=== PATIENT | male | born 1970 | race Caucasian/White ===

== ENCOUNTER 2016-11-29 11:10 | Emergency (ER) | payer MEDICARE ==
--- NOTE | 2016-11-29 11:14 | ER Document Report ---
ED Medical Screen (RME) - General Stated Complaint: PROBLEM WITH STITCHES Mode of Arrival: Ambulatory Information source: Patient Notes: Patient reports stitches for dialysis catheter become loose and the catheter has become displaced. No bleeding from site. Patient states catheters been in place for the past month. hx: Dialysis, diabetes I have greeted and performed a rapid initial assessment of this patient. A comprehensive ED assessment and evaluation of the patient, analysis of test results and completion of the medical decision making process will be conducted by additional ED providers. TRAVEL OUTSIDE OF THE [place] IN LAST 30 DAYS: No - Related Data Allergies/Adverse Reactions: No Known Allergies Allergy (Verified 11/29/16 11:12) Past Medical History - Past Medical History Cardiac Medical History: Reports: Hx Hypertension Endocrine Medical History: Reports: Hx Diabetes Mellitus Type 1 - insulin pump Renal/ Medical History: Reports: Hx End Stage Renal Disease Psychiatric Medical History: Denies: Hx Depression Past Surgical History: Reports: Hx Orthopedic Surgery - r/t traumas x 2 Physical Exam - Skin Notes: Dialysis catheter to right anterior chest wall with loosened suture
--- NOTE | 2016-11-29 12:28 | ER Document Report ---
ED General - General Chief Complaint: Other Stated Complaint: PROBLEM WITH STITCHES Mode of Arrival: Ambulatory Information source: Patient TRAVEL OUTSIDE OF THE [place] IN LAST 30 DAYS: No - HPI Onset: Yesterday - AT DIALYSIS Quality of pain: No pain Associated symptoms: None Exacerbated by: Denies Relieved by: Denies Similar symptoms previously: No Recently seen / treated by doctor: Yes - DIALYSIS YESTERDAY - Related Data Allergies/Adverse Reactions: iodine Allergy (Verified 11/29/16 11:14) Past Medical History - General Information source: Patient - Social History Smoking Status: Current Every Day Smoker Chew tobacco use (# tins/day): No Frequency of alcohol use: None Drug Abuse: None Family History: None Patient has suicidal ideation: No Patient has homicidal ideation: No - Past Medical History Cardiac Medical History: Reports: Hx Hypertension Endocrine Medical History: Reports: Hx Diabetes Mellitus Type 1 - insulin pump Renal/ Medical History: Reports: Hx End Stage Renal Disease. Denies: Hx Peritoneal Dialysis Psychiatric Medical History: Denies: Hx Depression Past Surgical History: Reports: Hx Orthopedic Surgery - r/t traumas x 2 Review of Systems - Review of Systems Constitutional: No symptoms reported EENT: No symptoms reported Cardiovascular: No symptoms reported Respiratory: No symptoms reported Gastrointestinal: No symptoms reported Musculoskeletal: No symptoms reported Skin: See HPI Neurological/Psychological: No symptoms reported Physical Exam - Vital signs Vitals: Temp Pulse Resp BP Pulse Ox 97.6 F 62 18 164/88 H 98 11/29/16 11:15 11/29/16 11:15 11/29/16 11:15 11/29/16 11:15 11/29/16 11:15 Interpretation: Hypertensive - General General appearance: Appears well, Alert In distress: None - HEENT Head: Normocephalic Eyes: Normal Conjunctiva: Normal Ears: Normal Nasal: Normal Mouth/Lips: Normal Mucous membranes: Normal Pharynx: Normal Neck: Normal - Respiratory Respiratory status: No respiratory distress Chest status: Other - Indwelling PermCath enters the skin in the right subclavicular area. The retention suture has become untied but remains in place. The catheter does not appear to be significantly displaced. There is no evidence of infection. - Cardiovascular Rhythm: Regular - Abdominal Inspection: Normal - Extremities General upper extremity: No: Normal inspection - DIALYSIS FISTULA LEFT FOREARM General lower extremity: Normal inspection - Neurological Neuro grossly intact: Yes Cognition: Normal Orientation: AAOx4 - Psychological Associated symptoms: Normal affect, Normal mood - Skin Skin Temperature: Warm Skin Moisture: Dry Skin Color: Normal Skin Turgor: Elastic Course - Vital Signs Vital signs: Temp Pulse Resp BP Pulse Ox 97.6 F 62 18 164/88 H 98 11/29/16 11:15 11/29/16 11:15 11/29/16 11:15 11/29/16 11:15 11/29/16 11:15 Procedures - Additional Procedures SUTURE RE-INFORCED Time performed: 12:44 Notes: 11/29/16 12:49 Retention suture and surrounding skin was prepped briefly with alcohol, using sterile instruments the ends of the untied suture were re-threaded through the holes in the collar and secured with an overhand knot. The suture was further secured with 2 drops of Dermabond adhesive. Discharge - Discharge Clinical Impression: End stage renal disease on dialysis Displacement of permanent sutures, initial encounter Qualifiers: Encounter type: initial encounter Qualified Code(s): T85.622A - Displacement of permanent sutures, initial encounter Condition: Stable Disposition: HOME, SELF-CARE Additional Instructions: RESUME USUAL CARE OF CATHETER, TRY TO DISTURB IT LITTLE POSSIBLE WHEN BATHING. FOLLOW UP FOR DIALYSIS SCHEDULED. RETURN TO E.R. IF PROBLEMS.
[2016-11-29 12:58] VITALS: BP 162/88
== END 2016-11-29 12:55 | disposition home or self-care (01) ==
LOC: ER 11:10
DX: T85.62 Displacement of other specified internal prosthetic devices, implants and grafts (principal); N18.6 End stage renal disease; Z99.2 Dependence on renal dialysis; F17.210 Nicotine dependence, cigarettes, uncomplicated
CPT/HCPCS: 99281

== ENCOUNTER 2016-12-13 20:38 | Emergency (ER) | payer MEDICARE ==
--- NOTE | 2016-12-13 21:25 | ER Document Report ---
ED Medical Screen (RME) - General Stated Complaint: POSSIBLE HIGH BLOOD SUGAR Notes: Patient states he had a fistula repair in his left arm last week, and had a reaction to IV contrast. Was given prednisone. States his blood sugars were over 600 tonight and he has it checked 3 times. His blood sugars have been elevated since last week. States he cannot get them under control. Does have nausea, no vomiting, took Zofran. Also states about 3 weeks ago he had a chest x-ray that said he had interstitial pulmonary edema, and they have been trying to assist with this through dialysis. Patient states he does have some shortness of breath when he lays back. Denies chest pain. I have greeted and performed a rapid initial assessment of this patient. A comprehensive ED assessment and evaluation of the patient, analysis of test results and completion of the medical decision making process will be conducted by additional ED providers. TRAVEL OUTSIDE OF THE [place] IN LAST 30 DAYS: No - Related Data Allergies/Adverse Reactions: iodine Allergy (Verified 12/13/16 21:30) Past Medical History - Past Medical History Cardiac Medical History: Reports: Hx Hypertension Endocrine Medical History: Reports: Hx Diabetes Mellitus Type 1 - insulin pump Renal/ Medical History: Reports: Hx End Stage Renal Disease. Denies: Hx Peritoneal Dialysis Psychiatric Medical History: Denies: Hx Depression Past Surgical History: Reports: Hx Orthopedic Surgery - r/t traumas x 2 Physical Exam - Vital signs Vitals: Temp Pulse Resp BP Pulse Ox 97.9 F 71 16 171/83 H 96 12/13/16 20:56 12/13/16 20:56 12/13/16 20:56 12/13/16 20:56 12/13/16 20:56 Course - Vital Signs Vital signs: Temp Pulse Resp BP Pulse Ox 97.9 F 71 16 171/83 H 96 12/13/16 20:56 12/13/16 20:56 12/13/16 20:56 12/13/16 20:56 12/13/16 20:56
[2016-12-13 22:17] LABS: ABSOLUTE BASOPHILS # (AUTO) 0.1 10^3/uL (0.0-0.2); ABSOLUTE EOSINOPHILS # (AUTO) 0.2 10^3/uL (0.0-0.6); ABSOLUTE LYMPHOCYTES (AUTO) 0.5 10^3/uL (0.5-4.7); ABSOLUTE MONOCYTES (AUTO) 0.4 10^3/uL (0.1-1.4); ABSOLUTE NEUT (AUTO) 5.2 10^3/uL (1.7-8.2); BASOPHILS % (AUTO) 1.1 % (0-2); EOSINOPHILS % (AUTO) 3.2 % (0-6); HEMATOCRIT 34.4 % (37.9-51.0); HEMOGLOBIN 11.2 g/dL (13.5-17.0); HGB HCT DIFFERENCE -0.8; LYMPHOCYTES % (AUTO) 8.2 % (13-45); MEAN CORPUSCULAR HEMOGLOBIN 33.5 pg (27.0-33.4); MEAN CORPUSCULAR HGB CONC 32.6 g/dL (32.0-36.0); MEAN CORPUSCULAR VOLUME 103 fl (80-97); MONOCYTES % (AUTO) 5.9 % (3-13); RED BLOOD COUNT 3.34 10^6/uL (4.35-5.55); RED CELL DISTRIBUTION WIDTH 16.2 % (11.5-14.0); SEGMENTED NEUTROPHILS % (AUTO) 81.6 % (42-78); WHITE BLOOD COUNT 6.4 10^3/uL (4.0-10.5)
[2016-12-13 22:28] LABS: ALANINE AMINOTRANSFERASE 31 U/L (21-72); ALBUMIN 3.9 g/dL (3.5-5.0); ALKALINE PHOSPHATASE 128 U/L (38-126); ANION GAP 16 (5-19); ASPARTATE AMINO TRANSFERASE 21 U/L (17-59); BILIRUBIN,TOTAL 1.2 mg/dL (0.2-1.3); BLOOD UREA NITROGEN 69 mg/dL (7-20); CALCIUM 9.6 mg/dL (8.4-10.2); CARBON DIOXIDE 21 mmol/L (22-30); CHLORIDE 95 mmol/L (98-107); CREATININE RESULT 7.29 mg/dL (0.52-1.25); SODIUM 132.2 mmol/L (137-145); TOTAL PROTEIN 6.8 g/dL (6.3-8.2)
[2016-12-13] MEDS ORDERED: INSULIN REG, HUMAN 100 UNIT/ML 3 ML VIAL (PYX) IV ONE (22:40)
[2016-12-13 22:42] LABS: POTASSIUM 6.4 mmol/L (3.6-5.0)
[2016-12-13 22:43] LABS: GLUCOSE 643 mg/dL (75-110)
[2016-12-13] MEDS ORDERED: DEXTROSE 50%-WATER 25 GM/50 ML DISP.SYRIN IV PRN ×2 (22:43)
[2016-12-13] MEDS ORDERED: NORMAL SALINE 100 ML with INSULIN REGULAR, HUMAN 100 UNIT IV PRN ×2 (22:43)
[2016-12-13] MEDS ORDERED: DEXTROSE 40% GEL 15 GM TUBE PO PRN ×2 (22:43)
[2016-12-13] MEDS ORDERED: GLUCAGON,HUMAN RECOMB 1 MG INJ IM PRN (22:43)
--- NOTE | 2016-12-13 22:59 | ER Document Report ---
ED General - General Chief Complaint: High Blood Sugar Stated Complaint: POSSIBLE HIGH BLOOD SUGAR Notes: Patient is 46-year-old male who presents with complaint of high blood sugar. Patient says he was placed on prednisone because of receiving a CT scan to look at his fistula. He is dialysis patient. He received else's Wednesday and Wednesday. Prednisone his maximal sugars become very elevated. He is on insulin pump. He bolused himself 4 units a few ours before coming into the ER. His blood sugar read over 600 on his Accu-Chek monitor. He therefore came to ER. Says he's been very thirsty. No fevers. No infections. No other complaints at this time. TRAVEL OUTSIDE OF THE [place] IN LAST 30 DAYS: No - Related Data Allergies/Adverse Reactions: iodine Allergy (Verified 12/13/16 21:30) Past Medical History - Social History Smoking Status: Current Every Day Smoker Chew tobacco use (# tins/day): No Frequency of alcohol use: None Drug Abuse: None Family History: None Patient has suicidal ideation: No Patient has homicidal ideation: No - Past Medical History Cardiac Medical History: Reports: Hx Hypertension Endocrine Medical History: Reports: Hx Diabetes Mellitus Type 1 - insulin pump Renal/ Medical History: Reports: Hx End Stage Renal Disease. Denies: Hx Peritoneal Dialysis Psychiatric Medical History: Denies: Hx Depression Past Surgical History: Reports: Hx Orthopedic Surgery - r/t traumas x 2 Review of Systems - Review of Systems Notes: My Normal Review Basic REVIEW OF SYSTEMS: CONSTITUTIONAL : Denies fever, chills, or sweats. Denies recent illness. EENT: Denies eye, ear, throat, or mouth pain or symptoms. Denies nasal or sinus congestion. RESPIRATORY: Denies cough, cold, or chest congestion. Denies shortness of breath, difficulty breathing, or wheezing. GASTROINTESTINAL: Denies abdominal pain. Denies nausea, vomiting, or diarrhea. Denies constipation. Last BM: MUSCULOSKELETAL: Denies neck or back pain or joint pain or swelling. SKIN: Denies rash or skin lesions. NEUROLOGICAL: Denies altered mental status or loss of consciousness. Denies headache. Denies weakness or paralysis or loss of use of either side. Denies problems with gait or speech. Denies sensory or motor loss. ALL OTHER SYSTEMS REVIEWED AND NEGATIVE. Physical Exam - Vital signs Vitals: Temp Pulse Resp BP Pulse Ox 97.9 F 71 16 171/83 H 96 12/13/16 20:56 12/13/16 20:56 12/13/16 20:56 12/13/16 20:56 12/13/16 20:56 - Notes Notes: General Appearance: Well nourished, alert, cooperative, no acute distress, no obvious discomfort. Vitals: reviewed, See vital signs table. Head: no swelling or tenderness to the head Eyes: PERRL, EOMI, Conjuctiva clear Mouth: No decreasd moisture Neck: Supple, no neck tenderness, No thyromegaly Lungs: No wheezing, No rales, No rhonci, No accessory muscle use, good air exchange bilaterally. Heart: Normal rate, Regular rythm, No murmur, no rub Abdomen: Normal BS, soft, No rigidity, No abdominal tenderness, No guarding, no rebound, no abdominal masses, no organomegaly Extremities: strength 5/5 in all extremities, good pulses in all extremities, no swelling or tenderness in the extremities, no edema. Skin: warm, dry, appropriate color, no rash Neuro: speech clear, oriented x 3, normal affect, responds appropriately to questions. Course - Vital Signs Vital signs: Temp Pulse Resp BP Pulse Ox 98.4 F 103 H 18 141/84 H 97 12/13/16 23:30 12/14/16 04:15 12/14/16 04:15 12/14/16 04:15 12/14/16 04:15 - Laboratory Result Diagrams: 12/13/16 21:44 12/14/16 03:10 Laboratory results interpreted by me: 12/13/16 12/13/16 12/14/16 21:44 21:44 00:41 RBC 3.34 L Hgb 11.2 L Hct 34.4 L MCV 103 H MCH 33.5 H RDW 16.2 H Plt Count 108 L Seg Neutrophils % 81.6 H Lymphocytes % 8.2 L Sodium 132.2 L Potassium 6.4 H* Chloride 95 L Carbon Dioxide 21 L BUN 69 H Creatinine 7.29 H Est GFR ( Amer) 10 L Est GFR (Non-Af Amer) 8 L Glucose 643 H* POC Glucose 326 H Alkaline Phosphatase 128 H 12/14/16 12/14/16 01:58 03:10 RBC Hgb Hct MCV MCH RDW Plt Count Seg Neutrophils % Lymphocytes % Sodium Potassium 5.6 H Chloride Carbon Dioxide 21 L BUN 73 H Creatinine 7.54 H Est GFR ( Amer) 10 L Est GFR (Non-Af Amer) 8 L Glucose 119 H POC Glucose 186 H Alkaline Phosphatase - EKG Interpretation by Me Additional EKG results interpreted by me: 12/14/16 03:58 EKG is reviewed and interpreted by me. EKG shows sinus rhythm with rate [address] segment elevation or depression. No ischemic T wave inversions. MS interval, QRS duration, QTC was are within normal range. No old EKG available for comparison. - Transfer of Care Notes: 12/14/16 03:57 Patient is potassium was elevated which is not surprising me that he has such high blood sugar with mild acidosis. After treatment of his blood sugar with insulin his potassium is only 5.6. He scheduled for dialysis today. His blood sugar is now stabilized at 119. He has no anion gap. He looks very well. His heart rate is normal. I feel he is safe to be discharged home. I encourage him to follow up with his dialysis today as scheduled. Encourage him to return to ER immediately if he has intractable vomiting, high blood sugars despite treatment with his insulin pump, or feels unwell. I encourage him to do need to check his blood sugar frequently throughout the day. Patient agrees with plan and will be discharged home. Dictation of this chart was performed using voice recognition software; therefore, there may be some unintended grammatical errors. 12/14/16 04:16 Discharge - Discharge Clinical Impression: Hyperglycemia, End stage renal disease on dialysis, Hyperkalemia Condition: Good Disposition: HOME, SELF-CARE Additional Instructions: Please keep a close eye on your blood sugars over the next 24 hours. Please return to the ER immediately if your blood sugars go above 300 despite attempted treatment with your insulin pump. Please follow up with your dialysis today as scheduled. Please return to the ER if you have any further concerns.
[2016-12-13] MEDS ORDERED: INSULIN REG, HUMAN 100 UNIT/ML 3 ML VIAL (PYX) ONE (23:07)
[2016-12-13] MEDS ORDERED: ONDANSETRON 4 MG TAB.RAPDIS PO ONE (23:50)
[2016-12-13] MEDS ORDERED: OXYCODONE-ACETAMINOPHEN 5-325 MG TABLET PO ONE (23:50)
[2016-12-14] MEDS ORDERED: OXYCODONE-ACETAMINOPHEN 5-325 MG TABLET PO ONE (02:01)
[2016-12-14] MEDS ORDERED: ONDANSETRON HCL INJ/PF 4 MG/2 ML SDV IV ONE (03:31)
[2016-12-14 03:32] LABS: ANION GAP 16 (5-19); BLOOD UREA NITROGEN 73 mg/dL (7-20); CALCIUM 9.6 mg/dL (8.4-10.2); CARBON DIOXIDE 21 mmol/L (22-30); CHLORIDE 100 mmol/L (98-107); CREATININE RESULT 7.54 mg/dL (0.52-1.25); GLUCOSE 119 mg/dL (75-110); POTASSIUM 5.6 mmol/L (3.6-5.0)
[2016-12-14 04:16] VITALS: BP 141/84
--- NOTE | 2016-12-14 08:38 | EKG REPORT ---
SEVERITY:- ABNORMAL ECG - SINUS RHYTHM LEFT ATRIAL ABNORMALITY BORDERLINE LEFT AXIS DEVIATION NONSPECIFIC T ABNORMALITIES, LATERAL LEADS : Confirmed by: Low Rosario 14-Dec-2016 08:38:05
== END 2016-12-14 04:15 | disposition home or self-care (01) ==
LOC: ER 20:38
DX: E10.22 Type 1 diabetes mellitus with diabetic chronic kidney disease (principal); N18.6 End stage renal disease; E87.5 Hyperkalemia; Z96.41 Presence of insulin pump (external) (internal)
CPT/HCPCS: 93005; 99284; 36415; 82962; 85025; 80048; 80053; 71020; 93010; A9270 ×3; J1815; S0119

== ENCOUNTER 2017-06-14 21:24 | Emergency (ER) | payer MEDICARE ==
[2017-06-14] MEDS ORDERED: ONDANSETRON HCL INJ/PF 4 MG/2 ML SDV IV ONE (22:01)
--- NOTE | 2017-06-14 22:02 | ER Document Report ---
ED General - General TRAVEL OUTSIDE OF THE [place] IN LAST 30 DAYS: No <EPIFANIO OJEDA - Last Filed: 06/15/17 07:50> <ASHKAN SALES - Last Filed: 06/15/17 11:00> - General Chief Complaint: High Blood Sugar Stated Complaint: POSSIBLE HIGH BLOOD SUGAR Time Seen by Provider: 06/14/17 21:50 Notes: Patient is a 46-year-old male with a history of type 1 diabetes and end-stage renal disease on dialysis that comes emergency department for chief complaint of elevated blood sugar. He states that he kicked his pump accidentally on Wednesday and has had varying blood glucose levels since that time which have been elevated. He states this evening he started to get nauseated and he had dry heaving. He denies any current symptoms including abdominal pain or chest pain except for some mild current nausea. He had dialysis earlier today. His pump gave him 8.7 units of insulin 1 hour prior to arrival. (EPIFANIO OJEDA) - Related Data Allergies/Adverse Reactions: iodine Allergy (Verified 12/13/16 21:30) Past Medical History - General Information source: Patient - Social History Smoking Status: Never Smoker Frequency of alcohol use: None Drug Abuse: None Lives with: Family Family History: None Patient has suicidal ideation: No Patient has homicidal ideation: No - Past Medical History Cardiac Medical History: Reports: Hx Hypertension Endocrine Medical History: Reports: Hx Diabetes Mellitus Type 1 - insulin pump Renal/ Medical History: Reports: Hx End Stage Renal Disease. Denies: Hx Peritoneal Dialysis - HD pt. Psychiatric Medical History: Denies: Hx Depression Past Surgical History: Reports: Hx Orthopedic Surgery - r/t traumas x 2 - Immunizations Hx Diphtheria, Pertussis, Tetanus Vaccination: Yes <EPIFANIO OJEDA - Last Filed: 06/15/17 07:50> Review of Systems - Review of Systems Constitutional: See HPI EENT: No symptoms reported Cardiovascular: No symptoms reported Respiratory: No symptoms reported Gastrointestinal: See HPI Genitourinary: No symptoms reported Male Genitourinary: No symptoms reported Musculoskeletal: No symptoms reported Skin: No symptoms reported Hematologic/Lymphatic: No symptoms reported Neurological/Psychological: No symptoms reported <EPIFANIO OJEDA - Last Filed: 06/15/17 07:50> Physical Exam - Vital signs Interpretation: Normal - General General appearance: Appears well In distress: None - HEENT Head: Normocephalic, Atraumatic Eyes: Normal Conjunctiva: Normal Extraocular movements intact: Yes Eyelashes: Normal Pupils: PERRL Mouth/Lips: Normal Mucous membranes: Normal Pharynx: Normal Neck: Normal - Respiratory Respiratory status: No respiratory distress Chest status: Nontender Breath sounds: Normal. No: Decreased air movement, Wheezing Chest palpation: Normal - Cardiovascular Rhythm: Regular. No: Tachycardia Heart sounds: Normal auscultation, S1 appreciated, S2 appreciated Murmur: No - Abdominal Inspection: Normal Distension: No distension Bowel sounds: Normal Tenderness: Nontender. No: Tender, Guarding Organomegaly: No organomegaly - Back Back: Normal, Nontender. 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 Sensory: Normal - Psychological Associated symptoms: Normal affect, Normal mood - Skin Skin Temperature: Warm Skin Moisture: Dry Skin Color: Normal <EPIFANIO OJEDA - Last Filed: 06/15/17 07:50> - Vital signs Vitals: Temp Pulse Resp BP Pulse Ox 98.8 F 80 20 196/83 H 95 06/14/17 21:38 06/14/17 21:38 06/14/17 21:38 06/14/17 21:38 06/14/17 21:38 Course - Laboratory Result Diagrams: 06/14/17 22:30 06/15/17 06:38 <EPIFANIO OJEDA - Last Filed: 06/15/17 07:50> - Laboratory Result Diagrams: 06/14/17 22:30 06/15/17 08:38 <ASHKAN SALES - Last Filed: 06/15/17 11:00> - Re-evaluation Re-evalutation: Marked hyperglycemia at greater than 1000, bicarbonate is 17, anion gap is 22. PH is actually in a normal range. Patient is not tachycardic. Patient did vomit once more in the department but he is not confused and he is very cooperative. Will initiate insulin protocol, given zofran for nausea initially, patient complaining of chronic back pain and nausea, given additional morphine and zofran, this time patient felt much improved and appears relaxed. EKG showing peaked T-waves. Potassium 5.7. Giving calcium gluconate. Discussed with Dr. Xiong. Recommends checking serum osmo. and admit. Discussed with Dr. Tenorio. Recommends transfer to different facility for dialysis due to ESRD with potassium of 5.7 with peaked T-waves on EKG. Patient declines, states he is willing to stay for treatment but does not want to be transferred. Will continue insulin drip and repeat labs. Repeat labs show slightly worsening glucose at 1100 and potassium at 5.9. Patient still states he feels improved. Discussed with Dr. Xiong again, recommends 20 unit insulin bolus, insulin protocol already has led to an increase as well, and recheck BMP in another hour. He spoke with Dr. Xiong. Recommendation is transfer. No Nephrology coverage for 6 days. 06/15/17 Discussed with patient at length. Recommendation is for transfer. Patient states he is willing to stay in the ED for treatment but he refuses transfer. Will continue to trend. 06/15/17 07:[address] Felix. He recommends there is likely a pump malfunction. He recommends patient transition to subQ insulin (long acting and sliding scale) 06/15/17 07:49 Introduced to Ashkan Sales PA-C at bedside, plan is to downtrending patient's glucose, have him transition to insulin at home which he already has, he states he has both Lantus and NovoLog and he already knows which doses to take based on his weight. He also states that he can be seen by his provider within the next day and he knows how to adjust/manage his pump. He states he wants to go home and he will return if he worsens. (EPIFANIO OJEDA) 06/15/17 10:59 Patient was given another dose of zofran 4mg and morphine 3mg IV I will give him a Rx for zofran to take home. pt's glucose decreased to 378 by accucheck. K+ wnl at 3.9 d/c home in stable condition. no new concerns or complaints. pt states he is feeling much better than when he first arrived. (ASHKAN SALES) - Vital Signs Vital signs: Temp Pulse Resp BP Pulse Ox 97.8 F 80 17 153/75 H 95 06/15/17 09:23 06/14/17 21:38 06/15/17 08:31 06/15/17 08:31 06/15/17 08:31 - Laboratory Laboratory results interpreted by me: 06/14/17 06/14/17 06/14/17 22:30 22:30 22:30 RBC 3.69 L Hgb 12.4 L MCV 105 H MCH 33.6 H MCHC 31.9 L Plt Count 102 L Seg Neutrophils % 85.3 H Lymphocytes % 7.4 L VBG HCO3 19.9 L Sodium 129.0 L Potassium 5.7 H Chloride 90 L Carbon Dioxide 17 L Anion Gap 22 H BUN 39 H Creatinine 5.46 H Est GFR ( Amer) 14 L Est GFR (Non-Af Amer) 11 L Glucose 1043 H* POC Glucose Serum Osmolality Total Bilirubin 1.6 H Direct Bilirubin 1.0 H Alkaline Phosphatase 128 H 06/14/17 06/15/17 06/15/17 22:30 02:40 04:35 RBC Hgb MCV MCH MCHC Plt Count Seg Neutrophils % Lymphocytes % VBG HCO3 Sodium 128.0 L 130.4 L Potassium 5.9 H Chloride 91 L 91 L Carbon Dioxide 16 L 19 L Anion Gap 21 H 20 H BUN 46 H 51 H Creatinine 5.70 H 5.77 H Est GFR ( Amer) 13 L 13 L Est GFR (Non-Af Amer) 11 L 11 L Glucose 1101 H* 936 H* POC Glucose Serum Osmolality 339 H Total Bilirubin Direct Bilirubin Alkaline Phosphatase 06/15/17 06/15/17 06/15/17 06:38 08:38 10:41 RBC Hgb MCV MCH MCHC Plt Count Seg Neutrophils % Lymphocytes % VBG HCO3 Sodium 130.0 L 130.7 L Potassium Chloride 91 L 93 L Carbon Dioxide Anion Gap BUN 51 H 55 H Creatinine 5.99 H 6.04 H Est GFR ( Amer) 12 L 12 L Est GFR (Non-Af Amer) 10 L 10 L Glucose 771 H* 601 H* POC Glucose 378 H Serum Osmolality Total Bilirubin Direct Bilirubin Alkaline Phosphatase Discharge <FRIANT,EPIFANIO - Last Filed: 06/15/17 07:50> <ASHKAN SALES - Last Filed: 06/15/17 11:00> - Discharge Clinical Impression: Hyperglycemia Nausea & vomiting Qualifiers: Vomiting type: unspecified Vomiting Intractability: non-intractable Qualified Code(s): R11.2 - Nausea with vomiting, unspecified Condition: Stable Disposition: HOME, SELF-CARE Instructions: Antinausea Medication ([facility]) Additional Instructions: Your abnormal blood glucose and chemistries are most likely from an incorrectly insulin pump. Please use your Lantus and sliding scale NovoLog today, please follow-up with your primary care within the next day to have your insulin pump checked and for additional management. Please return immediately if you worsen in any way including returned nausea/ vomiting, or any other concerning symptoms. Prescriptions: Ondansetron [Zofran Odt 4 mg Tablet] 1 tab PO BID #6 tab.rapdis Forms: Elevated Blood Pressure Referrals: [facility] [Provider Group] - Follow up tomorrow
[2017-06-14 22:49] LABS: ABSOLUTE BASOPHILS # (AUTO) 0.1 10^3/uL (0.0-0.2); ABSOLUTE EOSINOPHILS # (AUTO) 0.1 10^3/uL (0.0-0.6); ABSOLUTE LYMPHOCYTES (AUTO) 0.5 10^3/uL (0.5-4.7); ABSOLUTE MONOCYTES (AUTO) 0.3 10^3/uL (0.1-1.4); ABSOLUTE NEUT (AUTO) 5.3 10^3/uL (1.7-8.2); BASOPHILS % (AUTO) 1.1 % (0-2); EOSINOPHILS % (AUTO) 1.3 % (0-6); HEMATOCRIT 38.8 % (37.9-51.0); HEMOGLOBIN 12.4 g/dL (13.5-17.0); HGB HCT DIFFERENCE -1.6; LYMPHOCYTES % (AUTO) 7.4 % (13-45); MEAN CORPUSCULAR HEMOGLOBIN 33.6 pg (27.0-33.4); MEAN CORPUSCULAR HGB CONC 31.9 g/dL (32.0-36.0); MEAN CORPUSCULAR VOLUME 105 fl (80-97); MONOCYTES % (AUTO) 4.9 % (3-13); RED BLOOD COUNT 3.69 10^6/uL (4.35-5.55); RED CELL DISTRIBUTION WIDTH 13.8 % (11.5-14.0); SEGMENTED NEUTROPHILS % (AUTO) 85.3 % (42-78); VENOUS BLOOD BASE EXCESS -5.6 mmol/L; VENOUS BLOOD HCO3 19.9 mmol/L (20-32); VENOUS BLOOD PH 7.33 (7.30-7.42); WHITE BLOOD COUNT 6.2 10^3/uL (4.0-10.5)
[2017-06-14 23:08] LABS: ALANINE AMINOTRANSFERASE 23 U/L (21-72); ALBUMIN 4.3 g/dL (3.5-5.0); ALKALINE PHOSPHATASE 128 U/L (38-126); ASPARTATE AMINO TRANSFERASE 22 U/L (17-59); BILIRUBIN,TOTAL 1.6 mg/dL (0.2-1.3); BLOOD UREA NITROGEN 39 mg/dL (7-20); CALCIUM 9.7 mg/dL (8.4-10.2); CHLORIDE 90 mmol/L (98-107); CREATININE RESULT 5.46 mg/dL (0.52-1.25); TOTAL PROTEIN 7.1 g/dL (6.3-8.2)
[2017-06-14 23:21] LABS: GLUCOSE 1043 mg/dL (75-110)
[2017-06-14 23:23] LABS: CARBON DIOXIDE 17 mmol/L (22-30); POTASSIUM 5.7 mmol/L (3.6-5.0)
[2017-06-14 23:24] LABS: ANION GAP 22 (5-19)
[2017-06-15] MEDS ORDERED: NORMAL SALINE 100 ML with INSULIN REGULAR, HUMAN 100 UNIT IV PRN ×2 (00:02)
[2017-06-15] MEDS ORDERED: ONDANSETRON HCL INJ/PF 4 MG/2 ML SDV IV ONE ×3 (00:02→08:29)
[2017-06-15] MEDS ORDERED: MORPHINE SULFATE 10 MG/ML INJ IV ONE ×2 (00:02→09:30)
[2017-06-15] MEDS ORDERED: CALCIUM GLUCONATE 1000 MG/10 ML INJ IV ONE (00:21)
[2017-06-15] MEDS ORDERED: INSULIN REG, HUMAN 100 UNIT/ML 3 ML VIAL (PYX) ONE (00:51)
[2017-06-15] MEDS ORDERED: NORMAL SALINE 1000 ML 1,000 ML IV PRN (01:18)
[2017-06-15] MEDS ORDERED: DEXTROSE 50%-WATER 25 GM/50 ML DISP.SYRIN IV PRN ×2 (01:41)
[2017-06-15] MEDS ORDERED: DEXTROSE 40% GEL 15 GM TUBE PO PRN ×2 (01:41)
[2017-06-15] MEDS ORDERED: GLUCAGON,HUMAN RECOMB 1 MG INJ IM PRN (01:41)
[2017-06-15 03:05] LABS: BLOOD UREA NITROGEN 46 mg/dL (7-20); CALCIUM 9.3 mg/dL (8.4-10.2); CHLORIDE 91 mmol/L (98-107)
[2017-06-15 03:18] LABS: CARBON DIOXIDE 16 mmol/L (22-30); POTASSIUM 5.9 mmol/L (3.6-5.0)
[2017-06-15 03:19] LABS: ANION GAP 21 (5-19); GLUCOSE 1101 mg/dL (75-110)
[2017-06-15] MEDS ORDERED: INSULIN REG, HUMAN 100 UNIT/ML 3 ML VIAL (PYX) IV ONE (03:39)
[2017-06-15 04:57] LABS: BLOOD UREA NITROGEN 51 mg/dL (7-20); CALCIUM 9.4 mg/dL (8.4-10.2); CARBON DIOXIDE 19 mmol/L (22-30); CHLORIDE 91 mmol/L (98-107); CREATININE RESULT 5.77 mg/dL (0.52-1.25)
[2017-06-15 05:04] LABS: SODIUM 130.4 mmol/L (137-145)
[2017-06-15 05:13] LABS: GLUCOSE 936 mg/dL (75-110)
[2017-06-15 05:14] LABS: ANION GAP 20 (5-19); POTASSIUM 4.4 mmol/L (3.6-5.0)
[2017-06-15 07:00] LABS: ANION GAP 17 (5-19); BLOOD UREA NITROGEN 51 mg/dL (7-20); CALCIUM 9.4 mg/dL (8.4-10.2); CARBON DIOXIDE 22 mmol/L (22-30); CHLORIDE 91 mmol/L (98-107); CREATININE RESULT 5.99 mg/dL (0.52-1.25); POTASSIUM 3.9 mmol/L (3.6-5.0)
[2017-06-15 07:18] LABS: GLUCOSE 771 mg/dL (75-110)
--- NOTE | 2017-06-15 08:02 | EKG REPORT ---
SEVERITY:- ABNORMAL ECG - SINUS RHYTHM LEFT ATRIAL ABNORMALITY LEFT ANTERIOR FASCICULAR BLOCK PROLONGED QT INTERVAL : Confirmed by: Joe James MD 15-Jun-2017 08:01:35
[2017-06-15 09:06] LABS: ANION GAP 14 (5-19); BLOOD UREA NITROGEN 55 mg/dL (7-20); CALCIUM 9.6 mg/dL (8.4-10.2); CARBON DIOXIDE 24 mmol/L (22-30); CHLORIDE 93 mmol/L (98-107); CREATININE RESULT 6.04 mg/dL (0.52-1.25); POTASSIUM 3.9 mmol/L (3.6-5.0); SODIUM 130.7 mmol/L (137-145)
[2017-06-15 09:15] LABS: GLUCOSE 601 mg/dL (75-110)
[2017-06-15 11:10] VITALS: BP 136/64
== END 2017-06-15 11:10 | disposition home or self-care (01) ==
LOC: ER 21:24
DX: E10.65 Type 1 diabetes mellitus with hyperglycemia (principal); Z96.41 Presence of insulin pump (external) (internal); E10.22 Type 1 diabetes mellitus with diabetic chronic kidney disease; I12.0 Hypertensive chronic kidney disease with stage 5 chronic kidney disease or end stage renal disease; N18.6 End stage renal disease; Z99.2 Dependence on renal dialysis; R11.2 Nausea with vomiting, unspecified; M54.9 Dorsalgia, unspecified; G89.29 Other chronic pain
CPT/HCPCS: 93005; 96376; 99285; 96361; 96375; 96365; 36415; 82962; 83930; 85025; 80048; 80053; 82803; 93010; L1830; J0610; J2270; J2405 ×2; J7030

== ENCOUNTER 2017-06-15 21:20 | Inpatient (IN) | payer MEDICARE ==
[2017-06-15] MEDS ORDERED: MORPHINE SULFATE 10 MG/ML INJ IV ONE (21:28)
--- NOTE | 2017-06-15 21:31 | ER Document Report ---
ED General - General Chief Complaint: High Blood Sugar Stated Complaint: WEAKNESS,NAUSEA Time Seen by Provider: 06/15/17 21:24 Notes: Patient is a 46-year-old male who comes emergency department for chief complaint of vomiting and high blood sugar. He was discharged from this facility yesterday for the same issue. He has an insulin pump, they were concerned it was not working correctly, he states he gave himself subcutaneous NovoLog as he was instructed, he started throwing up a short while after he left the hospital, he states he has vomited multiple times. He denies hematemesis, he denies any specific areas of abdominal pain, he denies chest pain. He also has end-stage renal disease, on dialysis, is due for dialysis tomorrow. TRAVEL OUTSIDE OF THE [place] IN LAST 30 DAYS: No - Related Data Allergies/Adverse Reactions: iodine Allergy (Verified 12/13/16 21:30) Home Medications: Current Home Medications Amlodipine Besylate 10 mg PO DAILY 06/15/17 [History] Calcium Acetate 2 tab PO ASDIR PRN 06/15/17 [History] Hydralazine HCl 50 mg PO BID 06/15/17 [History] Hydroxyzine HCl 50 mg PO DAILY PRN 06/15/17 [History] Vit B Cmplx 3/FA/Vit C/Biotin [Lyndsey-Lita Rx Tablet] 1 each PO DAILY 06/15/17 [ History] Past Medical History - General Information source: Patient - Social History Smoking Status: Never Smoker Frequency of alcohol use: None Drug Abuse: None Lives with: Family Family History: None - Past Medical History Cardiac Medical History: Reports: Hx Hypertension Endocrine Medical History: Reports: Hx Diabetes Mellitus Type 1 - insulin pump Renal/ Medical History: Reports: Hx End Stage Renal Disease. Denies: Hx Peritoneal Dialysis - HD pt. Psychiatric Medical History: Denies: Hx Depression Past Surgical History: Reports: Hx Orthopedic Surgery - r/t traumas x 2 - Immunizations Hx Diphtheria, Pertussis, Tetanus Vaccination: Yes Review of Systems - Review of Systems Constitutional: See HPI EENT: No symptoms reported Cardiovascular: No symptoms reported Respiratory: No symptoms reported Gastrointestinal: See HPI Genitourinary: No symptoms reported Male Genitourinary: No symptoms reported Musculoskeletal: No symptoms reported Skin: No symptoms reported Hematologic/Lymphatic: No symptoms reported Neurological/Psychological: No symptoms reported Physical Exam - Vital signs Vitals: Pulse Ox 97 06/15/17 21:24 Interpretation: Normal - General General appearance: Other - patient slightly pale and appears worn out - HEENT Head: Normocephalic, Atraumatic Eyes: Normal Conjunctiva: Normal Extraocular movements intact: Yes Eyelashes: Normal Pupils: PERRL Sinus: Normal Nasal: Normal Mouth/Lips: Normal Mucous membranes: Normal Pharynx: Normal Neck: Normal - Respiratory Respiratory status: No respiratory distress Chest status: Nontender Breath sounds: Normal. No: Decreased air movement, Nonproductive cough, Wheezing Chest palpation: Normal - Cardiovascular Rhythm: Regular. No: Tachycardia Heart sounds: Normal auscultation, S1 appreciated, S2 appreciated Murmur: No - Abdominal Inspection: Normal Distension: No distension Bowel sounds: Normal Tenderness: Tender - mild generalized tenderness. No: Lebron's sign, Guarding Organomegaly: No organomegaly - Back Back: Normal, Nontender. No: Tender, CVA tenderness - Extremities General upper extremity: Normal inspection, Nontender, Normal ROM, Normal strength General lower extremity: Normal inspection, Nontender, Normal ROM, Normal strength - Neurological Neuro grossly intact: Yes Cognition: Normal Orientation: AAOx4 [place] Coma Scale Eye Opening: Spontaneous [place] Coma Scale Verbal: Oriented [place] Coma Scale Motor: Obeys Commands Robert Coma Scale Total: 15 Speech: Normal Motor strength normal: LUE, RUE, LLE, RLE Sensory: Normal - Psychological Associated symptoms: Normal affect, Normal mood - Skin Skin Temperature: Warm Skin Moisture: Diaphoretic Skin Color: Pale Course - Re-evaluation Re-evalutation: Patient vomiting, appears ill. Blood pressure borderline low. Difficult to establish additional access. I eventually placed a left sided EJ, patient also has an 18 gauge right AC. Chemistry showing hyperglycemia at 653, bicarbonate is low, potassium is elevated at 6.2. EKG again shows peaked T waves. Venous blood gas does show pH of 7.2. Patient started on insulin drip, given calcium gluconate, patient will be given amp of bicarbonate and started on bicarb drip. Will confirm this with nephrology if possible. Discussed with Dr. Up. I called rice drier operator, we do not have nephrology operational risk analyst, however I am informed that if the patient is a specific patient of an available senior editor they can be contacted. They were able to reach Dr. Edgar, he recommends the patient should be put on bicarb drip, given a little bit of fluids, and he will perform dialysis on the patient tomorrow as scheduled if the hospitalist will admit the patient. Discussed with Dr. Up. Discussed with Dr. Rodriguez, internal medicine, he will admit to the ICU. Patient verbalizes agreement with this plan. - Vital Signs Vital signs: Temp Pulse Resp BP Pulse Ox 98.4 F 68 12 140/75 H 98 06/16/17 04:43 06/16/17 04:43 06/16/17 04:43 06/16/17 04:43 06/16/17 04:43 - Laboratory Result Diagrams: 06/15/17 21:52 06/16/17 02:04 Laboratory results interpreted by me: 06/15/17 06/15/17 06/15/17 21:52 21:52 21:52 RBC 3.42 L Hgb 11.4 L Hct 34.3 L MCV 100 H D Plt Count 105 L Seg Neutrophils % 87.4 H Lymphocytes % 7.3 L Absolute Neutrophils 8.5 H VBG pH 7.20 L VBG HCO3 14.7 L Sodium 127.0 L Potassium 6.2 H* D Chloride 88 L Carbon Dioxide 11 L D Anion Gap 28 H BUN 62 H Creatinine 7.03 H Est GFR ( Amer) 10 L Est GFR (Non-Af Amer) 9 L Glucose 654 H* Total Bilirubin 1.5 H Direct Bilirubin 1.0 H 06/16/17 02:04 RBC Hgb Hct MCV Plt Count Seg Neutrophils % Lymphocytes % Absolute Neutrophils VBG pH VBG HCO3 Sodium 130.5 L Potassium Chloride 90 L Carbon Dioxide 11 L Anion Gap 30 H BUN 69 H Creatinine 7.32 H Est GFR ( Amer) 10 L Est GFR (Non-Af Amer) 8 L Glucose 641 H* Total Bilirubin Direct Bilirubin Critical Care Note - Critical Care Note Total time excluding time spent on procedures (mins): 40 - Diabetic ketoacidosis , vomiting, hyperkalemia Comments: Please allow 40 minutes of critical care time for treatment of patient with diabetic ketoacidosis requiring insulin drip, bicarbonate bolus and drip, treatments for hyperkalemia, consultation with specialty, multiple re- evaluations, consultation and admission to the ICU. Discharge - Discharge Clinical Impression: Hyperkalemia DKA (diabetic ketoacidoses) Qualifiers: Diabetes mellitus type: type 1 Diabetes mellitus complication detail: without coma Qualified Code(s): E10.10 - Type 1 diabetes mellitus with ketoacidosis without coma Vomiting Qualifiers: Vomiting type: unspecified Vomiting Intractability: non-intractable Nausea presence: with nausea Qualified Code(s): R11.2 - Nausea with vomiting, unspecified Condition: Fair Disposition: ADMITTED INPATIENT Admitting Provider: Hospitalist Unit Admitted: ICU
[2017-06-15] MEDS ORDERED: DIPHENHYDRAMINE HCL 50 MG/ML VIAL IV ONE ×2 (21:54→23:29)
[2017-06-15 22:06] LABS: ABSOLUTE BASOPHILS # (AUTO) 0.1 10^3/uL (0.0-0.2); ABSOLUTE LYMPHOCYTES (AUTO) 0.7 10^3/uL (0.5-4.7); ABSOLUTE MONOCYTES (AUTO) 0.4 10^3/uL (0.1-1.4); ABSOLUTE NEUT (AUTO) 8.5 10^3/uL (1.7-8.2); BASOPHILS % (AUTO) 0.7 % (0-2); EOSINOPHILS % (AUTO) 0.4 % (0-6); HEMATOCRIT 34.3 % (37.9-51.0); HEMOGLOBIN 11.4 g/dL (13.5-17.0); HGB HCT DIFFERENCE -0.1; LYMPHOCYTES % (AUTO) 7.3 % (13-45); MEAN CORPUSCULAR HEMOGLOBIN 33.4 pg (27.0-33.4); MEAN CORPUSCULAR HGB CONC 33.3 g/dL (32.0-36.0); MONOCYTES % (AUTO) 4.2 % (3-13); RED BLOOD COUNT 3.42 10^6/uL (4.35-5.55); RED CELL DISTRIBUTION WIDTH 13.5 % (11.5-14.0); SEGMENTED NEUTROPHILS % (AUTO) 87.4 % (42-78); WHITE BLOOD COUNT 9.8 10^3/uL (4.0-10.5)
[2017-06-15 22:07] LABS: VENOUS BLOOD BASE EXCESS -12.7 mmol/L; VENOUS BLOOD HCO3 14.7 mmol/L (20-32); VENOUS BLOOD PCO2 38.8 mmHg (35-63); VENOUS BLOOD PH 7.2 (7.30-7.42)
[2017-06-15 22:14] LABS: MEAN CORPUSCULAR VOLUME 100 fl (80-97)
[2017-06-15 22:20] LABS: ALANINE AMINOTRANSFERASE 23 U/L (21-72); ALBUMIN 4.2 g/dL (3.5-5.0); ALKALINE PHOSPHATASE 97 U/L (38-126); ASPARTATE AMINO TRANSFERASE 17 U/L (17-59); BILIRUBIN,TOTAL 1.5 mg/dL (0.2-1.3); BLOOD UREA NITROGEN 62 mg/dL (7-20); CALCIUM 9.6 mg/dL (8.4-10.2); CREATININE RESULT 7.03 mg/dL (0.52-1.25); TOTAL PROTEIN 6.7 g/dL (6.3-8.2)
[2017-06-15 22:27] LABS: CHLORIDE 88 mmol/L (98-107)
[2017-06-15 22:29] LABS: CARBON DIOXIDE 11 mmol/L (22-30)
[2017-06-15 22:31] LABS: GLUCOSE 654 mg/dL (75-110)
[2017-06-15] MEDS ORDERED: NORMAL SALINE 100 ML with INSULIN REGULAR, HUMAN 100 UNIT IV PRN ×2 (22:31)
[2017-06-15 22:32] LABS: ANION GAP 28 (5-19); POTASSIUM 6.2 mmol/L (3.6-5.0)
[2017-06-15] MEDS ORDERED: CALCIUM GLUCONATE 1000 MG/10 ML INJ IV ONE (22:36)
[2017-06-15] MEDS ORDERED: DEXTROSE 50%-WATER 25 GM/50 ML DISP.SYRIN IV PRN ×2 (22:36)
[2017-06-15] MEDS ORDERED: GLUCAGON,HUMAN RECOMB 1 MG INJ IM PRN (22:36)
[2017-06-15] MEDS ORDERED: DEXTROSE 40% GEL 15 GM TUBE PO PRN ×2 (22:36)
[2017-06-15] MEDS ORDERED: DEXTROSE 5%-WATER 1000 ML 1,000 ML with SODIUM BICARBONATE 150 MEQ IV PRN ×2 (23:02)
[2017-06-15] MEDS ORDERED: SODIUM BICARBONATE 8.4% INJ 50 MEQ/50 ML DISP.SYRIN IV ONE (23:03)
[2017-06-15] MEDS ORDERED: NORMAL SALINE 1000 ML 1,000 ML IV PRN (23:04)
[2017-06-15] MEDS ORDERED: INSULIN REG, HUMAN 100 UNIT/ML 3 ML VIAL (PYX) ONE ×3 (23:09→23:21)
[2017-06-15] MEDS ORDERED: DIPHENHYDRAMINE HCL 50 MG/ML VIAL ONE (23:13)
[2017-06-15] MEDS ORDERED: NORMAL SALINE 1000 ML 500 ML IV ONE (23:29)
[2017-06-15] MEDS ORDERED: SODIUM BICARBONATE 8.4% INJ 50 MEQ/50 ML DISP.SYRIN ONE (23:43)
--- NOTE | 2017-06-16 01:34 | RADIOLOGY REPORT (SQ) ---
EXAM DESCRIPTION: CHEST SINGLE VIEW COMPLETED DATE/TIME: 06/16/2017 1:09 am REASON FOR STUDY: vomiting, acidosis COMPARISON: Chest x-ray 12/13/2016. EXAM PARAMETERS: NUMBER OF VIEWS: One view. TECHNIQUE: Single frontal radiographic view of the chest acquired. RADIATION DOSE: NA LIMITATIONS: None. FINDINGS: LUNGS AND PLEURA: There are trace bilateral pleural effusions. There are bibasilar ground -glass opacities. No pneumothorax. MEDIASTINUM AND HILAR STRUCTURES: No masses. Contour normal. HEART AND VASCULAR STRUCTURES: The heart is enlarged. There is mild central vascular congestion. BONES: No acute findings. HARDWARE: A vascular stent is noted in the left upper arm. IMPRESSION: Cardiomegaly and mild central vascular congestion. Trace bilateral pleural effusions. Bibasilar ground-glass opacities, may represent atelectasis or pneumonia. TECHNICAL DOCUMENTATION: JOB ID: [id number]
[2017-06-16 02:36] LABS: BLOOD UREA NITROGEN 69 mg/dL (7-20); CALCIUM 9.6 mg/dL (8.4-10.2); CREATININE RESULT 7.32 mg/dL (0.52-1.25); MAGNESIUM 2.2 mg/dL (1.6-2.3)
[2017-06-16] MEDS ORDERED: GLUCAGON,HUMAN RECOMB 1 MG INJ IM PRN ×2 (02:41→17:38)
[2017-06-16] MEDS ORDERED: DEXTROSE 50%-WATER 25 GM/50 ML DISP.SYRIN IV PRN ×2 (02:41)
[2017-06-16] MEDS ORDERED: NORMAL SALINE 100 ML with INSULIN REGULAR, HUMAN 100 UNIT IV PRN ×2 (02:41)
[2017-06-16] MEDS ORDERED: DEXTROSE 40% GEL 15 GM TUBE PO PRN ×3 (02:41→17:38)
[2017-06-16] MEDS ORDERED: ACETAMINOPHEN 325 MG TABLET PO PRN (02:49)
[2017-06-16] MEDS ORDERED: AZITHROMYCIN 500 MG in DEXTROSE 5%-WATER 250 ML IV SCH (02:50)
[2017-06-16] MEDS ORDERED: PHARMACY COMMUNICATION ORDER MC SCH (03:00)
[2017-06-16 03:02] LABS: CARBON DIOXIDE 11 mmol/L (22-30); CHLORIDE 90 mmol/L (98-107); SODIUM 130.5 mmol/L (137-145)
[2017-06-16 03:08] LABS: ANION GAP 30 (5-19); POTASSIUM 4.9 mmol/L (3.6-5.0)
[2017-06-16] MEDS ORDERED: AZITHROMYCIN INJ 500 MG VIAL IV PRN (03:08)
[2017-06-16 03:15] LABS: GLUCOSE 641 mg/dL (75-110)
--- NOTE | 2017-06-16 03:21 | PDOC H&P ---
History of Present Illness Admission Date/PCP: 06/16/17 02:[address] Edgar Patient complains of: N/V, high blood sugar History of Present Illness: MADISYN JOHNSON is a 46 year old male with underlying insulin- dependent diabetes mellitus, currently on insulin pump, along with hypertension , arthritis, and end-stage renal disease, on Wednesday hemodialysis who presents to the emergency room for the second time in approximately 24 hours for above complaints. Patient has been discussed with emergency room nurse practitioner who evaluated the patient. Nurse practitioner attempted to admit the patient during his first ER visit but patient decided to go home. Shortly after arriving home, he once again began vomiting multiple times, with no hematemesis. Thinks he may have been sleeping on his insulin pump tubing, kinking off the tubing. No chest or abdominal pain. Denies any "sore spots" anywhere on his body. No diarrhea. Makes only very small amount of urine each day. He is compliant with his hemodialysis session; last session was the fourth of this month. Prior to my being called, the nurse practitioner did speak to Dr. Edgar,, his cut off sawyer log, who has agreed to see the patient in consultation. He also discussed with Dr. Edgar IV fluid requirements, along with starting patient on bicarb drip. Dictation via voice recognition software. Laboratory results are listed in [facility] and are reviewed. X-ray summary results are listed below, with full report(s) reviewed. . EKG reviewed and compared to prior tracing from earlier on the fifth. Social history/personal habits: . Has children. On disability. Pack of cigarettes every 5 days. Rare alcohol. Denies illicit drug use. Allergies/adverse reactions are listed in [facility] and are reviewed. Intravenous iodine causes nausea and vomiting along with itching. Home medications initially autopopulated into [employer] may not accurately reflect patient's true medications, dosages, and/or frequencies. dev technical mgr to reconcile medications. Unfortunately, patient not certain of all medications/dosages/frequencies. REVIEW OF SYSTEMS: Constitutional: No fever or chills. Eyes: Wears glasses. ENT: No swallowing problems or complaints. Denies hearing loss. Pulmonary: No current complaints. Cardiovascular: No current complaints, including chest pain. Gastrointestinal: See history and present illness. Skin: No current complaints, including rashes. Hematologic: Denies easy bruising. Neurologic: Chronic weakness on bilateral dorsiflexion of feet. Without recent change. Musculoskeletal: Joint pain from arthritis. Psychiatric: Denies anxiety or depression. Endocrine: No current complaints, including polyuria. Genitourinary: No current complaints, including dysuria. PHYSICAL EXAMINATION: 6 feet 2 inches tall. 85 kg. BMI 24.1 kg/m. Blood pressure 135/70. Pulse 70 and regular. 99% saturation on room air. Respirations are 16 and unlabored. Temperature 98.5. Thin otherwise well-developed though chronically ill-appearing male who appears a number of years older than his stated age. Appears fairly fatigued, and feel a bit under the weather, so to speak. Otherwise, pleasant and cooperative. Skin is warm and dry. No grossly obvious evidence of rash in areas of skin examined. No subcutaneous nodules palpated. ENT: Hearing grossly normal to normal conversation. Tongue midline on protrusion pink and slightly tacky. Eyes: No scleral icterus. Pupils equal and reactive to light at 4 mm. [place] conjunctivae. Neck is supple and nontender to gentle active range of motion and palpation. Midline trachea. No palpable thyroid nodule mass enlargement or tenderness. Lymphatic: No palpable cervical or clavicular nodes. Neck and lymphatic exams limited by patient body habitus. Psychiatric: Reasonable insight into acute and chronic medical issues. Oriented to time location and why here. Lungs: Auscultation reveals clear and equal breath sounds bilaterally. No use of accessory respiratory muscles. Cardiovascular: Heart regular rate and rhythm, without gallop or rub. No carotid or abdominal aortic bruits. No ankle or pedal edema. Faintly palpable dorsalis pedis pulses. 1/6 holosystolic ejection murmur heard at cardiac apex. Pulsatile left upper extremity fistula. Abdomen:soft slightly distended nontender with positive bowel sounds. Unable to adequately evaluate abdomen for masses or organomegaly due to distention. Extremities: Feet are warm and dry. No calf tenderness to compression. No grossly obvious visual evidence of calf swelling. Gentle manipulation of lower extremities fails to reveal any obvious evidence of injury or instability to knees hips or ankles. Neurologic: Moves upper extremities grossly normally. Patellar reflexes absent. Absent Babinski. Light touch is intact at feet. Plantarflexion of feet 5 / 5 and symmetric. Dorsiflexion of feet 3/5 and symmetric; a chronic finding according to patient, without recent change. Past Medical History Cardiac Medical History: Reports: Hypertension Denies: Atrial Fibrillation, Congestive Heart Failure, Coronary Artery Disease - Negative chemical stress 2 weeks ago; negative heart cath last September, DVT, Myocardial Infarction, Hyperlipidema, Pulmonary Embolism Pulmonary Medical History: Denies: Asthma, Chronic Obstructive Pulmonary Disease (COPD), Sleep Apnea EENT Medical History: Reports: Eyes - Glasses Denies: Ears, Throat Neurological Medical History: Reports: Other - Chronic bilateral symmetric weakness on dorsiflexion of his feet Denies: Hemorrhagic CVA, Ischemic CVA, Seizures Endocrine Medical History: Reports: Diabetes Mellitus Type 1 - insulin pump, Other - On list for combination pancreatic and renal transplant. Denies: Diabetes Mellitus Type 2, Hyperthyroidism, Hypothyroidism Renal/ Medical History: Reports: End Stage Renal Disease GI Medical History: Denies: Cirrhosis, Gastroesophageal Reflux Disease, Hepatitis, Peptic Ulcer Disease Musculoskeltal Medical History: Reports: Arthritis Skin Medical History: Reports: None Psychiatric Medical History: Reports: Tobacco Dependency Denies: Alcohol Dependency, Depression, General Anxiety Disorder, Substance Abuse Hematology: Reports: Other - Chronic thrombocytopenia Infectious Medical History: Denies: Hepatitis B, Hepatitis C Past Surgical History Past Surgical History: Reports: Orthopedic Surgery - r/t traumas x 2, Vascular Surgery - Access surgery for hemodialysis. Left upper extremity fistula. Social History Information Source: Patient, Emergency Med Personnel, [facility] Records Smoking Status: Current Every Day Smoker Frequency of Alcohol Use: Rare Hx Recreational Drug Use: No Drugs: None Hx Prescription Drug Abuse: No - Advance Directive Resuscitation Status: Full Code Surrogate healthcare decision maker:: Father Family History Family History: None Parental Family History Reviewed: Yes - Mother of diabetic complications; father alive with hypertension Children Family History Reviewed: Yes - Low iron Sibling(s) Family History Reviewed.: Yes - Sister is "drug addict" Medication/Allergy Home Medications: Calcium Acetate [Phoslo] 3 tab PO AC 05/31/16 Carvedilol [Coreg 25 mg Tablet] 25 mg PO Q12 05/31/16 Amlodipine Besylate 10 mg PO DAILY 06/15/17 Calcium Acetate 2 tab PO ASDIR PRN 06/15/17 Hydralazine HCl 50 mg PO BID 06/15/17 Hydroxyzine HCl 50 mg PO DAILY PRN 06/15/17 Vit B Cmplx 3/FA/Vit C/Biotin [Lyndsey-Lita Rx Tablet] 1 each PO DAILY 06/15/17 Allergies/Adverse Reactions: Iodinated Contrast- Oral and IV Dye Allergy (Verified 06/17/17 16:00) Physical Exam Vital Signs: Temp Pulse Resp BP Pulse Ox 98.5 F 12 118/62 96 06/15/17 21:40 06/16/17 02:31 06/16/17 02:31 06/16/17 02:31 Results Impressions: Chest X-Ray 06/16/17 00:35 IMPRESSION: Cardiomegaly and mild central vascular congestion. Trace bilateral pleural effusions. Bibasilar ground-glass opacities, may represent atelectasis or pneumonia. Assessment & Plan - Diagnosis (1) Abnormal chest xray Is this a current diagnosis for this admission?: Yes Plan: We will treat under pneumonia protocol. Incentive spirometry twice a day. Antibiotics will consist of Rocephin and intravenous Zithromax. Pharmacy to assist with dosing. Patient is a full code. I have strongly encouraged patient not to get out of bed without notifying staff , to avoid a fall with injury. Knee high SCDs for DVT prophylaxis; with underlying thrombocytopenia, will hold Lovenox or heparin at this point. Impression and plans were discussed with patient who concurs. (2) DKA (diabetic ketoacidoses) Qualifiers: Diabetes mellitus type: type 1 Diabetes mellitus complication detail: without coma Qualified Code(s): E10.10 - Type 1 diabetes mellitus with ketoacidosis without coma Is this a current diagnosis for this admission?: Yes Plan: Patient will be admitted under DKA protocol. Insulin drip. Judicious fluid hydration, given patient's dialysis dependent state. Dr. Edgar aware and concurs. Q 4 hours chemistry 7. Hourly Accu-Cheks. Addition of dextrose to intravenous fluid once serum glucose and/or Accu-Cheks 275 or less. Time spent in evaluation and management of patient: 83 critical-care minutes. (3) DVT prophylaxis Is this a current diagnosis for this admission?: Yes (4) End stage renal disease on dialysis Is this a current diagnosis for this admission?: Yes Plan: Nephrology consult. (5) Thrombocytopenia Is this a current diagnosis for this admission?: Yes Plan: Chronic for patient. We will forego Lovenox or heparin at this point in time. - Time Critical Time spent with patient: 35 or more minutes Anticipated discharge: Home Within: within 72 hours - Inpatient Certification Based on my medical assessment, after consideration of the patient's comorbidities, presenting symptoms, or acuity I expect that the services needed warrant INPATIENT care.: Yes I certify that my determination is in accordance with my understanding of Medicare's requirements for reasonable and necessary INPATIENT services [42 CFR 412.3e].: Yes Medical Necessity: Significant Comorbidiites Make Outpatient Treatment Too Risky , Need Close Monitoring Due to Risk of Patient Decompensation, Need For IV Fluids, Need For Continuous Telemetry Monitoring, Need for IV Antibiotics, Risk of Diagnosis Which Will Require Inpatient Eval/Care/Monitoring Post Hospital Care: D/C or Transfer Summary
[2017-06-16] MEDS ORDERED: AZITHROMYCIN INJ 500 MG VIAL IV ONE (03:54)
[2017-06-16 04:06] LABS: ARTERIAL BLOOD BASE EXCESS -7.9 mmol/L; ARTERIAL BLOOD O2 SATURATION 93.9 % (94-98)
[2017-06-16] MEDS: PROMETHAZINE HCL 25 MG TABLET PO PRN ×2 (04:15→15:46)
[2017-06-16] MEDS ORDERED: INSULIN REG, HUMAN 100 UNIT/ML 3 ML VIAL (PYX) ONE (06:21)
[2017-06-16 06:32] LABS: ABSOLUTE BASOPHILS # (AUTO) 0.1 10^3/uL (0.0-0.2); ABSOLUTE LYMPHOCYTES (AUTO) 0.9 10^3/uL (0.5-4.7); ABSOLUTE MONOCYTES (AUTO) 0.5 10^3/uL (0.1-1.4); ABSOLUTE NEUT (AUTO) 8.6 10^3/uL (1.7-8.2); BASOPHILS % (AUTO) 0.5 % (0-2); HEMATOCRIT 28.7 % (37.9-51.0); HEMOGLOBIN 9.9 g/dL (13.5-17.0); LYMPHOCYTES % (AUTO) 8.8 % (13-45); MEAN CORPUSCULAR HEMOGLOBIN 33.6 pg (27.0-33.4); MEAN CORPUSCULAR HGB CONC 34.5 g/dL (32.0-36.0); MEAN CORPUSCULAR VOLUME 98 fl (80-97); MONOCYTES % (AUTO) 4.6 % (3-13); RED BLOOD COUNT 2.94 10^6/uL (4.35-5.55); RED CELL DISTRIBUTION WIDTH 13.4 % (11.5-14.0); SEGMENTED NEUTROPHILS % (AUTO) 86.1 % (42-78)
[2017-06-16 07:03] LABS: ANION GAP 18 (5-19); BLOOD UREA NITROGEN 72 mg/dL (7-20); CALCIUM 9.2 mg/dL (8.4-10.2); CHLORIDE 89 mmol/L (98-107); POTASSIUM 4.3 mmol/L (3.6-5.0); SODIUM 129.3 mmol/L (137-145)
[2017-06-16 07:19] LABS: GLUCOSE 443 mg/dL (75-110)
[2017-06-16 07:56] LABS: CARBON DIOXIDE 22 mmol/L (22-30)
--- NOTE | 2017-06-16 08:00 | EKG REPORT ---
SEVERITY:- ABNORMAL ECG - SINUS RHYTHM PROBABLE LEFT ATRIAL ABNORMALITY LEFT ANTERIOR FASCICULAR BLOCK LEFT VENTRICULAR HYPERTROPHY PROLONGED QT INTERVAL : Confirmed by: Joe James MD 16-Jun-2017 07:58:48
[2017-06-16] MEDS ORDERED: ONDANSETRON HCL INJ/PF 4 MG/2 ML SDV IV PRN (08:03)
[2017-06-16 10:03] LABS: ANION GAP 16 (5-19); BLOOD UREA NITROGEN 74 mg/dL (7-20); CALCIUM 9.3 mg/dL (8.4-10.2); CARBON DIOXIDE 23 mmol/L (22-30); CHLORIDE 91 mmol/L (98-107); CREATININE RESULT 7.56 mg/dL (0.52-1.25); GLUCOSE 205 mg/dL (75-110); SODIUM 130.4 mmol/L (137-145)
[2017-06-16] MEDS: DOCUSATE SODIUM 100 MG CAPSULE PO SCH ×2 (10:15→18:28)
[2017-06-16] MEDS ORDERED: DISPOSABLE IV ONE (12:30)
[2017-06-16] MEDS ORDERED: EPOETIN ALFA IV ONE (12:30)
[2017-06-16 14:31] LABS: ANION GAP 15 (5-19); CALCIUM 8.8 mg/dL (8.4-10.2); CARBON DIOXIDE 28 mmol/L (22-30); CHLORIDE 94 mmol/L (98-107); CREATININE RESULT 3.54 mg/dL (0.52-1.25); GLUCOSE 177 mg/dL (75-110); POTASSIUM 3.8 mmol/L (3.6-5.0)
--- NOTE | 2017-06-16 15:06 | PDOC CONSULTATION ---
Consultation Consult Date: 06/16/17 Consult reason:: ESRD and dialysis History of Present Illness Admission Date/PCP: 06/16/17 02:42 History of Present Illness: MADISYN JOHNSON is a 46 year old male with ESRD and on dialysis, underlying insulin-dependent diabetes mellitus, currently on insulin pump, along with hypertension, arthritis, who presents to the emergency room for the second time in approximately 24 hours Complains of being weak and tired and associated with nausea and vomiting. Unable to keep anything inside. I had discussed this patient with the ER mid-level provider earlier. Patient had been seen just earlier in the emergency room and the nurse practitioner who attempted to admit the patient during his first ER visit but apparently he refused to come in. Shortly after arriving home, he once again began vomiting multiple times, with no hematemesis. Thinks he may have been sleeping on his insulin pump tubing, kinking off the tubing. No chest or abdominal pain. Denies any "sore spots" anywhere on his body. No diarrhea. Makes only very small amount of urine each day. He is compliant with his hemodialysis session.Currently patient is being seen in the ICU and undergoing dialysis without any issues. Is on normal saline along with bicarbonate and insulin drip. He says he feels a whole lot better. He still a bit nauseous but no vomiting.He denies any history of chest pain, shortness of breath, focal deficits.Admits to intermittent noncompliance with diet and medications. Past Medical History Cardiac Medical History: Reports: Hypertension-primary Denies: Atrial Fibrillation, Coronary Artery Disease - Negative chemical stress 2 weeks ago; negative heart cath last September, DVT, Hyperlipidemia, Myocardial Infarction, Pulmonary Embolism Pulmonary Medical History: Denies: Asthma, Chronic Obstructive Pulmonary Disease (COPD), Sleep Apnea EENT Medical History: Reports: Eyes - Glasses, Other - Chronic thrombocytopenia Denies: Ears, Throat Neurological Medical History: Reports: Other - Chronic bilateral symmetric weakness on dorsiflexion of his feet Denies: Hemorrhagic CVA, Ischemic CVA, Seizures Endocrine Medical History: Reports: Diabetes Mellitus Type 1 - insulin pump.Has had multiple admissions for DKA. His previous admission w, Other - On list for combination pancreatic and renal transplant. Denies: Diabetes Mellitus Type 2, Hyperthyroidism, Hypothyroidism Renal/ Medical History: Reports: End Stage Renal Disease, Renal Osteodystropy GI Medical History: Denies: Cirrhosis, Gastroesophageal Reflux Disease, Hepatitis, Peptic Ulcer Disease Musculoskeltal Medical History: Reports: Arthritis Skin Medical History: Reports: None Psychiatric Medical History: Reports: Tobacco Dependency Denies: Alcohol Dependency, Depression, General Anxiety Disorder, Substance Abuse Infectious Medical History: Denies: Hepatitis B, Hepatitis C Hematology Medical History: Reports Anemia of Chronic Kidney Disease Past Surgical History Past Surgical History: Reports: Orthopedic Surgery - r/t traumas x 2, Vascular Surgery - Access surgery for hemodialysis. Left upper extremity fistula. Social History Lives with: Family Smoking Status: Current Every Day Smoker Frequency of Alcohol Use: Rare Hx Recreational Drug Use: No Drugs: None Hx Prescription Drug Abuse: No - Advance Directive Resuscitation Status: Full Code Family History Parental Family History Reviewed: Yes - Negative for ESRD Children Family History Reviewed: No Sibling(s) Family History Reviewed.: No Medication/Allergy Home Medications: Calcium Acetate [Phoslo] 3 tab PO AC 05/31/16 Carvedilol [Coreg 25 mg Tablet] 25 mg PO Q12 05/31/16 Amlodipine Besylate 10 mg PO DAILY 06/15/17 Calcium Acetate 2 tab PO ASDIR PRN 06/15/17 Hydralazine HCl 50 mg PO BID 06/15/17 Hydroxyzine HCl 50 mg PO DAILY PRN 06/15/17 Vit B Cmplx 3/FA/Vit C/Biotin [Lyndsey-Lita Rx Tablet] 1 each PO DAILY 06/15/17 Allergies/Adverse Reactions: iodine Allergy (Verified 12/13/16 21:30) Review of Systems Constitutional: PRESENT: fatigue, weakness. ABSENT: fever(s), headache(s), night sweats Nose, Mouth, and Throat: ABSENT: mouth pain, sore throat Cardiovascular: ABSENT: dyspnea on exertion, edema, orthropnea, palpitations Respiratory: ABSENT: dyspnea, hemoptysis Gastrointestinal: PRESENT: nausea, vomiting. ABSENT: abdominal pain, coffee ground emesis, diarrhea, dysphagia, hematemesis Genitourinary: ABSENT: hematuria Neurological: ABSENT: abnormal gait, abnormal movements, abnormal speech, focal weakness Hematologic/Lymphatic: ABSENT: easy bruising, lymphadenopathy Physical Exam Vital Signs: Temp Pulse Resp BP Pulse Ox 98.6 F 61 12 126/65 H 100 06/16/17 12:00 06/16/17 12:00 06/16/17 14:00 06/16/17 13:58 06/16/17 14:00 Intake & Output 06/15/17 06/16/17 06/17/17 06:59 06:59 06:59 Intake Total 652 Output Total 0 2500 Balance 652 -2500 Weight 86.8 kg General appearance: PRESENT: no acute distress Eye exam: PRESENT: conjunctiva pink, EOMI, PERRLA Mouth exam: PRESENT: moist, neck supple Neck exam: ABSENT: lymphadenopathy, meningismus, tenderness, thyromegaly, tracheal deviation Respiratory exam: PRESENT: clear to auscultation bessy. ABSENT: crackles, rhonchi Cardiovascular exam: PRESENT: +S1, +S2 GI/Abdominal exam: PRESENT: normal bowel sounds, soft, tenderness. ABSENT: organomegaly Extremities exam: PRESENT: pedal edema - Trace plus Neurological exam: PRESENT: alert, awake, oriented to person, oriented to place Psychiatric exam: PRESENT: anxious. ABSENT: depressed Skin exam: PRESENT: dry. ABSENT: erythema, mottled Results Laboratory Results: 06/16/17 06:12 06/16/17 06/16/17 06/16/17 03:56 06:12 06:12 WBC 10.0 RBC 2.94 L Hgb 9.9 L Hct 28.7 L MCV 98 H MCH 33.6 H MCHC 34.5 RDW 13.4 Plt Count 111 L Seg Neutrophils % 86.1 H Lymphocytes % 8.8 L Monocytes % 4.6 Eosinophils % 0.0 Basophils % 0.5 Absolute Neutrophils 8.6 H Absolute Lymphocytes 0.9 Absolute Monocytes 0.5 Absolute Eosinophils 0.0 Absolute Basophils 0.1 Carbonic Acid 0.97 L HCO3/H2CO3 Ratio 17:1 ABG pH 7.34 L ABG pCO2 32.3 L ABG pO2 72.2 L ABG HCO3 17.0 L ABG O2 Saturation 93.9 L ABG Base Excess -7.9 FiO2 21% Sodium 129.3 L Potassium 4.3 Chloride 89 L Carbon Dioxide 22 D Anion Gap 18 BUN 72 H Creatinine 7.60 H Est GFR ( Amer) 9 L Est GFR (Non-Af Amer) 8 L Glucose 443 H* Calcium 9.2 06/16/17 09:15 WBC RBC Hgb Hct MCV MCH MCHC RDW Plt Count Seg Neutrophils % Lymphocytes % Monocytes % Eosinophils % Basophils % Absolute Neutrophils Absolute Lymphocytes Absolute Monocytes Absolute Eosinophils Absolute Basophils Carbonic Acid HCO3/H2CO3 Ratio ABG pH ABG pCO2 ABG pO2 ABG HCO3 ABG O2 Saturation ABG Base Excess FiO2 Sodium 130.4 L Potassium 4.0 Chloride 91 L Carbon Dioxide 23 Anion Gap 16 BUN 74 H Creatinine 7.56 H Est GFR ( Amer) 9 L Est GFR (Non-Af Amer) 8 L Glucose 205 H Calcium 9.3 Impressions: Chest X-Ray 06/16/17 00:35 IMPRESSION: Cardiomegaly and mild central vascular congestion. Trace bilateral pleural effusions. Bibasilar ground-glass opacities, may represent atelectasis or pneumonia. Assessment & Plan - Diagnosis (1) DKA (diabetic ketoacidoses) Qualifiers: Diabetes mellitus type: type 1 Diabetes mellitus complication detail: without coma Qualified Code(s): E10.10 - Type 1 diabetes mellitus with ketoacidosis without coma Is this a current diagnosis for this admission?: Yes Plan: Currently improving clinically and on labs on current treatments. Discussed with nurse about conversion of fluids given his blood sugars in the double digits. Patient does not show any signs of dehydration. His nausea is better. (2) Hyperkalemia Plan: Better on conservative management. Should also be stable post dialysis. (3) End stage renal disease on dialysis Is this a current diagnosis for this admission?: Yes Plan: Patient is being seen on dialysis which is being supervised to ensure a safe and smooth procedure. Vital signs are stable. Orders were discussed with the treating nurse Bindu. Is on a 2K bath and will remove between 1 and 2 L of fluid as tolerated. Acidosis should also improve on dialysis. (4) Nausea & vomiting Qualifiers: Vomiting type: unspecified Vomiting Intractability: non-intractable Qualified Code(s): R11.2 - Nausea with vomiting, unspecified Plan: In the light of diabetic ketoacidosis. Improving on current management. (5) Hypertension Plan: Controlled and stable. (6) Anemia in chronic kidney disease, on chronic dialysis Plan: Ordered erythropoietin accordingly.
[2017-06-16 15:22] LABS: BLOOD UREA NITROGEN 31 mg/dL (7-20)
[2017-06-16] MEDS ORDERED: 1/2 NORMAL SALINE 1,000 ML IV PRN (17:34)
[2017-06-16] MEDS ORDERED: DEXTROSE 40% GEL 15 GM TUBE X 2 PO PRN (17:38)
[2017-06-16] MEDS ORDERED: DEXTROSE 50%-WATER SYRINGE 12.5 GM/25 ML DOSE IV PRN (17:38)
[2017-06-16] MEDS: INSULIN DETEMIR 100 UNIT/ML 3 ML PEN SUBCUT SCH (18:17)
[2017-06-16] MEDS: INSULIN LISPRO 100 UNIT/ML 3 ML VIAL SUBCUT PRN ×2 (18:26→21:50)
[2017-06-16 18:40] LABS: ANION GAP 17 (5-19); BLOOD UREA NITROGEN 33 mg/dL (7-20); CALCIUM 8.7 mg/dL (8.4-10.2); CARBON DIOXIDE 25 mmol/L (22-30); CHLORIDE 91 mmol/L (98-107); POTASSIUM 3.7 mmol/L (3.6-5.0); SODIUM 133.2 mmol/L (137-145)
[2017-06-16 18:59] LABS: GLUCOSE 428 mg/dL (75-110)
[2017-06-16 22:43] LABS: ANION GAP 15 (5-19); BLOOD UREA NITROGEN 37 mg/dL (7-20); CALCIUM 8.2 mg/dL (8.4-10.2); CARBON DIOXIDE 27 mmol/L (22-30); CHLORIDE 91 mmol/L (98-107); CREATININE RESULT 4.14 mg/dL (0.52-1.25); GLUCOSE 194 mg/dL (75-110); POTASSIUM 3.5 mmol/L (3.6-5.0); SODIUM 132.8 mmol/L (137-145)
[2017-06-17 02:33] LABS: ANION GAP 12 (5-19); BLOOD UREA NITROGEN 41 mg/dL (7-20); CALCIUM 8.8 mg/dL (8.4-10.2); CARBON DIOXIDE 30 mmol/L (22-30); CHLORIDE 94 mmol/L (98-107); CREATININE RESULT 4.72 mg/dL (0.52-1.25); GLUCOSE 90 mg/dL (75-110); POTASSIUM 3.4 mmol/L (3.6-5.0); SODIUM 135.7 mmol/L (137-145)
[2017-06-17] MEDS: DEXTROSE 50%-WATER SYRINGE 25 GM/50 ML DOSE IV PRN (06:06)
[2017-06-17] MEDS: AZITHROMYCIN 500 MG in DEXTROSE 5%-WATER 250 ML IV SCH (06:07)
[2017-06-17] MEDS: INSULIN DETEMIR 100 UNIT/ML 3 ML PEN SUBCUT SCH (06:08)
[2017-06-17 06:26] LABS: ANION GAP 12 (5-19); BLOOD UREA NITROGEN 45 mg/dL (7-20); CARBON DIOXIDE 30 mmol/L (22-30); CHLORIDE 95 mmol/L (98-107); GLUCOSE 44 mg/dL (75-110); POTASSIUM 3.6 mmol/L (3.6-5.0); SODIUM 136.6 mmol/L (137-145)
[2017-06-17] MEDS: CEFTRIAXONE 1 GM/D5W RTU 1 GM/50 ML RTUPB IV SCH (08:13)
[2017-06-17] MEDS: DOCUSATE SODIUM 100 MG CAPSULE PO SCH ×2 (08:15→16:05)
[2017-06-17 11:08] LABS: ANION GAP 13 (5-19); BLOOD UREA NITROGEN 45 mg/dL (7-20); CALCIUM 8.7 mg/dL (8.4-10.2); CARBON DIOXIDE 27 mmol/L (22-30); CHLORIDE 91 mmol/L (98-107); CREATININE RESULT 5.09 mg/dL (0.52-1.25); GLUCOSE 338 mg/dL (75-110); POTASSIUM 4.1 mmol/L (3.6-5.0); SODIUM 130.6 mmol/L (137-145)
--- NOTE | 2017-06-17 11:21 | PDOC PROGRESS REPORT ---
Subjective Progress Note for:: 06/17/17 Subjective:: Nausea and vomiting resolved. Again patient denies any cough chest congestion sore throat or sinus congestion. No diarrhea. No dysuria urgency or frequency. Patient unable to give sample of urine. Patient refused catheterization. Denies any abdominal pain or rash. Blood sugar dropped earlier in the 40s. Patient is doing better today. No hypotension reported. No temperature spikes reported. Physical Exam Vital Signs: Temp Pulse Resp BP Pulse Ox 98.8 F 64 12 154/82 H 96 06/17/17 04:00 06/17/17 08:00 06/17/17 09:00 06/17/17 08:00 06/17/17 09:00 Intake & Output 06/16/17 06/17/17 06/18/17 06:59 06:59 06:59 Intake Total 652 2275 414 Output Total 0 2500 Balance 652 -225 414 Weight 86.8 kg 90.7 kg General appearance: PRESENT: no acute distress, cooperative Head exam: PRESENT: normocephalic Eye exam: PRESENT: EOMI Mouth exam: PRESENT: moist, neck supple Neck exam: ABSENT: JVD Respiratory exam: PRESENT: clear to auscultation bessy. ABSENT: rhonchi, wheezes Cardiovascular exam: PRESENT: RRR. ABSENT: gallop GI/Abdominal exam: PRESENT: soft. ABSENT: distended, tenderness Extremities exam: ABSENT: pedal edema Neurological exam: PRESENT: alert, awake, oriented to person, oriented to place , oriented to time, oriented to situation Skin exam: PRESENT: dry, warm. ABSENT: cyanosis Results Laboratory Results: 06/16/17 06:12 06/17/17 10:31 06/16/17 06/16/17 06/16/17 14:05 18:00 22:10 Sodium 137.0 133.2 L 132.8 L Potassium 3.8 3.7 3.5 L Chloride 94 L 91 L 91 L Carbon Dioxide 28 25 27 Anion Gap 15 17 15 BUN 31 H D 33 H 37 H Creatinine 3.54 H 4.00 H 4.14 H Est GFR ( Amer) 23 L 20 L 19 L Est GFR (Non-Af Amer) 19 L 16 L 16 L Glucose 177 H 428 H* 194 H Calcium 8.8 8.7 8.2 L Phosphorus 06/17/17 06/17/17 06/17/17 01:57 06:07 06:07 Sodium 135.7 L 136.6 L Potassium 3.4 L 3.6 Chloride 94 L 95 L Carbon Dioxide 30 30 Anion Gap 12 12 BUN 41 H 45 H Creatinine 4.72 H 5.00 H Est GFR ( Amer) 16 L 15 L Est GFR (Non-Af Amer) 13 L 13 L Glucose 90 44 L Calcium 8.8 9.0 Phosphorus 5.5 H 06/17/17 10:31 Sodium 130.6 L Potassium 4.1 Chloride 91 L Carbon Dioxide 27 Anion Gap 13 BUN 45 H Creatinine 5.09 H Est GFR ( Amer) 15 L Est GFR (Non-Af Amer) 12 L Glucose 338 H Calcium 8.7 Phosphorus Impressions: Chest X-Ray 06/16/17 00:35 IMPRESSION: Cardiomegaly and mild central vascular congestion. Trace bilateral pleural effusions. Bibasilar ground-glass opacities, may represent atelectasis or pneumonia. Assessment & Plan - Diagnosis (1) DKA (diabetic ketoacidoses) Qualifiers: Diabetes mellitus type: type 1 Diabetes mellitus complication detail: without coma Qualified Code(s): E10.10 - Type 1 diabetes mellitus with ketoacidosis without coma Is this a current diagnosis for this admission?: Yes (2) Pulmonary vascular congestion Is this a current diagnosis for this admission?: Yes (3) Hyponatremia Is this a current diagnosis for this admission?: Yes (4) Anemia in chronic kidney disease, on chronic dialysis Is this a current diagnosis for this admission?: Yes (5) Hypertension Qualifiers: Hypertension type: essential hypertension Qualified Code(s): I10 - Essential (primary) hypertension Is this a current diagnosis for this admission?: Yes (6) End stage renal disease on dialysis Is this a current diagnosis for this admission?: Yes - Time Time Spent with patient: 25-34 minutes - Plan Summary Plan Summary: We will discontinue the Levemir. We will discontinue IV fluids. Continue dialysis as per nephrology service. Continue antibiotics for now. We will resume the patient's insulin pump and see if he will develop hyperglycemia from it. Patient reports that it is functioning and was just recently checked. Continue supportive care. Transfer to telemetry baron.
[2017-06-17] MEDS: CALCIUM ACETATE 667 MG CAPSULE PO SCH (15:52)
[2017-06-17 15:53] LABS: APPEARANCE,URINE SLIGHTLY-CLOUDY; BILIRUBIN,URINE NEGATIVE (NEGATIVE); GLUCOSE, URINE >=500 mg/dL (NEGATIVE); KETONES,URINE NEGATIVE (NEGATIVE); LEUKOCYTE ESTERASE,URINE SMALL (NEGATIVE); NITRITE,URINE NEGATIVE (NEGATIVE); PROTEIN,URINE 100 mg/dL (NEGATIVE); UROBILINOGEN,URINE NEGATIVE mg/dL (<2.0)
--- NOTE | 2017-06-17 15:57 | PDOC PROGRESS REPORT ---
Subjective Progress Note for:: 06/17/17 Subjective:: Patient was sitting in bed comfortably. Had one hypoglycemic event this morning. Currently does not complain of any hypoglycemic s/s. Not chest pain or SOB. Blood pressure has remained at a normal tensive level until the past couple of bps. Physical Exam Vital Signs: Temp Pulse Resp BP Pulse Ox 99.2 F 68 15 168/87 H 99 06/17/17 12:00 06/17/17 12:00 06/17/17 15:00 06/17/17 12:00 06/17/17 15:00 Intake & Output 06/16/17 06/17/17 06/18/17 06:59 06:59 06:59 Intake Total 652 2275 414 Output Total 0 2500 Balance 652 -225 414 Weight 86.8 kg 90.7 kg General appearance: PRESENT: no acute distress, well-developed, well-nourished Head exam: PRESENT: atraumatic, normocephalic Mouth exam: PRESENT: moist, tongue midline Neck exam: PRESENT: full ROM. ABSENT: JVD, tracheal deviation Respiratory exam: PRESENT: crackles - -bases of the lungs. ABSENT: accessory muscle use, clear to auscultation bessy, tachypnea Cardiovascular exam: PRESENT: RRR, +S1, +S2 GI/Abdominal exam: PRESENT: normal bowel sounds, soft, tenderness. ABSENT: organomegaly Extremities exam: PRESENT: pedal edema - -trace+. ABSENT: tenderness Musculoskeletal exam: PRESENT: normal inspection. ABSENT: deformity, tenderness Neurological exam: PRESENT: alert, awake, oriented to person, oriented to place , oriented to time, oriented to situation Psychiatric exam: PRESENT: appropriate affect, normal mood Skin exam: PRESENT: dry, intact, warm. ABSENT: cyanosis, rash Results Laboratory Results: 06/16/17 06:12 06/17/17 10:31 06/16/17 06/16/17 06/17/17 18:00 22:10 01:57 Sodium 133.2 L 132.8 L 135.7 L Potassium 3.7 3.5 L 3.4 L Chloride 91 L 91 L 94 L Carbon Dioxide 25 27 30 Anion Gap 17 15 12 BUN 33 H 37 H 41 H Creatinine 4.00 H 4.14 H 4.72 H Est GFR ( Amer) 20 L 19 L 16 L Est GFR (Non-Af Amer) 16 L 16 L 13 L Glucose 428 H* 194 H 90 Calcium 8.7 8.2 L 8.8 Phosphorus 06/17/17 06/17/17 06/17/17 06:07 06:07 10:31 Sodium 136.6 L 130.6 L Potassium 3.6 4.1 Chloride 95 L 91 L Carbon Dioxide 30 27 Anion Gap 12 13 BUN 45 H 45 H Creatinine 5.00 H 5.09 H Est GFR ( Amer) 15 L 15 L Est GFR (Non-Af Amer) 13 L 12 L Glucose 44 L 338 H Calcium 9.0 8.7 Phosphorus 5.5 H Impressions: Chest X-Ray 06/16/17 00:35 IMPRESSION: Cardiomegaly and mild central vascular congestion. Trace bilateral pleural effusions. Bibasilar ground-glass opacities, may represent atelectasis or pneumonia. Assessment & Plan - Diagnosis (1) DKA (diabetic ketoacidoses) Qualifiers: Diabetes mellitus type: type 1 Diabetes mellitus complication detail: without coma Qualified Code(s): E10.10 - Type 1 diabetes mellitus with ketoacidosis without coma Is this a current diagnosis for this admission?: Yes Plan: resolving (2) Anemia in chronic kidney disease, on chronic dialysis Is this a current diagnosis for this admission?: Yes Plan: receives epogen on dialysis (3) Hypertension Qualifiers: Hypertension type: essential hypertension Qualified Code(s): I10 - Essential (primary) hypertension Is this a current diagnosis for this admission?: Yes Plan: restarting home bp meds (4) End stage renal disease on dialysis Is this a current diagnosis for this admission?: Yes Plan: will schedule for dialysis tomorrow (5) Nausea & vomiting Qualifiers: Vomiting type: unspecified Vomiting Intractability: non-intractable Qualified Code(s): R11.2 - Nausea with vomiting, unspecified Plan: resolved (6) Hyperkalemia Plan: resolved
[2017-06-17] MEDS: HYDRALAZINE HCL 50 MG TABLET PO SCH (21:28)
[2017-06-17] MEDS: CARVEDILOL 12.5 MG TABLET PO SCH (21:29)
[2017-06-18] MEDS: DEXTROSE 50%-WATER SYRINGE 25 GM/50 ML DOSE IV PRN (02:18)
[2017-06-18] MEDS ORDERED: EPOETIN ALFA 10,000 UNIT in SYRINGE, DISPOSABLE, 1 EACH IV PRN ×4 (05:00)
[2017-06-18] MEDS ORDERED: EPOETIN ALFA INJ 20000 UNIT/1 ML VIAL (RENAL) IV PRN (05:00)
[2017-06-18 05:16] LABS: ANION GAP 10 (5-19); BLOOD UREA NITROGEN 59 mg/dL (7-20); CALCIUM 8.9 mg/dL (8.4-10.2); CARBON DIOXIDE 30 mmol/L (22-30); CHLORIDE 93 mmol/L (98-107); CREATININE RESULT 6.71 mg/dL (0.52-1.25); GLUCOSE 89 mg/dL (75-110); POTASSIUM 3.6 mmol/L (3.6-5.0); SODIUM 133.1 mmol/L (137-145)
[2017-06-18 05:18] LABS: ABSOLUTE BASOPHILS # (AUTO) 0.1 10^3/uL (0.0-0.2); ABSOLUTE EOSINOPHILS # (AUTO) 0.2 10^3/uL (0.0-0.6); ABSOLUTE LYMPHOCYTES (AUTO) 0.9 10^3/uL (0.5-4.7); ABSOLUTE MONOCYTES (AUTO) 0.5 10^3/uL (0.1-1.4); ABSOLUTE NEUT (AUTO) 3.4 10^3/uL (1.7-8.2); BASOPHILS % (AUTO) 1.5 % (0-2); EOSINOPHILS % (AUTO) 4.5 % (0-6); HEMATOCRIT 28.6 % (37.9-51.0); HEMOGLOBIN 9.6 g/dL (13.5-17.0); HGB HCT DIFFERENCE 0.2; LYMPHOCYTES % (AUTO) 17.5 % (13-45); MEAN CORPUSCULAR HEMOGLOBIN 32.4 pg (27.0-33.4); MEAN CORPUSCULAR HGB CONC 33.4 g/dL (32.0-36.0); MEAN CORPUSCULAR VOLUME 97 fl (80-97); MONOCYTES % (AUTO) 10.6 % (3-13); RED BLOOD COUNT 2.94 10^6/uL (4.35-5.55); RED CELL DISTRIBUTION WIDTH 13.2 % (11.5-14.0); SEGMENTED NEUTROPHILS % (AUTO) 65.9 % (42-78); WHITE BLOOD COUNT 5.1 10^3/uL (4.0-10.5)
[2017-06-18] MEDS: AZITHROMYCIN 500 MG in DEXTROSE 5%-WATER 250 ML IV SCH (07:48)
[2017-06-18] MEDS: CEFTRIAXONE 1 GM/D5W RTU 1 GM/50 ML RTUPB IV SCH (08:12)
[2017-06-18] MEDS: CALCIUM ACETATE 667 MG CAPSULE PO SCH ×2 (08:12→10:01)
[2017-06-18] MEDS ORDERED: DIPHENHYDRAMINE HCL 50 MG/ML VIAL IV ONE (09:30)
[2017-06-18] MEDS ORDERED: AMLODIPINE BESYLATE 10 MG TABLET PO SCH (10:00)
[2017-06-18] MEDS: CARVEDILOL 12.5 MG TABLET PO SCH (10:01)
[2017-06-18] MEDS: DOCUSATE SODIUM 100 MG CAPSULE PO SCH (10:01)
[2017-06-18] MEDS: HYDRALAZINE HCL 50 MG TABLET PO SCH (10:01)
--- NOTE | 2017-06-18 10:16 | PDOC PROGRESS REPORT ---
Subjective Progress Note for:: 06/18/17 Subjective:: Patient seen on dialysis today.Without any issues. He denies any history of chest pain shortness of breath. No history of nausea vomiting. Is back on the insulin pump and his blood sugars are remaining quite stable. Physical Exam Vital Signs: Temp Pulse Resp BP Pulse Ox 98.2 F 63 16 155/75 H 97 06/18/17 07:06 06/18/17 07:06 06/18/17 07:06 06/18/17 07:06 06/18/17 07:06 Intake & Output 06/17/17 06/18/17 06/19/17 06:59 06:59 06:59 Intake Total 2275 1778 Output Total 2500 Balance -225 1778 Weight 90.7 kg 89.4 kg General appearance: PRESENT: no acute distress Respiratory exam: PRESENT: clear to auscultation bessy. ABSENT: crackles, rhonchi Cardiovascular exam: PRESENT: RRR, +S1, +S2 GI/Abdominal exam: PRESENT: normal bowel sounds, soft, tenderness. ABSENT: organomegaly Extremities exam: ABSENT: pedal edema - Trace plus Neurological exam: PRESENT: alert, awake, oriented to person, oriented to place , oriented to time Results Laboratory Results: 06/18/17 04:02 06/18/17 04:02 06/17/17 06/17/17 06/17/17 06:07 10:31 15:30 WBC RBC Hgb Hct MCV MCH MCHC RDW Plt Count Seg Neutrophils % Lymphocytes % Monocytes % Eosinophils % Basophils % Absolute Neutrophils Absolute Lymphocytes Absolute Monocytes Absolute Eosinophils Absolute Basophils Sodium 130.6 L Potassium 4.1 Chloride 91 L Carbon Dioxide 27 Anion Gap 13 BUN 45 H Creatinine 5.09 H Est GFR ( Amer) 15 L Est GFR (Non-Af Amer) 12 L Glucose 338 H Calcium 8.7 Phosphorus 5.5 H Urine Color YELLOW Urine Appearance SLIGHTLY-CLOUDY Urine pH 5.0 Ur Specific Reva 1.010 Urine Protein 100 H Urine Glucose (UA) >=500 H Urine Ketones NEGATIVE Urine Blood NEGATIVE Urine Nitrite NEGATIVE Ur Leukocyte Esterase SMALL H Urine WBC (Auto) 44 Urine RBC (Auto) 2 06/18/17 06/18/17 04:02 04:02 WBC 5.1 RBC 2.94 L Hgb 9.6 L Hct 28.6 L MCV 97 MCH 32.4 MCHC 33.4 RDW 13.2 Plt Count 90 L Seg Neutrophils % 65.9 Lymphocytes % 17.5 Monocytes % 10.6 Eosinophils % 4.5 Basophils % 1.5 Absolute Neutrophils 3.4 Absolute Lymphocytes 0.9 Absolute Monocytes 0.5 Absolute Eosinophils 0.2 Absolute Basophils 0.1 Sodium 133.1 L Potassium 3.6 Chloride 93 L Carbon Dioxide 30 Anion Gap 10 BUN 59 H Creatinine 6.71 H Est GFR ( Amer) 11 L Est GFR (Non-Af Amer) 9 L Glucose 89 Calcium 8.9 Phosphorus Urine Color Urine Appearance Urine pH Ur Specific Reva Urine Protein Urine Glucose (UA) Urine Ketones Urine Blood Urine Nitrite Ur Leukocyte Esterase Urine WBC (Auto) Urine RBC (Auto) Impressions: Chest X-Ray 06/16/17 00:35 IMPRESSION: Cardiomegaly and mild central vascular congestion. Trace bilateral pleural effusions. Bibasilar ground-glass opacities, may represent atelectasis or pneumonia. Assessment & Plan - Diagnosis (1) DKA (diabetic ketoacidoses) Qualifiers: Diabetes mellitus type: type 1 Diabetes mellitus complication detail: without coma Qualified Code(s): E10.10 - Type 1 diabetes mellitus with ketoacidosis without coma Is this a current diagnosis for this admission?: Yes Plan: Resolved. Insulin pump is back on and it looks like it is doing well. He believes that it was a kink in the tube which led to his issues. (2) Hyperkalemia Plan: Resolved. (3) End stage renal disease on dialysis Is this a current diagnosis for this admission?: Yes Plan: Patient is being seen on dialysis which is being supervised to ensure a safe and smooth procedure. Vital signs are stable. Orders were discussed with the treating nurse Bindu. Is on a 2K bath and will remove between 2 and 4 L of fluid as tolerated. (4) Nausea & vomiting Qualifiers: Vomiting type: unspecified Vomiting Intractability: non-intractable Qualified Code(s): R11.2 - Nausea with vomiting, unspecified Plan: Resolved. (5) Hypertension Qualifiers: Hypertension type: essential hypertension Qualified Code(s): I10 - Essential (primary) hypertension Is this a current diagnosis for this admission?: Yes Plan: Current blood pressures are high but his overall blood pressures in the last 24 hours is quite stable. See how he responds to UF. Discussed with the treating dialysis nurse to give him clonidine if his blood pressure remains persistently high. (6) Anemia in chronic kidney disease, on chronic dialysis Is this a current diagnosis for this admission?: Yes Plan: Ordered erythropoietin accordingly.
[2017-06-18 14:34] VITALS: BP 141/73
--- NOTE | 2017-06-18 14:36 | PDOC DISCHARGE SUMMARY ---
General - Admit/Disc Date/PCP Admission Date/Primary Care Provider: 06/16/17 02:42 Discharge Date: 06/18/17 - Discharge Diagnosis (1) DKA (diabetic ketoacidoses) Is this a current diagnosis for this admission?: Yes (2) Pulmonary vascular congestion Is this a current diagnosis for this admission?: Yes (3) Hyponatremia Is this a current diagnosis for this admission?: Yes (4) Anemia in chronic kidney disease, on chronic dialysis Is this a current diagnosis for this admission?: Yes (5) Hypertension Is this a current diagnosis for this admission?: Yes (6) End stage renal disease on dialysis Is this a current diagnosis for this admission?: Yes - Additional Information Resuscitation Status: Full Code Discharge Diet: Cardiac, Diabetic, Other (Comments) Discharge Activity: Activity As Tolerated, Balance Activity w/Rest Home Medications: Calcium Acetate [Phoslo] 3 tab PO AC 05/31/16 Carvedilol [Coreg 25 mg Tablet] 25 mg PO Q12 05/31/16 Amlodipine Besylate 10 mg PO DAILY 06/15/17 Calcium Acetate 2 tab PO ASDIR PRN 06/15/17 Hydralazine HCl 50 mg PO BID 06/15/17 Hydroxyzine HCl 50 mg PO DAILY PRN 06/15/17 Vit B Cmplx 3/FA/Vit C/Biotin [Lyndsey-Lita Rx Tablet] 1 each PO DAILY 06/15/17 Levofloxacin [Levaquin 750 mg Tablet] 750 mg PO Q48H #3 tablet 06/18/17 Additional Information: Hemodialysis Wednesday and Wednesday at [facility] as scheduled. Follow-up final blood culture results and urine culture results outpatient with primary care physician. History of Present Illness Patient complains of: Nausea and vomiting History of Present Illness: MADISYN JOHNSON is a 46 year old male with underlying insulin- dependent diabetes mellitus, currently on insulin pump, along with hypertension , arthritis, and end-stage renal disease, on Wednesday hemodialysis who presents to the emergency room for the second time in approximately 24 hours for above complaints. Patient has been discussed with emergency room nurse practitioner who evaluated the patient. Nurse practitioner attempted to admit the patient during his first ER visit but patient decided to go home. Shortly after arriving home, he once again began vomiting multiple times, with no hematemesis. Thinks he may have been sleeping on his insulin pump tubing, kinking off the tubing. No chest or abdominal pain. Denies any "sore spots" anywhere on his body. No diarrhea. Makes only very small amount of urine each day. He is compliant with his hemodialysis session; last session was the fourth of this month. Prior to my being called, the nurse practitioner did speak to Dr. Edgar,, his ophthalmic lens inspector, who has agreed to see the patient in consultation. He also discussed with Dr. Edgar IV fluid requirements, along with starting patient on bicarb drip. For details patient refer to history and physical examination performed by the admitting physician. Hospital Course Hospital Course: The patient was admitted to the intensive care unit. The patient was continued on insulin drip and blood sugars were monitored hourly until the anion gap normalized. Nephrology was consulted and hemodialysis was started. The patient 's potassium was corrected. Cultures were performed and so far they were negative. Patient was empirically started on antibiotics to cover for pneumonia due to abnormal chest x-ray. Patient apparently has no symptoms of pneumonia therefore likely it is more fluid overload from patient's being on acidosis IV fluids and hemodialysis patient. Eventually when anion gap normalized he was transitioned to subcutaneous insulin. He was resumed on his insulin pump and was noted that his sugars were trending up again. Eventually it was found that the needle was bent and therefore patient is receiving less insulin. This was replaced and subsequently the blood sugar measurements improved. The rest of the hospital stays unremarkable. Physical Exam Vital Signs: Temp Pulse Resp BP Pulse Ox 97.9 F 58 L 16 141/73 H 98 06/18/17 14:33 06/18/17 14:33 06/18/17 14:33 06/18/17 14:33 06/18/17 14:33 Intake & Output 06/17/17 06/18/17 06/19/17 06:59 06:59 06:59 Intake Total 2275 1778 Output Total 2500 Balance -225 1778 Weight 90.7 kg 89.4 kg General appearance: PRESENT: no acute distress, cooperative Head exam: PRESENT: normocephalic Eye exam: PRESENT: EOMI Mouth exam: PRESENT: moist, neck supple Neck exam: ABSENT: JVD Respiratory exam: PRESENT: clear to auscultation bessy Cardiovascular exam: PRESENT: RRR. ABSENT: gallop GI/Abdominal exam: PRESENT: soft. ABSENT: distended, tenderness Extremities exam: ABSENT: pedal edema Neurological exam: PRESENT: alert, awake, oriented to situation Skin exam: PRESENT: dry, warm. ABSENT: cyanosis Results Laboratory Results: 06/18/17 04:02 06/18/17 04:02 06/17/17 06/18/17 06/18/17 15:30 04:02 04:02 WBC 5.1 RBC 2.94 L Hgb 9.6 L Hct 28.6 L MCV 97 MCH 32.4 MCHC 33.4 RDW 13.2 Plt Count 90 L Seg Neutrophils % 65.9 Lymphocytes % 17.5 Monocytes % 10.6 Eosinophils % 4.5 Basophils % 1.5 Absolute Neutrophils 3.4 Absolute Lymphocytes 0.9 Absolute Monocytes 0.5 Absolute Eosinophils 0.2 Absolute Basophils 0.1 Sodium 133.1 L Potassium 3.6 Chloride 93 L Carbon Dioxide 30 Anion Gap 10 BUN 59 H Creatinine 6.71 H Est GFR ( Amer) 11 L Est GFR (Non-Af Amer) 9 L Glucose 89 Calcium 8.9 Urine Color YELLOW Urine Appearance SLIGHTLY-CLOUDY Urine pH 5.0 Ur Specific Rhodell 1.010 Urine Protein 100 H Urine Glucose (UA) >=500 H Urine Ketones NEGATIVE Urine Blood NEGATIVE Urine Nitrite NEGATIVE Ur Leukocyte Esterase SMALL H Urine WBC (Auto) 44 Urine RBC (Auto) 2 Impressions: Chest X-Ray 06/16/17 00:35 IMPRESSION: Cardiomegaly and mild central vascular congestion. Trace bilateral pleural effusions. Bibasilar ground-glass opacities, may represent atelectasis or pneumonia. Qualifiers PATEINT BEING DISCHARGED WITH ANY OF THE FOLLOWING DIAGNOSIS?: No Plan Discharge Plan: Follow-up with primary care physician in 1 week. Follow-up with Dr. Edgar in 2 weeks. Time Spent: Less than 30 Minutes
== END 2017-06-18 15:33 | disposition home or self-care (01) | DRG 637 ==
LOC: ER 21:20 → UNDOADMIN 06-16 00:44 → EH 06-16 00:44 → ICU 06-16 03:55 → 3W 06-17 20:33
PROVIDERS: ADMIT Family Medicine; ATTEND Family Medicine
PROC: 5A1D60Z (ICD-10-PCS; principal; 2017-06-16)
DX: E10.10 Type 1 diabetes mellitus with ketoacidosis without coma (principal); N18.6 End stage renal disease; I12.0 Hypertensive chronic kidney disease with stage 5 chronic kidney disease or end stage renal disease; T85.614A Breakdown (mechanical) of insulin pump, initial encounter; E10.22 Type 1 diabetes mellitus with diabetic chronic kidney disease; D63.1 Anemia in chronic kidney disease; D69.59 Other secondary thrombocytopenia; Z99.2 Dependence on renal dialysis; E87.5 Hyperkalemia; F17.210 Nicotine dependence, cigarettes, uncomplicated; M19.90 Unspecified osteoarthritis, unspecified site; Z96.41 Presence of insulin pump (external) (internal); Z79.4 Long term (current) use of insulin; Z88.6 Allergy status to analgesic agent; Z84.1 Family history of disorders of kidney and ureter
CPT/HCPCS: 36415; 36600; 71010; 80048; 80053; 81001; 82803; 82962; 83735; 83930; 84100; 84484; 85025; 87040; 87086; 93005; 93010; 94799; 96361; 96365; 96375; 96376; 99285; J0456; J0610; J0696; J1200; J1815; J2270; J2405; J3490; J7030; J7060; L1830; Q4081

== ENCOUNTER 2017-06-27 20:11 | Emergency (ER) | payer MEDICARE ==
[2017-06-27] MEDS ORDERED: ASPIRIN 81 MG TABLET, CHEWABLE PO ONE (20:13)
[2017-06-27 21:09] LABS: ABSOLUTE BASOPHILS # (AUTO) 0.1 10^3/uL (0.0-0.2); ABSOLUTE EOSINOPHILS # (AUTO) 0.2 10^3/uL (0.0-0.6); ABSOLUTE LYMPHOCYTES (AUTO) 0.5 10^3/uL (0.5-4.7); ABSOLUTE MONOCYTES (AUTO) 0.8 10^3/uL (0.1-1.4); BASOPHILS % (AUTO) 1.2 % (0-2); EOSINOPHILS % (AUTO) 2.1 % (0-6); HEMATOCRIT 34.8 % (37.9-51.0); HEMOGLOBIN 11.9 g/dL (13.5-17.0); HGB HCT DIFFERENCE 0.9; LYMPHOCYTES % (AUTO) 5.7 % (13-45); MEAN CORPUSCULAR HEMOGLOBIN 33.2 pg (27.0-33.4); MEAN CORPUSCULAR HGB CONC 34.1 g/dL (32.0-36.0); MEAN CORPUSCULAR VOLUME 98 fl (80-97); RED BLOOD COUNT 3.57 10^6/uL (4.35-5.55); RED CELL DISTRIBUTION WIDTH 14.8 % (11.5-14.0); WHITE BLOOD COUNT 9.6 10^3/uL (4.0-10.5)
--- NOTE | 2017-06-27 21:23 | RADIOLOGY REPORT (SQ) ---
EXAM DESCRIPTION: CHEST SINGLE VIEW COMPLETED DATE/TIME: 06/27/2017 9:01 pm REASON FOR STUDY: cp COMPARISON: Chest films 06/17/2009, 06/18/2009, 05/30/2016, 12/13/2016, 06/16/2017 EXAM PARAMETERS: NUMBER OF VIEWS: One view. TECHNIQUE: Single frontal radiographic view of the chest acquired. RADIATION DOSE: NA LIMITATIONS: None. FINDINGS: LUNGS AND PLEURA: Trace right pleural effusion in the major fissure. Increased interstitial markings along the right and left lung bases worrisome for mild interstitial e nahed. MEDIASTINUM AND HILAR STRUCTURES: No masses. Contour normal. HEART AND VASCULAR STRUCTURES: Marked cardiomegaly BONES: No acute findings. HARDWARE: None in the chest. OTHER: No other significant finding. IMPRESSION: Cardiomegaly and interstitial edema with trace right pleural effusion TECHNICAL DOCUMENTATION: JOB ID: [id number]
[2017-06-27 21:29] LABS: ALANINE AMINOTRANSFERASE 18 U/L (21-72); ALBUMIN 4.2 g/dL (3.5-5.0); ALKALINE PHOSPHATASE 88 U/L (38-126); ANION GAP 16 (5-19); ASPARTATE AMINO TRANSFERASE 23 U/L (17-59); BILIRUBIN,DIRECT 0.9 mg/dL (0.0-0.4); BILIRUBIN,TOTAL 1.3 mg/dL (0.2-1.3); BLOOD UREA NITROGEN 69 mg/dL (7-20); CALCIUM 9.1 mg/dL (8.4-10.2); CARBON DIOXIDE 21 mmol/L (22-30); CHLORIDE 98 mmol/L (98-107); CREATINE KINASE 74 U/L (55-170); CREATININE RESULT 8.22 mg/dL (0.52-1.25); GLUCOSE 307 mg/dL (75-110); POTASSIUM 5.1 mmol/L (3.6-5.0); SODIUM 135.2 mmol/L (137-145); TOTAL PROTEIN 7.4 g/dL (6.3-8.2)
[2017-06-27 21:41] LABS: CREATINE KINASE MB 2.75 ng/mL (<4.55)
[2017-06-27 21:46] LABS: TROPONIN I 0.065 ng/mL
[2017-06-27] MEDS ORDERED: MORPHINE SULFATE 10 MG/ML INJ IV ONE (22:25)
[2017-06-27] MEDS ORDERED: ONDANSETRON HCL INJ/PF 4 MG/2 ML SDV IV ONE (22:25)
--- NOTE | 2017-06-27 22:26 | ER Document Report ---
ED Cardiac - General Chief Complaint: Chest Pain > 30 Stated Complaint: CHEST PAIN Time Seen by Provider: 06/27/17 22:13 Mode of Arrival: Ambulatory Information source: Patient TRAVEL OUTSIDE OF THE [place] IN LAST 30 DAYS: No - HPI Patient complains to provider of: Chest pain Was the onset of pain: Gradual Is the pain a: New problem Chest pain location: Other - Left upper chest wall Quality of pain: Sharp, Stabbing Severity now: Moderate Severity at worst: Moderate Chest pain precipitating factors: At Rest Associated symptoms: Nausea/vomiting Exacerbated by: Coughing, Deep breaths, Torso movement Relieved by: Nothing Similar symptoms previously: Yes Recently seen / treated by doctor: Yes Notes: Patient is a 46-year-old male with a history of end-stage renal disease on dialysis Wednesday and Wednesday, presenting to the emergency room today complaining of sharp stabbing chest pain in the left upper chest that is worsened by movement, coughing or deep breathing, associated with nausea when the pain is increased, he denies any shortness of breath, no diaphoresis, he denies a history of similar symptoms previously, he did have a cardiac catheterization in September 2016 which he states was normal, and a stress test a few weeks ago which he states was normal as well, he is currently on a 4 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 he is trying to get on a list to have a kidney and pancreas transplant - Related Data Allergies/Adverse Reactions: Iodinated Contrast- Oral and IV Dye Allergy (Verified 06/27/17 20:15) Past Medical History - General Information source: Patient - Social History Smoking Status: Current Every Day Smoker Chew tobacco use (# tins/day): No Frequency of alcohol use: None Drug Abuse: None Family History: None Patient has suicidal ideation: No Patient has homicidal ideation: No - Past Medical History Cardiac Medical History: Reports: Hx Hypertension Denies: Hx Atrial Fibrillation, Hx Congestive Heart Failure, Hx Coronary Artery Disease - Negative chemical stress 2 weeks ago; negative heart cath last September, Hx DVT, Hx Heart Attack, Hx Hypercholesterolemia, Hx Pulmonary Embolism Pulmonary Medical History: Denies: Hx Asthma, Hx COPD, Hx Sleep Apnea Neurological Medical History: Denies: Hx Seizures Endocrine Medical History: Reports: Hx Diabetes Mellitus Type 1 - insulin pump. Denies: Hx Diabetes Mellitus Type 2, Hx Hyperthyroidism, Hx Hypothyroidism Renal/ Medical History: Reports: Hx End Stage Renal Disease, Hx Peritoneal Dialysis GI Medical History: Denies: Hx Cirrhosis, Hx Gastroesophageal Reflux Disease, Hx Hepatitis Musculoskeltal Medical History: Reports Hx Arthritis Psychiatric Medical History: Denies: Hx Depression Infectious Medical History: Denies: Hx Hepatitis Past Surgical History: Reports: Hx Orthopedic Surgery - r/t traumas x 2, Hx Vascular Surgery - Access surgery for hemodialysis. Left upper extremity fistula. - Immunizations Hx Diphtheria, Pertussis, Tetanus Vaccination: Yes Review of Systems - Review of Systems Constitutional: No symptoms reported EENT: No symptoms reported Cardiovascular: Chest pain Respiratory: No symptoms reported Gastrointestinal: Nausea Genitourinary: No symptoms reported Male Genitourinary: No symptoms reported Musculoskeletal: No symptoms reported Skin: No symptoms reported Hematologic/Lymphatic: No symptoms reported Neurological/Psychological: No symptoms reported -: Yes All other systems reviewed and negative Physical Exam - Vital signs Vitals: Pulse Ox 96 06/27/17 20:13 Interpretation: Normal - General General appearance: Appears well, Alert - HEENT Head: Normocephalic, Atraumatic Eyes: Normal Pupils: PERRL - Respiratory Respiratory status: No respiratory distress Chest status: Nontender Breath sounds: Normal Chest palpation: Normal Notes: Healed scars from previous skin grafts to anterior chest wall - Cardiovascular Rhythm: Regular Heart sounds: Normal auscultation Murmur: No - Abdominal Inspection: Normal Distension: No distension Bowel sounds: Normal Tenderness: Nontender Organomegaly: No organomegaly - Back Back: Normal, Nontender - Extremities General upper extremity: Normal inspection, Nontender, Normal color, Normal ROM , Normal temperature General lower extremity: Normal inspection, Nontender, Normal color, Normal ROM , Normal temperature, Normal weight bearing. No: Leonides's sign - Neurological Neuro grossly intact: Yes Cognition: Normal Orientation: AAOx4 [place] Coma Scale Eye Opening: Spontaneous Robert Coma Scale Verbal: Oriented [place] Coma Scale Motor: Obeys Commands Robert Coma Scale Total: 15 Speech: Normal Motor strength normal: LUE, RUE, LLE, RLE Sensory: Normal - Psychological Associated symptoms: Normal affect, Normal mood - Skin Skin Temperature: Warm Skin Moisture: Dry Skin Color: Normal Course - Re-evaluation Re-evalutation: 06/27/17 23:20 Patient resting comfortably, reports feeling much better, lab and imaging findings were discussed with patient at bedside which are pretty consistent with previous labs in this end-stage renal disease patient, chest x-ray shows trace edema and right-sided effusion, EKG is without acute findings, patient does report a recent stress test and a recent cardiac catheterization which he was told were normal, symptoms appear to be noncardiac in nature, patient was discharged with pain medication and instructions for follow-up, advised to return if any additional concerns, patient acknowledges understanding and agreement with this plan 06/28/17 02:47 - Vital Signs Vital signs: Temp Pulse Resp BP Pulse Ox 100.1 F 81 20 125/74 91 L 06/27/17 21:00 06/27/17 20:16 06/27/17 23:45 06/27/17 23:45 06/27/17 23:45 - Laboratory Result Diagrams: 06/27/17 20:50 06/27/17 20:50 Laboratory results interpreted by me: 06/27/17 06/27/17 20:50 20:50 RBC 3.57 L Hgb 11.9 L Hct 34.8 L MCV 98 H RDW 14.8 H Seg Neutrophils % 83.0 H Lymphocytes % 5.7 L Sodium 135.2 L Potassium 5.1 H Carbon Dioxide 21 L BUN 69 H Creatinine 8.22 H Est GFR ( Amer) 9 L Est GFR (Non-Af Amer) 7 L Glucose 307 H Direct Bilirubin 0.9 H ALT 18 L - Diagnostic Test Radiology reviewed: Image reviewed, Reports reviewed - EKG Interpretation by Me EKG shows normal: Sinus rhythm Rate: Normal Rhythm: NSR Whigham/QRS: LAHB/LAFB Voltage: Consistant with LVH When compared to previous EKG there are: No significant change Discharge - Discharge Clinical Impression: Chest pain Qualifiers: Chest pain type: unspecified Qualified Code(s): R07.9 - Chest pain, unspecified Condition: Stable Disposition: HOME, SELF-CARE Instructions: Chest Pain of Unclear Cause ([facility]) Additional Instructions: Follow up with your primary care provider in one to 2 days. Return to the emergency room immediately if symptoms worsen or any additional concerns. Prescriptions: Ondansetron [Zofran Odt 4 mg Tablet] 1 - 2 tab PO Q4H #20 tab.rapdis Oxycodone HCl 5 mg PO Q6 #30 tablet
--- NOTE | 2017-06-27 23:34 | EKG REPORT ---
SEVERITY:- ABNORMAL ECG - SINUS RHYTHM PROBABLE LEFT ATRIAL ABNORMALITY LEFT ANTERIOR FASCICULAR BLOCK PROBABLE LEFT VENTRICULAR HYPERTROPHY : Confirmed by: Low Rosario 27-Jun-2017 23:33:35
[2017-06-27 23:53] VITALS: BP 125/74
== END 2017-06-28 | disposition home or self-care (01) ==
LOC: ER 20:11
DX: R07.9 Chest pain, unspecified (principal); N18.6 End stage renal disease; Z99.2 Dependence on renal dialysis; F17.200 Nicotine dependence, unspecified, uncomplicated
CPT/HCPCS: 93005; 99285; 96374; 96375; 36415; 82553; 82550; 85025; 80053; 84484; 71010; 93010; A9270; J2270; J2405

== ENCOUNTER 2017-07-09 06:34 | Inpatient (IN) | payer MEDICARE ==
[2017-07-09] MEDS ORDERED: DILTIAZEM HCL INJ 25 MG/5 ML VIAL IV ONE (06:55)
[2017-07-09] MEDS ORDERED: DILTIAZEM HCL/D5W 125 MG/125 ML RTUINJ IV PRN (06:55)
[2017-07-09 07:14] LABS: ABSOLUTE BASOPHILS # (AUTO) 0.1 10^3/uL (0.0-0.2); ABSOLUTE EOSINOPHILS # (AUTO) 0.2 10^3/uL (0.0-0.6); ABSOLUTE LYMPHOCYTES (AUTO) 0.8 10^3/uL (0.5-4.7); ABSOLUTE MONOCYTES (AUTO) 0.8 10^3/uL (0.1-1.4); ABSOLUTE NEUT (AUTO) 5.9 10^3/uL (1.7-8.2); BASOPHILS % (AUTO) 0.8 % (0-2); EOSINOPHILS % (AUTO) 2.4 % (0-6); HEMOGLOBIN 11.8 g/dL (13.5-17.0); HGB HCT DIFFERENCE 1.4; LYMPHOCYTES % (AUTO) 10.5 % (13-45); MEAN CORPUSCULAR HEMOGLOBIN 33.7 pg (27.0-33.4); MEAN CORPUSCULAR HGB CONC 34.8 g/dL (32.0-36.0); MEAN CORPUSCULAR VOLUME 97 fl (80-97); MONOCYTES % (AUTO) 10.1 % (3-13); RED BLOOD COUNT 3.51 10^6/uL (4.35-5.55); RED CELL DISTRIBUTION WIDTH 13.9 % (11.5-14.0); SEGMENTED NEUTROPHILS % (AUTO) 76.2 % (42-78); WHITE BLOOD COUNT 7.8 10^3/uL (4.0-10.5)
[2017-07-09 07:27] LABS: ALANINE AMINOTRANSFERASE 16 U/L (21-72); ALBUMIN 3.9 g/dL (3.5-5.0); ALKALINE PHOSPHATASE 88 U/L (38-126); ANION GAP 14 (5-19); ASPARTATE AMINO TRANSFERASE 14 U/L (17-59); BILIRUBIN,DIRECT 0.9 mg/dL (0.0-0.4); BILIRUBIN,TOTAL 1.1 mg/dL (0.2-1.3); BLOOD UREA NITROGEN 48 mg/dL (7-20); CALCIUM 9.6 mg/dL (8.4-10.2); CARBON DIOXIDE 25 mmol/L (22-30); CHLORIDE 96 mmol/L (98-107); CREATININE RESULT 6.53 mg/dL (0.52-1.25); GLUCOSE 187 mg/dL (75-110); POTASSIUM 4.9 mmol/L (3.6-5.0); SODIUM 134.9 mmol/L (137-145)
[2017-07-09] MEDS ORDERED: ONDANSETRON HCL INJ/PF 4 MG/2 ML SDV ONE (08:01)
[2017-07-09] MEDS ORDERED: ONDANSETRON HCL INJ/PF 4 MG/2 ML SDV IV ONE (08:38)
--- NOTE | 2017-07-09 08:38 | ER Document Report ---
ED General - General Chief Complaint: Nausea/Vomiting Stated Complaint: NAUSEA,VOMITING Time Seen by Provider: 07/09/17 06:42 Mode of Arrival: Medic Information source: Patient Notes: 46-year-old chronic kidney disease patient who was recently admitted for chest pain presents with complaints of nausea vomiting not feeling well. Patient notes his heart is racing TRAVEL OUTSIDE OF THE [place] IN LAST 30 DAYS: No - HPI Onset: Just prior to arrival Onset/Duration: Sudden Quality of pain: Achy Severity: Mild Pain Level: 1 Associated symptoms: Body/muscle aches, Nausea, Vomiting Exacerbated by: Denies Relieved by: Denies Similar symptoms previously: Yes Recently seen / treated by doctor: Yes - Related Data Allergies/Adverse Reactions: Iodinated Contrast- Oral and IV Dye Allergy (Verified 06/27/17 20:15) Past Medical History - Social History Smoking Status: Current Every Day Smoker Cigarette use (# per day): Yes Chew tobacco use (# tins/day): No Smoking Education Provided: No Frequency of alcohol use: None Drug Abuse: None Family History: Reviewed & Not Pertinent - Past Medical History Cardiac Medical History: Reports: Hx Hypertension Denies: Hx Atrial Fibrillation, Hx Congestive Heart Failure, Hx Coronary Artery Disease - Negative chemical stress 2 weeks ago; negative heart cath last September, Hx DVT, Hx Heart Attack, Hx Hypercholesterolemia, Hx Pulmonary Embolism Pulmonary Medical History: Denies: Hx Asthma, Hx COPD, Hx Sleep Apnea Neurological Medical History: Denies: Hx Seizures Endocrine Medical History: Reports: Hx Diabetes Mellitus Type 1 - insulin pump. Denies: Hx Diabetes Mellitus Type 2, Hx Hyperthyroidism, Hx Hypothyroidism Renal/ Medical History: Reports: Hx End Stage Renal Disease, Hx Peritoneal Dialysis GI Medical History: Denies: Hx Cirrhosis, Hx Gastroesophageal Reflux Disease, Hx Hepatitis Musculoskeltal Medical History: Reports Hx Arthritis Psychiatric Medical History: Denies: Hx Depression Infectious Medical History: Denies: Hx Hepatitis Past Surgical History: Reports: Hx Orthopedic Surgery - r/t traumas x 2, Hx Vascular Surgery - Access surgery for hemodialysis. Left upper extremity fistula. - Immunizations Hx Diphtheria, Pertussis, Tetanus Vaccination: Yes Review of Systems - Review of Systems Notes: REVIEW OF SYSTEMS: CONSTITUTIONAL : Denies fever, chills, or sweats. Denies recent illness. EENT: Denies eye, ear, throat, or mouth pain or symptoms. Denies nasal or sinus congestion or discharge. Denies throat, tongue, or mouth swelling or difficulty swallowing. CARDIOVASCULAR: Admits heart racing. RESPIRATORY: Denies cough, cold, or chest congestion. Denies shortness of breath, difficulty breathing, or wheezing. GASTROINTESTINAL: Admits to nausea vomiting GENITOURINARY: Denies difficulty urinating, painful urination, burning, frequency, blood in urine, or discharge. MUSCULOSKELETAL: Admits to back pain SKIN: Denies rash, lesions or sores. HEMATOLOGIC : Denies easy bruising or bleeding. LYMPHATIC: Denies swollen, enlarged glands. NEUROLOGICAL: Denies confusion or altered mental status. Denies passing out or loss of consciousness. Denies dizziness or lightheadedness. Denies headache. Denies weakness or paralysis or loss of use of either side. Denies problems with gait or speech. Denies sensory loss, numbness, or tingling. Denies seizures. PSYCHIATRIC: Denies anxiety or stress. Denies depression, suicidal ideation, or homicidal ideation. ALL OTHER SYSTEMS REVIEWED AND NEGATIVE. Dictation was performed using [employer] voice recognition software PHYSICAL EXAMINATION: GENERAL: Well-appearing, well-nourished and in no acute distress. HEAD: Atraumatic, normocephalic. EYES: Pupils equal round and reactive to light, extraocular movements intact, sclera anicteric, conjunctiva are normal. ENT: Nares patent, oropharynx clear without exudates. Moist mucous membranes. NECK: Normal range of motion, supple without lymphadenopathy LUNGS: Breath sounds clear to auscultation bilaterally and equal. No wheezes rales or rhonchi. HEART: Irregular rate and rhythm heart rate in the 140s-150s s ABDOMEN: Soft, nontender, nondistended abdomen. No guarding, no rebound. No masses appreciated. Musculoskeletal: Normal range of motion, no pitting or edema. No cyanosis. NEUROLOGICAL: Cranial nerves grossly intact. Normal speech, normal gait. Normal sensory, motor exams PSYCH: Normal mood, normal affect. SKIN: Dialysis access noted Physical Exam - Vital signs Vitals: Pulse Ox 100 07/09/17 06:41 Course - Re-evaluation Re-evalutation: 07/09/17 09:47 Patient was immediately given Cardizem 25 mg bolus, heart rate has gone from 140s down to 109 with a range of 90s-110 Chest x-ray shows small effusion, patient has not had dialysis today. He otherwise looks well. I will admit him to the [facility] for further care he has not required a Cardizem drip at this time - Vital Signs Vital signs: Temp Pulse Resp BP Pulse Ox 98.9 F 140 H 21 H 142/95 H 98 07/09/17 06:42 07/09/17 06:42 07/09/17 09:01 07/09/17 09:01 07/09/17 09:01 - Laboratory Result Diagrams: 07/09/17 06:55 07/09/17 06:55 Laboratory results interpreted by me: 07/09/17 07/09/17 07/09/17 06:55 06:55 06:55 RBC 3.51 L Hgb 11.8 L Hct 34.0 L MCH 33.7 H Lymphocytes % 10.5 L Sodium 134.9 L Chloride 96 L BUN 48 H Creatinine 6.53 H Est GFR ( Amer) 11 L Est GFR (Non-Af Amer) 9 L Glucose 187 H Magnesium 2.4 H Direct Bilirubin 0.9 H AST 14 L ALT 16 L - Diagnostic Test Radiology reviewed: Image reviewed, Reports reviewed - EKG Interpretation by Me EKG shows normal: Sinus rhythm, Rea, Intervals, QRS Complexes Rate: Tachycardia Rhythm: A.Fib Critical Care Note - Critical Care Note Total time excluding time spent on procedures (mins): 39 Comments: minutes of critical care time spent in direct contact evaluating and reevaluating the patient, treating symptoms, reviewing labs and studies and speaking with family and consultants excluding any procedures Discharge - Discharge Clinical Impression: Atrial fibrillation with RVR, End stage renal disease on dialysis Nausea & vomiting Qualifiers: Vomiting type: unspecified Vomiting Intractability: non-intractable Qualified Code(s): R11.2 - Nausea with vomiting, unspecified Condition: Fair Disposition: ADMITTED INPATIENT Admitting Provider: Hospitalist Unit Admitted: [facility]
--- NOTE | 2017-07-09 09:11 | RADIOLOGY REPORT (SQ) ---
EXAM DESCRIPTION: CHEST SINGLE VIEW COMPLETED DATE/TIME: 07/09/2017 8:59 am REASON FOR STUDY: chf, new onset afbi COMPARISON: Chest films 12/13/2016, 06/17/2009 EXAM PARAMETERS: NUMBER OF VIEWS: One view. TECHNIQUE: Single frontal radiographic view of the chest acquired. RADIATION DOSE: NA LIMITATIONS: None. FINDINGS: LUNGS AND PLEURA: Trace fluid or thickening along the right major fissure unchanged. No pneumothorax. No focal infiltrates. MEDIASTINUM AND HILAR STRUCTURES: No masses. Contour normal. HEART AND VASCULAR STRUCTURES: Stable massive cardiomegaly. BONES: No acute findings. HARDWARE: Left axillary vein stents unchanged. OTHER: No other significant finding. IMPRESSION: Stable cardiomegaly and right trace pleural fluid/ pleural thickening TECHNICAL DOCUMENTATION: JOB ID: [id number]
[2017-07-09] MEDS ORDERED: MORPHINE SULFATE 10 MG/ML INJ IV ONE (09:40)
[2017-07-09] MEDS ORDERED: METOCLOPRAMIDE HCL INJ/PF 10 MG/2 ML SDV IV ONE (09:40)
--- NOTE | 2017-07-09 09:51 | EKG REPORT ---
SEVERITY:- ABNORMAL ECG - ATRIAL FIBRILLATION, V-RATE 93-179 LEFT AXIS DEVIATION PROBABLE LEFT VENTRICULAR HYPERTROPHY BORDERLINE PROLONGED QT INTERVAL NONSPECIFIC T CHANGES : Confirmed by: Low Rosario 09-Jul-2017 09:51:23
[2017-07-09] MEDS ORDERED: LORAZEPAM INJ 2 MG/1 ML VIAL IV ONE (09:55)
[2017-07-09] MEDS ORDERED: ACETAMINOPHEN 325 MG TABLET PO PRN (09:56)
[2017-07-09] MEDS ORDERED: METOPROLOL TARTRATE PF/INJ 5 MG/5 ML SDV IV ONE (09:56)
[2017-07-09] MEDS: FAMOTIDINE INJ/PF 20 MG/2 ML SDV IV SCH ×2 (10:15→21:08)
[2017-07-09] MEDS ORDERED: GLUCAGON,HUMAN RECOMB 1 MG INJ IM PRN (11:17)
[2017-07-09] MEDS ORDERED: DEXTROSE 50%-WATER 25 GM/50 ML DISP.SYRIN IV PRN ×2 (11:17)
[2017-07-09] MEDS ORDERED: DEXTROSE 40% GEL 15 GM TUBE PO PRN ×2 (11:17)
[2017-07-09 11:55] LABS: CREATINE KINASE MB 1.7 ng/mL (<4.55)
[2017-07-09 12:03] LABS: TROPONIN I 0.039 ng/mL
[2017-07-09] MEDS ORDERED: PROMETHAZINE HCL INJ 25 MG/1 ML VIAL IV ONE ×2 (13:43→13:45)
[2017-07-09] MEDS ORDERED: HEPARIN SOD (PORCINE) 5,000 UNIT/ML 1 ML SYRINGE SUBCUT SCH (14:00)
--- NOTE | 2017-07-09 15:48 | PDOC CONSULTATION ---
Consultation Consult Date: 07/09/17 Consult reason:: ESRD for dialysis, nausea vomiting. History of Present Illness Admission Date/PCP: 07/09/17 09:56 History of Present Illness: MADISYN JOHNSON is a 46 year old maleWith a history of ESRD on dialysis in the background of complicated diabetes mellitus, hypertension is being admitted with a history of persistent nausea vomiting for the last 2 days.He was recently admitted couple of weeks earlier with diabetic ketoacidosis.Since that discharge he has been begun on rifampin by the [place] doctor at [facility] for apparent positive serology towards tuberculosis.He believes that rifampin is the culprit for his intractable nausea and vomiting since yesterday.No history of any hematemesis, abdominal pains other than mild when he vomits.He has also been diagnosed with rapid A. fib and has been given IV diltiazem and rate is better controlled of the moment. Patient is currently undergoing dialysis without any issues. Vital signs are stable. Orders were discussed with the treating nurse Bindu. Past Medical History Cardiac Medical History: Reports: Hypertension-primary Denies: Atrial Fibrillation, Coronary Artery Disease - Negative chemical stress 2 weeks ago; negative heart cath last September, DVT, Hyperlipidemia, Myocardial Infarction, Pulmonary Embolism Pulmonary Medical History: Denies: Asthma, Chronic Obstructive Pulmonary Disease (COPD), Sleep Apnea Neurological Medical History: Denies: Seizures Endocrine Medical History: Reports: Diabetes Mellitus Type 1 - insulin pump Denies: Diabetes Mellitus Type 2, Hyperthyroidism, Hypothyroidism Renal/ Medical History: Reports: End Stage Renal Disease, Renal Osteodystropy GI Medical History: Denies: Cirrhosis, Gastroesophageal Reflux Disease, Hepatitis Musculoskeltal Medical History: Reports: Arthritis Psychiatric Medical History: Denies: Depression Hematology Medical History: Reports Anemia of Chronic Kidney Disease Past Surgical History Past Surgical History: Reports: Orthopedic Surgery - r/t traumas x 2, Vascular Surgery - Access surgery for hemodialysis. Left upper extremity fistula. Social History Smoking Status: Current Every Day Smoker Frequency of Alcohol Use: Rare Hx Recreational Drug Use: No Drugs: None Hx Prescription Drug Abuse: No - Advance Directive Resuscitation Status: Full Code Family History Parental Family History Reviewed: Yes - Negative for ESRD Children Family History Reviewed: No Sibling(s) Family History Reviewed.: No Medication/Allergy Home Medications: Amlodipine Besylate [Norvasc 10 mg Tablet] 10 mg PO QHS 07/09/17 Aspirin [Aspirin EC] 81 mg PO DAILY 07/09/17 B Complex W-C No.20/Folic Acid [Nephrocaps Softgel] 1 mg PO DAILY 07/09/17 Calcium Acetate [Phoslo 667 Mg Capsule] 2,001 mg PO MEALS 07/09/17 Calcium Acetate [Phoslo 667 Mg Capsule] 667 mg PO BIDP PRN 07/09/17 Carvedilol [Coreg 25 mg Tablet] 25 mg PO Q12 07/09/17 Folic Acid/Vit B Complex and C [Lyndsey-Lita Tablet] 0.8 mg PO DAILY 07/09/17 Furosemide [Lasix 80 mg Tablet] 80 mg PO DAILY MDD ON NON HEMODIALYSIS DAYS Hydralazine HCl [Apresoline 50 mg Tablet] 50 mg PO Q12 07/09/17 Insulin Lispro [Humalog] 0 unit SQ .PUMP 07/09/17 Metoclopramide HCl [Reglan 10 mg Tablet] 10 mg PO ACHS 07/09/17 Ondansetron [Zofran Odt 4 mg Tablet] 4 mg PO ASDIR PRN 07/09/17 Rifampin [Rifadin] 600 mg PO DAILY 07/09/17 Allergies/Adverse Reactions: Iodinated Contrast- Oral and IV Dye Allergy (Verified 06/27/17 20:15) Review of Systems Constitutional: PRESENT: weakness. ABSENT: fever(s), headache(s), night sweats Nose, Mouth, and Throat: ABSENT: mouth pain, sore throat Cardiovascular: ABSENT: dyspnea on exertion, edema, orthropnea Gastrointestinal: PRESENT: nausea, vomiting. ABSENT: abdominal pain, coffee ground emesis, constipation, diarrhea, hematemesis Genitourinary: ABSENT: dysuria, hematuria Neurological: ABSENT: abnormal speech, confusion, convulsions, dizziness, focal weakness Hematologic/Lymphatic: ABSENT: easy bruising, lymphadenopathy Physical Exam Vital Signs: Temp Pulse Resp BP Pulse Ox 98.9 F 115 H 18 151/99 H 98 07/09/17 06:42 07/09/17 14:00 07/09/17 10:01 07/09/17 10:01 07/09/17 10:01 General appearance: PRESENT: mild distress Eye exam: PRESENT: conjunctiva pink, EOMI, PERRLA. ABSENT: scleral icterus Ear exam: ABSENT: normal external ear exam Mouth exam: PRESENT: neck supple. ABSENT: moist Neck exam: ABSENT: lymphadenopathy, meningismus, tenderness, thyromegaly, tracheal deviation Respiratory exam: PRESENT: clear to auscultation bessy. ABSENT: crackles, stridor Cardiovascular exam: PRESENT: +S1, +S2 GI/Abdominal exam: PRESENT: normal bowel sounds, soft. ABSENT: distended, organomegaly, tenderness Extremities exam: ABSENT: pedal edema Neurological exam: PRESENT: alert, awake, oriented to person, oriented to place , oriented to time Psychiatric exam: PRESENT: anxious Skin exam: PRESENT: dry. ABSENT: cyanosis, erythema, mottled Results Laboratory Results: 07/09/17 11:07 TSH 2.80 07/09/17 07/09/17 11:07 11:07 Creatine Kinase 36 L CK-MB (CK-2) 1.70 Troponin I 0.039 Impressions: Chest X-Ray 07/09/17 08:36 IMPRESSION: Stable cardiomegaly and right trace pleural fluid/ pleural thickening Assessment & Plan - Diagnosis (1) End stage renal disease on dialysis Plan: Patient is currently undergoing dialysis without any issues. Vital signs are stable. Is being supervised to ensure safe and smooth procedure. Orders were discussed with the treating nurse Bindu. (2) Diabetes mellitus Plan: Under good control of the moment. (3) Atrial fibrillation with RVR Plan: Rate better controlled on current medications. Being closely monitored by Dr. Dinero/hospitalist. (4) Nausea & vomiting Qualifiers: Vomiting type: unspecified Vomiting Intractability: non-intractable Qualified Code(s): R11.2 - Nausea with vomiting, unspecified Plan: Most likely culprit is the rifampin. Patient has already gotten Zofran earlier along with by dose of Reglan. I am going to order 12.5 mg of Phenergan for now. (5) Anemia in chronic kidney disease, on chronic dialysis Plan: Currently stable with no requirements for any erythropoietin in the moment. (6) Hypertension Qualifiers: Hypertension type: essential hypertension Qualified Code(s): I10 - Essential (primary) hypertension Plan: Relatively stable. Monitor closely. (7) Positive PPD Plan: Currently on rifampin which possibly could be the culprit for his nausea vomiting.
[2017-07-09] MEDS ORDERED: CALCIUM ACETATE 667 MG CAPSULE PO PRN (16:43)
[2017-07-09] MEDS ORDERED: CARVEDILOL 6.25 MG TABLET ONE (17:05)
[2017-07-09] MEDS: CALCIUM ACETATE 667 MG CAPSULE PO SCH (17:11)
[2017-07-09] MEDS: METOPROLOL TARTRATE PF/INJ 5 MG/5 ML SDV IV SCH ×2 (17:11→21:08)
[2017-07-09] MEDS: APIXABAN 2.5 MG TABLET PO SCH (17:12)
[2017-07-09 17:46] LABS: CREATINE KINASE MB 1.52 ng/mL (<4.55); TROPONIN I 0.041 ng/mL
[2017-07-09] MEDS ORDERED: HYDROCODONE/ACETAMINOPHEN 5-325 MG TABLET PO PRN (17:54)
--- NOTE | 2017-07-09 17:57 | RADIOLOGY REPORT (SQ) ---
EXAM DESCRIPTION: KUB/ABDOMEN (SINGLE VIEW) COMPLETED DATE/TIME: 07/09/2017 5:42 pm REASON FOR STUDY: n/v COMPARISON: None. NUMBER OF VIEWS: One view. TECHNIQUE: Supine radiographic image of the abdomen acquired. LIMITATIONS: None. FINDINGS: BOWEL GAS PATTERN: Normal bowel gas pattern. No dilated loops. CALCIFICATIONS: No suspicious calcifications. SOFT TISSUES: No gross mass or suggestion of organomegaly. HARDWARE: None in the abdomen. BONES: No acute fracture. No worrisome bone lesions. OTHER: No other significant finding. IMPRESSION: NO RADIOGRAPHIC EVIDENCE FOR ACUTE ABDOMINAL DISEASE. TECHNICAL DOCUMENTATION: JOB ID: [id number] [facility]- All Rights Reserved
[2017-07-09] MEDS ORDERED: CARVEDILOL 12.5 MG TABLET PO ONE (18:00)
--- NOTE | 2017-07-09 18:51 | PDOC H&P ---
History of Present Illness Admission Date/PCP: 07/09/17 [place] History of Present Illness: MADISYN JOHNSON is a 46 year old male with past medical history significant for dependent diabetes mellitus, CKD on hemodialysis who presents emergency department complaint of nausea vomiting. He is noted that his heart is racing and he is found to be in A. fib with RVR. Patient reports that he has been having nausea and vomiting since he was started on rifampin. Patient apparently was positive for QuantiFERON gold and started on 600 mg rifampin daily. He has been able unable to keep his medicines down for several days. He is not in DKA and his blood sugars 189. He is referred to hospital service for A. fib with RVR. Past Medical History Cardiac Medical History: Reports: Hypertension Denies: Atrial Fibrillation, Congestive Heart Failure, Coronary Artery Disease - Negative chemical stress 2 weeks ago; negative heart cath last September, DVT, Myocardial Infarction, Hyperlipidema, Pulmonary Embolism Pulmonary Medical History: Denies: Asthma, Chronic Obstructive Pulmonary Disease (COPD), Sleep Apnea Neurological Medical History: Denies: Seizures Endocrine Medical History: Reports: Diabetes Mellitus Type 1 - insulin pump Denies: Diabetes Mellitus Type 2, Hyperthyroidism, Hypothyroidism Renal/ Medical History: Reports: End Stage Renal Disease GI Medical History: Denies: Cirrhosis, Gastroesophageal Reflux Disease, Hepatitis Musculoskeltal Medical History: Reports: Arthritis Psychiatric Medical History: Denies: Depression Past Surgical History Past Surgical History: Reports: Orthopedic Surgery - r/t traumas x 2, Vascular Surgery - Access surgery for hemodialysis. Left upper extremity fistula. Social History Smoking Status: Current Every Day Smoker Frequency of Alcohol Use: Rare Hx Recreational Drug Use: No Drugs: None Hx Prescription Drug Abuse: No - Advance Directive Resuscitation Status: Full Code Surrogate healthcare decision maker:: Gallito Johnson, father Family History Family History: CAD, DM Parental Family History Reviewed: Yes Children Family History Reviewed: Yes Sibling(s) Family History Reviewed.: Yes Medication/Allergy Home Medications: Amlodipine Besylate [Norvasc 10 mg Tablet] 10 mg PO QHS 07/09/17 Aspirin [Aspirin EC] 81 mg PO DAILY 07/09/17 B Complex W-C No.20/Folic Acid [Nephrocaps Softgel] 1 mg PO DAILY 07/09/17 Calcium Acetate [Phoslo 667 Mg Capsule] 2,001 mg PO MEALS 07/09/17 Calcium Acetate [Phoslo 667 Mg Capsule] 667 mg PO BIDP PRN 07/09/17 Carvedilol [Coreg 25 mg Tablet] 25 mg PO Q12 07/09/17 Folic Acid/Vit B Complex and C [Lyndsey-Lita Tablet] 0.8 mg PO DAILY 07/09/17 Furosemide [Lasix 80 mg Tablet] 80 mg PO DAILY MDD ON NON HEMODIALYSIS DAYS Hydralazine HCl [Apresoline 50 mg Tablet] 50 mg PO Q12 07/09/17 Insulin Lispro [Humalog] 0 unit SQ .PUMP 07/09/17 Metoclopramide HCl [Reglan 10 mg Tablet] 10 mg PO ACHS 07/09/17 Ondansetron [Zofran Odt 4 mg Tablet] 4 mg PO ASDIR PRN 07/09/17 Rifampin [Rifadin] 600 mg PO DAILY 07/09/17 Allergies/Adverse Reactions: Iodinated Contrast- Oral and IV Dye Allergy (Verified 06/27/17 20:15) Review of Systems Constitutional: ABSENT: chills, fever(s), headache(s), weight gain, weight loss Eyes: ABSENT: visual disturbances Ears: ABSENT: hearing changes Cardiovascular: PRESENT: palpitations. ABSENT: chest pain, dyspnea on exertion , edema, orthropnea Respiratory: ABSENT: cough, dyspnea, hemoptysis, sputum Gastrointestinal: PRESENT: nausea, vomiting. ABSENT: abdominal pain, constipation, diarrhea, hematemesis, hematochezia, melena Genitourinary: ABSENT: dysuria, hematuria Musculoskeletal: ABSENT: joint swelling Integumentary: ABSENT: rash, wounds Neurological: ABSENT: abnormal gait, abnormal speech, confusion, dizziness, focal weakness, syncope Psychiatric: ABSENT: anxiety, depression, homidical ideation, suicidal ideation Endocrine: ABSENT: cold intolerance, heat intolerance, polydipsia, polyuria Hematologic/Lymphatic: ABSENT: easy bleeding, easy bruising Physical Exam Vital Signs: Temp Pulse Resp BP Pulse Ox 98.9 F 140 H 21 H 142/95 H 98 07/09/17 06:42 07/09/17 06:42 07/09/17 09:01 07/09/17 09:01 07/09/17 09:01 Intake & Output 07/08/17 07/09/17 07/10/17 06:59 06:59 06:59 Weight 88 kg General appearance: PRESENT: mild distress, well-developed, well-nourished Head exam: PRESENT: normocephalic. ABSENT: atraumatic - Cranial scar Eye exam: PRESENT: conjunctiva pink, EOMI, PERRLA. ABSENT: scleral icterus Ear exam: PRESENT: normal external ear exam Mouth exam: PRESENT: dry mucosa, tongue midline Neck exam: ABSENT: JVD, lymphadenopathy, thyromegaly, tracheal deviation Respiratory exam: PRESENT: clear to auscultation bessy. ABSENT: rales, rhonchi, wheezes Cardiovascular exam: PRESENT: irregular rhythm, +S1, +S2, systolic murmur. ABSENT: diastolic murmur, gallop, rubs Pulses: PRESENT: normal dorsalis pedis pul Vascular exam: PRESENT: pallor GI/Abdominal exam: PRESENT: hypoactive bowel sounds, soft. ABSENT: distended, firm, guarding, mass, Lebron's sign, organolmegaly, rebound, rigid, tenderness Rectal exam: PRESENT: deferred Extremities exam: PRESENT: full ROM. ABSENT: calf tenderness, clubbing, pedal edema Neurological exam: PRESENT: alert, awake, oriented to person, oriented to place , oriented to time, oriented to situation, CN II-XII grossly intact. ABSENT: motor sensory deficit Psychiatric exam: PRESENT: appropriate affect, normal mood. ABSENT: homicidal ideation, suicidal ideation Skin exam: PRESENT: dry, intact, warm. ABSENT: cyanosis, rash Results Laboratory Results: 07/09/17 06:55 07/09/17 06:55 07/09/17 07/09/17 07/09/17 06:55 06:55 06:55 WBC 7.8 RBC 3.51 L Hgb 11.8 L Hct 34.0 L MCV 97 MCH 33.7 H MCHC 34.8 RDW 13.9 Plt Count 227 Seg Neutrophils % 76.2 Lymphocytes % 10.5 L Monocytes % 10.1 Eosinophils % 2.4 Basophils % 0.8 Absolute Neutrophils 5.9 Absolute Lymphocytes 0.8 Absolute Monocytes 0.8 Absolute Eosinophils 0.2 Absolute Basophils 0.1 Sodium 134.9 L Potassium 4.9 Chloride 96 L Carbon Dioxide 25 Anion Gap 14 BUN 48 H Creatinine 6.53 H Est GFR ( Amer) 11 L Est GFR (Non-Af Amer) 9 L Glucose 187 H Calcium 9.6 Magnesium 2.4 H Total Bilirubin 1.1 AST 14 L ALT 16 L Alkaline Phosphatase 88 Total Protein 7.0 Albumin 3.9 Impressions: Chest X-Ray 07/09/17 08:36 IMPRESSION: Stable cardiomegaly and right trace pleural fluid/ pleural thickening Assessment & Plan - Diagnosis (1) Atrial fibrillation with RVR Is this a current diagnosis for this admission?: Yes Plan: Continue metoprolol 5 IV every 6 and give patient his coreg start on eilquis 2.5mg po bid Likely secondary to underlying COPD (2) Diabetes mellitus Qualifiers: Diabetes mellitus type: type 1 Diabetes mellitus complication status: with kidney complications Diabetes mellitus complication detail: with chronic kidney disease Chronic kidney disease stage: on chronic dialysis Qualified Code(s): E10.22 - Type 1 diabetes mellitus with diabetic chronic kidney disease ; N18.6 - End stage renal disease; Z99.2 - Dependence on renal dialysis Is this a current diagnosis for this admission?: Yes Plan: Patient may continue to use his home insulin pump placed on diabetic diac diet (3) Nausea & vomiting Qualifiers: Vomiting type: unspecified Vomiting Intractability: non-intractable Qualified Code(s): R11.2 - Nausea with vomiting, unspecified Is this a current diagnosis for this admission?: Yes Plan: Secondary rifampin. This (4) Positive PPD Is this a current diagnosis for this admission?: Yes Plan: Patient apparently also had a positive quad furuncle test and has been on rifampin. We will stop this and start patient on isoniazid 300 p.o. daily with B6 100 mg p.o. daily. (5) End stage renal disease on dialysis Is this a current diagnosis for this admission?: Yes Plan: Patient nephrology input (6) Anemia in chronic kidney disease, on chronic dialysis Is this a current diagnosis for this admission?: Yes (7) DVT prophylaxis Is this a current diagnosis for this admission?: Yes - Time Time Spent: 50 to 70 Minutes Medications reviewed and adjusted accordingly: Yes Anticipated discharge: Home Within: within 48 hours
[2017-07-09] MEDS: METOCLOPRAMIDE HCL 10 MG TABLET PO SCH (21:08)
[2017-07-09] MEDS ORDERED: CARVEDILOL 12.5 MG TABLET PO SCH (22:00)
[2017-07-09] MEDS ORDERED: AMLODIPINE BESYLATE 10 MG TABLET PO SCH (22:00)
[2017-07-09] MEDS: HYDRALAZINE HCL 50 MG TABLET PO SCH (22:09)
[2017-07-09 22:34] LABS: CREATINE KINASE MB 1.25 ng/mL (<4.55); TROPONIN I 0.047 ng/mL
[2017-07-10] MEDS: METOPROLOL TARTRATE PF/INJ 5 MG/5 ML SDV IV SCH ×2 (02:52→08:37)
[2017-07-10 04:55] LABS: HEMATOCRIT 31.4 % (37.9-51.0); HEMOGLOBIN 10.8 g/dL (13.5-17.0); MEAN CORPUSCULAR HEMOGLOBIN 33.3 pg (27.0-33.4); MEAN CORPUSCULAR HGB CONC 34.4 g/dL (32.0-36.0); MEAN CORPUSCULAR VOLUME 97 fl (80-97); RED BLOOD COUNT 3.24 10^6/uL (4.35-5.55); RED CELL DISTRIBUTION WIDTH 14.2 % (11.5-14.0); WHITE BLOOD COUNT 5.8 10^3/uL (4.0-10.5)
[2017-07-10 05:07] LABS: ANION GAP 14 (5-19); BLOOD UREA NITROGEN 31 mg/dL (7-20); CALCIUM 9.3 mg/dL (8.4-10.2); CARBON DIOXIDE 28 mmol/L (22-30); CHLORIDE 95 mmol/L (98-107); CREATININE RESULT 4.59 mg/dL (0.52-1.25); GLUCOSE 151 mg/dL (75-110); LIPASE 11.3 U/L (23-300); POTASSIUM 4.1 mmol/L (3.6-5.0); SODIUM 136.7 mmol/L (137-145)
[2017-07-10] MEDS: METOCLOPRAMIDE HCL 10 MG TABLET PO SCH ×2 (08:37→11:06)
[2017-07-10] MEDS: CALCIUM ACETATE 667 MG CAPSULE PO SCH (08:37)
[2017-07-10] MEDS: APIXABAN 2.5 MG TABLET PO SCH (09:35)
[2017-07-10] MEDS: FAMOTIDINE INJ/PF 20 MG/2 ML SDV IV SCH (09:35)
[2017-07-10] MEDS ORDERED: FOLIC ACID PO SCH (10:00)
[2017-07-10] MEDS ORDERED: VIT B COMPLEX AND C PO SCH (10:00)
[2017-07-10] MEDS ORDERED: FOLIC ACID/VITAMIN B COMP W-C CAPSULE PO SCH (10:00)
[2017-07-10] MEDS ORDERED: ASPIRIN 81 MG TABLET, ENT COATED PO SCH (10:00)
[2017-07-10] MEDS ORDERED: PYRIDOXINE HCL 50 MG TABLET PO SCH (10:00)
[2017-07-10] MEDS ORDERED: FUROSEMIDE 80 MG TABLET PO SCH (10:00)
[2017-07-10] MEDS ORDERED: AMLODIPINE BESYLATE 10 MG TABLET PO SCH (10:00)
[2017-07-10] MEDS ORDERED: ISONIAZID 300 MG TABLET PO SCH (10:00)
[2017-07-10 10:42] VITALS: BP 122/70
[2017-07-10] MEDS ORDERED: CARVEDILOL 12.5 MG TABLET PO ONE (11:00)
[2017-07-10] MEDS: HYDRALAZINE HCL 50 MG TABLET PO SCH (11:07)
[2017-07-10 11:21] LABS: ALANINE AMINOTRANSFERASE 9 U/L (21-72); ALKALINE PHOSPHATASE 70 U/L (38-126); ASPARTATE AMINO TRANSFERASE 9 U/L (17-59); BILIRUBIN,DIRECT 0.7 mg/dL (0.0-0.4); BILIRUBIN,TOTAL 0.8 mg/dL (0.2-1.3); TOTAL PROTEIN 5.4 g/dL (6.3-8.2)
--- NOTE | 2017-07-10 18:06 | PDOC DISCHARGE SUMMARY ---
General - Admit/Disc Date/PCP Admission Date/Primary Care Provider: 07/09/17 09:56 Discharge Date: 07/10/17 - Discharge Diagnosis (1) Atrial fibrillation with RVR Is this a current diagnosis for this admission?: Yes (2) Latent tuberculosis Is this a current diagnosis for this admission?: Yes (3) Diabetes mellitus Is this a current diagnosis for this admission?: Yes (4) End stage renal disease on dialysis Is this a current diagnosis for this admission?: Yes (5) Anemia in chronic kidney disease, on chronic dialysis Is this a current diagnosis for this admission?: Yes (6) Hypertension Is this a current diagnosis for this admission?: Yes - Additional Information Resuscitation Status: Full Code Discharge Diet: Cardiac Discharge Activity: Activity As Tolerated Home Medications: Amlodipine Besylate [Norvasc 10 mg Tablet] 10 mg PO QHS 07/09/17 Aspirin [Aspirin EC] 81 mg PO DAILY 07/09/17 B Complex W-C No.20/Folic Acid [Nephrocaps Softgel] 1 mg PO DAILY 07/09/17 Calcium Acetate [Phoslo 667 mg Capsule] 2,001 mg PO MEALS 07/09/17 Calcium Acetate [Phoslo 667 mg Capsule] 667 mg PO BIDP PRN 07/09/17 Carvedilol [Coreg 25 mg Tablet] 25 mg PO Q12 07/09/17 Folic Acid/Vit B Complex and C [Lyndsey-Lita Tablet] 0.8 mg PO DAILY 07/09/17 Furosemide [Lasix 80 mg Tablet] 80 mg PO DAILY MDD ON NON HEMODIALYSIS DAYS Insulin Lispro [Humalog] 0 unit SQ .PUMP 07/09/17 Metoclopramide HCl [Reglan 10 mg Tablet] 10 mg PO ACHS 07/09/17 Ondansetron [Zofran Odt 4 mg Tablet] 4 mg PO ASDIR PRN 07/09/17 Apixaban [Eliquis 2.5 mg Tablet] 2.5 mg PO BID #60 tablet 07/10/17 Diltiazem HCl [Cardizem 30 mg Tablet] 1 tab PO TID #90 tab 07/10/17 Hydrocodone/Acetaminophen [[place] 5-325 mg Tablet] 1 tab PO Q6HP PRN #10 tablet 07/10/17 Isoniazid [Isoniazid 300 mg Tablet] 300 mg PO DAILY #30 tablet 07/10/17 Pyridoxine HCl [Vitamin B-6 Tablet 50 mg] 100 mg PO DAILY #60 tablet 07/10/17 History of Present Illness History of Present Illness: MADISYN JOHNSON is a 46 year old male with past medical history significant for dependent diabetes mellitus, CKD on hemodialysis who presents emergency department complaint of nausea vomiting. He is noted that his heart is racing and he is found to be in A. fib with RVR. Patient reports that he has been having nausea and vomiting since he was started on rifampin. Patient apparently was positive for QuantiFERON gold and started on 600 mg rifampin daily. He has been able unable to keep his medicines down for several days. He is not in DKA and his blood sugars 189. He is referred to hospital service for A. fib with RVR. Hospital Course Hospital Course: Patient underwent dialysis. He was able to tolerate his home medicines and his atrial fibrillation was improved with Coreg and oral Cardizem. Patient was started on Eliquis with permission from his molder setter. Patient reports that he recently had a cardiac catheterization which was negative and a echocardiogram performed which were both normal. 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 He would like to follow-up with this provider. My suspicion, is that patient likely had evidence of proclivity towards atrial fibrillation and due to being unable to tolerate his Coreg, patient went into atrial fibrillation. Patient had nausea vomiting secondary to rifampin. Patient was transitioned isoniazid without incident. He was advised to continue isoniazid for 9 months. Patient was given vitamin B6 repletion with this. Patient was doing well and requested discharge. He was discharged in stable condition. Patient advised not to drink alcohol and isoniazid. Patient is also advised of the warning signs of hepatitis which can be associated with isoniazid. I discussed this with him and answered his questions to the best my ability. Physical Exam Vital Signs: Temp Pulse Resp BP Pulse Ox 98.3 F 108 H 16 122/70 99 07/10/17 11:13 07/10/17 11:13 07/10/17 11:13 07/10/17 11:13 07/10/17 11:13 Intake & Output 07/09/17 07/10/17 07/11/17 06:59 06:59 06:59 Intake Total 760 Output Total 800 Balance -40 Exam: General: Awake alert and oriented x3, no acute respiratory distress HEENT: AT/NC, PERRL, EOMI, oropharynx is moist, pink, no scleral icterus, no conjunctival injection Neck: No JVD, trachea midline Chest: Clear to auscultation bilaterally, no wheezes rhonchi or rales CV: IRR, no murmur, rub, or gallop Abdomen: Soft, nontender to palpation, nondistended, active bowel sounds; no rebound, rigidity, or guarding Extremities: No cyanosis, clubbing or edema; fistula LUE +thrill Neuro: Cranial nerves II through XII are grossly intact without focal deficits; awake alert and oriented x3 Psych: Normal mood and affect Results Laboratory Results: 07/10/17 04:09 07/10/17 04:09 07/10/17 07/10/17 07/10/17 04:09 04:09 04:09 WBC 5.8 RBC 3.24 L Hgb 10.8 L Hct 31.4 L MCV 97 MCH 33.3 MCHC 34.4 RDW 14.2 H Plt Count 182 Sodium 136.7 L Potassium 4.1 Chloride 95 L Carbon Dioxide 28 Anion Gap 14 BUN 31 H Creatinine 4.59 H Est GFR ( Amer) 17 L Est GFR (Non-Af Amer) 14 L Glucose 151 H Calcium 9.3 Total Bilirubin 0.8 AST 9 L ALT 9 L Alkaline Phosphatase 70 Total Protein 5.4 L Albumin 3.0 L Lipase 11.3 L 07/09/17 07/09/17 07/09/17 11:07 11:07 16:50 Creatine Kinase 36 L 31 L CK-MB (CK-2) 1.70 Troponin I 0.039 07/09/17 07/09/17 07/09/17 16:50 21:51 21:51 Creatine Kinase 25 L CK-MB (CK-2) 1.52 1.25 Troponin I 0.041 0.047 Impressions: KUB X-Ray 07/09/17 00:00 IMPRESSION: NO RADIOGRAPHIC EVIDENCE FOR ACUTE ABDOMINAL DISEASE. Chest X-Ray 07/09/17 08:36 IMPRESSION: Stable cardiomegaly and right trace pleural fluid/ pleural thickening Qualifiers PATEINT BEING DISCHARGED WITH ANY OF THE FOLLOWING DIAGNOSIS?: No Plan Time Spent: Less than 30 Minutes
[2017-07-10] MEDS ORDERED: CARVEDILOL 12.5 MG TABLET PO SCH (22:00)
== END 2017-07-10 11:41 | disposition home or self-care (01) | DRG 308 ==
LOC: ER 06:34 → EH 09:55 → UNDOADMIN 09:55 → EH 09:56 → 3W 11:46
PROVIDERS: ADMIT Family Medicine; ATTEND Family Medicine
PROC: 5A1D00Z (ICD-10-PCS; principal; 2017-07-09)
DX: I48.2 Chronic atrial fibrillation (principal); N18.6 End stage renal disease; I12.0 Hypertensive chronic kidney disease with stage 5 chronic kidney disease or end stage renal disease; D63.1 Anemia in chronic kidney disease; E10.22 Type 1 diabetes mellitus with diabetic chronic kidney disease; R76.11 Nonspecific reaction to tuberculin skin test without active tuberculosis; F17.210 Nicotine dependence, cigarettes, uncomplicated; Z96.41 Presence of insulin pump (external) (internal); Z99.2 Dependence on renal dialysis; Z79.82 Long term (current) use of aspirin; Z79.4 Long term (current) use of insulin; Z79.899 Other long term (current) drug therapy
CPT/HCPCS: 36415; 71010; 74000; 80048; 80053; 80076; 82550; 82553; 82962; 83690; 83735; 84443; 84484; 85025; 85027; 93005; 93010; 96374; 96375; 99291; J2270; J2405; J2550; J2765; J3490; S0028

== ENCOUNTER 2017-07-13 09:34 | Emergency (ER) | payer MEDICARE ==
[2017-07-13] MEDS ORDERED: NORMAL SALINE 1000 ML 1,000 ML IV ONE (09:59)
[2017-07-13] MEDS ORDERED: ONDANSETRON HCL INJ/PF 4 MG/2 ML SDV IV ONE ×3 (10:02→17:46)
--- NOTE | 2017-07-13 10:13 | ER Document Report ---
ED General - General Chief Complaint: Nausea/Vomiting Stated Complaint: VOMITING SHORTNESS OF BREATH Time Seen by Provider: 07/13/17 09:58 Mode of Arrival: Ambulatory Information source: Patient Notes: 47-year-old dialysis patient resents with complaints of shortness of breath vomiting. Patient was diagnosed with A. fib RVR recently, was observed for this and discharged. Patient notes he had dialysis done yesterday nausea and shortness of breath started today Patient denies any chest pain TRAVEL OUTSIDE OF THE [place] IN LAST 30 DAYS: No - HPI Onset: Yesterday Onset/Duration: Sudden Quality of pain: No pain Severity: Moderate Pain Level: Denies Associated symptoms: Nausea, Vomiting Exacerbated by: Coughing Relieved by: Denies Similar symptoms previously: Yes Recently seen / treated by doctor: Yes - Related Data Allergies/Adverse Reactions: Iodinated Contrast- Oral and IV Dye Allergy (Verified 07/13/17 09:46) Past Medical History - Social History Smoking Status: Current Every Day Smoker Cigarette use (# per day): Yes Chew tobacco use (# tins/day): No Smoking Education Provided: No Frequency of alcohol use: None Drug Abuse: None Family History: CAD, DM Patient has suicidal ideation: No Patient has homicidal ideation: No - Past Medical History Cardiac Medical History: Reports: Hx Hypertension Denies: Hx Atrial Fibrillation, Hx Congestive Heart Failure, Hx Coronary Artery Disease - Negative chemical stress 2 weeks ago; negative heart cath last September, Hx DVT, Hx Heart Attack, Hx Hypercholesterolemia, Hx Pulmonary Embolism Pulmonary Medical History: Denies: Hx Asthma, Hx COPD, Hx Sleep Apnea Neurological Medical History: Denies: Hx Seizures Endocrine Medical History: Reports: Hx Diabetes Mellitus Type 1 - insulin pump. Denies: Hx Diabetes Mellitus Type 2, Hx Hyperthyroidism, Hx Hypothyroidism Renal/ Medical History: Reports: Hx End Stage Renal Disease. Denies: Hx Peritoneal Dialysis GI Medical History: Denies: Hx Cirrhosis, Hx Gastroesophageal Reflux Disease, Hx Hepatitis Musculoskeltal Medical History: Reports Hx Arthritis Psychiatric Medical History: Denies: Hx Depression Infectious Medical History: Denies: Hx Hepatitis Past Surgical History: Reports: Hx Orthopedic Surgery - r/t traumas x 2, Hx Vascular Surgery - Access surgery for hemodialysis. Left upper extremity fistula. - Immunizations Hx Diphtheria, Pertussis, Tetanus Vaccination: Yes Review of Systems - Review of Systems Notes: REVIEW OF SYSTEMS: CONSTITUTIONAL : Denies fever, chills, or sweats. Denies recent illness. EENT: Denies eye, ear, throat, or mouth pain or symptoms. Denies nasal or sinus congestion or discharge. Denies throat, tongue, or mouth swelling or difficulty swallowing. CARDIOVASCULAR: Denies chest pain. Denies palpitations or racing or irregular heart beat. Denies ankle edema. RESPIRATORY: Admits shortness of breath GASTROINTESTINAL: Denies abdominal pain or distention. Denies nausea, vomiting , or diarrhea. Denies blood in vomitus, stools, or per rectum. Denies black, tarry stools. Denies constipation. GENITOURINARY: Denies difficulty urinating, painful urination, burning, frequency, blood in urine, or discharge. MUSCULOSKELETAL: Denies back or neck pain or stiffness. Denies joint pain or swelling. SKIN: Denies rash, lesions or sores. HEMATOLOGIC : Denies easy bruising or bleeding. LYMPHATIC: Denies swollen, enlarged glands. NEUROLOGICAL: Denies confusion or altered mental status. Denies passing out or loss of consciousness. Denies dizziness or lightheadedness. Denies headache. Denies weakness or paralysis or loss of use of either side. Denies problems with gait or speech. Denies sensory loss, numbness, or tingling. Denies seizures. PSYCHIATRIC: Denies anxiety or stress. Denies depression, suicidal ideation, or homicidal ideation. ALL OTHER SYSTEMS REVIEWED AND NEGATIVE. Dictation was performed using [employer] recognition software PHYSICAL EXAMINATION: GENERAL: Well-appearing, well-nourished and in no acute distress. HEAD: Atraumatic, normocephalic. EYES: Pupils equal round and reactive to light, extraocular movements intact, sclera anicteric, conjunctiva are normal. ENT: Nares patent, oropharynx clear without exudates. Moist mucous membranes. NECK: Normal range of motion, supple without lymphadenopathy LUNGS: Breath sounds clear to auscultation bilaterally and equal. No wheezes rales or rhonchi. HEART: Regular rate rhythm ABDOMEN: Soft, nontender, nondistended abdomen. No guarding, no rebound. No masses appreciated. Musculoskeletal: Normal range of motion, no pitting or edema. No cyanosis. NEUROLOGICAL: Cranial nerves grossly intact. Normal speech, normal gait. Normal sensory, motor exams PSYCH: Normal mood, normal affect. SKIN: Scar tissue Physical Exam - Vital signs Vitals: Temp Pulse Resp BP Pulse Ox 97.7 F 100 22 H 92/64 L 99 07/13/17 09:46 07/13/17 09:46 07/13/17 09:46 07/13/17 09:46 07/13/17 09:46 Course - Re-evaluation Re-evalutation: 07/13/17 10:16 VQ scan pending, patient is noted to be in A. fib in the 110s 07/13/17 12:47 Patient refuses VQ scan states he cannot breathe when laying flat 07/13/17 13:42 Dr Brannon defers on admission believes patient requires dialysis. New fatim[facility] paged Dr sinclair alen lcall back 07/13/17 13:45 07/13/17 14:22 Dr Sinclair accepts transfer - Vital Signs Vital signs: Temp Pulse Resp BP Pulse Ox 97.7 F 100 14 115/93 H 99 07/13/17 09:46 07/13/17 09:46 07/13/17 13:02 07/13/17 13:02 07/13/17 13:02 - Laboratory Result Diagrams: 07/13/17 10:15 07/13/17 10:15 Laboratory results interpreted by me: 07/13/17 07/13/17 10:15 10:15 RBC 3.40 L Hgb 11.4 L Hct 33.3 L MCV 98 H MCH 33.5 H RDW 14.9 H Sodium 136.9 L Chloride 95 L BUN 40 H Creatinine 5.85 H Est GFR ( Amer) 13 L Est GFR (Non-Af Amer) 10 L Glucose 153 H Direct Bilirubin 1.0 H AST 60 H Lipase 10.7 L - Diagnostic Test Radiology reviewed: Image reviewed, Reports reviewed - EKG Interpretation by Me EKG shows normal: [place], ST-T Waves Rate: Tachycardia Rhythm: A.Fib Discharge - Discharge Clinical Impression: Atrial fibrillation with RVR, End stage renal disease on dialysis, Orthopnea Nausea & vomiting Qualifiers: Vomiting type: unspecified Vomiting Intractability: non-intractable Qualified Code(s): R11.2 - Nausea with vomiting, unspecified Condition: Fair Disposition: [facility] Referrals: LIZETH RODRIGUEZ MD [Primary Care Provider] - Follow up as needed
--- NOTE | 2017-07-13 10:19 | ER Document Report ---
ED Medical Screen (RME) - General Chief Complaint: Nausea/Vomiting Stated Complaint: VOMITING SHORTNESS OF BREATH Time Seen by Provider: 07/13/17 09:58 Notes: Patient is here complaining of a hard time breathing, nausea and vomiting, and burning abdominal pain, primarily in the epigastric region because of dry heaves. Patient says he was here in the emergency department as the patient Wednesday, 4 days ago, and diagnosed with atrial fibrillation. Patient is a dialysis patient, being dialyzed Wednesday and Wednesday. Hypertension. Does not drink alcohol. Patient is actively dry heaving as he is being assessed. Looks ill. Blood pressure 92 systolic. TRAVEL OUTSIDE OF THE [place] IN LAST 30 DAYS: No - Related Data Allergies/Adverse Reactions: Iodinated Contrast- Oral and IV Dye Allergy (Verified 07/13/17 09:46) Past Medical History - Social History Chew tobacco use (# tins/day): No Frequency of alcohol use: None Drug Abuse: None - Past Medical History Cardiac Medical History: Reports: Hx Hypertension Denies: Hx Atrial Fibrillation, Hx Congestive Heart Failure, Hx Coronary Artery Disease - Negative chemical stress 2 weeks ago; negative heart cath last September, Hx DVT, Hx Heart Attack, Hx Hypercholesterolemia, Hx Pulmonary Embolism Pulmonary Medical History: Denies: Hx Asthma, Hx COPD, Hx Sleep Apnea Neurological Medical History: Denies: Hx Seizures Endocrine Medical History: Reports: Hx Diabetes Mellitus Type 1 - insulin pump. Denies: Hx Diabetes Mellitus Type 2, Hx Hyperthyroidism, Hx Hypothyroidism Renal/ Medical History: Reports: Hx End Stage Renal Disease. Denies: Hx Peritoneal Dialysis GI Medical History: Denies: Hx Cirrhosis, Hx Gastroesophageal Reflux Disease, Hx Hepatitis Musculoskeltal Medical History: Reports Hx Arthritis Psychiatric Medical History: Denies: Hx Depression Infectious Medical History: Denies: Hx Hepatitis Past Surgical History: Reports: Hx Orthopedic Surgery - r/t traumas x 2, Hx Vascular Surgery - Access surgery for hemodialysis. Left upper extremity fistula. - Immunizations Hx Diphtheria, Pertussis, Tetanus Vaccination: Yes History of Influenza Vaccine for 07/2017 - 12/2017 Season: No Physical Exam - Vital signs Vitals: Temp Pulse Resp BP Pulse Ox 97.7 F 100 22 H 92/64 L 99 07/13/17 09:46 07/13/17 09:46 07/13/17 09:46 07/13/17 09:46 07/13/17 09:46 Course - Vital Signs Vital signs: Temp Pulse Resp BP Pulse Ox 97.7 F 100 22 H 92/64 L 99 07/13/17 09:46 07/13/17 09:46 07/13/17 09:46 07/13/17 09:46 07/13/17 09:46
[2017-07-13 10:31] LABS: ABSOLUTE EOSINOPHILS # (AUTO) 0.1 10^3/uL (0.0-0.6); ABSOLUTE LYMPHOCYTES (AUTO) 0.9 10^3/uL (0.5-4.7); ABSOLUTE MONOCYTES (AUTO) 0.8 10^3/uL (0.1-1.4); ABSOLUTE NEUT (AUTO) 4.9 10^3/uL (1.7-8.2); BASOPHILS % (AUTO) 0.2 % (0-2); EOSINOPHILS % (AUTO) 1.2 % (0-6); HEMATOCRIT 33.3 % (37.9-51.0); HEMOGLOBIN 11.4 g/dL (13.5-17.0); HGB HCT DIFFERENCE 0.9; LYMPHOCYTES % (AUTO) 13.9 % (13-45); MEAN CORPUSCULAR HEMOGLOBIN 33.5 pg (27.0-33.4); MEAN CORPUSCULAR HGB CONC 34.2 g/dL (32.0-36.0); MEAN CORPUSCULAR VOLUME 98 fl (80-97); MONOCYTES % (AUTO) 11.3 % (3-13); RED CELL DISTRIBUTION WIDTH 14.9 % (11.5-14.0); SEGMENTED NEUTROPHILS % (AUTO) 73.4 % (42-78); WHITE BLOOD COUNT 6.7 10^3/uL (4.0-10.5)
[2017-07-13] MEDS ORDERED: MORPHINE SULFATE 10 MG/ML INJ IV ONE (10:33)
--- NOTE | 2017-07-13 10:53 | RADIOLOGY REPORT (SQ) ---
EXAM DESCRIPTION: CHEST SINGLE VIEW COMPLETED DATE/TIME: 07/13/2017 10:42 am REASON FOR STUDY: sob COMPARISON: Chest films 07/09/2017, 12/13/2016 EXAM PARAMETERS: NUMBER OF VIEWS: One view. TECHNIQUE: Single frontal radiographic view of the chest acquired. RADIATION DOSE: NA LIMITATIONS: None. FINDINGS: LUNGS AND PLEURA: No opacities, masses or pneumothorax. No pleural effusion. MEDIASTINUM AND HILAR STRUCTURES: No masses. Contour normal. HEART AND VASCULAR STRUCTURES: Stable massive cardiomegaly. BONES: Old healed left lateral rib fractures HARDWARE: Left upper extremity/ axillary vein/distal subclavian vein vascular stent OTHER: No other significant finding. IMPRESSION: Stable massive cardiomegaly. No acute infiltrates or pleural effusions. TECHNICAL DOCUMENTATION: JOB ID: [id number]
[2017-07-13 11:00] LABS: ALANINE AMINOTRANSFERASE 44 U/L (21-72); ALBUMIN 3.7 g/dL (3.5-5.0); ALKALINE PHOSPHATASE 93 U/L (38-126); ANION GAP 17 (5-19); ASPARTATE AMINO TRANSFERASE 60 U/L (17-59); BLOOD UREA NITROGEN 40 mg/dL (7-20); CALCIUM 9.6 mg/dL (8.4-10.2); CARBON DIOXIDE 25 mmol/L (22-30); CHLORIDE 95 mmol/L (98-107); CREATININE RESULT 5.85 mg/dL (0.52-1.25); GLUCOSE 153 mg/dL (75-110); LIPASE 10.7 U/L (23-300); POTASSIUM 4.3 mmol/L (3.6-5.0); SODIUM 136.9 mmol/L (137-145); TOTAL PROTEIN 6.5 g/dL (6.3-8.2)
[2017-07-13 11:12] LABS: CREATINE KINASE MB 3.9 ng/mL (<4.55); TROPONIN I 0.026 ng/mL
[2017-07-13 17:43] VITALS: BP 119/101
[2017-07-13] MEDS ORDERED: ONDANSETRON HCL INJ/PF 4 MG/2 ML SDV ONE (17:50)
--- NOTE | 2017-07-13 18:22 | EKG REPORT ---
SEVERITY:- ABNORMAL ECG - ATRIAL FIBRILLATION / FLUTTER V-RATE 72-135 ABNORMAL T, CONSIDER ISCHEMIA, LATERAL LEADS BORDERLINE PROLONGED QT INTERVAL : Confirmed by: Marleen Boswell MD 13-Jul-2017 18:21:26
== END 2017-07-13 17:54 | disposition short-term general hospital (02) ==
LOC: ER 09:34
DX: I48.91 Unspecified atrial fibrillation (principal); I12.0 Hypertensive chronic kidney disease with stage 5 chronic kidney disease or end stage renal disease; E10.22 Type 1 diabetes mellitus with diabetic chronic kidney disease; N18.6 End stage renal disease; Z99.2 Dependence on renal dialysis; Z96.41 Presence of insulin pump (external) (internal); R11.2 Nausea with vomiting, unspecified; R06.01 Orthopnea; R06.02 Shortness of breath; F17.210 Nicotine dependence, cigarettes, uncomplicated; Z91.041 Radiographic dye allergy status
CPT/HCPCS: 93005; 96376; 99285; 96361; 96374; 96375; 36415; 82553; 83690; 85025; 80053; 84484; 71010; 93010; J2270; J2405; J7030

== ENCOUNTER 2017-09-07 18:48 | Inpatient (IN) | payer MEDICARE ==
[2017-09-07] MEDS ORDERED: INSULIN REG, HUMAN 100 UNIT/ML 3 ML VIAL (PYX) IV ONE (19:04)
[2017-09-07] MEDS ORDERED: NORMAL SALINE 1000 ML 500 ML IV ONE ×2 (19:06→20:43)
--- NOTE | 2017-09-07 19:06 | ER Document Report ---
ED Medical Screen (RME) - General Chief Complaint: High Blood Sugar Stated Complaint: POSSIBLE HIGH BLOOD SUGAR Time Seen by Provider: 09/07/17 19:03 Notes: Patient is an end-stage renal disease patient who is on dialysis. He is due to dialyze again tomorrow morning. He also states that he has diabetes and insulin pump. He states he began to feel sick today with lots of vomiting. He states his pump then began to malfunction and would not deliver insulin. He states he has now turned off his pump. At triage we attempted an Accu-Chek but it read "high". TRAVEL OUTSIDE OF THE [place] IN LAST 30 DAYS: No - Related Data Allergies/Adverse Reactions: Iodinated Contrast- Oral and IV Dye Allergy (Verified 09/07/17 18:55) Past Medical History - Social History Chew tobacco use (# tins/day): No Frequency of alcohol use: None Drug Abuse: None - Past Medical History Cardiac Medical History: Reports: Hx Hypertension Denies: Hx Atrial Fibrillation, Hx Congestive Heart Failure, Hx Coronary Artery Disease - Negative chemical stress 2 weeks ago; negative heart cath last September, Hx DVT, Hx Heart Attack, Hx Hypercholesterolemia, Hx Pulmonary Embolism Pulmonary Medical History: Denies: Hx Asthma, Hx COPD, Hx Sleep Apnea Neurological Medical History: Denies: Hx Seizures Endocrine Medical History: Reports: Hx Diabetes Mellitus Type 1 - insulin pump. Denies: Hx Diabetes Mellitus Type 2, Hx Hyperthyroidism, Hx Hypothyroidism Renal/ Medical History: Reports: Hx End Stage Renal Disease. Denies: Hx Peritoneal Dialysis GI Medical History: Denies: Hx Cirrhosis, Hx Gastroesophageal Reflux Disease, Hx Hepatitis Musculoskeltal Medical History: Reports Hx Arthritis Psychiatric Medical History: Denies: Hx Depression Infectious Medical History: Denies: Hx Hepatitis Past Surgical History: Reports: Hx Orthopedic Surgery - r/t traumas x 2, Hx Vascular Surgery - Access surgery for hemodialysis. Left upper extremity fistula. - Immunizations Hx Diphtheria, Pertussis, Tetanus Vaccination: Yes History of Influenza Vaccine for 07/2017 - 12/2017 Season: No Physical Exam - Vital signs Vitals: Temp Pulse Resp BP Pulse Ox 98.2 F 78 16 155/73 H 97 09/07/17 18:55 09/07/17 18:55 09/07/17 18:55 09/07/17 18:55 09/07/17 18:55 Course - Vital Signs Vital signs: Temp Pulse Resp BP Pulse Ox 98.2 F 78 16 155/73 H 97 09/07/17 18:55 09/07/17 18:55 09/07/17 18:55 09/07/17 18:55 09/07/17 18:55
[2017-09-07] MEDS ORDERED: ONDANSETRON HCL INJ/PF 4 MG/2 ML SDV IV ONE (19:20)
[2017-09-07 19:41] LABS: ABSOLUTE BASOPHILS # (AUTO) 0.1 10^3/uL (0.0-0.2); ABSOLUTE EOSINOPHILS # (AUTO) 0.1 10^3/uL (0.0-0.6); ABSOLUTE LYMPHOCYTES (AUTO) 0.7 10^3/uL (0.5-4.7); ABSOLUTE MONOCYTES (AUTO) 0.6 10^3/uL (0.1-1.4); ABSOLUTE NEUT (AUTO) 7.9 10^3/uL (1.7-8.2); BASOPHILS % (AUTO) 0.8 % (0-2); EOSINOPHILS % (AUTO) 1.4 % (0-6); HEMATOCRIT 36.1 % (37.9-51.0); HEMOGLOBIN 11.8 g/dL (13.5-17.0); HGB HCT DIFFERENCE -0.7; LYMPHOCYTES % (AUTO) 7.6 % (13-45); MEAN CORPUSCULAR HEMOGLOBIN 32.9 pg (27.0-33.4); MEAN CORPUSCULAR HGB CONC 32.7 g/dL (32.0-36.0); MEAN CORPUSCULAR VOLUME 101 fl (80-97); MONOCYTES % (AUTO) 6.5 % (3-13); RED BLOOD COUNT 3.58 10^6/uL (4.35-5.55); RED CELL DISTRIBUTION WIDTH 15.5 % (11.5-14.0); SEGMENTED NEUTROPHILS % (AUTO) 83.7 % (42-78); WHITE BLOOD COUNT 9.4 10^3/uL (4.0-10.5)
[2017-09-07] MEDS ORDERED: NORMAL SALINE 1000 ML 1,000 ML IV ONE ×2 (19:56→21:00)
[2017-09-07] MEDS ORDERED: ACETAMINOPHEN 325 MG TABLET PO ONE (19:58)
[2017-09-07] MEDS ORDERED: METOCLOPRAMIDE HCL INJ/PF 10 MG/2 ML SDV IV ONE (19:58)
[2017-09-07 20:00] LABS: ALANINE AMINOTRANSFERASE 9 U/L (21-72); ALKALINE PHOSPHATASE 153 U/L (38-126); ASPARTATE AMINO TRANSFERASE 23 U/L (17-59); BILIRUBIN,DIRECT 1.3 mg/dL (0.0-0.4); BILIRUBIN,TOTAL 1.8 mg/dL (0.2-1.3); BLOOD UREA NITROGEN 57 mg/dL (7-20); CALCIUM 9.6 mg/dL (8.4-10.2); CREATININE RESULT 6.62 mg/dL (0.52-1.25); LIPASE 82.8 U/L (23-300); TOTAL PROTEIN 8.5 g/dL (6.3-8.2)
--- NOTE | 2017-09-07 20:14 | ER Document Report ---
ED Blood Sugar Problem - General Chief Complaint: High Blood Sugar Stated Complaint: POSSIBLE HIGH BLOOD SUGAR Time Seen by Provider: 09/07/17 19:03 Mode of Arrival: Ambulatory Information source: Patient Notes: 47-year-old insulin-dependent diabetic on renal dialysis Wednesday ( did get dialyzed at [facility] yesterday) became nauseated today and his insulin pump was nonfunctioning or infusing starting at 330 this afternoon. He was in [place] for a dental appointment. He feels dehydrated and having a lot of generalized body pain because of the retching and vomiting that he did prior to coming to the emergency department. No diarrhea. No fever. His pump is now on suspend. No chest pain or shortness of breath. TRAVEL OUTSIDE OF THE [place] IN LAST 30 DAYS: No - Related Data Allergies/Adverse Reactions: Iodinated Contrast- Oral and IV Dye Allergy (Verified 09/07/17 18:55) Past Medical History - General Information source: Patient - Social History Smoking Status: Current Every Day Smoker Chew tobacco use (# tins/day): No Frequency of alcohol use: None Drug Abuse: None Lives with: Family Family History: CAD, DM Patient has suicidal ideation: No Patient has homicidal ideation: No - Past Medical History Cardiac Medical History: Reports: Hx Hypertension, Other - recent pericardial effusion Endocrine Medical History: Reports: Hx Diabetes Mellitus Type 1 - insulin pump Renal/ Medical History: Reports: Hx End Stage Renal Disease Musculoskeltal Medical History: Reports Hx Arthritis Past Surgical History: Reports: Hx Orthopedic Surgery - r/t traumas x 2, Hx Vascular Surgery - Access surgery for hemodialysis. Left upper extremity fistula. - Immunizations Hx Diphtheria, Pertussis, Tetanus Vaccination: Yes Review of Systems - Review of Systems Constitutional: See HPI EENT: No symptoms reported Cardiovascular: No symptoms reported Respiratory: No symptoms reported Gastrointestinal: See HPI Genitourinary: No symptoms reported Male Genitourinary: No symptoms reported Musculoskeletal: No symptoms reported Skin: No symptoms reported Hematologic/Lymphatic: No symptoms reported Neurological/Psychological: No symptoms reported Physical Exam - Vital signs Vitals: Temp Pulse Resp BP Pulse Ox 98.2 F 78 16 155/73 H 97 09/07/17 18:55 09/07/17 18:55 09/07/17 18:55 09/07/17 18:55 09/07/17 18:55 Interpretation: Normal - General General appearance: Appears well, Alert - HEENT Head: Normocephalic, Atraumatic Eyes: Normal Conjunctiva: Normal Pupils: PERRL Tympanic membrane: Normal Mucous membranes: Dry Neck: Supple. No: Lymphadenopathy - Respiratory Respiratory status: No respiratory distress Chest status: Nontender Breath sounds: Rales - Right base Chest palpation: Normal - Cardiovascular Rhythm: Regular Heart sounds: Normal auscultation Murmur: No - Abdominal Inspection: Normal Distension: No distension Bowel sounds: Normal Tenderness: Nontender. No: Tender Organomegaly: No organomegaly - Back Back: Normal, Nontender. No: CVA tenderness - Extremities General upper extremity: Normal inspection, Nontender, Normal color, Normal ROM , Normal temperature General lower extremity: Normal inspection, Nontender, Normal color, Normal ROM , Normal temperature, Normal weight bearing. No: Leonides's sign - Neurological Neuro grossly intact: Yes Cognition: Normal Orientation: AAOx4 Robert Coma Scale Eye Opening: Spontaneous Robert Coma Scale Verbal: Oriented Robert Coma Scale Motor: Obeys Commands [place] Coma Scale Total: 15 Speech: Normal Motor strength normal: LUE, RUE, LLE, RLE Sensory: Normal - Psychological Associated symptoms: Normal affect, Normal mood - Skin Skin Temperature: Warm Skin Moisture: Dry Skin Color: Normal Course - Re-evaluation Re-evalutation: 09/07/17 20:36 Potassium was 6.2, glucose of 715 patient has had 1 L normal saline infused. So small right pleural effusion with minimal CHF. Contacted Dr. Dinero for admission. PCP SHERRI RODARTE 09/07/17 20:36 09/07/17 20:48 Dr. Edgar was contacted and he states that the patient can stay here and be treated for diabetic ketoacidosis and he will dialyze him tomorrow. 09/07/17 21:01 EKG NSR, NO AFIB. Dr. Dinero will admit the patient she wants him started on 0.1 units of insulin per kilogram per hour which is 8 U/h which I confirmed with her. Also normal saline at 83 an hour. - Vital Signs Vital signs: Temp Pulse Resp BP Pulse Ox 99.7 F 80 20 140/67 H 96 09/08/17 00:14 09/08/17 00:14 09/08/17 00:14 09/08/17 00:14 09/08/17 00:14 - Laboratory Result Diagrams: 09/07/17 19:19 09/08/17 01:15 Laboratory results interpreted by me: 09/07/17 09/07/17 09/07/17 19:19 19:19 20:35 RBC 3.58 L Hgb 11.8 L Hct 36.1 L MCV 101 H RDW 15.5 H Seg Neutrophils % 83.7 H Lymphocytes % 7.6 L VBG HCO3 17.2 L Sodium 131.4 L Potassium 6.2 H* Chloride 88 L Carbon Dioxide 16 L Anion Gap 27 H BUN 57 H Creatinine 6.62 H Est GFR ( Amer) 11 L Est GFR (Non-Af Amer) 9 L Glucose 715 H* POC Glucose Total Bilirubin 1.8 H Direct Bilirubin 1.3 H ALT 9 L Alkaline Phosphatase 153 H Total Protein 8.5 H 09/07/17 09/07/17 09/07/17 21:25 21:50 23:20 RBC Hgb Hct MCV RDW Seg Neutrophils % Lymphocytes % VBG HCO3 Sodium 131.5 L Potassium Chloride 91 L Carbon Dioxide 18 L Anion Gap 23 H BUN 62 H Creatinine 5.89 H Est GFR ( Amer) 13 L Est GFR (Non-Af Amer) 10 L Glucose 619 H* POC Glucose 543 H* > 550 H* Total Bilirubin Direct Bilirubin ALT Alkaline Phosphatase Total Protein 09/08/17 09/08/17 09/08/17 00:16 01:00 01:15 RBC Hgb Hct MCV RDW Seg Neutrophils % Lymphocytes % VBG HCO3 Sodium 132.4 L Potassium Chloride 93 L Carbon Dioxide 18 L Anion Gap 21 H BUN 66 H Creatinine 6.53 H Est GFR ( Amer) 11 L Est GFR (Non-Af Amer) 9 L Glucose 521 H* POC Glucose 550 H* 495 H* Total Bilirubin Direct Bilirubin ALT Alkaline Phosphatase Total Protein 09/08/17 02:02 RBC Hgb Hct MCV RDW Seg Neutrophils % Lymphocytes % VBG HCO3 Sodium Potassium Chloride Carbon Dioxide Anion Gap BUN Creatinine Est GFR ( Amer) Est GFR (Non-Af Amer) Glucose POC Glucose 460 H* Total Bilirubin Direct Bilirubin ALT Alkaline Phosphatase Total Protein Discharge - Discharge Clinical Impression: Hyperkalemia Diabetic ketoacidosis Qualifiers: Diabetes mellitus type: type 1 Diabetes mellitus complication detail: without coma Qualified Code(s): E10.10 - Type 1 diabetes mellitus with ketoacidosis without coma Condition: Serious Disposition: ADMITTED INPATIENT Admitting Provider: Hospitalist Unit Admitted: ALYSON
[2017-09-07 20:21] LABS: CARBON DIOXIDE 16 mmol/L (22-30); CHLORIDE 88 mmol/L (98-107); SODIUM 131.4 mmol/L (137-145)
--- NOTE | 2017-09-07 20:27 | RADIOLOGY REPORT (SQ) ---
EXAM DESCRIPTION: CHEST PA/LAT COMPLETED DATE/TIME: 09/07/2017 8:14 pm REASON FOR STUDY: rales left base COMPARISON: 07/09/2017 EXAM PARAMETERS: NUMBER OF VIEWS: two views TECHNIQUE: Digital Frontal and Lateral radiographic views of the chest acquired. RADIATION DOSE: NA LIMITATIONS: none FINDINGS: LUNGS AND PLEURA: Small right pleural effusion is again identified. No acute consolidatio ns are identified. No pneumothorax is seen. MEDIASTINUM AND HILAR STRUCTURES: No masses or contour abnormalities. HEART AND VASCULAR STRUCTURES: Cardiac silhouette is mildly enlarged but appears less prominent than on the previous study. There is mild pulmonary vascular congestion. BONES: No acute findings. HARDWARE: None in the chest. OTHER: No other significant finding. IMPRESSION: Mild cardiomegaly and mild pulmonary vascular congestion. Small right pleural effusion. Other findings as noted above TECHNICAL DOCUMENTATION: JOB ID: [id number] Done In :[employer]- All Rights Reserved
[2017-09-07 20:28] LABS: ANION GAP 27 (5-19)
[2017-09-07 20:32] LABS: GLUCOSE 715 mg/dL (75-110); POTASSIUM 6.2 mmol/L (3.6-5.0)
[2017-09-07 20:45] LABS: VENOUS BLOOD BASE EXCESS -8.3 mmol/L; VENOUS BLOOD HCO3 17.2 mmol/L (20-32); VENOUS BLOOD PH 7.31 (7.30-7.42)
[2017-09-07] MEDS ORDERED: DEXTROSE 50%-WATER 25 GM/50 ML DISP.SYRIN IV PRN ×6 (20:57→21:26)
[2017-09-07] MEDS ORDERED: DEXTROSE 40% GEL 15 GM TUBE PO PRN ×6 (20:57→21:26)
[2017-09-07] MEDS ORDERED: NORMAL SALINE 100 ML with INSULIN REGULAR, HUMAN 100 UNIT IV PRN ×4 (20:57→21:10)
[2017-09-07] MEDS ORDERED: GLUCAGON,HUMAN RECOMB 1 MG INJ IM PRN ×2 (20:57→21:10)
[2017-09-07] MEDS ORDERED: GLUCAGON,HUMAN RECOMB 1 MG INJ SUBCUT PRN (21:26)
[2017-09-07] MEDS ORDERED: ACETAMINOPHEN 325 MG TABLET PO PRN (21:26)
[2017-09-07] MEDS: NORMAL SALINE 1000 ML 1,000 ML IV PRN ×2 (21:36→23:13)
[2017-09-07] MEDS ORDERED: HEPARIN SOD (PORCINE) 5,000 UNIT/ML 1 ML SYRINGE SUBCUT SCH (22:00)
[2017-09-07 22:04] LABS: BLOOD UREA NITROGEN 62 mg/dL (7-20); CREATININE RESULT 5.89 mg/dL (0.52-1.25)
[2017-09-07 22:25] LABS: CARBON DIOXIDE 18 mmol/L (22-30); CHLORIDE 91 mmol/L (98-107); SODIUM 131.5 mmol/L (137-145)
[2017-09-07 22:31] LABS: ANION GAP 23 (5-19)
[2017-09-07 22:35] LABS: GLUCOSE 619 mg/dL (75-110)
[2017-09-07] MEDS ORDERED: CALCIUM ACETATE 667 MG CAPSULE PO PRN (22:48)
[2017-09-07] MEDS ORDERED: HYDROCODONE/ACETAMINOPHEN 5-325 MG TABLET PO PRN (22:48)
[2017-09-07] MEDS: MORPHINE SULFATE 10 MG/ML INJ IV PRN (23:11)
[2017-09-08 01:58] LABS: BLOOD UREA NITROGEN 66 mg/dL (7-20); CALCIUM 8.9 mg/dL (8.4-10.2); CHLORIDE 93 mmol/L (98-107); CREATININE RESULT 6.53 mg/dL (0.52-1.25); POTASSIUM 4.6 mmol/L (3.6-5.0)
[2017-09-08 02:11] LABS: CARBON DIOXIDE 18 mmol/L (22-30); SODIUM 132.4 mmol/L (137-145)
[2017-09-08 02:24] LABS: ANION GAP 21 (5-19)
[2017-09-08 02:26] LABS: GLUCOSE 521 mg/dL (75-110)
[2017-09-08] MEDS: MORPHINE SULFATE 10 MG/ML INJ IV PRN ×2 (03:06→06:57)
[2017-09-08] MEDS: ONDANSETRON HCL INJ/PF 4 MG/2 ML SDV IV PRN ×2 (03:07→10:29)
[2017-09-08] MEDS ORDERED: DEXTROSE 5%-1/2 NORMAL SALINE 1,000 ML IV PRN (04:48)
--- NOTE | 2017-09-08 04:59 | PDOC H&P ---
History of Present Illness Admission Date/PCP: 09/07/17 21:15 [place]--[facility] History of Present Illness: MADISYN JOHNSON is a 47 year old male with past medical history of diabetes mellitus leading to end-stage renal disease, on hemodialysis Wednesday, hypertension, latent tuberculosis, atrial fibrillation, pericardial effusion requiring drainage who presents to the emergency department with nausea and vomiting. He reports that he noticed earlier today that his insulin pump was not functioning. He had developed nausea and vomiting at this time as well as some abdominal discomfort. Patient was found to have a blood glucose greater than 700 on admission. Patient denies any antecedent illness, flulike symptoms, or diarrheal illness, but has had a recent admission for pericardial effusion requiring drainage. Patient reports he subsequently wore a Holter monitor for about 2 weeks. He reports his repeat echocardiogram revealed a small pericardial effusion, but none requiring drainage. He is referred to the hospital service for HHNS. Past Medical History Cardiac Medical History: Reports: Hypertension, Other - Pericardial effusion Denies: Atrial Fibrillation, Congestive Heart Failure, Coronary Artery Disease - Negative chemical stress 2 weeks ago; negative heart cath last September, DVT, Myocardial Infarction, Hyperlipidema, Pulmonary Embolism Pulmonary Medical History: Denies: Asthma, Chronic Obstructive Pulmonary Disease (COPD), Sleep Apnea Neurological Medical History: Denies: Seizures Endocrine Medical History: Reports: Diabetes Mellitus Type 1 - insulin pump Denies: Diabetes Mellitus Type 2, Hyperthyroidism, Hypothyroidism Renal/ Medical History: Reports: End Stage Renal Disease GI Medical History: Denies: Cirrhosis, Gastroesophageal Reflux Disease, Hepatitis Musculoskeltal Medical History: Reports: Arthritis Psychiatric Medical History: Denies: Depression Traumatic Medical History: Reports: Other Infectious History Note: Latent tuberculosis Past Surgical History Past Surgical History: Reports: Orthopedic Surgery - r/t traumas x 2, Vascular Surgery - Access surgery for hemodialysis. Left upper extremity fistula. Social History Smoking Status: Current Every Day Smoker Frequency of Alcohol Use: Rare Hx Recreational Drug Use: No Drugs: None Hx Prescription Drug Abuse: No - Advance Directive Resuscitation Status: Full Code Surrogate healthcare decision maker:: Gallito Johnson, father Family History Family History: CAD, DM Parental Family History Reviewed: Yes Children Family History Reviewed: NA Sibling(s) Family History Reviewed.: Yes Medication/Allergy Home Medications: Amlodipine Besylate [Norvasc 10 mg Tablet] 10 mg PO QHS 07/09/17 Calcium Acetate [Phoslo 667 mg Capsule] 2,001 mg PO MEALS 07/09/17 Calcium Acetate [Phoslo 667 mg Capsule] 667 mg PO BIDP PRN 07/09/17 Carvedilol [Coreg 25 mg Tablet] 25 mg PO Q12 07/09/17 Folic Acid/Vit B Complex and C [Lyndsey-Lita Tablet] 0.8 mg PO DAILY 07/09/17 Insulin Lispro [Humalog] 0 unit SQ .PUMP 07/09/17 Isoniazid [Isoniazid 300 mg Tablet] 300 mg PO DAILY #30 tablet 07/10/17 Allergies/Adverse Reactions: Iodinated Contrast- Oral and IV Dye Allergy (Verified 09/07/17 18:55) Review of Systems Constitutional: ABSENT: chills, fever(s), headache(s), weight gain, weight loss Eyes: ABSENT: visual disturbances Ears: ABSENT: hearing changes Cardiovascular: ABSENT: chest pain, dyspnea on exertion, edema, orthropnea, palpitations Respiratory: ABSENT: cough, hemoptysis Gastrointestinal: PRESENT: nausea, vomiting. ABSENT: abdominal pain, constipation, diarrhea, hematemesis, hematochezia, melena Genitourinary: ABSENT: dysuria, hematuria Musculoskeletal: ABSENT: joint swelling Integumentary: ABSENT: rash, wounds Neurological: ABSENT: abnormal gait, abnormal speech, confusion, dizziness, focal weakness, syncope Psychiatric: ABSENT: anxiety, depression, homidical ideation, suicidal ideation Endocrine: ABSENT: cold intolerance, heat intolerance, polydipsia, polyuria Hematologic/Lymphatic: ABSENT: easy bleeding, easy bruising Physical Exam Vital Signs: Temp Pulse Resp BP Pulse Ox 98.2 F 78 18 155/73 H 98 09/07/17 18:55 09/07/17 18:55 09/07/17 23:00 09/07/17 18:55 09/07/17 23:00 General appearance: PRESENT: mild distress, well-developed, well-nourished Head exam: PRESENT: atraumatic, normocephalic Eye exam: PRESENT: conjunctiva pink, EOMI, PERRLA. ABSENT: conjunctival injection, scleral icterus Ear exam: PRESENT: normal external ear exam Mouth exam: PRESENT: moist, tongue midline Neck exam: ABSENT: JVD, lymphadenopathy, thyromegaly, tracheal deviation Respiratory exam: PRESENT: clear to auscultation bessy, symmetrical, unlabored. ABSENT: accessory muscle use, rales, rhonchi, tachypnea, wheezes Cardiovascular exam: PRESENT: RRR, +S1, +S2. ABSENT: diastolic murmur, gallop, rubs, systolic murmur Pulses: PRESENT: normal dorsalis pedis pul Vascular exam: PRESENT: normal capillary refill GI/Abdominal exam: PRESENT: normal bowel sounds, soft. ABSENT: distended, firm , guarding, mass, Lebron's sign, organolmegaly, rebound, tenderness Rectal exam: PRESENT: deferred Extremities exam: PRESENT: full ROM. ABSENT: calf tenderness, clubbing, pedal edema Neurological exam: PRESENT: alert, awake, oriented to person, oriented to place , oriented to time, oriented to situation, CN II-XII grossly intact. ABSENT: motor sensory deficit Psychiatric exam: PRESENT: appropriate affect, normal mood. ABSENT: homicidal ideation, suicidal ideation Skin exam: PRESENT: dry, intact, warm. ABSENT: cyanosis, rash Results Laboratory Results: 09/07/17 21:25 09/07/17 21:25 Sodium 131.5 L Potassium 5.0 D Chloride 91 L Carbon Dioxide 18 L Anion Gap 23 H BUN 62 H Creatinine 5.89 H Est GFR ( Amer) 13 L Est GFR (Non-Af Amer) 10 L Glucose 619 H* Calcium 9.0 Impressions: Chest X-Ray 09/07/17 19:56 IMPRESSION: Mild cardiomegaly and mild pulmonary vascular congestion. Small right pleural effusion. Other findings as noted above Assessment & Plan - Diagnosis (1) DKA (diabetic ketoacidoses) Qualifiers: Diabetes mellitus type: type 1 Diabetes mellitus complication detail: without coma Qualified Code(s): E10.10 - Type 1 diabetes mellitus with ketoacidosis without coma Is this a current diagnosis for this admission?: Yes Plan: Place patient on gentle hydration of normal saline and insulin drip at 0.1 U/h. Feel this is likely secondary to pump error. Patient gives no antecedent illness and has reported being well prior to this. (2) Hyperkalemia Is this a current diagnosis for this admission?: Yes Plan: Secondary to DKA (3) Anemia in chronic kidney disease, on chronic dialysis Is this a current diagnosis for this admission?: Yes Plan: Defer to nephrology for Procrit dosing (4) Hypertension Qualifiers: Hypertension type: essential hypertension Qualified Code(s): I10 - Essential (primary) hypertension Is this a current diagnosis for this admission?: Yes Plan: Continue home medications currently well-controlled (5) Latent tuberculosis Is this a current diagnosis for this admission?: Yes Plan: Continue isoniazid (6) End stage renal disease on dialysis Is this a current diagnosis for this admission?: Yes Plan: Consult nephrology for dialysis as patient will be receiving quite a bit more fluid than normal. - Time Time Spent: 50 to 70 Minutes Medications reviewed and adjusted accordingly: Yes Anticipated discharge: Home Within: within 48 hours - Inpatient Certification Based on my medical assessment, after consideration of the patient's comorbidities, presenting symptoms, or acuity I expect that the services needed warrant INPATIENT care.: Yes I certify that my determination is in accordance with my understanding of Medicare's requirements for reasonable and necessary INPATIENT services [42 CFR 412.3e].: Yes Medical Necessity: Need For IV Fluids, Need For Continuous Telemetry Monitoring Post Hospital Care: D/C Inorganic Chemistry Teacher Documentation
[2017-09-08 05:46] LABS: ANION GAP 19 (5-19); BLOOD UREA NITROGEN 68 mg/dL (7-20); CALCIUM 8.9 mg/dL (8.4-10.2); CARBON DIOXIDE 21 mmol/L (22-30); CHLORIDE 96 mmol/L (98-107); CREATININE RESULT 6.54 mg/dL (0.52-1.25); GLUCOSE 120 mg/dL (75-110); POTASSIUM 3.9 mmol/L (3.6-5.0); SODIUM 135.8 mmol/L (137-145)
--- NOTE | 2017-09-08 08:21 | EKG REPORT ---
SEVERITY:- ABNORMAL ECG - SINUS RHYTHM LEFT ATRIAL ABNORMALITY LEFT ANTERIOR FASCICULAR BLOCK LVH WITH SECONDARY REPOLARIZATION ABNORMALITY BORDERLINE PROLONGED QT INTERVAL : Confirmed by: Joe James MD 08-Sep-2017 08:20:28
[2017-09-08] MEDS ORDERED: APIXABAN 2.5 MG TABLET PO SCH (10:00)
[2017-09-08] MEDS ORDERED: VIT B COMPLEX AND C PO SCH (10:00)
[2017-09-08] MEDS ORDERED: FOLIC ACID PO SCH (10:00)
[2017-09-08] MEDS: CALCIUM ACETATE 667 MG CAPSULE PO SCH ×3 (12:03→18:23)
[2017-09-08] MEDS: CARVEDILOL 12.5 MG TABLET PO SCH ×2 (12:03→21:31)
[2017-09-08] MEDS ORDERED: METOCLOPRAMIDE HCL INJ/PF 10 MG/2 ML SDV IV ONE (13:00)
--- NOTE | 2017-09-08 13:43 | PDOC PROGRESS REPORT ---
Subjective Progress Note for:: 09/08/17 Subjective:: This is a follow-up visit for DKA. The patient is seen in dialysis today. He is dry heaving at the end of his dialysis session. He got a dose of Zofran 2 hours prior to my arrival and this is not helping. He usually uses an insulin drip and states that his pump malfunction. He states that he can have someone from home bring him supplies so that he can restart it again. His last blood sugar check was in the 200s. He thinks the last time he ate was yesterday morning. I did hold his insulin drip earlier this morning. Reason For Visit: HHNS, HYPERKALEMIA Physical Exam Vital Signs: Temp Pulse Resp BP Pulse Ox 97.9 F 73 16 163/73 H 99 09/08/17 04:25 09/08/17 04:25 09/08/17 04:25 09/08/17 04:25 09/08/17 04:25 Intake & Output 09/07/17 09/08/17 09/09/17 06:59 06:59 06:59 Intake Total 1352 Output Total 0 Balance 1352 Weight 89 kg GENERAL: Is a well-developed well-nourished appearing white male resting in his recliner in dialysis initially. Towards the end of the interview the patient begins dry heaving and appears uncomfortable. HEART: Regular rate and rhythm. No murmurs, rubs or gallops. LUNGS: Diminished at the bases bilaterally with equal rise and fall the chest ABDOMEN: Soft, nontender, nondistended with normoactive bowel sounds EXTREMETIES: No clubbing, cyanosis or edema. 2+ peripheral pulses bilaterally. NEURO: Awake, alert and oriented 3. Cranial nerves II through XII are grossly intact. Results Laboratory Results: 09/08/17 05:11 09/07/17 09/08/17 09/08/17 21:25 01:15 05:11 Sodium 131.5 L 132.4 L 135.8 L Potassium 5.0 D 4.6 3.9 Chloride 91 L 93 L 96 L Carbon Dioxide 18 L 18 L 21 L Anion Gap 23 H 21 H 19 BUN 62 H 66 H 68 H Creatinine 5.89 H 6.53 H 6.54 H Est GFR ( Amer) 13 L 11 L 11 L Est GFR (Non-Af Amer) 10 L 9 L 9 L Glucose 619 H* 521 H* 120 H Calcium 9.0 8.9 8.9 Impressions: Chest X-Ray 09/07/17 19:56 IMPRESSION: Mild cardiomegaly and mild pulmonary vascular congestion. Small right pleural effusion. Other findings as noted above Assessment & Plan - Diagnosis (1) DKA (diabetic ketoacidoses) Qualifiers: Diabetes mellitus type: type 1 Diabetes mellitus complication detail: without coma Qualified Code(s): E10.10 - Type 1 diabetes mellitus with ketoacidosis without coma Is this a current diagnosis for this admission?: Yes Plan: Continue IV fluids for now. The patient is dry heaving. Sips of water only for now. Continue q. 6 hour blood glucose checks. If possible I would like to reinstitute the patient's insulin pump. If not I will need to start Lantus until his pump can be instituted. Check hemoglobin A1c. (2) Hyperkalemia Is this a current diagnosis for this admission?: Yes Plan: Secondary to DKA. Resolved. (3) Hypertension Qualifiers: Hypertension type: essential hypertension Qualified Code(s): I10 - Essential (primary) hypertension Is this a current diagnosis for this admission?: Yes Plan: Continue home medications. (4) Nausea & vomiting Qualifiers: Vomiting type: unspecified Vomiting Intractability: non-intractable Qualified Code(s): R11.2 - Nausea with vomiting, unspecified Plan: Zofran is not helping. The patient states he has never been diagnosed with gastroparesis. Will try Reglan nevertheless. (5) End stage renal disease on dialysis Is this a current diagnosis for this admission?: Yes Plan: Continue dialysis Wednesday. (6) Latent tuberculosis Is this a current diagnosis for this admission?: Yes Plan: Continue isoniazid (7) Anemia in chronic kidney disease, on chronic dialysis Is this a current diagnosis for this admission?: Yes Plan: Stable - Time Time Spent with patient: 15-24 minutes
--- NOTE | 2017-09-08 14:23 | PDOC CONSULTATION ---
Consultation Consult Date: 09/08/17 Consult reason:: ESRD for dialysis History of Present Illness Admission Date/PCP: 09/07/17 21:15 History of Present Illness: MADISYN JOHNSON is a 47 year old male with past medical history of diabetes mellitus leading to end-stage renal disease, on hemodialysis Wednesday, hypertension, latent tuberculosis, atrial fibrillation, recent pericardial effusion requiring drainage who presents to the emergency department with nausea and vomiting. He reports that he noticed earlier today that his insulin pump was not functioning. He had developed nausea and vomiting at this time as well as some abdominal discomfort. Patient was found to have a blood glucose greater than 700 on admission. Patient denies any antecedent illness, flulike symptoms, or diarrheal illness. He was started rx for DKA and is currently on D5 as his sugars have come down. Still npo from his nausea and vomiting earlier but has resolved and he is now hungry.Heis currently undergoing HD without any issues. He denies any dyspnea, chest pains,abdominal pains. He had a recent admission for pericardial effusion requiring drainage. He had intense HD for a month after that. He reports his repeat echocardiogram revealed a small pericardial effusion, but none requiring drainage. Past Medical History Cardiac Medical History: Reports: Hypertension-primary, Other - Pericardial effusion Denies: Atrial Fibrillation, Coronary Artery Disease - Negative chemical stress 2 weeks ago; negative heart cath last September, DVT, Hyperlipidemia, Myocardial Infarction, Pulmonary Embolism Pulmonary Medical History: Denies: Asthma, Chronic Obstructive Pulmonary Disease (COPD), Sleep Apnea Neurological Medical History: Denies: Seizures Endocrine Medical History: Reports: Diabetes Mellitus Type 1 - insulin pump Denies: Diabetes Mellitus Type 2, Hyperthyroidism, Hypothyroidism Renal/ Medical History: Reports: End Stage Renal Disease, Secondary Hyperparathyroidism GI Medical History: Denies: Cirrhosis, Gastroesophageal Reflux Disease, Hepatitis Musculoskeltal Medical History: Reports: Arthritis Psychiatric Medical History: Denies: Depression Traumatic Medical History: Reports: Other Hematology Medical History: Reports Anemia of Chronic Kidney Disease Past Surgical History Past Surgical History: Reports: Orthopedic Surgery - r/t traumas x 2, Vascular Surgery - Access surgery for hemodialysis. Left upper extremity fistula. Social History Lives with: Family Smoking Status: Current Every Day Smoker Cigarettes Packs Per Day: 0.5 Last Time Smoked: 09-07-17 Frequency of Alcohol Use: Rare Hx Recreational Drug Use: No Drugs: None Hx Prescription Drug Abuse: No - Advance Directive Resuscitation Status: Full Code Family History Parental Family History Reviewed: Yes - negative for ESRD Children Family History Reviewed: No Sibling(s) Family History Reviewed.: No Medication/Allergy Home Medications: Amlodipine Besylate [Norvasc 10 mg Tablet] 10 mg PO QHS 07/09/17 Calcium Acetate [Phoslo 667 mg Capsule] 2,001 mg PO MEALS 07/09/17 Calcium Acetate [Phoslo 667 mg Capsule] 667 mg PO BIDP PRN 07/09/17 Carvedilol [Coreg 25 mg Tablet] 25 mg PO Q12 07/09/17 Folic Acid/Vit B Complex and C [Lyndsey-Lita Tablet] 0.8 mg PO DAILY 07/09/17 Insulin Lispro [Humalog] 0 unit SQ .PUMP 07/09/17 Isoniazid [Isoniazid 300 mg Tablet] 300 mg PO DAILY #30 tablet 07/10/17 Allergies/Adverse Reactions: Iodinated Contrast- Oral and IV Dye Allergy (Verified 09/07/17 18:55) Review of Systems Constitutional: PRESENT: as per HPI, fatigue. ABSENT: fever(s), headache(s), night sweats, weakness Nose, Mouth, and Throat: ABSENT: mouth pain, sore throat, vertigo Cardiovascular: PRESENT: edema. ABSENT: dyspnea on exertion, orthropnea, palpitations Gastrointestinal: PRESENT: nausea, vomiting. ABSENT: abdominal pain, coffee ground emesis, diarrhea, dysphagia, hematemesis, hematochezia Genitourinary: ABSENT: dysuria, hematuria Integumentary: ABSENT: lesions, pruritus, rash Neurological: ABSENT: abnormal gait, abnormal movements, abnormal speech, confusion, convulsions, focal weakness Hematologic/Lymphatic: ABSENT: easy bruising, lymphadenopathy Physical Exam Vital Signs: Temp Pulse Resp BP Pulse Ox 97.9 F 73 16 163/73 H 99 09/08/17 04:25 09/08/17 04:25 09/08/17 04:25 09/08/17 04:25 09/08/17 04:25 Intake & Output 09/07/17 09/08/17 09/09/17 06:59 06:59 06:59 Intake Total 1352 Output Total 0 3500 Balance 1352 -3500 Weight 89 kg General appearance: PRESENT: no acute distress Eye exam: PRESENT: conjunctiva pink, EOMI, PERRLA. ABSENT: nystagmus, scleral icterus Ear exam: PRESENT: normal external ear exam Mouth exam: PRESENT: neck supple. ABSENT: moist Neck exam: ABSENT: lymphadenopathy, meningismus, tenderness, thyromegaly, tracheal deviation Respiratory exam: PRESENT: clear to auscultation bessy, symmetrical. ABSENT: crackles, stridor Cardiovascular exam: PRESENT: +S1, +S2, systolic murmur GI/Abdominal exam: PRESENT: normal bowel sounds, soft. ABSENT: organomegaly, tenderness Extremities exam: PRESENT: +1 edema. ABSENT: clubbing Neurological exam: PRESENT: alert, awake, oriented to person, oriented to place Psychiatric exam: PRESENT: appropriate affect Skin exam: PRESENT: dry. ABSENT: erythema, mottled Results Laboratory Results: 09/08/17 05:11 09/07/17 09/08/17 09/08/17 21:25 01:15 05:11 Sodium 131.5 L 132.4 L 135.8 L Potassium 5.0 D 4.6 3.9 Chloride 91 L 93 L 96 L Carbon Dioxide 18 L 18 L 21 L Anion Gap 23 H 21 H 19 BUN 62 H 66 H 68 H Creatinine 5.89 H 6.53 H 6.54 H Est GFR ( Amer) 13 L 11 L 11 L Est GFR (Non-Af Amer) 10 L 9 L 9 L Glucose 619 H* 521 H* 120 H Calcium 9.0 8.9 8.9 Impressions: Chest X-Ray 09/07/17 19:56 IMPRESSION: Mild cardiomegaly and mild pulmonary vascular congestion. Small right pleural effusion. Other findings as noted above Assessment & Plan - Diagnosis (1) DKA (diabetic ketoacidoses) Qualifiers: Diabetes mellitus type: type 1 Diabetes mellitus complication detail: without coma Qualified Code(s): E10.10 - Type 1 diabetes mellitus with ketoacidosis without coma Is this a current diagnosis for this admission?: Yes Plan: Improving as per todays labs.Monitor. (2) Anemia in chronic kidney disease, on chronic dialysis Is this a current diagnosis for this admission?: Yes Plan: stable without need for epo. (4) Hypertension Qualifiers: Hypertension type: essential hypertension Qualified Code(s): I10 - Essential (primary) hypertension Is this a current diagnosis for this admission?: Yes Plan: Uncontrolled.See response to HD.Has a h/o non compliance with meds. (5) Latent tuberculosis Is this a current diagnosis for this admission?: Yes (6) Nausea & vomiting Qualifiers: Vomiting type: unspecified Vomiting Intractability: non-intractable Qualified Code(s): R11.2 - Nausea with vomiting, unspecified Plan: secondary to DKA.Improving. (7) End stage renal disease on dialysis Is this a current diagnosis for this admission?: Yes Plan: Patient seen on HD.Its being supervised to ensure a safe and smooth procedure. VS are stable.orders were discussed with treating RNBindu. Plan to UF 2- 3 L.
[2017-09-08] MEDS: ISONIAZID 300 MG TABLET PO SCH (14:26)
[2017-09-08 14:58] LABS: CALCIUM 8.7 mg/dL (8.4-10.2); CARBON DIOXIDE 23 mmol/L (22-30); CHLORIDE 94 mmol/L (98-107); GLUCOSE 356 mg/dL (75-110); POTASSIUM 4.6 mmol/L (3.6-5.0)
[2017-09-08 15:16] LABS: ANION GAP 20 (5-19); BLOOD UREA NITROGEN 29 mg/dL (7-20)
[2017-09-08] MEDS ORDERED: ONDANSETRON HCL INJ/PF 4 MG/2 ML SDV IV ONE (15:30)
[2017-09-08 18:03] LABS: BLOOD UREA NITROGEN 33 mg/dL (7-20); CALCIUM 9.1 mg/dL (8.4-10.2); CREATININE RESULT 3.69 mg/dL (0.52-1.25)
[2017-09-08] MEDS ORDERED: NORMAL SALINE 1000 ML 1,000 ML IV PRN ×2 (18:15→23:25)
[2017-09-08 18:25] LABS: CARBON DIOXIDE 17 mmol/L (22-30); CHLORIDE 92 mmol/L (98-107); POTASSIUM 5.2 mmol/L (3.6-5.0); SODIUM 137.2 mmol/L (137-145)
[2017-09-08] MEDS: INSULIN LISPRO 100 UNIT/ML 3 ML VIAL SUBCUT PRN (18:28)
[2017-09-08 18:29] LABS: ANION GAP 28 (5-19)
[2017-09-08 18:31] LABS: GLUCOSE 488 mg/dL (75-110)
[2017-09-08] MEDS ORDERED: INSULIN GLARGINE,HUM.REC.ANLOG 1,000 UNIT/10 ML UNIT SUBCUT ONE (19:00)
[2017-09-08] MEDS ORDERED: TRIMETHOBENZAMIDE HCL 300 MG CAPSULE PO ONE (19:00)
[2017-09-08] MEDS: AMLODIPINE BESYLATE 10 MG TABLET PO SCH (21:31)
[2017-09-08] MEDS: METOCLOPRAMIDE HCL INJ/PF 10 MG/2 ML SDV IV PRN (21:34)
[2017-09-08] MEDS ORDERED: INSULIN GLARGINE,HUM.REC.ANLOG 1,000 UNIT/10 ML UNIT SUBCUT SCH (22:00)
[2017-09-08] MEDS ORDERED: NORMAL SALINE 100 ML with INSULIN REGULAR, HUMAN 100 UNIT IV PRN ×2 (23:24)
[2017-09-08] MEDS ORDERED: INSULIN REG, HUMAN 100 UNIT/ML 3 ML VIAL (PYX) ONE (23:53)
[2017-09-09 00:02] LABS: BLOOD UREA NITROGEN 41 mg/dL (7-20); CALCIUM 8.6 mg/dL (8.4-10.2); CARBON DIOXIDE 19 mmol/L (22-30); CREATININE RESULT 4.46 mg/dL (0.52-1.25); GLUCOSE 379 mg/dL (75-110)
[2017-09-09 00:35] LABS: CHLORIDE 96 mmol/L (98-107); POTASSIUM 4.9 mmol/L (3.6-5.0); SODIUM 138.1 mmol/L (137-145)
[2017-09-09 00:37] LABS: ANION GAP 23 (5-19)
[2017-09-09] MEDS: ONDANSETRON HCL INJ/PF 4 MG/2 ML SDV IV PRN ×3 (00:38→15:35)
[2017-09-09 03:55] LABS: ANION GAP 16 (5-19); BLOOD UREA NITROGEN 46 mg/dL (7-20); CALCIUM 8.6 mg/dL (8.4-10.2); CARBON DIOXIDE 27 mmol/L (22-30); CHLORIDE 95 mmol/L (98-107); CREATININE RESULT 4.39 mg/dL (0.52-1.25); GLUCOSE 208 mg/dL (75-110); SODIUM 138.1 mmol/L (137-145)
[2017-09-09 04:10] LABS: POTASSIUM 3.9 mmol/L (3.6-5.0)
[2017-09-09] MEDS ORDERED: DEXTROSE 5%-1/2 NORMAL SALINE 1,000 ML IV PRN (04:32)
[2017-09-09 07:37] LABS: ABSOLUTE BASOPHILS # (AUTO) 0.1 10^3/uL (0.0-0.2); ABSOLUTE LYMPHOCYTES (AUTO) 1.4 10^3/uL (0.5-4.7); ABSOLUTE MONOCYTES (AUTO) 1.3 10^3/uL (0.1-1.4); ABSOLUTE NEUT (AUTO) 5.6 10^3/uL (1.7-8.2); EOSINOPHILS % (AUTO) 0.4 % (0-6); HEMATOCRIT 24.7 % (37.9-51.0); HGB HCT DIFFERENCE 0.8; LYMPHOCYTES % (AUTO) 16.8 % (13-45); MEAN CORPUSCULAR HEMOGLOBIN 33.1 pg (27.0-33.4); MEAN CORPUSCULAR HGB CONC 34.5 g/dL (32.0-36.0); MONOCYTES % (AUTO) 15.3 % (3-13); RED BLOOD COUNT 2.57 10^6/uL (4.35-5.55); RED CELL DISTRIBUTION WIDTH 15.4 % (11.5-14.0); SEGMENTED NEUTROPHILS % (AUTO) 66.5 % (42-78); WHITE BLOOD COUNT 8.4 10^3/uL (4.0-10.5)
[2017-09-09 07:50] LABS: HEMOGLOBIN 8.5 g/dL (13.5-17.0)
[2017-09-09 07:51] LABS: MEAN CORPUSCULAR VOLUME 96 fl (80-97)
[2017-09-09 07:53] LABS: ANION GAP 12 (5-19); BLOOD UREA NITROGEN 46 mg/dL (7-20); CALCIUM 8.7 mg/dL (8.4-10.2); CARBON DIOXIDE 30 mmol/L (22-30); CHLORIDE 96 mmol/L (98-107); CREATININE RESULT 4.79 mg/dL (0.52-1.25); GLUCOSE 116 mg/dL (75-110); MAGNESIUM 2.1 mg/dL (1.6-2.3); POTASSIUM 4.1 mmol/L (3.6-5.0); SODIUM 138.2 mmol/L (137-145)
[2017-09-09] MEDS: CALCIUM ACETATE 667 MG CAPSULE PO SCH ×3 (08:06→17:31)
[2017-09-09] MEDS: MORPHINE SULFATE 10 MG/ML INJ IV PRN (08:20)
[2017-09-09] MEDS: FOLIC ACID/VITAMIN B COMP W-C CAPSULE PO SCH (11:01)
[2017-09-09] MEDS: CARVEDILOL 12.5 MG TABLET PO SCH ×2 (11:01→22:03)
[2017-09-09] MEDS: ISONIAZID 300 MG TABLET PO SCH (12:08)
[2017-09-09] MEDS: METOCLOPRAMIDE HCL INJ/PF 10 MG/2 ML SDV IV PRN ×2 (12:09→23:24)
[2017-09-09 12:24] LABS: ANION GAP 19 (5-19); BLOOD UREA NITROGEN 48 mg/dL (7-20); CALCIUM 8.8 mg/dL (8.4-10.2); CARBON DIOXIDE 24 mmol/L (22-30); CHLORIDE 94 mmol/L (98-107); CREATININE RESULT 5.01 mg/dL (0.52-1.25); GLUCOSE 121 mg/dL (75-110); POTASSIUM 4.3 mmol/L (3.6-5.0); SODIUM 136.5 mmol/L (137-145)
[2017-09-09] MEDS ORDERED: ACETAMINOPHEN 325 MG TABLET PO PRN (14:04)
[2017-09-09] MEDS ORDERED: MORPHINE SULFATE 10 MG/ML INJ IV PRN (14:30)
--- NOTE | 2017-09-09 16:12 | PDOC PROGRESS REPORT ---
Subjective Progress Note for:: 09/09/17 Subjective:: Patient was seen laying in bed. He feels a lot better since being admitted to the hospital. Currently still receiving insulin not on his pump. He will be switching to his pump tomorrow. Reason For Visit: HHNS, HYPERKALEMIA Physical Exam Vital Signs: Temp Pulse Resp BP Pulse Ox 97.8 F 63 18 117/60 95 09/09/17 13:16 09/09/17 14:00 09/09/17 13:16 09/09/17 13:16 09/09/17 13:16 Intake & Output 09/08/17 09/09/17 09/10/17 06:59 06:59 06:59 Intake Total 1352 2141 666 Output Total 0 3500 0 Balance 1352 -1359 666 Weight 89 kg 91.3 kg General appearance: PRESENT: no acute distress, well-developed, well-nourished Head exam: PRESENT: atraumatic, normocephalic Eye exam: PRESENT: conjunctiva pink, PERRLA. ABSENT: scleral icterus Mouth exam: PRESENT: moist, tongue midline Neck exam: PRESENT: full ROM. ABSENT: JVD, thyromegaly, tracheal deviation Respiratory exam: PRESENT: clear to auscultation bessy. ABSENT: accessory muscle use, chest wall tenderness, crackles, rales, rhonchi, wheezes Cardiovascular exam: PRESENT: +S1, +S2, systolic murmur GI/Abdominal exam: PRESENT: normal bowel sounds, soft. ABSENT: organomegaly, tenderness Extremities exam: PRESENT: pedal edema - -trace+. ABSENT: joint swelling, tenderness Musculoskeletal exam: PRESENT: normal inspection. ABSENT: tenderness Neurological exam: PRESENT: alert, awake, oriented to person, oriented to place , oriented to time, oriented to situation Psychiatric exam: PRESENT: appropriate affect, normal mood Skin exam: PRESENT: dry, intact, warm. ABSENT: cyanosis Results Laboratory Results: 09/09/17 07:12 09/09/17 11:25 09/08/17 09/08/17 09/09/17 17:24 23:40 03:30 WBC RBC Hgb Hct MCV MCH MCHC RDW Plt Count Seg Neutrophils % Lymphocytes % Monocytes % Eosinophils % Basophils % Absolute Neutrophils Absolute Lymphocytes Absolute Monocytes Absolute Eosinophils Absolute Basophils Sodium 137.2 138.1 138.1 Potassium 5.2 H 4.9 3.9 D Chloride 92 L 96 L 95 L Carbon Dioxide 17 L 19 L 27 Anion Gap 28 H 23 H 16 BUN 33 H 41 H 46 H Creatinine 3.69 H 4.46 H 4.39 H Est GFR ( Amer) 22 L 17 L 18 L Est GFR (Non-Af Amer) 18 L 14 L 15 L Glucose 488 H* 379 H 208 H Calcium 9.1 8.6 8.6 Magnesium 09/09/17 09/09/17 09/09/17 07:12 07:12 11:25 WBC 8.4 RBC 2.57 L Hgb 8.5 L D Hct 24.7 L MCV 96 D MCH 33.1 MCHC 34.5 RDW 15.4 H Plt Count 131 L Seg Neutrophils % 66.5 Lymphocytes % 16.8 Monocytes % 15.3 H Eosinophils % 0.4 Basophils % 1.0 Absolute Neutrophils 5.6 Absolute Lymphocytes 1.4 Absolute Monocytes 1.3 Absolute Eosinophils 0.0 Absolute Basophils 0.1 Sodium 138.2 136.5 L Potassium 4.1 4.3 Chloride 96 L 94 L Carbon Dioxide 30 24 Anion Gap 12 19 BUN 46 H 48 H Creatinine 4.79 H 5.01 H Est GFR ( Amer) 16 L 15 L Est GFR (Non-Af Amer) 13 L 13 L Glucose 116 H 121 H Calcium 8.7 8.8 Magnesium 2.1 Impressions: Chest X-Ray 09/07/17 19:56 IMPRESSION: Mild cardiomegaly and mild pulmonary vascular congestion. Small right pleural effusion. Other findings as noted above Assessment & Plan - Diagnosis (1) DKA (diabetic ketoacidoses) Qualifiers: Diabetes mellitus type: type 1 Diabetes mellitus complication detail: without coma Qualified Code(s): E10.10 - Type 1 diabetes mellitus with ketoacidosis without coma Is this a current diagnosis for this admission?: Yes Plan: Looks to be controlled in the low 100s. (2) Anemia in chronic kidney disease, on chronic dialysis Is this a current diagnosis for this admission?: Yes Plan: will give patient epogen tomorrow on dialysis. Would recommend screening for occult blood in his stool. (3) End stage renal disease on dialysis Is this a current diagnosis for this admission?: Yes Plan: will set patient up for dialysis tomorrow and pull off some extra fluid (4) Hyperkalemia Is this a current diagnosis for this admission?: Yes Plan: currently stable (5) Diabetes mellitus Qualifiers: Diabetes mellitus type: type 1 Diabetes mellitus complication status: with kidney complications Diabetes mellitus complication detail: with chronic kidney disease Chronic kidney disease stage: on chronic dialysis Qualified Code(s): E10.22 - Type 1 diabetes mellitus with diabetic chronic kidney disease ; N18.6 - End stage renal disease; Z99.2 - Dependence on renal dialysis Plan: currently controlled (6) Hypertension Qualifiers: Hypertension type: essential hypertension Qualified Code(s): I10 - Essential (primary) hypertension Is this a current diagnosis for this admission?: Yes Plan: currently controlled
--- NOTE | 2017-09-09 16:14 | PDOC PROGRESS REPORT ---
Subjective Progress Note for:: 09/09/17 Subjective:: No new events overnight. The insulin drip was stopped this morning due to hypoglycemia he had been on for units per hour at that time. He reports resolution of his nausea vomiting would like to try to eat something. He denies chest pain, palpitations, nausea, vomiting, diarrhea, fever, chills. ROS: All systems reviewed, see above, remaining systems negative. Reason For Visit: HHNS, HYPERKALEMIA, N/V, ESRD Physical Exam Vital Signs: Temp Pulse Resp BP Pulse Ox 97.8 F 63 18 117/60 95 09/09/17 13:16 09/09/17 14:00 09/09/17 13:16 09/09/17 13:16 09/09/17 13:16 Intake & Output 09/08/17 09/09/17 09/10/17 06:59 06:59 06:59 Intake Total 1352 2141 666 Output Total 0 3500 0 Balance 1352 -1359 666 Weight 89 kg 91.3 kg General appearance: PRESENT: no acute distress, well-developed, well-nourished Head exam: PRESENT: atraumatic Eye exam: PRESENT: EOMI. ABSENT: scleral icterus Mouth exam: PRESENT: moist Neck exam: PRESENT: JVD. ABSENT: tracheal deviation Respiratory exam: PRESENT: crackles - At the bases. ABSENT: accessory muscle use, wheezes Cardiovascular exam: PRESENT: RRR. ABSENT: tachycardia Pulses: PRESENT: normal radial pulses GI/Abdominal exam: PRESENT: normal bowel sounds, soft. ABSENT: tenderness Extremities exam: ABSENT: pedal edema Musculoskeletal exam: PRESENT: ambulatory, full ROM Neurological exam: PRESENT: alert, awake, oriented to person, oriented to place , oriented to time, oriented to situation Skin exam: PRESENT: warm Results Laboratory Results: 09/09/17 07:12 09/09/17 11:25 09/08/17 09/08/17 09/09/17 17:24 23:40 03:30 WBC RBC Hgb Hct MCV MCH MCHC RDW Plt Count Seg Neutrophils % Lymphocytes % Monocytes % Eosinophils % Basophils % Absolute Neutrophils Absolute Lymphocytes Absolute Monocytes Absolute Eosinophils Absolute Basophils Sodium 137.2 138.1 138.1 Potassium 5.2 H 4.9 3.9 D Chloride 92 L 96 L 95 L Carbon Dioxide 17 L 19 L 27 Anion Gap 28 H 23 H 16 BUN 33 H 41 H 46 H Creatinine 3.69 H 4.46 H 4.39 H Est GFR ( Amer) 22 L 17 L 18 L Est GFR (Non-Af Amer) 18 L 14 L 15 L Glucose 488 H* 379 H 208 H Calcium 9.1 8.6 8.6 Magnesium 09/09/17 09/09/17 09/09/17 07:12 07:12 11:25 WBC 8.4 RBC 2.57 L Hgb 8.5 L D Hct 24.7 L MCV 96 D MCH 33.1 MCHC 34.5 RDW 15.4 H Plt Count 131 L Seg Neutrophils % 66.5 Lymphocytes % 16.8 Monocytes % 15.3 H Eosinophils % 0.4 Basophils % 1.0 Absolute Neutrophils 5.6 Absolute Lymphocytes 1.4 Absolute Monocytes 1.3 Absolute Eosinophils 0.0 Absolute Basophils 0.1 Sodium 138.2 136.5 L Potassium 4.1 4.3 Chloride 96 L 94 L Carbon Dioxide 30 24 Anion Gap 12 19 BUN 46 H 48 H Creatinine 4.79 H 5.01 H Est GFR ( Amer) 16 L 15 L Est GFR (Non-Af Amer) 13 L 13 L Glucose 116 H 121 H Calcium 8.7 8.8 Magnesium 2.1 Assessment & Plan - Diagnosis (1) DKA (diabetic ketoacidoses) Qualifiers: Diabetes mellitus type: type 1 Diabetes mellitus complication detail: without coma Qualified Code(s): E10.10 - Type 1 diabetes mellitus with ketoacidosis without coma Is this a current diagnosis for this admission?: Yes Plan: HIS AG closed and he actually became hypoglycemic on insulin gtt and now he is hungry and can advance his diet. He takes basal rate of 0.85U/hr on his insulin pump so will place on 15U lantus and titrate once we know for sure he is tolerating oral. (2) Anemia in chronic kidney disease, on chronic dialysis Is this a current diagnosis for this admission?: Yes (3) Hypertension Qualifiers: Hypertension type: essential hypertension Qualified Code(s): I10 - Essential (primary) hypertension Is this a current diagnosis for this admission?: Yes (4) Latent tuberculosis Is this a current diagnosis for this admission?: Yes (5) Nausea & vomiting Qualifiers: Vomiting type: unspecified Vomiting Intractability: non-intractable Qualified Code(s): R11.2 - Nausea with vomiting, unspecified Is this a current diagnosis for this admission?: Yes Plan: resolved (6) End stage renal disease on dialysis Is this a current diagnosis for this admission?: Yes Plan: HD -; defer to nephro - Time Time Spent with patient: 25-34 minutes Medications reviewed and adjusted accordingly: Yes
[2017-09-09] MEDS: INSULIN LISPRO 100 UNIT/ML 3 ML VIAL SUBCUT PRN ×2 (17:31→22:03)
[2017-09-09] MEDS ORDERED: INSULIN GLARGINE,HUM.REC.ANLOG 300 UNIT/3 ML INSULN.PEN SUBCUT SCH (22:00)
[2017-09-09] MEDS ORDERED: INSULIN GLARGINE,HUM.REC.ANLOG 1,000 UNIT/10 ML UNIT SUBCUT SCH (22:00)
[2017-09-09] MEDS: AMLODIPINE BESYLATE 10 MG TABLET PO SCH (22:03)
[2017-09-10] MEDS ORDERED: EPOETIN ALFA INJ 20000 UNIT/1 ML VIAL (RENAL) IV PRN (05:00)
[2017-09-10] MEDS ORDERED: EPOETIN ALFA 10,000 UNIT in SYRINGE, DISPOSABLE, 1 EACH IV PRN (05:00)
[2017-09-10] MEDS: CALCIUM ACETATE 667 MG CAPSULE PO SCH ×3 (05:10→16:26)
[2017-09-10] MEDS: ONDANSETRON HCL INJ/PF 4 MG/2 ML SDV IV PRN (05:15)
[2017-09-10 05:26] LABS: HEMATOCRIT 28.1 % (37.9-51.0); HEMOGLOBIN 9.6 g/dL (13.5-17.0); HGB HCT DIFFERENCE 0.7; MEAN CORPUSCULAR HEMOGLOBIN 32.7 pg (27.0-33.4); MEAN CORPUSCULAR VOLUME 96 fl (80-97); RED BLOOD COUNT 2.92 10^6/uL (4.35-5.55); RED CELL DISTRIBUTION WIDTH 15.2 % (11.5-14.0); WHITE BLOOD COUNT 5.9 10^3/uL (4.0-10.5)
[2017-09-10 05:56] LABS: ANION GAP 17 (5-19); BLOOD UREA NITROGEN 59 mg/dL (7-20); CALCIUM 9.2 mg/dL (8.4-10.2); CARBON DIOXIDE 27 mmol/L (22-30); CHLORIDE 93 mmol/L (98-107); CREATININE RESULT 6.46 mg/dL (0.52-1.25); GLUCOSE 132 mg/dL (75-110); MAGNESIUM 2.2 mg/dL (1.6-2.3); PHOSPHORUS 6.9 mg/dL (2.5-4.5); POTASSIUM 4.3 mmol/L (3.6-5.0)
--- NOTE | 2017-09-10 11:35 | PDOC PROGRESS REPORT ---
Subjective Progress Note for:: 09/10/17 Reason For Visit: Seen on Dialysis today.He is doing well but for some itching on HD which he says happens many a times on dialysis.No dyspnea, swelling etc.No chest pains, fever , chills, rash Blood sugars are doing lots better. Physical Exam Vital Signs: Temp Pulse Resp BP Pulse Ox 97.7 F 62 16 137/78 H 97 09/10/17 04:50 09/10/17 07:00 09/10/17 04:50 09/10/17 04:50 09/10/17 04:50 Intake & Output 09/09/17 09/10/17 09/11/17 06:59 06:59 06:59 Intake Total 2141 2365 Output Total 3500 0 Balance -1359 2365 Weight 91.3 kg 95.8 kg General appearance: PRESENT: no acute distress Respiratory exam: PRESENT: clear to auscultation bessy, unlabored. ABSENT: crackles Cardiovascular exam: PRESENT: +S1, +S2, systolic murmur GI/Abdominal exam: PRESENT: normal bowel sounds, soft. ABSENT: organomegaly, tenderness Results Laboratory Results: 09/10/17 04:19 09/10/17 04:19 09/09/17 09/10/17 09/10/17 11:25 04:19 04:19 WBC 5.9 RBC 2.92 L Hgb 9.6 L Hct 28.1 L MCV 96 MCH 32.7 MCHC 34.0 RDW 15.2 H Plt Count 139 L Sodium 136.5 L 137.0 Potassium 4.3 4.3 Chloride 94 L 93 L Carbon Dioxide 24 27 Anion Gap 19 17 BUN 48 H 59 H Creatinine 5.01 H 6.46 H Est GFR ( Amer) 15 L 11 L Est GFR (Non-Af Amer) 13 L 9 L Glucose 121 H 132 H Calcium 8.8 9.2 Phosphorus 6.9 H Magnesium 2.2 Impressions: Chest X-Ray 09/07/17 19:56 IMPRESSION: Mild cardiomegaly and mild pulmonary vascular congestion. Small right pleural effusion. Other findings as noted above Assessment & Plan - Diagnosis (1) DKA (diabetic ketoacidoses) Qualifiers: Diabetes mellitus type: type 1 Diabetes mellitus complication detail: without coma Qualified Code(s): E10.10 - Type 1 diabetes mellitus with ketoacidosis without coma Is this a current diagnosis for this admission?: Yes Plan: Resolved. (2) Anemia in chronic kidney disease, on chronic dialysis Is this a current diagnosis for this admission?: Yes Plan: Will order erythropoietin to be given during dialysis. (3) Atrial fibrillation with RVR Plan: As per hospitalist. (4) Hypertension Qualifiers: Hypertension type: essential hypertension Qualified Code(s): I10 - Essential (primary) hypertension Is this a current diagnosis for this admission?: Yes Plan: Controlled. (5) Latent tuberculosis Is this a current diagnosis for this admission?: Yes Plan: Patient should be on his antituberculous medications and being managed and looked after by hospitalist at the moment. (6) Nausea & vomiting Qualifiers: Vomiting type: unspecified Vomiting Intractability: non-intractable Qualified Code(s): R11.2 - Nausea with vomiting, unspecified Is this a current diagnosis for this admission?: Yes Plan: Resolved. (7) End stage renal disease on dialysis Is this a current diagnosis for this admission?: Yes Plan: Patient seen on HD.Its being supervised to ensure a safe and smooth procedure. VS are stable.orders were discussed with treating RNBindu. Plan to UF 1- 2 L.
[2017-09-10] MEDS ORDERED: DIPHENHYDRAMINE HCL 50 MG/ML VIAL IV ONE (12:00)
[2017-09-10] MEDS: ISONIAZID 300 MG TABLET PO SCH (12:35)
[2017-09-10] MEDS: FOLIC ACID/VITAMIN B COMP W-C CAPSULE PO SCH (12:36)
[2017-09-10] MEDS: CARVEDILOL 12.5 MG TABLET PO SCH ×2 (12:37→21:48)
[2017-09-10] MEDS ORDERED: INSULIN LISPRO 100 UNIT/ML 3 ML VIAL SUBCUT PRN (16:00)
--- NOTE | 2017-09-10 18:01 | PDOC PROGRESS REPORT ---
Subjective Progress Note for:: 09/10/17 Subjective:: This is a follow-up visit for DKA. he is just returning from dialysis. He is hungry and is ordering lunch. His nausea has resolved. His insulin pump has not yet been reinitiated. Reason For Visit: HHNS, HYPERKALEMIA Physical Exam Vital Signs: Temp Pulse Resp BP Pulse Ox 98.7 F 65 18 150/75 H 97 09/10/17 16:11 09/10/17 16:11 09/10/17 16:11 09/10/17 16:11 09/10/17 16:11 Intake & Output 09/09/17 09/10/17 09/11/17 06:59 06:59 06:59 Intake Total 2141 2365 Output Total 3500 0 4000 Balance -1359 2365 -4000 Weight 91.3 kg 95.8 kg GENERAL: Is a well-developed well-nourished appearing white male resting on the side of his bed after returning from dialysis. HEART: Regular rate and rhythm. No murmurs, rubs or gallops. LUNGS: Clear to auscultation bilaterally with equal rise and fall the chest ABDOMEN: Soft, nontender, nondistended with normoactive bowel sounds EXTREMETIES: No clubbing, cyanosis or edema. 2+ peripheral pulses bilaterally. NEURO: Awake, alert and oriented 3. Cranial nerves II through XII are grossly intact. Results Laboratory Results: 09/10/17 04:19 09/10/17 04:19 09/10/17 09/10/17 04:19 04:19 WBC 5.9 RBC 2.92 L Hgb 9.6 L Hct 28.1 L MCV 96 MCH 32.7 MCHC 34.0 RDW 15.2 H Plt Count 139 L Sodium 137.0 Potassium 4.3 Chloride 93 L Carbon Dioxide 27 Anion Gap 17 BUN 59 H Creatinine 6.46 H Est GFR ( Amer) 11 L Est GFR (Non-Af Amer) 9 L Glucose 132 H Calcium 9.2 Phosphorus 6.9 H Magnesium 2.2 Impressions: Chest X-Ray 09/07/17 19:56 IMPRESSION: Mild cardiomegaly and mild pulmonary vascular congestion. Small right pleural effusion. Other findings as noted above Assessment & Plan - Diagnosis (1) DKA (diabetic ketoacidoses) Qualifiers: Diabetes mellitus type: type 1 Diabetes mellitus complication detail: without coma Qualified Code(s): E10.10 - Type 1 diabetes mellitus with ketoacidosis without coma Is this a current diagnosis for this admission?: Yes Plan: Resolved. Discontinue Lantus this evening and resume patient's insulin pump. His blood sugars are reasonable in the morning the patient can be discharged. (2) Hyperkalemia Is this a current diagnosis for this admission?: Yes Plan: Secondary to DKA. Resolved. (3) Hypertension Qualifiers: Hypertension type: essential hypertension Qualified Code(s): I10 - Essential (primary) hypertension Is this a current diagnosis for this admission?: Yes Plan: Continue home medications. (4) Nausea & vomiting Qualifiers: Vomiting type: unspecified Vomiting Intractability: non-intractable Qualified Code(s): R11.2 - Nausea with vomiting, unspecified Is this a current diagnosis for this admission?: Yes Plan: Resolved (5) End stage renal disease on dialysis Is this a current diagnosis for this admission?: Yes Plan: Continue dialysis Wednesday. (6) Latent tuberculosis Is this a current diagnosis for this admission?: Yes Plan: Continue isoniazid (7) Anemia in chronic kidney disease, on chronic dialysis Is this a current diagnosis for this admission?: Yes Plan: Stable - Time Time Spent with patient: 15-24 minutes
[2017-09-10 20:18] VITALS: BP 153/86
[2017-09-10] MEDS: AMLODIPINE BESYLATE 10 MG TABLET PO SCH (21:48)
== END 2017-09-10 20:40 | disposition left against medical advice (07) | DRG 919 ==
LOC: ER 18:48 → EH 21:15 → 3N 09-08
PROVIDERS: ADMIT Family Medicine; ATTEND Family Medicine
DX: T85.694A Other mechanical complication of insulin pump, initial encounter (principal); E10.10 Type 1 diabetes mellitus with ketoacidosis without coma; N18.6 End stage renal disease; I12.0 Hypertensive chronic kidney disease with stage 5 chronic kidney disease or end stage renal disease; T38.3X6A Underdosing of insulin and oral hypoglycemic [antidiabetic] drugs, initial encounter; E87.5 Hyperkalemia; E10.22 Type 1 diabetes mellitus with diabetic chronic kidney disease; D63.1 Anemia in chronic kidney disease; I48.2 Chronic atrial fibrillation; E86.0 Dehydration; R76.11 Nonspecific reaction to tuberculin skin test without active tuberculosis; F17.210 Nicotine dependence, cigarettes, uncomplicated; Z96.41 Presence of insulin pump (external) (internal); Z79.4 Long term (current) use of insulin; Z99.2 Dependence on renal dialysis
CPT/HCPCS: 36415; 71020; 80048; 80053; 82803; 82962; 83690; 83735; 84100; 85025; 85027; 93005; 93010; 94799; 96374; 99285; J1200; J1815; J2270; J2405; J2765; J3490; J7030; Q4081

== ENCOUNTER 2018-05-27 09:22 | Emergency (ER) | payer MEDICARE ==
[2018-05-27] MEDS ORDERED: ASPIRIN 81 MG TABLET, CHEWABLE PO ONE (09:53)
[2018-05-27] MEDS ORDERED: HYDROCODONE/ACETAMINOPHEN 5-325 MG (6 TAB/ER DISP) PO PRN (10:03)
[2018-05-27] MEDS ORDERED: PROMETHAZINE HCL 25 MG TABLET PO ONE (10:04)
--- NOTE | 2018-05-27 10:06 | ER Document Report ---
ED Cardiac - General Chief Complaint: Shoulder Pain Stated Complaint: CHEST PAIN Time Seen by Provider: 05/27/18 09:32 TRAVEL OUTSIDE OF THE [place] IN LAST 30 DAYS: No - HPI Patient complains to provider of: Other - 47-year-old dialysis dependent man who presents for evaluation of lightheadedness and tightness across his shoulders which developed today while he was in dialysis, he notes that similar symptoms of happened in the past where he was going to cramp when they have drawn too much fluid off. He did not take any of his normal blood pressure medications this morning as is his usual routine before dialysis because of the risk of low blood pressures. He denies any recent illnesses, fevers, chills, chest pain, abdominal pain diarrhea constipation dysuria rashes or other symptoms. Nothing is seemed to make his symptoms any worse, some fluid seems to be making it better. Denies any history of heart attack or stroke in the past. - Related Data Allergies/Adverse Reactions: Iodinated Contrast- Oral and IV Dye Allergy (Verified 09/07/17 18:55) Past Medical History - General Information source: Patient - Social History Smoking Status: Unknown if Ever Smoked Family History: CAD, DM - Past Medical History Cardiac Medical History: Reports: Hx Hypertension Denies: Hx Atrial Fibrillation, Hx Congestive Heart Failure, Hx Coronary Artery Disease - Negative chemical stress 2 weeks ago; negative heart cath last September, Hx DVT, Hx Heart Attack, Hx Hypercholesterolemia, Hx Pulmonary Embolism Pulmonary Medical History: Denies: Hx Asthma, Hx COPD, Hx Sleep Apnea Neurological Medical History: Denies: Hx Seizures Endocrine Medical History: Reports: Hx Diabetes Mellitus Type 1 - insulin pump. Denies: Hx Diabetes Mellitus Type 2, Hx Hyperthyroidism, Hx Hypothyroidism Renal/ Medical History: Reports: Hx End Stage Renal Disease. Denies: Hx Peritoneal Dialysis GI Medical History: Denies: Hx Cirrhosis, Hx Gastroesophageal Reflux Disease, Hx Hepatitis Musculoskeletal Medical History: Reports Hx Arthritis Psychiatric Medical History: Denies: Hx Depression Infectious Medical History: Denies: Hx Hepatitis Past Surgical History: Reports: Hx Orthopedic Surgery - r/t traumas x 2, Hx Vascular Surgery - Access surgery for hemodialysis. Left upper extremity fistula. - Immunizations Hx Diphtheria, Pertussis, Tetanus Vaccination: Yes Review of Systems - Review of Systems -: Yes All other systems reviewed and negative Physical Exam - Vital signs Vitals: Temp Resp 98.2 F 15 05/27/18 09:34 05/27/18 09:34 - General General appearance: Appears well In distress: None - HEENT Head: Normocephalic Eyes: Normal Conjunctiva: Normal Cornea: Normal - Respiratory Respiratory status: No respiratory distress Chest status: Nontender Breath sounds: Normal Chest palpation: Normal - Cardiovascular Rhythm: Regular Heart sounds: Normal auscultation Notes: Left-sided dialysis fistula with palpable thrill - Abdominal Inspection: Normal Distension: No distension Bowel sounds: Normal - Back Back: Normal - Extremities General upper extremity: Normal inspection General lower extremity: Normal inspection Shoulder: Normal Arm: Normal - Neurological Neuro grossly intact: Yes Cognition: Normal Orientation: AAOx4 - Psychological Associated symptoms: Normal affect Course - Re-evaluation Re-evalutation: 05/27/18 19:56 47-year-old man who presented from dialysis for evaluation of an episode of low blood pressure and some tightness in his shoulders. He notes that he has had episodes like this in the past when he was dialyzed too aggressively and his blood pressure dropped from his normal levels. He denies any loss of consciousness focal numbness or weakness or symptoms at this time. He states that he feels better. His current complaint is some cramping pain which she has had along his left deltoid over the last several weeks which he says is been nagging intermittently. On examination the patient's story is atypical for any ACS story he was actively being dialyzed at the time he had similar symptoms in the past. We will plan for a chemistry CBC troponin. His EKG is unchanged from baseline is nondiagnostic. Chemistry is better than usual, CBC is unremarkable, troponin is low level positive chronically elevated as he is a renal patient. Second is also in the same realm positivity. He continues to be symptom-free at this time ambulatory without other complaints. We discussed the possibility risks and benefits of further evaluation including admission and cardiac monitoring leads declined at this time believes that he is going to follow-up for dialysis on Wednesday as previously scheduled as they will adjust his dry weight likely at that time. - Vital Signs Vital signs: Temp Pulse Resp BP Pulse Ox 98.2 F 65 13 167/93 H 99 05/27/18 09:34 05/27/18 16:45 05/27/18 16:45 05/27/18 16:45 05/27/18 16:45 - Laboratory Result Diagrams: 05/27/18 09:57 05/27/18 09:57 Laboratory results interpreted by me: 05/27/18 05/27/18 05/27/18 09:57 09:57 12:22 RBC 3.75 L Hgb 11.9 L Hct 35.3 L RDW 14.1 H Plt Count 149 L Lymphocytes % 10.9 L Sodium 136.8 L Chloride 97 L BUN 34 H Creatinine 4.96 H Est GFR ( Amer) 15 L Est GFR (Non-Af Amer) 13 L Glucose 358 H POC Glucose 393 H Direct Bilirubin 0.7 H - EKG Interpretation by Me EKG shows normal: Sinus rhythm - 67 bpm, left axis deviation, QTC 516, ST segment inversion in 1 and aVL, ST inversions unchanged from EKG 09/07/2017 Discharge - Discharge Clinical Impression: Hypotension Qualifiers: Hypotension type: unspecified hypotension type Qualified Code(s): I95.9 - Hypotension, unspecified Dialysis complication Qualifiers: Encounter type: initial encounter Qualified Code(s): T82.9XXA - Unspecified complication of cardiac and vascular prosthetic device, implant and graft, initial encounter Condition: Good Disposition: HOME, SELF-CARE Additional Instructions: You were seen today in the emergency department after dialysis, you had an evaluation including a physical exam as well as EKG and blood work. It does not appear that you have damaged your heart, return for any worsening lightheadedness chest pain shortness of breath or worsening symptoms. It is possible that this was related to something we did not discover today or it was related to your dialysis. Referrals: Chantal ADAM MD [ACTIVE STAFF] - Follow up as needed
[2018-05-27 10:31] LABS: ABSOLUTE BASOPHILS # (AUTO) 0.1 10^3/uL (0.0-0.2); ABSOLUTE EOSINOPHILS # (AUTO) 0.2 10^3/uL (0.0-0.6); ABSOLUTE LYMPHOCYTES (AUTO) 0.7 10^3/uL (0.5-4.7); ABSOLUTE MONOCYTES (AUTO) 0.4 10^3/uL (0.1-1.4); ABSOLUTE NEUT (AUTO) 4.7 10^3/uL (1.7-8.2); BASOPHILS % (AUTO) 1.9 % (0-2); EOSINOPHILS % (AUTO) 3.3 % (0-6); HEMATOCRIT 35.3 % (37.9-51.0); HEMOGLOBIN 11.9 g/dL (13.5-17.0); LYMPHOCYTES % (AUTO) 10.9 % (13-45); MEAN CORPUSCULAR HEMOGLOBIN 31.7 pg (27.0-33.4); MEAN CORPUSCULAR HGB CONC 33.6 g/dL (32.0-36.0); MEAN CORPUSCULAR VOLUME 94 fl (80-97); PLATELET COUNT 149 10^3/uL (150-450); RED BLOOD COUNT 3.75 10^6/uL (4.35-5.55); RED CELL DISTRIBUTION WIDTH 14.1 % (11.5-14.0); SEGMENTED NEUTROPHILS % (AUTO) 76.9 % (42-78); TOTAL CELLS COUNTED % (AUTO) 100 %; WHITE BLOOD COUNT 6.1 10^3/uL (4.0-10.5)
[2018-05-27 10:32] LABS: ALANINE AMINOTRANSFERASE 22 U/L (21-72); ALBUMIN 3.7 g/dL (3.5-5.0); ALKALINE PHOSPHATASE 78 U/L (38-126); ANION GAP 17 (5-19); ASPARTATE AMINO TRANSFERASE 18 U/L (17-59); BILIRUBIN,DIRECT 0.7 mg/dL (0.0-0.4); BILIRUBIN,TOTAL 0.9 mg/dL (0.2-1.3); BLOOD UREA NITROGEN 34 mg/dL (7-20); CALCIUM 8.6 mg/dL (8.4-10.2); CARBON DIOXIDE 23 mmol/L (22-30); CHLORIDE 97 mmol/L (98-107); CREATINE KINASE 88 U/L (55-170); GLUCOSE 358 mg/dL (75-110); SODIUM 136.8 mmol/L (137-145); TOTAL PROTEIN 6.5 g/dL (6.3-8.2)
[2018-05-27] MEDS ORDERED: HYDROCODONE/ACETAMINOPHEN 5-325 MG TABLET PO ONE ×2 (10:36→16:34)
--- NOTE | 2018-05-27 10:40 | RADIOLOGY REPORT (SQ) ---
EXAM DESCRIPTION: CHEST SINGLE VIEW COMPLETED DATE/TIME: 05/27/2018 10:29 am REASON FOR STUDY: cp COMPARISON: 09/07/2017 EXAM PARAMETERS: NUMBER OF VIEWS: One view. TECHNIQUE: Single frontal radiographic view of the chest acquired. RADIATION DOSE: NA LIMITATIONS: None. FINDINGS: LUNGS AND PLEURA: Ill-defined opacification in the right lower lobe. Small right pleural effusion. MEDIASTINUM AND HILAR STRUCTURES: No masses. Contour normal. HEART AND VASCULAR STRUCTURES: Cardiomegaly. No janice pulmonary edema. BONES: No acute findings. HARDWARE: None in the chest. OTHER: No other significant finding. IMPRESSION: Cardiomegaly with no pulmonary edema. Small right pleural effusion. Cannot exclude a l imited pneumonia in the right lower lobe. TECHNICAL DOCUMENTATION: JOB ID: [id number] [email or web address]- All Rights Reserved Reading location - IP/workstation name: [email or web address]
[2018-05-27 10:44] LABS: CREATINE KINASE MB 2.89 ng/mL (<4.55)
[2018-05-27 10:49] LABS: TROPONIN I 0.075 ng/mL
--- NOTE | 2018-05-27 12:38 | EKG REPORT ---
SEVERITY:- ABNORMAL ECG - SINUS RHYTHM LEFT ATRIAL ABNORMALITY LEFT ANTERIOR FASCICULAR BLOCK LVH WITH SECONDARY REPOLARIZATION ABNORMALITY PROLONGED QT INTERVAL : Confirmed by: Joe James MD 27-May-2018 12:37:33
[2018-05-27 16:45] VITALS: BP 167/93
== END 2018-05-27 16:44 | disposition home or self-care (01) ==
LOC: ER 09:22
DX: I95.9 Hypotension, unspecified (principal); T82.9XXA Unspecified complication of cardiac and vascular prosthetic device, implant and graft, initial encounter; Y82.8 Other medical devices associated with adverse incidents; I12.0 Hypertensive chronic kidney disease with stage 5 chronic kidney disease or end stage renal disease; E10.22 Type 1 diabetes mellitus with diabetic chronic kidney disease; N18.6 End stage renal disease; Z99.2 Dependence on renal dialysis; Z96.41 Presence of insulin pump (external) (internal); R42 Dizziness and giddiness; R25.2 Cramp and spasm; Z79.899 Other long term (current) drug therapy; Z91.041 Radiographic dye allergy status
CPT/HCPCS: 93005; 99285; 36415; 82553; 82962; 82550; 85025; 80053; 84484; 71045; 93010; A9270 ×2

== ENCOUNTER 2018-05-28 21:57 | Inpatient (IN) | payer MEDICARE ==
[2018-05-28] MEDS ORDERED: METOCLOPRAMIDE HCL INJ/PF 10 MG/2 ML SDV IV ONE (22:14)
--- NOTE | 2018-05-28 22:19 | ER Document Report ---
ED General - General Stated Complaint: NAUSEA Time Seen by Provider: 05/28/18 22:07 Notes: Patient is a 47-year-old male comes emergency department by ambulance for chief complaint of persistent vomiting since 2:00 this afternoon. He states that he has a simple insulin pump, he thinks it is working, the last time he had this was when his "sugars got out of control". He reports generalized soreness in the chest and abdomen but not before vomiting. He denies shortness of breath, passing out. He has been unable to eat this afternoon and evening. He denies fevers or chills. Past medical history of insulin dependent diabetes and dialysis, he had dialysis yesterday, he is due for dialysis on Wednesday but not until then. TRAVEL OUTSIDE OF THE [place] IN LAST 30 DAYS: No - Related Data Allergies/Adverse Reactions: Iodinated Contrast- Oral and IV Dye Allergy (Verified 09/07/17 18:55) Past Medical History - General Information source: Patient - Social History Smoking Status: Never Smoker Frequency of alcohol use: None Drug Abuse: None Lives with: Alone Family History: CAD, DM - Past Medical History Cardiac Medical History: Reports: Hx Hypertension Denies: Hx Atrial Fibrillation, Hx Congestive Heart Failure, Hx Coronary Artery Disease - Negative chemical stress 2 weeks ago; negative heart cath last September, Hx DVT, Hx Heart Attack, Hx Hypercholesterolemia, Hx Pulmonary Embolism Pulmonary Medical History: Denies: Hx Asthma, Hx COPD, Hx Sleep Apnea Neurological Medical History: Denies: Hx Seizures Endocrine Medical History: Reports: Hx Diabetes Mellitus Type 1 - insulin pump. Denies: Hx Diabetes Mellitus Type 2, Hx Hyperthyroidism, Hx Hypothyroidism Renal/ Medical History: Reports: Hx End Stage Renal Disease. Denies: Hx Peritoneal Dialysis GI Medical History: Denies: Hx Cirrhosis, Hx Gastroesophageal Reflux Disease, Hx Hepatitis Musculoskeletal Medical History: Reports Hx Arthritis Psychiatric Medical History: Denies: Hx Depression Infectious Medical History: Denies: Hx Hepatitis Past Surgical History: Reports: Hx Orthopedic Surgery - r/t traumas x 2, Hx Vascular Surgery - Access surgery for hemodialysis. Left upper extremity fistula. - Immunizations Hx Diphtheria, Pertussis, Tetanus Vaccination: Yes Review of Systems - Review of Systems Constitutional: See HPI EENT: No symptoms reported Cardiovascular: No symptoms reported Respiratory: No symptoms reported Gastrointestinal: See HPI Genitourinary: No symptoms reported Male Genitourinary: No symptoms reported Musculoskeletal: No symptoms reported Skin: No symptoms reported Hematologic/Lymphatic: No symptoms reported Neurological/Psychological: No symptoms reported Physical Exam - Vital signs Vitals: Pulse Ox 99 05/28/18 22:21 - Notes Notes: GENERAL: Patient diaphoretic and ill-appearing, vomited during examination HEAD: Normocephalic, atraumatic. EYES: Pupils equal, round, and reactive to light. Extraocular movements intact. ENT: Oral mucosa dry, tongue midline. [Nares patent, no nasal septal hematoma, TM's intact.] NECK: Full range of motion. Supple. Trachea midline. LUNGS: Clear to auscultation bilaterally, no wheezes, rales, or rhonchi. No respiratory distress. HEART: Regular rate and rhythm. No murmur ABDOMEN: Mild generalized tenderness with no specific areas of guarding. Non- distended. Bowel sounds present in all 4 quadrants. Insulin pump present in the mid abdomen EXTREMITIES: Moves all 4 extremities spontaneously. No edema, normal radial and dorsalis pedis pulses bilaterally. No cyanosis. BACK: no cervical, thoracic, lumbar midline tenderness. No saddle anesthesia, normal distal neurovascular exam. NEUROLOGICAL: Alert and oriented x3. Normal speech. [cranial nerves II through XII grossly intact]. SKIN: Diaphoretic Course - Re-evaluation Re-evalutation: Patient diaphoretic, dry heaving, appears unwell. He is not tachycardic or hypotensive. No fever. There is mild generalized tenderness of the abdomen but this is not specific and there are no focal areas of guarding. Patient given Reglan initially, only 5 mg, QTC C is very elongated at 533, giving Ativan because he is persistently retching. CBC generally unremarkable. Venous blood gas shows low bicarbonate but is otherwise surprisingly normal. Chemistry is concerning with low CO2, elevated anion gap, hyperglycemia, hyponatremia. Placing on insulin drip. Discussed with Dr. Sullivan. Patient has vomited again. Because of persistent vomiting, suspected worsening metabolic acidosis, and insulin pump probably not working will discuss for admission. Patient is in full agreement with this. Discussed with Dr. Tenorio, he recommends CAT scan to evaluate for intra- abdominal abnormality causing vomiting. This was performed, shows cholelithiasis but no other acute abnormalities. Patient presentation, abdominal exam, laboratory workup, and CAT scan do not indicate cholecystitis. Patient states he has had gallstones for a long time and has had no problems with them. Discussed with Dr. Tenorio again, patient will be admitted to telemetry observation. - Vital Signs Vital signs: Temp Pulse Resp BP Pulse Ox 97.5 F 76 15 134/67 H 94 05/29/18 03:53 05/29/18 03:53 05/29/18 03:53 05/29/18 03:53 05/29/18 03:53 - Laboratory Result Diagrams: 05/29/18 04:30 05/28/18 22:30 Laboratory results interpreted by me: 05/28/18 05/28/18 05/28/18 22:30 22:30 22:30 RBC 3.53 L Hgb 11.2 L Hct 33.9 L Plt Count 140 L Seg Neutrophils % 84.3 H Lymphocytes % 7.0 L VBG HCO3 19.7 L Sodium 133.1 L Potassium 5.7 H Chloride 93 L Carbon Dioxide 18 L Anion Gap 22 H BUN 55 H Creatinine 9.06 H Est GFR ( Amer) 8 L Est GFR (Non-Af Amer) 6 L Glucose 476 H* Direct Bilirubin 0.8 H AST 16 L ALT 18 L Discharge - Discharge Clinical Impression: Hyperkalemia, Hyperglycemia Nausea & vomiting Qualifiers: Vomiting type: unspecified Vomiting Intractability: non-intractable Qualified Code(s): R11.2 - Nausea with vomiting, unspecified Condition: Stable Disposition: ADMITTED OBSERVATION Admitting Provider: Hospitalist Unit Admitted: Telemetry
[2018-05-28 22:52] LABS: VENOUS BLOOD BASE EXCESS -6.3 mmol/L; VENOUS BLOOD HCO3 19.7 mmol/L (20-32); VENOUS BLOOD PH 7.3 (7.30-7.42)
--- NOTE | 2018-05-28 22:53 | EKG REPORT ---
SEVERITY:- ABNORMAL ECG - SINUS RHYTHM LEFT ATRIAL ABNORMALITY LEFT ANTERIOR FASCICULAR BLOCK NONSPECIFIC T ABNORMALITIES, LATERAL LEADS PROLONGED QT INTERVAL : Confirmed by: Joe James MD 28-May-2018 22:52:44
[2018-05-28 23:00] LABS: ABSOLUTE BASOPHILS # (AUTO) 0.1 10^3/uL (0.0-0.2); ABSOLUTE EOSINOPHILS # (AUTO) 0.2 10^3/uL (0.0-0.6); ABSOLUTE LYMPHOCYTES (AUTO) 0.6 10^3/uL (0.5-4.7); ABSOLUTE MONOCYTES (AUTO) 0.5 10^3/uL (0.1-1.4); ABSOLUTE NEUT (AUTO) 7.2 10^3/uL (1.7-8.2); EOSINOPHILS % (AUTO) 1.9 % (0-6); HEMATOCRIT 33.9 % (37.9-51.0); HEMOGLOBIN 11.2 g/dL (13.5-17.0); MEAN CORPUSCULAR HEMOGLOBIN 31.8 pg (27.0-33.4); MEAN CORPUSCULAR HGB CONC 33.2 g/dL (32.0-36.0); MEAN CORPUSCULAR VOLUME 96 fl (80-97); MONOCYTES % (AUTO) 5.8 % (3-13); PLATELET COUNT 140 10^3/uL (150-450); RED BLOOD COUNT 3.53 10^6/uL (4.35-5.55); SEGMENTED NEUTROPHILS % (AUTO) 84.3 % (42-78); TOTAL CELLS COUNTED % (AUTO) 100 %; WHITE BLOOD COUNT 8.6 10^3/uL (4.0-10.5)
[2018-05-28 23:06] LABS: ALANINE AMINOTRANSFERASE 18 U/L (21-72); ALBUMIN 3.8 g/dL (3.5-5.0); ALKALINE PHOSPHATASE 77 U/L (38-126); ASPARTATE AMINO TRANSFERASE 16 U/L (17-59); BILIRUBIN,DIRECT 0.8 mg/dL (0.0-0.4); BLOOD UREA NITROGEN 55 mg/dL (7-20); CALCIUM 8.4 mg/dL (8.4-10.2); POTASSIUM 5.7 mmol/L (3.6-5.0); TOTAL PROTEIN 6.6 g/dL (6.3-8.2)
[2018-05-28 23:11] LABS: CARBON DIOXIDE 18 mmol/L (22-30); CHLORIDE 93 mmol/L (98-107); SODIUM 133.1 mmol/L (137-145)
[2018-05-28 23:14] LABS: ANION GAP 22 (5-19)
[2018-05-28 23:19] LABS: GLUCOSE 476 mg/dL (75-110)
[2018-05-28] MEDS ORDERED: NORMAL SALINE 100 ML with INSULIN REGULAR, HUMAN 100 UNIT IV PRN ×2 (23:22)
[2018-05-28] MEDS ORDERED: CALCIUM GLUCONATE 1000 MG/10 ML INJ IV ONE (23:22)
[2018-05-28] MEDS ORDERED: LORAZEPAM INJ 2 MG/1 ML VIAL IV ONE (23:25)
--- NOTE | 2018-05-28 23:39 | RADIOLOGY REPORT (SQ) ---
EXAM DESCRIPTION: XR CHEST 1 VIEW COMPLETED DATE/TME: 05/28/2018 22:13 CLINICAL HISTORY: 47 years Male, persistent vomiting, chest pain COMPARISON: One day prior. NUMBER OF VIEWS/TECHNIQUE: 1/AP FINDINGS: Moderate right infrahilar opacity, moderate right basilar opacity-effusion, moderate interstitial markings, moderately large cardiac silhouette, left subclavian-brachial region stent. No pneumothorax. Stable bony thorax. IMPRESSION: No significant change.
--- NOTE | 2018-05-29 00:42 | RADIOLOGY REPORT (SQ) ---
EXAM DESCRIPTION: CT ABDOMEN PELVIS WITHOUT IV CONTRAST COMPLETED DATE/TME: 05/29/2018 00:13 CLINICAL HISTORY: 47 years, Male, persistent vomiting COMPARISON: None. TECHNIQUE: Axial CT images were obtained of the abdomen and pelvis without contrast. Sagittal and coronal reformats were performed. DLP 653 Images stored on PACS. All CT scanners at this facility use dose modulation, iterative reconstruction, and/or weight based dosing when appropriate to reduce radiation dose to as low as reasonably achievable (ALARA). [facility]: Dose Right [facility]: CareDose [facility]: Dose Right [facility]: Teradose 4D [facility]: [employer] LIMITATIONS: None. FINDINGS: There is a small right pleural effusion. The liver, pancreas, spleen, and adrenal glands are unremarkable. Cholelithiasis is noted. Both kidneys contain nonobstructing calcifications most of which are probably vascular. There is a 1.1 cm left renal cyst. There is no intraperitoneal free air or fluid. There is no lymphadenopathy. The stomach is unremarkable. There is mild thickening of the small bowel. The appendix is normal. The colon is incompletely distended. There are atherosclerotic calcifications of the abdominal aorta without evidence of an aneurysm. The urinary bladder and prostate gland are unremarkable. There is mild chronic anterior wedging of the T11 and L3 vertebral body. There is no acute fracture or subluxation. IMPRESSION: Small right pleural effusion. Cholelithiasis. Mild diffuse thickening of the small bowel, which is nonspecific and may be due to an enteritis. Bilateral nonobstructing renal calcifications, which are likely vascular. TECHNICAL DOCUMENTATION: Quality ID # [id number]: Final reports with documentation of one or more dose reduction techniques (e.g., Automated exposure control, adjustment of the mA and/or kV according to patient size, use of iterative reconstruction technique) 2010 [employer]- All Rights Reserved
[2018-05-29] MEDS ORDERED: NORMAL SALINE 100 ML with INSULIN REGULAR, HUMAN 100 UNIT IV PRN ×2 (01:07)
[2018-05-29] MEDS ORDERED: GLUCAGON,HUMAN RECOMB 1 MG INJ IM PRN (01:15)
[2018-05-29] MEDS ORDERED: DEXTROSE 40% GEL 15 GM TUBE PO PRN ×2 (01:15)
[2018-05-29] MEDS ORDERED: DEXTROSE 50%-WATER 25 GM/50 ML DISP.SYRIN IV PRN ×2 (01:15)
[2018-05-29] MEDS ORDERED: MAG HYDROX/AL HYDROX/SIMETH SUSP 30 ML UDCUP PO PRN (01:15)
[2018-05-29] MEDS ORDERED: IPRATROPIUM/ALBUTEROL 0.5-2.5 MG/3 ML AMPUL NEB PRN (01:15)
[2018-05-29] MEDS ORDERED: INSULIN LISPRO 100 UNIT/ML 3 ML VIAL SUBCUT PRN ×3 (01:15→18:06)
[2018-05-29] MEDS ORDERED: ACETAMINOPHEN 650 MG SUPP.RECT PR PRN (01:15)
[2018-05-29] MEDS ORDERED: INSULIN REG, HUMAN 100 UNIT/ML 3 ML VIAL (PYX) ONE (01:17)
[2018-05-29] MEDS ORDERED: NORMAL SALINE 1000 ML 1,000 ML IV ONE (01:19)
[2018-05-29] MEDS ORDERED: INSULIN REG, HUMAN 100 UNIT/ML 3 ML VIAL (PYX) IV ONE (02:26)
[2018-05-29] MEDS: HEPARIN SOD (PORCINE) 5,000 UNIT/ML 1 ML SYRINGE SUBCUT SCH ×3 (05:40→21:24)
[2018-05-29 05:57] LABS: ABSOLUTE BASOPHILS # (AUTO) 0.1 10^3/uL (0.0-0.2); ABSOLUTE LYMPHOCYTES (AUTO) 0.6 10^3/uL (0.5-4.7); ABSOLUTE MONOCYTES (AUTO) 0.3 10^3/uL (0.1-1.4); ABSOLUTE NEUT (AUTO) 5.8 10^3/uL (1.7-8.2); BASOPHILS % (AUTO) 0.9 % (0-2); EOSINOPHILS % (AUTO) 0.2 % (0-6); HEMATOCRIT 32.1 % (37.9-51.0); HEMOGLOBIN 10.8 g/dL (13.5-17.0); LYMPHOCYTES % (AUTO) 8.3 % (13-45); MEAN CORPUSCULAR HEMOGLOBIN 32.1 pg (27.0-33.4); MEAN CORPUSCULAR HGB CONC 33.6 g/dL (32.0-36.0); MEAN CORPUSCULAR VOLUME 95 fl (80-97); MONOCYTES % (AUTO) 4.8 % (3-13); PLATELET COUNT 131 10^3/uL (150-450); RED BLOOD COUNT 3.37 10^6/uL (4.35-5.55); RED CELL DISTRIBUTION WIDTH 14.1 % (11.5-14.0); SEGMENTED NEUTROPHILS % (AUTO) 85.8 % (42-78); TOTAL CELLS COUNTED % (AUTO) 100 %; WHITE BLOOD COUNT 6.8 10^3/uL (4.0-10.5)
[2018-05-29] MEDS ORDERED: LACTULOSE SYRUP 20 GM/30 ML UDCUP PO ONE (06:05)
--- NOTE | 2018-05-29 06:12 | PDOC H&P ---
History of Present Illness Admission Date/PCP: 05/29/18 01:19 Patient complains of: Nausea vomiting diarrhea History of Present Illness: MADISYN JOHNSON is a 47 year old male with a past medical history of insulin- dependent diabetes, chronic kidney disease on hemodialysis Wednesday with Dr. Edgar and hypertension. Patient presents with 6 hours of nausea vomiting and diarrhea of gastric content associated with hyperglycemia and unable to tolerate p.o. In the emergency room he is found to have hyperglycemia in the high 400s and enteritis by CT. He is referred to the hospitalist for admission. Patient denies suspect meals, infectious contacts or change in medications. Past Medical History Cardiac Medical History: Reports: Hypertension Denies: Atrial Fibrillation, Congestive Heart Failure, Coronary Artery Disease - Negative chemical stress 2 weeks ago; negative heart cath last September, DVT, Myocardial Infarction, Hyperlipidema, Pulmonary Embolism Pulmonary Medical History: Denies: Asthma, Chronic Obstructive Pulmonary Disease (COPD), Sleep Apnea Neurological Medical History: Denies: Seizures Endocrine Medical History: Reports: Diabetes Mellitus Type 1 - insulin pump Denies: Diabetes Mellitus Type 2, Hyperthyroidism, Hypothyroidism Renal/ Medical History: Reports: End Stage Renal Disease GI Medical History: Denies: Cirrhosis, Gastroesophageal Reflux Disease, Hepatitis Musculoskeltal Medical History: Reports: Arthritis Psychiatric Medical History: Denies: Depression Past Surgical History Past Surgical History: Reports: Orthopedic Surgery - r/t traumas x 2, Vascular Surgery - Access surgery for hemodialysis. Left upper extremity fistula. Social History Information Source: Patient, [facility] Records Smoking Status: Current Some Day Smoker Frequency of Alcohol Use: Rare Hx Recreational Drug Use: No Drugs: None Hx Prescription Drug Abuse: No - Advance Directive Resuscitation Status: Full Code Family History Family History: CAD, DM Parental Family History Reviewed: Yes Children Family History Reviewed: Yes Sibling(s) Family History Reviewed.: Yes Medication/Allergy Home Medications: Isoniazid [Isoniazid 300 mg Tablet] 300 mg PO DAILY #30 tablet 07/10/17 Amlodipine Besylate [Norvasc 10 mg Tablet] 10 mg PO QHS tablet 09/10/17 Calcium Acetate [Phoslo 667 mg Capsule] 2,001 mg PO MEALS capsule 09/10/17 Calcium Acetate [Phoslo 667 mg Capsule] 667 mg PO BIDP PRN capsule 09/10/17 Carvedilol [Coreg 12.5 mg Tablet] 25 mg PO Q12 tablet 09/10/17 Folic Acid/Vitamin B Comp W-C [Nephrocaps Multiple Vitamin Capsule] 1 cap PO DAILY capsule 09/10/17 Allergies/Adverse Reactions: Iodinated Contrast- Oral and IV Dye Allergy (Verified 09/07/17 18:55) Review of Systems Constitutional: ABSENT: chills, fever(s), headache(s), weight gain, weight loss Eyes: ABSENT: visual disturbances Ears: ABSENT: hearing changes Cardiovascular: ABSENT: chest pain, dyspnea on exertion, edema, orthropnea, palpitations Respiratory: ABSENT: cough, hemoptysis Gastrointestinal: ABSENT: abdominal pain, constipation, diarrhea, hematemesis, hematochezia, nausea, vomiting Genitourinary: ABSENT: dysuria, hematuria Musculoskeletal: ABSENT: joint swelling Integumentary: ABSENT: rash, wounds Neurological: ABSENT: abnormal gait, abnormal speech, confusion, dizziness, focal weakness, syncope Psychiatric: ABSENT: anxiety, depression, homidical ideation, suicidal ideation Endocrine: ABSENT: cold intolerance, heat intolerance, polydipsia, polyuria Hematologic/Lymphatic: ABSENT: easy bleeding, easy bruising Physical Exam Vital Signs: Temp Pulse Resp BP Pulse Ox 97.5 F 76 15 134/67 H 94 05/29/18 03:53 05/29/18 03:53 05/29/18 03:53 05/29/18 03:53 05/29/18 03:53 Intake & Output 05/27/18 05/28/18 05/29/18 11:59 11:59 11:59 Weight 91.2 kg General appearance: PRESENT: no acute distress, well-developed, well-nourished Head exam: PRESENT: atraumatic, normocephalic Eye exam: PRESENT: conjunctiva pink, EOMI, PERRLA. ABSENT: scleral icterus Ear exam: PRESENT: normal external ear exam Mouth exam: PRESENT: moist, tongue midline Neck exam: ABSENT: carotid bruit, JVD, lymphadenopathy, thyromegaly Respiratory exam: PRESENT: clear to auscultation bessy. ABSENT: rales, rhonchi, wheezes Cardiovascular exam: PRESENT: RRR. ABSENT: diastolic murmur, rubs, systolic murmur Pulses: PRESENT: normal dorsalis pedis pul Vascular exam: PRESENT: normal capillary refill GI/Abdominal exam: PRESENT: normal bowel sounds, soft. ABSENT: distended, guarding, mass, organolmegaly, rebound, tenderness Rectal exam: PRESENT: deferred Extremities exam: PRESENT: full ROM. ABSENT: calf tenderness, clubbing, pedal edema Neurological exam: PRESENT: alert, awake, oriented to person, oriented to place , oriented to time, oriented to situation, CN II-XII grossly intact. ABSENT: motor sensory deficit Psychiatric exam: PRESENT: appropriate affect, normal mood. ABSENT: homicidal ideation, suicidal ideation Skin exam: PRESENT: dry, intact, warm. ABSENT: cyanosis, rash Results Laboratory Results: 05/29/18 04:30 05/29/18 04:30 WBC 6.8 RBC 3.37 L Hgb 10.8 L Hct 32.1 L MCV 95 MCH 32.1 MCHC 33.6 RDW 14.1 H Plt Count 131 L Seg Neutrophils % 85.8 H Lymphocytes % 8.3 L Monocytes % 4.8 Eosinophils % 0.2 Basophils % 0.9 Absolute Neutrophils 5.8 Absolute Lymphocytes 0.6 Absolute Monocytes 0.3 Absolute Eosinophils 0.0 Absolute Basophils 0.1 Impressions: Chest X-Ray 05/28/18 22:13 IMPRESSION: No significant change. Abdomen/Pelvis CT 05/29/18 00:13 IMPRESSION: Small right pleural effusion. Cholelithiasis. Mild diffuse thickening of the small bowel, which is nonspecific and may be due to an enteritis. Bilateral nonobstructing renal calcifications, which are likely vascular. TECHNICAL DOCUMENTATION: Quality ID # 436: Final reports with documentation of one or more dose reduction techniques (e.g., Automated exposure control, adjustment of the mA and/or kV according to patient size, use of iterative reconstruction technique) 2010 [employer]- All Rights Reserved Assessment & Plan - Diagnosis (1) Gastroenteritis Is this a current diagnosis for this admission?: Yes Plan: Unclear cause, n.p.o., supportive care, trial liquids (2) Hyperglycemia Is this a current diagnosis for this admission?: Yes Plan: Half outpatient long-acting insulin, Humalog sliding scale every 6 hours (3) Hyperkalemia Is this a current diagnosis for this admission?: Yes Plan: Lactulose, follow-up chemistry (4) Nausea & vomiting Qualifiers: Vomiting type: unspecified Vomiting Intractability: non-intractable Qualified Code(s): R11.2 - Nausea with vomiting, unspecified Is this a current diagnosis for this admission?: Yes Plan: Secondary to #1, symptomatic management, prolonged QT interval, Ativan as needed nausea (5) End stage renal disease on dialysis Is this a current diagnosis for this admission?: Yes Plan: Avoid volume overload, consult Dr. Edgar for dialysis if requiring admission through 05/30 - Time Time Spent: 50 to 70 Minutes - Inpatient Certification Medical Necessity: Need Close Monitoring Due to Risk of Patient Decompensation
[2018-05-29 06:27] LABS: CREATINE KINASE MB 3.64 ng/mL (<4.55); TROPONIN I 0.051 ng/mL
[2018-05-29 07:33] LABS: ALANINE AMINOTRANSFERASE 14 U/L (21-72); ALBUMIN 3.9 g/dL (3.5-5.0); ALKALINE PHOSPHATASE 60 U/L (38-126); ASPARTATE AMINO TRANSFERASE 24 U/L (17-59); BILIRUBIN,DIRECT 0.8 mg/dL (0.0-0.4); CREATINE KINASE 99 U/L (55-170); TOTAL PROTEIN 6.9 g/dL (6.3-8.2)
[2018-05-29 08:19] LABS: BLOOD UREA NITROGEN 65 mg/dL (7-20); CALCIUM 8.6 mg/dL (8.4-10.2); CARBON DIOXIDE 16 mmol/L (22-30); CHLORIDE 95 mmol/L (98-107); GLUCOSE 367 mg/dL (75-110)
[2018-05-29 08:22] LABS: ANION GAP 25 (5-19); POTASSIUM 4.7 mmol/L (3.6-5.0)
[2018-05-29] MEDS ORDERED: NORMAL SALINE 1000 ML 1,000 ML IV PRN ×2 (08:40→13:44)
[2018-05-29] MEDS ORDERED: INSULIN LISPRO 100 UNIT/ML 3 ML VIAL SUBCUT ONE ×2 (08:42→15:00)
[2018-05-29] MEDS ORDERED: INSULIN LISPRO 100 UNIT/ML 3 ML VIAL ONE ×4 (08:49→14:38)
[2018-05-29 09:15] LABS: ARTERIAL BLOOD BASE EXCESS -7.1 mmol/L; ARTERIAL BLOOD FIO2 21%; ARTERIAL BLOOD H2CO3 1.04 mmol/L (1.05-1.35); ARTERIAL BLOOD HCO3 17.9 mmol/L (20-26); ARTERIAL BLOOD O2 SATURATION 94.8 % (94-98); ARTERIAL BLOOD PCO2 34.4 mmHg (35-45); ARTERIAL BLOOD PH 7.33 (7.35-7.45); ARTERIAL BLOOD PO2 77.5 mmHg (80-100); ARTERIAL BLOOD TOTAL CO2 18.9 mmol/L (23-27)
[2018-05-29] MEDS: LORAZEPAM INJ 2 MG/1 ML VIAL IV PRN ×3 (09:15→21:51)
[2018-05-29] MEDS ORDERED: FENTANYL CITRATE INJ/PF 100 MCG/2 ML AMPUL IV ONE (09:19)
[2018-05-29] MEDS: CARVEDILOL 12.5 MG TABLET PO SCH ×2 (09:52→21:52)
[2018-05-29 11:34] LABS: BLOOD UREA NITROGEN 71 mg/dL (7-20); CALCIUM 8.7 mg/dL (8.4-10.2); GLUCOSE 276 mg/dL (75-110)
[2018-05-29 11:42] LABS: CARBON DIOXIDE 16 mmol/L (22-30); CHLORIDE 96 mmol/L (98-107); SODIUM 136.3 mmol/L (137-145)
[2018-05-29 11:45] LABS: ANION GAP 24 (5-19); CREATINE KINASE MB 3.7 ng/mL (<4.55); TROPONIN I 0.065 ng/mL
[2018-05-29 16:43] LABS: BLOOD UREA NITROGEN 74 mg/dL (7-20); CALCIUM 8.7 mg/dL (8.4-10.2); CREATINE KINASE 99 U/L (55-170); GLUCOSE 156 mg/dL (75-110); POTASSIUM 4.9 mmol/L (3.6-5.0)
[2018-05-29 16:49] LABS: CARBON DIOXIDE 18 mmol/L (22-30); CHLORIDE 100 mmol/L (98-107); SODIUM 137.9 mmol/L (137-145)
[2018-05-29 16:53] LABS: CREATINE KINASE MB 4.24 ng/mL (<4.55); TROPONIN I 0.081 ng/mL
[2018-05-29 17:31] LABS: ANION GAP 20 (5-19)
[2018-05-29 18:00] LABS: APPEARANCE,URINE CLOUDY; BILIRUBIN,URINE NEGATIVE (NEGATIVE); COLOR,URINE YELLOW; GLUCOSE, URINE >=500 mg/dL (NEGATIVE); KETONES,URINE NEGATIVE (NEGATIVE); LEUKOCYTE ESTERASE,URINE MODERATE (NEGATIVE); NITRITE,URINE NEGATIVE (NEGATIVE); PROTEIN,URINE 100 mg/dL (NEGATIVE); URINE SPECIFIC GRAVITY 1.012; UROBILINOGEN,URINE NEGATIVE mg/dL (<2.0)
[2018-05-29] MEDS: CALCIUM ACETATE 667 MG CAPSULE PO SCH (18:25)
[2018-05-29] MEDS: AMLODIPINE BESYLATE 10 MG TABLET PO SCH (21:39)
[2018-05-29] MEDS ORDERED: INSULIN LISPRO 100 UNIT/ML 3 ML VIAL SUBCUT SCH (22:00)
[2018-05-30 00:42] LABS: BLOOD UREA NITROGEN 78 mg/dL (7-20); CALCIUM 8.2 mg/dL (8.4-10.2); GLUCOSE 289 mg/dL (75-110); POTASSIUM 5.4 mmol/L (3.6-5.0)
[2018-05-30 00:48] LABS: CARBON DIOXIDE 13 mmol/L (22-30); CHLORIDE 96 mmol/L (98-107); SODIUM 134.7 mmol/L (137-145)
[2018-05-30 00:52] LABS: ANION GAP 26 (5-19)
[2018-05-30] MEDS: LORAZEPAM INJ 2 MG/1 ML VIAL IV PRN ×3 (02:29→10:49)
[2018-05-30] MEDS: ACETAMINOPHEN 325 MG TABLET PO PRN (02:31)
[2018-05-30] MEDS ORDERED: LORAZEPAM INJ 2 MG/1 ML VIAL IV ONE (05:10)
[2018-05-30] MEDS: HEPARIN SOD (PORCINE) 5,000 UNIT/ML 1 ML SYRINGE SUBCUT SCH ×2 (05:10→13:43)
[2018-05-30] MEDS ORDERED: FENTANYL CITRATE INJ/PF 100 MCG/2 ML AMPUL IV ONE (05:10)
[2018-05-30 05:46] LABS: ABSOLUTE LYMPHOCYTES (AUTO) 0.5 10^3/uL (0.5-4.7); ABSOLUTE MONOCYTES (AUTO) 0.4 10^3/uL (0.1-1.4); ABSOLUTE NEUT (AUTO) 5.4 10^3/uL (1.7-8.2); BASOPHILS % (AUTO) 0.6 % (0-2); EOSINOPHILS % (AUTO) 0.1 % (0-6); HEMATOCRIT 33.7 % (37.9-51.0); HEMOGLOBIN 11.1 g/dL (13.5-17.0); MEAN CORPUSCULAR HEMOGLOBIN 32.2 pg (27.0-33.4); MEAN CORPUSCULAR HGB CONC 33.1 g/dL (32.0-36.0); MEAN CORPUSCULAR VOLUME 98 fl (80-97); MONOCYTES % (AUTO) 6.8 % (3-13); PLATELET COUNT 145 10^3/uL (150-450); RED BLOOD COUNT 3.45 10^6/uL (4.35-5.55); RED CELL DISTRIBUTION WIDTH 14.6 % (11.5-14.0); SEGMENTED NEUTROPHILS % (AUTO) 84.5 % (42-78); TOTAL CELLS COUNTED % (AUTO) 100 %; WHITE BLOOD COUNT 6.4 10^3/uL (4.0-10.5)
[2018-05-30 06:06] LABS: BLOOD UREA NITROGEN 78 mg/dL (7-20); CALCIUM 8.9 mg/dL (8.4-10.2); GLUCOSE 372 mg/dL (75-110)
[2018-05-30 06:11] LABS: CHLORIDE 97 mmol/L (98-107); SODIUM 136.1 mmol/L (137-145)
[2018-05-30 06:16] LABS: ANION GAP 31 (5-19)
[2018-05-30 06:18] LABS: CARBON DIOXIDE 8 mmol/L (22-30); POTASSIUM 6.5 mmol/L (3.6-5.0)
[2018-05-30] MEDS ORDERED: DEXTROSE 5%-WATER 1000 ML 1,000 ML with SODIUM BICARBONATE 150 MEQ IV PRN ×4 (06:33→07:01)
[2018-05-30] MEDS ORDERED: INSULIN REG, HUMAN 100 UNIT/ML 3 ML VIAL (PYX) IV ONE (06:45)
[2018-05-30] MEDS ORDERED: DEXTROSE 40% GEL 15 GM TUBE PO PRN ×2 (06:58)
[2018-05-30] MEDS ORDERED: DEXTROSE 50%-WATER 25 GM/50 ML DISP.SYRIN IV PRN ×2 (06:58)
[2018-05-30] MEDS ORDERED: GLUCAGON,HUMAN RECOMB 1 MG INJ IM PRN (06:58)
[2018-05-30 08:30] LABS: ARTERIAL BLOOD BASE EXCESS -15.5 mmol/L; ARTERIAL BLOOD HCO3 11.3 mmol/L (20-26); ARTERIAL BLOOD O2 SATURATION 95.1 % (94-98); ARTERIAL BLOOD PCO2 29.9 mmHg (35-45); ARTERIAL BLOOD PO2 89.9 mmHg (80-100); ARTERIAL BLOOD TOTAL CO2 12.2 mmol/L (23-27)
[2018-05-30 08:31] LABS: ARTERIAL BLOOD FIO2 21%
[2018-05-30 08:34] LABS: ARTERIAL BLOOD PH 7.19 (7.35-7.45)
[2018-05-30 09:16] LABS: BLOOD UREA NITROGEN 82 mg/dL (7-20); CALCIUM 8.3 mg/dL (8.4-10.2); CHLORIDE 96 mmol/L (98-107); GLUCOSE 386 mg/dL (75-110)
[2018-05-30 09:22] LABS: SODIUM 135.2 mmol/L (137-145)
[2018-05-30 09:30] LABS: CARBON DIOXIDE 11 mmol/L (22-30)
[2018-05-30 09:31] LABS: ANION GAP 28 (5-19)
[2018-05-30 09:33] LABS: POTASSIUM 6.7 mmol/L (3.6-5.0)
[2018-05-30] MEDS: NORMAL SALINE 100 ML with INSULIN REGULAR, HUMAN 100 UNIT IV PRN ×8 (09:59→14:37)
[2018-05-30] MEDS ORDERED: NORMAL SALINE 1000 ML 1,000 ML IV PRN (10:43)
--- NOTE | 2018-05-30 11:39 | PDOC CONSULTATION ---
Consultation Consult Date: 05/30/18 Consult reason:: Urgent hemodialysis, hyperkalemia. History of Present Illness Admission Date/PCP: 05/29/18 01:19 History of Present Illness: MADISYN JOHNSON is a 47 year old maleWith history of diabetes mellitus, hypertension and ESRD on hemodialysis, with history of intermittent noncompliance with diet and medications was admitted with history of nausea vomiting and one episode of diarrhea of approximately 10-12 hours duration.He has no history of hematochezia or hematemesis. No history of any fever chills or riders. Evaluations in the ER revealed that he had diabetic ketoacidosis.Besides that he also had hyperkalemia.Patient currently being seen on hemodialysis. Unfortunately I do not see any IV insulin or normal saline drip. Patient still has got mild abdominal pain. He has intermittent nausea vomiting but without any further episodes of diarrhea. Is undergoing dialysis without any issues.This morning labs showed that his bicarb was 9 and potassium 6.5 and a repeat potassium done just before dialysis came back with a potassium 6.8. He was appropriately treated with appropriate hypekalemic measures before dialysis. Past Medical History Cardiac Medical History: Reports: Hypertension-primary Denies: Atrial Fibrillation, Coronary Artery Disease - Negative chemical stress 2 weeks ago; negative heart cath last September, DVT, Hyperlipidemia, Myocardial Infarction, Pulmonary Embolism Pulmonary Medical History: Denies: Asthma, Chronic Obstructive Pulmonary Disease (COPD), Sleep Apnea Neurological Medical History: Denies: Seizures Endocrine Medical History: Reports: Diabetes Mellitus Type 1 - insulin pump Denies: Diabetes Mellitus Type 2, Hyperthyroidism, Hypothyroidism Renal/ Medical History: Reports: End Stage Renal Disease, Secondary Hyperparathyroidism GI Medical History: Denies: Cirrhosis, Gastroesophageal Reflux Disease, Hepatitis Musculoskeltal Medical History: Reports: Arthritis Psychiatric Medical History: Denies: Depression Hematology Medical History: Reports Anemia of Chronic Kidney Disease Past Surgical History Past Surgical History: Reports: Orthopedic Surgery - r/t traumas x 2, Vascular Surgery - Access surgery for hemodialysis. Left upper extremity fistula. Social History Lives with: Alone Smoking Status: Never Smoker Frequency of Alcohol Use: Rare Hx Recreational Drug Use: No Drugs: None Hx Prescription Drug Abuse: No - Advance Directive Resuscitation Status: Full Code Family History Parental Family History Reviewed: Yes - Negative for ESRD. Children Family History Reviewed: No Sibling(s) Family History Reviewed.: No Medication/Allergy Home Medications: Amlodipine Besylate [Norvasc 10 mg Tablet] 5 mg PO DAILY 05/29/18 Calcium Acetate [Phoslo 667 mg Capsule] 1,334 mg PO BID 05/29/18 Calcium Acetate [Phoslo 667 mg Capsule] 2,001 mg PO MEALS 05/29/18 Carvedilol [Coreg 25 mg Tablet] 25 mg PO Q12 05/29/18 Duloxetine HCl [Cymbalta 20 mg Capsule.dr] 20 mg PO DAILY 05/29/18 Furosemide [Lasix 80 mg Tablet] 80 mg PO DAILYP PRN 05/29/18 Hydralazine HCl [Apresoline 50 mg Tablet] 50 mg PO Q12 05/29/18 Hydroxyzine HCl [Atarax 25 mg Tablet] 50 mg PO DAILYP PRN 05/29/18 Ondansetron HCl [Zofran 8 mg Tablet] 8 mg PO Q8HP PRN 05/29/18 Vit B Comp No.3/Folic/C/Biotin [Lyndsey-Lita Rx Tablet] 1 tab PO DAILY 05/29/18 Allergies/Adverse Reactions: Iodinated Contrast- Oral and IV Dye Allergy (Verified 09/07/17 18:55) Review of Systems Constitutional: PRESENT: fatigue. ABSENT: fever(s), headache(s), night sweats Ears: ABSENT: hearing changes Nose, Mouth, and Throat: ABSENT: mouth pain, sore throat Cardiovascular: ABSENT: chest pain, edema, orthropnea Respiratory: ABSENT: cough, hemoptysis Gastrointestinal: PRESENT: abdominal pain, diarrhea, nausea, vomiting. ABSENT: coffee ground emesis, constipation, dysphagia, heartburn, hematemesis, hematochezia Genitourinary: ABSENT: dysuria, hematuria Integumentary: ABSENT: erythema, lesions, pruritus, rash Neurological: ABSENT: focal weakness Hematologic/Lymphatic: ABSENT: easy bruising, lymphadenopathy Physical Exam Vital Signs: Temp Pulse Resp BP Pulse Ox 97.6 F 61 18 101/49 L 95 05/30/18 07:35 05/30/18 07:35 05/30/18 07:35 05/30/18 07:35 05/30/18 07:35 Intake & Output 05/29/18 05/30/18 05/31/18 06:59 06:59 06:59 Intake Total 2150 4 Balance 2150 4 Weight 91.2 kg 92.5 kg General appearance: PRESENT: no acute distress Eye exam: PRESENT: EOMI, PERRLA. ABSENT: scleral icterus Ear exam: PRESENT: normal external ear exam Mouth exam: ABSENT: moist Neck exam: ABSENT: lymphadenopathy, meningismus, tenderness, thyromegaly, tracheal deviation Respiratory exam: PRESENT: clear to auscultation bessy. ABSENT: crackles, rhonchi Cardiovascular exam: PRESENT: +S1, +S2, systolic murmur GI/Abdominal exam: PRESENT: normal bowel sounds, soft, tenderness - In the epigastrium. No guarding.. ABSENT: diminished bowel sounds, guarding, organomegaly, rebound Extremities exam: ABSENT: pedal edema Neurological exam: PRESENT: alert, awake, oriented to person, oriented to place Psychiatric exam: PRESENT: flat affect Skin exam: ABSENT: dry, erythema, mottled, rash Results Laboratory Results: 05/30/18 05:18 05/30/18 08:26 05/29/18 05/29/18 05/29/18 11:04 16:10 17:38 WBC RBC Hgb Hct MCV MCH MCHC RDW Plt Count Seg Neutrophils % Lymphocytes % Monocytes % Eosinophils % Basophils % Absolute Neutrophils Absolute Lymphocytes Absolute Monocytes Absolute Eosinophils Absolute Basophils Carbonic Acid HCO3/H2CO3 Ratio ABG pH ABG pCO2 ABG pO2 ABG HCO3 ABG O2 Saturation ABG Base Excess FiO2 Sodium 136.3 L 137.9 Potassium 5.0 4.9 Chloride 96 L 100 Carbon Dioxide 16 L 18 L Anion Gap 24 H 20 H BUN 71 H 74 H Creatinine 9.38 H 9.96 H Est GFR ( Amer) 7 L 7 L Est GFR (Non-Af Amer) 6 L 6 L Glucose 276 H 156 H Calcium 8.7 8.7 Urine Color YELLOW Urine Appearance CLOUDY Urine pH 5.0 Ur Specific [place] 1.012 Urine Protein 100 H Urine Glucose (UA) >=500 H Urine Ketones NEGATIVE Urine Blood NEGATIVE Urine Nitrite NEGATIVE Ur Leukocyte Esterase MODERATE H Urine WBC (Auto) 49 Urine RBC (Auto) 10 05/30/18 05/30/18 05/30/18 00:14 05:18 05:18 WBC 6.4 RBC 3.45 L Hgb 11.1 L Hct 33.7 L MCV 98 H MCH 32.2 MCHC 33.1 RDW 14.6 H Plt Count 145 L Seg Neutrophils % 84.5 H Lymphocytes % 8.0 L Monocytes % 6.8 Eosinophils % 0.1 Basophils % 0.6 Absolute Neutrophils 5.4 Absolute Lymphocytes 0.5 Absolute Monocytes 0.4 Absolute Eosinophils 0.0 Absolute Basophils 0.0 Carbonic Acid HCO3/H2CO3 Ratio ABG pH ABG pCO2 ABG pO2 ABG HCO3 ABG O2 Saturation ABG Base Excess FiO2 Sodium 134.7 L 136.1 L Potassium 5.4 H 6.5 H* D Chloride 96 L 97 L Carbon Dioxide 13 L 8 L* Anion Gap 26 H 31 H BUN 78 H 78 H Creatinine 9.81 H 11.16 H Est GFR ( Amer) 7 L 6 L Est GFR (Non-Af Amer) 6 L 5 L Glucose 289 H 372 H Calcium 8.2 L 8.9 Urine Color Urine Appearance Urine pH Ur Specific [place] Urine Protein Urine Glucose (UA) Urine Ketones Urine Blood Urine Nitrite Ur Leukocyte Esterase Urine WBC (Auto) Urine RBC (Auto) 05/30/18 05/30/18 08:05 08:26 WBC RBC Hgb Hct MCV MCH MCHC RDW Plt Count Seg Neutrophils % Lymphocytes % Monocytes % Eosinophils % Basophils % Absolute Neutrophils Absolute Lymphocytes Absolute Monocytes Absolute Eosinophils Absolute Basophils Carbonic Acid 0.90 L HCO3/H2CO3 Ratio 12:1 ABG pH 7.19 L* ABG pCO2 29.9 L ABG pO2 89.9 ABG HCO3 11.3 L ABG O2 Saturation 95.1 ABG Base Excess -15.5 FiO2 21% Sodium 135.2 L Potassium 6.7 H* Chloride 96 L Carbon Dioxide 11 L Anion Gap 28 H BUN 82 H Creatinine 11.45 H Est GFR ( Amer) 6 L Est GFR (Non-Af Amer) 5 L Glucose 386 H Calcium 8.3 L Urine Color Urine Appearance Urine pH Ur Specific [place] Urine Protein Urine Glucose (UA) Urine Ketones Urine Blood Urine Nitrite Ur Leukocyte Esterase Urine WBC (Auto) Urine RBC (Auto) 05/29/18 05/29/18 05/29/18 04:30 04:30 04:30 Creatine Kinase Cancelled 99 CK-MB (CK-2) 3.64 Troponin I 0.051 05/29/18 05/29/18 05/29/18 11:04 16:10 16:10 Creatine Kinase 99 CK-MB (CK-2) 3.70 4.24 Troponin I 0.065 0.081 Impressions: Chest X-Ray 05/28/18 22:13 IMPRESSION: No significant change. Abdomen/Pelvis CT 05/29/18 00:13 IMPRESSION: Small right pleural effusion. Cholelithiasis. Mild diffuse thickening of the small bowel, which is nonspecific and may be due to an enteritis. Bilateral nonobstructing renal calcifications, which are likely vascular. TECHNICAL DOCUMENTATION: Quality ID # [id number]: Final reports with documentation of one or more dose reduction techniques (e.g., Automated exposure control, adjustment of the mA and/or kV according to patient size, use of iterative reconstruction technique) 2010 [employer]- All Rights Reserved Assessment & Plan - Diagnosis (1) Hyperkalemia Is this a current diagnosis for this admission?: Yes Plan: Needs urgent dialysis which is being initiated. Patient undergoing dialysis without any issues. Appropriate bath for potassium correction has been ordered. Should respond well to dialysis. Meanwhile need urgent correction of diabetic ketoacidosis. I did go and talk with Ms. Acosta nurse practitioner/ hospitalist to initiate appropriate measures to combat diabetic ketoacidosis.Discussed with hospitalist for frequent lab monitoring. (2) End stage renal disease on dialysis Is this a current diagnosis for this admission?: Yes Plan: Patient undergoing dialysis without any issues. Vital signs are stable. It is being supervised to ensure safe and smooth procedure. He will undergo a dialysis with a 1K bath for 1 hour followed by 2K bath. Orders were reviewed and discussed with the treating dialysis nurse Bindu. We will plan to remove approximately less than a liter while he is waiting to be begun on IV normal saline along with IV insulin. (3) DKA (diabetic ketoacidoses) Qualifiers: Diabetes mellitus type: type 1 Diabetes mellitus complication detail: without coma Qualified Code(s): E10.10 - Type 1 diabetes mellitus with ketoacidosis without coma Plan: Discussed with the hospitalist. Initiated IV normal saline/IV insulin infusion. I do not believe that this is gastroenteritis but it is diabetic ketoacidosis. (4) Diabetes mellitus Qualifiers: Diabetes mellitus type: type 1 Diabetes mellitus complication status: with kidney complications Diabetes mellitus complication detail: with chronic kidney disease Chronic kidney disease stage: on chronic dialysis Qualified Code(s): E10.22 - Type 1 diabetes mellitus with diabetic chronic kidney disease ; N18.6 - End stage renal disease; Z99.2 - Dependence on renal dialysis Plan: Discussed with the patient the need for tight diabetic control. He is in very noncompliant with his diet and medications and his blood sugar control has been rather very poor which is very unfortunate in this gentleman. (5) Hypertension Qualifiers: Hypertension type: essential hypertension Qualified Code(s): I10 - Essential (primary) hypertension Plan: Advised compliance with medications and diet. See response to dialysis. (6) Metabolic acidosis due to diabetes mellitus Plan: Should correct with correction of diabetic ketoacidosis and hemodialysis. Monitor.
[2018-05-30] MEDS: CALCIUM ACETATE 667 MG CAPSULE PO SCH ×2 (12:45→17:35)
[2018-05-30] MEDS: CARVEDILOL 12.5 MG TABLET PO SCH ×2 (12:45→22:14)
[2018-05-30] MEDS: DULOXETINE HCL 20 MG CAPSULE.DR PO SCH (12:45)
[2018-05-30 13:29] LABS: CALCIUM 8.7 mg/dL (8.4-10.2); GLUCOSE 136 mg/dL (75-110)
[2018-05-30 13:34] LABS: CHLORIDE 98 mmol/L (98-107); SODIUM 141.4 mmol/L (137-145)
[2018-05-30 13:49] LABS: BLOOD UREA NITROGEN 36 mg/dL (7-20); POTASSIUM 3.3 mmol/L (3.6-5.0)
[2018-05-30 13:50] LABS: ANION GAP 18 (5-19); CARBON DIOXIDE 25 mmol/L (22-30)
[2018-05-30] MEDS ORDERED: HYDRALAZINE HCL INJ/PF 20 MG/1 ML SDV IV PRN (15:02)
[2018-05-30] MEDS ORDERED: INSULIN GLARGINE,HUM.REC.ANLOG 300 UNIT/3 ML INSULN.PEN SUBCUT ONE (15:30)
--- NOTE | 2018-05-30 15:47 | PDOC PROGRESS REPORT ---
Subjective Progress Note for:: 05/30/18 Subjective:: The patient is a 47 year old male with a past medical history of IDDM, CKD on dialysis Wed with Dr. Edgar, and HTN who was admitted 05/29/18 for gastroenteritis and found to have DKA. The patient was seen in morning rounds while on dialysis. The patient is found resting in bed comfortably on room air. He tells me that he is feeling very fatigued today and continues to have generalized abdominal discomfort that he relates to muscle cramps from vomiting. He denies fever, chills, chest pain, palpitations, dyspnea, orthopnea, cough, diarrhea. He has no new questions or concerns. Discussed plans for IVF and insulin drip today with nursing. Also discussed IV fluids with Dr. Edgar and the auto electrical technician; will provide IV fluids today for correction of metabolic acidosis. Reason For Visit: DKA ACUTE GASTROENTERITIS ABD PAIN Physical Exam Vital Signs: Temp Pulse Resp BP Pulse Ox 97.5 F 70 16 178/63 H 94 05/30/18 12:47 05/30/18 14:18 05/30/18 14:18 05/30/18 12:47 05/30/18 14:18 Intake & Output 05/29/18 05/30/18 05/31/18 06:59 06:59 06:59 Intake Total 21 Balance 21 General appearance: PRESENT: no acute distress, cooperative, well-developed, well-nourished, other - Overweight Head exam: PRESENT: atraumatic, normocephalic Eye exam: PRESENT: conjunctiva pink, EOMI, PERRLA. ABSENT: scleral icterus Ear exam: PRESENT: normal external ear exam Mouth exam: PRESENT: moist, tongue midline Neck exam: ABSENT: carotid bruit, JVD, lymphadenopathy, thyromegaly Respiratory exam: PRESENT: clear to auscultation bessy, symmetrical, unlabored. ABSENT: rales, rhonchi, wheezes Cardiovascular exam: PRESENT: RRR, +S1, +S2, systolic murmur. ABSENT: diastolic murmur, rubs Pulses: PRESENT: normal dorsalis pedis pul Vascular exam: PRESENT: normal capillary refill GI/Abdominal exam: PRESENT: normal bowel sounds, soft, tenderness. ABSENT: distended, guarding, mass, organolmegaly, rebound Rectal exam: PRESENT: deferred Extremities exam: PRESENT: full ROM. ABSENT: calf tenderness, clubbing, pedal edema Neurological exam: PRESENT: alert, awake, oriented to person, oriented to place , oriented to time, oriented to situation, CN II-XII grossly intact. ABSENT: motor sensory deficit Psychiatric exam: PRESENT: appropriate affect, normal mood. ABSENT: homicidal ideation, suicidal ideation Skin exam: PRESENT: dry, intact, warm. ABSENT: cyanosis, rash Results Laboratory Results: 05/30/18 12:53 05/30/18 12:53 Sodium 141.4 Potassium 3.3 L D Chloride 98 Carbon Dioxide 25 D Anion Gap 18 BUN 36 H D Creatinine 4.76 H Est GFR ( Amer) 16 L Est GFR (Non-Af Amer) 13 L Glucose 136 H Calcium 8.7 Impressions: Chest X-Ray 05/28/18 22:13 IMPRESSION: No significant change. Abdomen/Pelvis CT 05/29/18 00:13 IMPRESSION: Small right pleural effusion. Cholelithiasis. Mild diffuse thickening of the small bowel, which is nonspecific and may be due to an enteritis. Bilateral nonobstructing renal calcifications, which are likely vascular. TECHNICAL DOCUMENTATION: Quality ID # [id number]: Final reports with documentation of one or more dose reduction techniques (e.g., Automated exposure control, adjustment of the mA and/or kV according to patient size, use of iterative reconstruction technique) 2010 [employer]- All Rights Reserved Assessment & Plan - Diagnosis (1) DKA (diabetic ketoacidoses) Qualifiers: Diabetes mellitus type: type 1 Diabetes mellitus complication detail: without coma Qualified Code(s): E10.10 - Type 1 diabetes mellitus with ketoacidosis without coma Is this a current diagnosis for this admission?: Yes Plan: The patient is admitted to the medical floor on continuous telemetry. The patient's case was discussed with Dr. Edgar who provided approval for the patient to receive IV fluid hydration today. The patient was initially placed on an insulin drip. His anion gap closed, from 28-18 and his bicarb has trended up from 8-25. The patient is ordered 10 units of Lantus to be administered now with discontinuation of the insulin drip 1 hour later. He is to remain on a diabetic clear liquid diet. We will monitor Accu-Cheks every 6 hours with Humalog for sliding scale coverage. We will continue serial BMPs every 4 hours. (2) Gastroenteritis Is this a current diagnosis for this admission?: Yes Plan: Patient complains of nausea and vomiting. Nursing does report one episode of diarrhea this afternoon. CT of the abdomen revealed nonspecific inflammation in the small bowel, likely related to gastroenteritis. We will rehydrate and correct DKA as above. Due to prolonged QTC, patient is not a candidate for Zofran or Phenergan. Providing IV Ativan as needed. (3) Hyperglycemia Is this a current diagnosis for this admission?: Yes Plan: Secondary to #1, plan as above. (4) Hyperkalemia Is this a current diagnosis for this admission?: Yes Plan: Improved following insulin and dialysis today. Secondary to end-stage renal failure and DKA. We will continue to monitor serial chemistries every 4 hours. Patient is monitored on continuous cardiac telemetry. (5) Nausea & vomiting Qualifiers: Vomiting type: unspecified Vomiting Intractability: non-intractable Qualified Code(s): R11.2 - Nausea with vomiting, unspecified Is this a current diagnosis for this admission?: Yes Plan: Secondary to #1 and #2. Plan as above. (6) End stage renal disease on dialysis Is this a current diagnosis for this admission?: Yes Plan: Dr. Edgar has been consulted; appreciate his valuable assistance. - Time Time Spent with patient: 25-34 minutes Medications reviewed and adjusted accordingly: Yes Anticipated discharge: Home Within: within 48 hours
[2018-05-30 16:44] LABS: ANION GAP 17 (5-19); BLOOD UREA NITROGEN 40 mg/dL (7-20); CALCIUM 8.6 mg/dL (8.4-10.2); CARBON DIOXIDE 26 mmol/L (22-30); CHLORIDE 98 mmol/L (98-107); GLUCOSE 92 mg/dL (75-110); POTASSIUM 3.2 mmol/L (3.6-5.0); SODIUM 140.9 mmol/L (137-145)
[2018-05-30] MEDS ORDERED: POTASSI CL 20 MEQ/50 ML RIDER 20 MEQ/50 ML RTUPB IV ONE (18:00)
[2018-05-30] MEDS ORDERED: ASPIRIN 325 MG TABLET PO ONE (18:00)
[2018-05-30] MEDS ORDERED: POTASSIUM CHLORIDE 10 MEQ CAPSULE.ER PO ONE (18:00)
[2018-05-30] MEDS ORDERED: HEPARIN SODIUM,PORCINE/D5W 25,000 UNIT/250 ML RTUINJ IV PRN (18:16)
[2018-05-30] MEDS ORDERED: HEPARIN SOD (PORCINE) 1,000 UNIT/ML 10 ML VIAL IV PRN (18:18)
[2018-05-30] MEDS ORDERED: HEPARIN SOD (PORCINE) 1,000 UNIT/ML 10 ML VIAL IV ONE (18:30)
[2018-05-30 18:46] LABS: ABSOLUTE BASOPHILS # (AUTO) 0.1 10^3/uL (0.0-0.2); ABSOLUTE EOSINOPHILS # (AUTO) 0.1 10^3/uL (0.0-0.6); ABSOLUTE LYMPHOCYTES (AUTO) 1.2 10^3/uL (0.5-4.7); ABSOLUTE MONOCYTES (AUTO) 0.8 10^3/uL (0.1-1.4); ABSOLUTE NEUT (AUTO) 4.4 10^3/uL (1.7-8.2); BASOPHILS % (AUTO) 1.4 % (0-2); EOSINOPHILS % (AUTO) 0.8 % (0-6); HEMOGLOBIN 9.5 g/dL (13.5-17.0); LYMPHOCYTES % (AUTO) 18.4 % (13-45); MEAN CORPUSCULAR HEMOGLOBIN 32.1 pg (27.0-33.4); MEAN CORPUSCULAR HGB CONC 34.1 g/dL (32.0-36.0); PLATELET COUNT 131 10^3/uL (150-450); RED BLOOD COUNT 2.97 10^6/uL (4.35-5.55); RED CELL DISTRIBUTION WIDTH 14.1 % (11.5-14.0); SEGMENTED NEUTROPHILS % (AUTO) 67.4 % (42-78); TOTAL CELLS COUNTED % (AUTO) 100 %; WHITE BLOOD COUNT 6.5 10^3/uL (4.0-10.5)
[2018-05-30 18:53] LABS: INTERNATIONAL RATION (INR) 1.07; MEAN CORPUSCULAR VOLUME 94 fl (80-97); PROTHROMBIN TIME 14.4 SEC (11.4-15.4)
[2018-05-30 18:54] LABS: PARTIAL THROMBOPLASTIN TIME 31.2 SEC (23.5-35.8)
[2018-05-30 19:03] LABS: ANION GAP 17 (5-19); BLOOD UREA NITROGEN 39 mg/dL (7-20); CALCIUM 8.6 mg/dL (8.4-10.2); CARBON DIOXIDE 25 mmol/L (22-30); CHLORIDE 98 mmol/L (98-107); GLUCOSE 72 mg/dL (75-110); LIPASE 32.9 U/L (23-300); POTASSIUM 3.4 mmol/L (3.6-5.0); SODIUM 139.6 mmol/L (137-145)
[2018-05-30] MEDS ORDERED: NITROGLYCERIN 2% OINTMENT 1 GM PACKET ONE (19:54)
[2018-05-30] MEDS: NITROGLYCERIN 2% OINTMENT 1 GM PACKET TP SCH (20:30)
[2018-05-30] MEDS: HYDRALAZINE HCL 50 MG TABLET PO SCH (22:14)
[2018-05-30] MEDS: AMLODIPINE BESYLATE 10 MG TABLET PO SCH (22:14)
--- NOTE | 2018-05-30 22:57 | EKG REPORT ---
SEVERITY:- ABNORMAL ECG - SINUS RHYTHM LEFT ATRIAL ABNORMALITY BORDERLINE IVCD WITH LAD ABNORMAL T, CONSIDER ISCHEMIA, LATERAL LEADS BORDERLINE PROLONGED QT INTERVAL : Confirmed by: Low Rosario 30-May-2018 22:57:30
[2018-05-31 01:01] LABS: ANION GAP 18 (5-19); BLOOD UREA NITROGEN 44 mg/dL (7-20); CALCIUM 8.4 mg/dL (8.4-10.2); CARBON DIOXIDE 22 mmol/L (22-30); CHLORIDE 99 mmol/L (98-107); GLUCOSE 235 mg/dL (75-110); POTASSIUM 3.9 mmol/L (3.6-5.0); SODIUM 138.7 mmol/L (137-145)
[2018-05-31 04:22] LABS: BLOOD UREA NITROGEN 45 mg/dL (7-20); CALCIUM 8.4 mg/dL (8.4-10.2); CARBON DIOXIDE 21 mmol/L (22-30); CHLORIDE 99 mmol/L (98-107); GLUCOSE 261 mg/dL (75-110); POTASSIUM 4.1 mmol/L (3.6-5.0); SODIUM 139.5 mmol/L (137-145)
[2018-05-31 04:26] LABS: ANION GAP 20 (5-19)
[2018-05-31] MEDS: INSULIN LISPRO 100 UNIT/ML 3 ML VIAL SUBCUT PRN ×2 (06:23→12:16)
[2018-05-31] MEDS: NITROGLYCERIN 2% OINTMENT 1 GM PACKET TP SCH ×3 (06:24→17:20)
[2018-05-31 09:43] LABS: ANION GAP 19 (5-19); BLOOD UREA NITROGEN 49 mg/dL (7-20); CALCIUM 8.4 mg/dL (8.4-10.2); CARBON DIOXIDE 20 mmol/L (22-30); CHLORIDE 101 mmol/L (98-107); GLUCOSE 276 mg/dL (75-110); POTASSIUM 4.5 mmol/L (3.6-5.0); SODIUM 139.7 mmol/L (137-145)
[2018-05-31 09:45] LABS: CREATINE KINASE MB 3.72 ng/mL (<4.55); TROPONIN I 1.55 ng/mL
[2018-05-31] MEDS ORDERED: ASPIRIN 81 MG TABLET, CHEWABLE PO SCH (10:00)
[2018-05-31] MEDS ORDERED: INSULIN GLARGINE,HUM.REC.ANLOG 300 UNIT/3 ML INSULN.PEN SUBCUT SCH (10:00)
[2018-05-31] MEDS: DULOXETINE HCL 20 MG CAPSULE.DR PO SCH (10:06)
[2018-05-31] MEDS: CARVEDILOL 12.5 MG TABLET PO SCH (10:06)
[2018-05-31] MEDS: CALCIUM ACETATE 667 MG CAPSULE PO SCH ×2 (10:06→18:00)
[2018-05-31] MEDS: HYDRALAZINE HCL 50 MG TABLET PO SCH (10:06)
[2018-05-31] MEDS: ACETAMINOPHEN 325 MG TABLET PO PRN (12:10)
[2018-05-31] MEDS ORDERED: ASPIRIN 325 MG TABLET PO SCH (12:30)
[2018-05-31] MEDS ORDERED: TRAMADOL HCL 50 MG TABLET PO PRN (12:38)
[2018-05-31] MEDS ORDERED: MECLIZINE HCL 25 MG TABLET PO PRN ×2 (13:07→13:09)
[2018-05-31 13:09] LABS: BLOOD UREA NITROGEN 51 mg/dL (7-20); CALCIUM 8.5 mg/dL (8.4-10.2); CHLORIDE 99 mmol/L (98-107); GLUCOSE 318 mg/dL (75-110); POTASSIUM 4.1 mmol/L (3.6-5.0)
[2018-05-31 13:15] LABS: ANION GAP 19 (5-19); CARBON DIOXIDE 21 mmol/L (22-30); SODIUM 138.6 mmol/L (137-145)
[2018-05-31] MEDS ORDERED: INSULIN, REGULAR 100 UNIT/100 ML NORMAL SALINE IV PRN ×2 (14:00)
[2018-05-31] MEDS ORDERED: DEXTROSE 5%-1/2 NORMAL SALINE 1,000 ML IV PRN (14:02)
--- NOTE | 2018-05-31 16:24 | PDOC PROGRESS REPORT ---
Subjective Progress Note for:: 05/31/18 Subjective:: Patient was moved down to the ICU yesterday due to the elevated troponins. Currently today he denies chest pain or SOB. He denies fevers, chills, nausea or vomiting. Per the nurse in charge of his care, he is having an echo tomorrow to rule out peritonitis of pericardial effusion. Does have recent history of a pericardial effusion. Reason For Visit: DKA ACUTE GASTROENTERITIS ABD PAIN Physical Exam Vital Signs: Temp Pulse Resp BP Pulse Ox 97.8 F 58 L 16 141/78 H 95 05/31/18 14:00 05/31/18 14:00 05/31/18 14:00 05/31/18 14:00 05/31/18 14:00 Intake & Output 05/30/18 05/31/18 06/01/18 06:59 06:59 06:59 Intake Total 654 772 Output Total 1400 Balance -746 772 Weight 97.5 kg General appearance: PRESENT: no acute distress, well-developed, well-nourished Mouth exam: PRESENT: moist, neck supple Neck exam: PRESENT: full ROM. ABSENT: JVD Respiratory exam: PRESENT: clear to auscultation bessy. ABSENT: accessory muscle use, crackles, rales, rhonchi, wheezes Cardiovascular exam: PRESENT: +S1, +S2, systolic murmur GI/Abdominal exam: PRESENT: normal bowel sounds, soft, tenderness - In the epigastrium. No guarding.. ABSENT: diminished bowel sounds, guarding, organomegaly, rebound Extremities exam: ABSENT: pedal edema, tenderness, +1 edema, +2 edema Musculoskeletal exam: PRESENT: normal inspection. ABSENT: tenderness Neurological exam: PRESENT: alert, awake, oriented to person, oriented to place , oriented to time, oriented to situation Psychiatric exam: PRESENT: appropriate affect, normal mood Skin exam: PRESENT: dry, intact, warm. ABSENT: cyanosis Results Laboratory Results: 05/30/18 18:38 05/30/18 05/30/18 05/30/18 16:10 18:38 18:38 WBC 6.5 RBC 2.97 L Hgb 9.5 L Hct 28.0 L MCV 94 D MCH 32.1 MCHC 34.1 RDW 14.1 H Plt Count 131 L Seg Neutrophils % 67.4 Lymphocytes % 18.4 Monocytes % 12.0 Eosinophils % 0.8 Basophils % 1.4 Absolute Neutrophils 4.4 Absolute Lymphocytes 1.2 Absolute Monocytes 0.8 Absolute Eosinophils 0.1 Absolute Basophils 0.1 Sodium 140.9 139.6 Potassium 3.2 L 3.4 L Chloride 98 98 Carbon Dioxide 26 25 Anion Gap 17 17 BUN 40 H 39 H Creatinine 5.63 H 5.52 H Est GFR ( Amer) 13 L 14 L Est GFR (Non-Af Amer) 11 L 11 L Glucose 92 72 L Calcium 8.6 8.6 Magnesium Lipase 32.9 05/30/18 05/31/18 05/31/18 23:49 03:45 09:04 WBC RBC Hgb Hct MCV MCH MCHC RDW Plt Count Seg Neutrophils % Lymphocytes % Monocytes % Eosinophils % Basophils % Absolute Neutrophils Absolute Lymphocytes Absolute Monocytes Absolute Eosinophils Absolute Basophils Sodium 138.7 139.5 139.7 Potassium 3.9 4.1 4.5 Chloride 99 99 101 Carbon Dioxide 22 21 L 20 L Anion Gap 18 20 H 19 BUN 44 H 45 H 49 H Creatinine 6.61 H 7.07 H 7.49 H Est GFR ( Amer) 11 L 10 L 10 L Est GFR (Non-Af Amer) 9 L 8 L 8 L Glucose 235 H 261 H 276 H Calcium 8.4 8.4 8.4 Magnesium Lipase 05/31/18 05/31/18 09:04 12:32 WBC RBC Hgb Hct MCV MCH MCHC RDW Plt Count Seg Neutrophils % Lymphocytes % Monocytes % Eosinophils % Basophils % Absolute Neutrophils Absolute Lymphocytes Absolute Monocytes Absolute Eosinophils Absolute Basophils Sodium 138.6 Potassium 4.1 Chloride 99 Carbon Dioxide 21 L Anion Gap 19 BUN 51 H Creatinine 7.56 H Est GFR ( Amer) 9 L Est GFR (Non-Af Amer) 8 L Glucose 318 H Calcium 8.5 Magnesium 1.9 Lipase 05/30/18 05/30/18 05/31/18 16:10 23:49 09:04 CK-MB (CK-2) 3.72 Troponin I 1.660 2.120 1.550 Impressions: Chest X-Ray 05/28/18 22:13 IMPRESSION: No significant change. Abdomen/Pelvis CT 05/29/18 00:13 IMPRESSION: Small right pleural effusion. Cholelithiasis. Mild diffuse thickening of the small bowel, which is nonspecific and may be due to an enteritis. Bilateral nonobstructing renal calcifications, which are likely vascular. TECHNICAL DOCUMENTATION: Quality ID # [id number]: Final reports with documentation of one or more dose reduction techniques (e.g., Automated exposure control, adjustment of the mA and/or kV according to patient size, use of iterative reconstruction technique) 2010 [facility]- All Rights Reserved Assessment & Plan - Diagnosis (1) End stage renal disease on dialysis Is this a current diagnosis for this admission?: Yes Plan: will look to arrange for dialysis tomorrow. (2) Hyperkalemia Is this a current diagnosis for this admission?: Yes Plan: currently better controlled; will have to monitor as he receives insulin. Risk of hypokalemia as he receives insulin. (3) DKA (diabetic ketoacidoses) Qualifiers: Diabetes mellitus type: type 1 Diabetes mellitus complication detail: without coma Qualified Code(s): E10.10 - Type 1 diabetes mellitus with ketoacidosis without coma Is this a current diagnosis for this admission?: Yes Plan: he is switching to using his insulin pump to help control his blood sugars (4) Anemia in chronic kidney disease, on chronic dialysis Plan: will look to get a hemoglobin for tomorrow and if low then will give epogen during dialysis. (5) Diabetes mellitus Qualifiers: Diabetes mellitus type: type 1 Diabetes mellitus complication status: with kidney complications Diabetes mellitus complication detail: with chronic kidney disease Chronic kidney disease stage: on chronic dialysis Qualified Code(s): E10.22 - Type 1 diabetes mellitus with diabetic chronic kidney disease ; N18.6 - End stage renal disease; Z99.2 - Dependence on renal dialysis Plan: getting on his insulin pump (6) Hypertension Qualifiers: Hypertension type: essential hypertension Qualified Code(s): I10 - Essential (primary) hypertension Plan: controlled (7) Elevated troponin Plan: gets an echocardiogram (8) Metabolic acidosis Plan: improved after receiving dialysis. Will have to monitor as he receives more insulin.
[2018-05-31 16:30] LABS: ANION GAP 14 (5-19); BLOOD UREA NITROGEN 50 mg/dL (7-20); CALCIUM 8.5 mg/dL (8.4-10.2); CARBON DIOXIDE 24 mmol/L (22-30); CHLORIDE 100 mmol/L (98-107); GLUCOSE 229 mg/dL (75-110); SODIUM 138.3 mmol/L (137-145)
--- NOTE | 2018-05-31 18:04 | PDOC PROGRESS REPORT ---
Subjective Progress Note for:: 05/31/18 Subjective:: The patient is a 47 year old male with a past medical history of IDDM, CKD on dialysis Wed with Dr. Edgar, and HTN who was admitted 05/29/18 for gastroenteritis and found to have DKA. The patient was transferred to ICU last night when he developed chest pressure and nausea during dialysis. He developed EKG changes (inverted T waves in lateral leads) and his troponin increased to 1.6. Cardiology was consulted and the patient was started on a Heparin gtt. No indication for an ECHOcardiogram, per Dr. Jordan. The patient was seen this morning on rounds. His only complaint this morning is diarrhea. He denies chest pain, SOB, nausea or vomiting. The patient remains hyperglycemic (BG 251) and his Anion Gap is open (20). Plan for stat re-check, if labs are unchanged patient will need to be restarted on insulin gtt. Troponin elevated to 2.1 overnight but was not trended, plan for stat re-check. EKG this morning still demonstrating T wave inversion in lateral leads. Otherwise, patient is in NSR, no evidence of acute infarction, (+) QT prolongation. Creatinine is elevated to 7.1 this morning but potassium and other electrolytes remain within normal limits. Plan to continue q4h BMP today. There is no nephrology coverage today, so if the patient becomes acutely HYPERkalemic or unstable he will require transfer to a tertiary facility. To recap, plan for stat re-check of BMP and Troponin. Depending on BMP lab values, may need to restart insulin gtt. If troponin continues to rise, will need to consult cardiology regarding need for catheterization. If troponin levels are decreasing, will no longer trend. Continue q4h BMP. Monitor closely in ICU for EKG changes and electrolyte derangements. Reason For Visit: DKA ACUTE GASTROENTERITIS ABD PAIN Physical Exam Vital Signs: Temp Pulse Resp BP Pulse Ox 97.8 F 66 16 157/83 H 97 05/31/18 08:00 05/31/18 09:09 05/31/18 09:09 05/31/18 08:00 05/31/18 08:00 Intake & Output 05/30/18 05/31/18 06/01/18 06:59 06:59 06:59 Intake Total 654 600 Output Total 1400 Balance -746 600 Weight 97.5 kg General appearance: PRESENT: no acute distress Eye exam: PRESENT: conjunctiva pink, PERRLA Mouth exam: PRESENT: moist Neck exam: PRESENT: full ROM. ABSENT: carotid bruit Respiratory exam: PRESENT: clear to auscultation bessy, symmetrical, unlabored Cardiovascular exam: PRESENT: +S1, +S2, systolic murmur, other - INVERTED T WAVES IN LATERAL LEADS Pulses: PRESENT: normal radial pulses, normal dorsalis pedis pul Vascular exam: PRESENT: normal capillary refill GI/Abdominal exam: PRESENT: normal bowel sounds, soft. ABSENT: tenderness Rectal exam: PRESENT: deferred Extremities exam: PRESENT: full ROM. ABSENT: joint swelling, pedal edema Musculoskeletal exam: PRESENT: ambulatory, full ROM Neurological exam: PRESENT: alert, awake, oriented to person, oriented to place , oriented to time, oriented to situation Psychiatric exam: PRESENT: appropriate affect Skin exam: PRESENT: intact, normal color Results Laboratory Results: 05/30/18 18:38 05/30/18 05/30/18 05/30/18 12:53 16:10 18:38 WBC RBC Hgb Hct MCV MCH MCHC RDW Plt Count Seg Neutrophils % Lymphocytes % Monocytes % Eosinophils % Basophils % Absolute Neutrophils Absolute Lymphocytes Absolute Monocytes Absolute Eosinophils Absolute Basophils Sodium 141.4 140.9 139.6 Potassium 3.3 L D 3.2 L 3.4 L Chloride 98 98 98 Carbon Dioxide 25 D 26 25 Anion Gap 18 17 17 BUN 36 H D 40 H 39 H Creatinine 4.76 H 5.63 H 5.52 H Est GFR ( Amer) 16 L 13 L 14 L Est GFR (Non-Af Amer) 13 L 11 L 11 L Glucose 136 H 92 72 L Calcium 8.7 8.6 8.6 Lipase 32.9 05/30/18 05/30/18 05/31/18 18:38 23:49 03:45 WBC 6.5 RBC 2.97 L Hgb 9.5 L Hct 28.0 L MCV 94 D MCH 32.1 MCHC 34.1 RDW 14.1 H Plt Count 131 L Seg Neutrophils % 67.4 Lymphocytes % 18.4 Monocytes % 12.0 Eosinophils % 0.8 Basophils % 1.4 Absolute Neutrophils 4.4 Absolute Lymphocytes 1.2 Absolute Monocytes 0.8 Absolute Eosinophils 0.1 Absolute Basophils 0.1 Sodium 138.7 139.5 Potassium 3.9 4.1 Chloride 99 99 Carbon Dioxide 22 21 L Anion Gap 18 20 H BUN 44 H 45 H Creatinine 6.61 H 7.07 H Est GFR ( Amer) 11 L 10 L Est GFR (Non-Af Amer) 9 L 8 L Glucose 235 H 261 H Calcium 8.4 8.4 Lipase 05/30/18 05/30/18 16:10 23:49 Troponin I 1.660 2.120 Impressions: Chest X-Ray 05/28/18 22:13 IMPRESSION: No significant change. Abdomen/Pelvis CT 05/29/18 00:13 IMPRESSION: Small right pleural effusion. Cholelithiasis. Mild diffuse thickening of the small bowel, which is nonspecific and may be due to an enteritis. Bilateral nonobstructing renal calcifications, which are likely vascular. TECHNICAL DOCUMENTATION: Quality ID # [id number]: Final reports with documentation of one or more dose reduction techniques (e.g., Automated exposure control, adjustment of the mA and/or kV according to patient size, use of iterative reconstruction technique) 2010 [employer]- All Rights Reserved Status: Imported from PACS Assessment & Plan - Diagnosis (1) DKA (diabetic ketoacidoses) Qualifiers: Diabetes mellitus type: type 1 Diabetes mellitus complication detail: without coma Qualified Code(s): E10.10 - Type 1 diabetes mellitus with ketoacidosis without coma Is this a current diagnosis for this admission?: Yes Plan: Secondary to faulty insulin pump. Patient states he received a new insulin pump within the last few weeks. When he removed his pump (after being admitted to [facility]), the tubing appeared to be kinked. Patient was initially placed on insulin drip for a BG 477. His anion gap closed and it was discontinued, however this morning his anion gap is open and his blood sugars are rising. Attempted to restart insulin drip this morning but patient refused, stating he did not want his "finger pricked every hour." Patient states he would reinsert his own insulin pump. Instructed the patient that we would need to monitor his BMP every 4h. If his DKA does not improve, would need to stop insulin pump and reinitiate insulin drip. Patient agreed. Continue diabetic diet. Check Hgb A1C in AM. (2) Elevated troponin Is this a current diagnosis for this admission?: Yes Plan: Peaked overnight at 2.1 Rechecked this AM and was 1.2, patient denied chest pain or nausea EKG still shows inverted T waves in lateral leads Cardiology consulted, Dr. Boswell recommends discontinuing heparin drip Initiate full dose aspirin Plan for echocardiogram today (3) Gastroenteritis Is this a current diagnosis for this admission?: Yes Plan: Resolved. Patient initially presented with complaints of nausea and vomiting. He now complains of diarrhea, likely secondary to Kayexalate. CT abdomen revealed nonspecific inflammation in the small bowel, likely related to gastroenteritis. Maintenance IV fluids for hydration. Due to QTC prolongation, patient is not a candidate for Zofran or Phenergan. Conferenced with pharmacist, recommends p.o. meclizine 25 mg every 6 hours for nausea. (4) Nausea & vomiting Qualifiers: Vomiting type: unspecified Vomiting Intractability: non-intractable Qualified Code(s): R11.2 - Nausea with vomiting, unspecified Is this a current diagnosis for this admission?: Yes Plan: Plan as above (5) Hyperkalemia Is this a current diagnosis for this admission?: Yes Plan: Resolved. Secondary to ESRD and DKA Monitor serial chemistries every 4 hours. Monitored on continuous cardiac telemetry. (6) End stage renal disease on dialysis Is this a current diagnosis for this admission?: Yes Plan: Dr. Edgar has been consulted, appreciate recommendations. - Time Time Spent with patient: 25-34 minutes Medications reviewed and adjusted accordingly: Yes Anticipated discharge: Home Within: within 48 hours, within 72 hours - Inpatient Certification Based on my medical assessment, after consideration of the patient's comorbidities, presenting symptoms, or acuity I expect that the services needed warrant INPATIENT care.: Yes I certify that my determination is in accordance with my understanding of Medicare's requirements for reasonable and necessary INPATIENT services [42 CFR 412.3e].: Yes Medical Necessity: Risk of Complication if Not Cared For in Hospital
[2018-05-31] MEDS ORDERED: NITROGLYCERIN 2% OINTMENT 1 GM PACKET TP SCH (18:30)
[2018-05-31 21:02] LABS: ANION GAP 17 (5-19); BLOOD UREA NITROGEN 53 mg/dL (7-20); CALCIUM 8.7 mg/dL (8.4-10.2); CARBON DIOXIDE 22 mmol/L (22-30); CHLORIDE 98 mmol/L (98-107); GLUCOSE 239 mg/dL (75-110); SODIUM 137.3 mmol/L (137-145)
[2018-05-31 21:22] VITALS: BP 141/72
--- NOTE | 2018-05-31 22:32 | EKG REPORT ---
SEVERITY:- ABNORMAL ECG - SINUS RHYTHM PROBABLE LEFT ATRIAL ABNORMALITY LEFT AXIS DEVIATION ABNORMAL T, CONSIDER ISCHEMIA, LATERAL LEADS VS LVH BORDERLINE PROLONGED QT INTERVAL : Confirmed by: Low Rosario 31-May-2018 22:31:20
== END 2018-05-31 21:24 | disposition left against medical advice (07) | DRG 637 ==
LOC: ER 21:57 → EH 05-29 01:19 → 4S 05-29 03:30 → OBSVTOIN 05-30 11:20 → ICU 05-30 20:38
PROVIDERS: ADMIT Internal Medicine; ATTEND Internal Medicine
DX: E10.10 Type 1 diabetes mellitus with ketoacidosis without coma (principal); N18.6 End stage renal disease; I12.0 Hypertensive chronic kidney disease with stage 5 chronic kidney disease or end stage renal disease; E87.5 Hyperkalemia; K52.9 Noninfective gastroenteritis and colitis, unspecified; E10.22 Type 1 diabetes mellitus with diabetic chronic kidney disease; D63.1 Anemia in chronic kidney disease; R11.2 Nausea with vomiting, unspecified; F17.210 Nicotine dependence, cigarettes, uncomplicated; Z96.41 Presence of insulin pump (external) (internal); Z79.4 Long term (current) use of insulin; Z99.2 Dependence on renal dialysis
CPT/HCPCS: 36415; 36600; 71045; 74176; 80048; 80053; 80076; 81001; 82550; 82553; 82803; 82962; 83690; 83735; 84484; 85025; 85610; 85730; 93005; 93010; 96374; 96375; 99285; G0378; J0610; J1644; J1815; J2060; J2765; J3010; J3480; J3490; J7030; J7060

== ENCOUNTER 2018-06-25 10:48 | Emergency (ER) | payer MEDICARE ==
[2018-06-25] MEDS ORDERED: ONDANSETRON 4 MG TAB.RAPDIS PO ONE (11:25)
--- NOTE | 2018-06-25 11:27 | ER Document Report ---
ED Medical Screen (RME) - General Chief Complaint: Shortness Of Breath Stated Complaint: WEAKNESS/DIALYSIS Time Seen by Provider: 06/25/18 11:21 Mode of Arrival: Ambulatory Information source: Patient Notes: Patient has not had dialysis in 5 days. His last dialysis was on Wednesday this week. He came to the ED because he was feeling nauseous and generalized body weakness. Patient said that he feels like he needs to be dialyzed. He went to the IV diet this morning and was told to come to the emergency room here for dialysis. He denies any chest pain shortness of breath, vomiting or abdominal pain. I have greeted and performed a rapid initial assessment of this patient. A comprehensive ED assessment and evaluation of the patient, analysis of test results and completion of the medical decision making process will be conducted by additional ED providers. TRAVEL OUTSIDE OF THE [place] IN LAST 30 DAYS: No - Related Data Allergies/Adverse Reactions: Iodinated Contrast- Oral and IV Dye Allergy (Verified 06/25/18 10:50) Past Medical History - Social History Chew tobacco use (# tins/day): No Frequency of alcohol use: None Drug Abuse: None - Past Medical History Cardiac Medical History: Reports: Hx Hypertension Denies: Hx Atrial Fibrillation, Hx Congestive Heart Failure, Hx Coronary Artery Disease - Negative chemical stress 2 weeks ago; negative heart cath last September, Hx DVT, Hx Heart Attack, Hx Hypercholesterolemia, Hx Pulmonary Embolism Pulmonary Medical History: Denies: Hx Asthma, Hx COPD, Hx Sleep Apnea Neurological Medical History: Denies: Hx Seizures Endocrine Medical History: Reports: Hx Diabetes Mellitus Type 1 - insulin pump. Denies: Hx Diabetes Mellitus Type 2, Hx Hyperthyroidism, Hx Hypothyroidism Renal/ Medical History: Reports: Hx End Stage Renal Disease. Denies: Hx Peritoneal Dialysis GI Medical History: Denies: Hx Cirrhosis, Hx Gastroesophageal Reflux Disease, Hx Hepatitis Musculoskeltal Medical History: Reports Hx Arthritis Psychiatric Medical History: Denies: Hx Depression Infectious Medical History: Denies: Hx Hepatitis Past Surgical History: Reports: Hx Orthopedic Surgery - r/t traumas x 2, Hx Vascular Surgery - Access surgery for hemodialysis. Left upper extremity fistula. - Immunizations Hx Diphtheria, Pertussis, Tetanus Vaccination: Yes History of Influenza Vaccine for 07/2017 - 12/2017 Season: Yes Influenza Administration Date for 07/2017 - 12/2017 Season: 05/11/17 Physical Exam - Vital signs Vitals: Temp Pulse Resp BP Pulse Ox 97.4 F 78 18 167/87 H 96 06/25/18 10:54 06/25/18 10:54 06/25/18 10:54 06/25/18 10:54 06/25/18 10:54 Course - Vital Signs Vital signs: Temp Pulse Resp BP Pulse Ox 97.4 F 78 18 167/87 H 96 06/25/18 10:54 06/25/18 10:54 06/25/18 10:54 06/25/18 10:54 06/25/18 10:54
[2018-06-25 12:13] LABS: ABSOLUTE BASOPHILS # (AUTO) 0.1 10^3/uL (0.0-0.2); ABSOLUTE EOSINOPHILS # (AUTO) 0.2 10^3/uL (0.0-0.6); ABSOLUTE LYMPHOCYTES (AUTO) 0.8 10^3/uL (0.5-4.7); ABSOLUTE MONOCYTES (AUTO) 0.5 10^3/uL (0.1-1.4); ABSOLUTE NEUT (AUTO) 3.6 10^3/uL (1.7-8.2); BASOPHILS % (AUTO) 2.3 % (0-2); EOSINOPHILS % (AUTO) 3.2 % (0-6); HEMOGLOBIN 10.9 g/dL (13.5-17.0); LYMPHOCYTES % (AUTO) 15.4 % (13-45); MEAN CORPUSCULAR HEMOGLOBIN 32.2 pg (27.0-33.4); MEAN CORPUSCULAR VOLUME 95 fl (80-97); MONOCYTES % (AUTO) 10.1 % (3-13); PLATELET COUNT 155 10^3/uL (150-450); RED BLOOD COUNT 3.38 10^6/uL (4.35-5.55); RED CELL DISTRIBUTION WIDTH 14.9 % (11.5-14.0); TOTAL CELLS COUNTED % (AUTO) 100 %; WHITE BLOOD COUNT 5.2 10^3/uL (4.0-10.5)
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
[2018-06-25 12:41] LABS: ALANINE AMINOTRANSFERASE 17 U/L (21-72); ALBUMIN 4.2 g/dL (3.5-5.0); ALKALINE PHOSPHATASE 68 U/L (38-126); ANION GAP 18 (5-19); ASPARTATE AMINO TRANSFERASE 14 U/L (17-59); BILIRUBIN,DIRECT 1.1 mg/dL (0.0-0.4); BILIRUBIN,TOTAL 1.5 mg/dL (0.2-1.3); BLOOD UREA NITROGEN 83 mg/dL (7-20); CALCIUM 8.8 mg/dL (8.4-10.2); CARBON DIOXIDE 21 mmol/L (22-30); CHLORIDE 100 mmol/L (98-107); GLUCOSE 106 mg/dL (75-110); POTASSIUM 5.2 mmol/L (3.6-5.0); SODIUM 139.2 mmol/L (137-145); TOTAL PROTEIN 7.4 g/dL (6.3-8.2)
[2018-06-25] MEDS ORDERED: ACETAMINOPHEN 325 MG TABLET PO ONE (13:04)
[2018-06-25 13:05] LABS: TROPONIN I 0.084 ng/mL
[2018-06-25 13:11] VITALS: BP 183/100
--- NOTE | 2018-06-25 21:37 | EKG REPORT ---
SEVERITY:- ABNORMAL ECG - SINUS RHYTHM LEFT ANTERIOR FASCICULAR BLOCK NONSPECIFIC T ABNORMALITIES, LATERAL LEADS PROLONGED QT INTERVAL : Confirmed by: Low Rosario 25-Jun-2018 21:36:45
== END 2018-06-25 13:11 | disposition home or self-care (01) ==
LOC: ER 10:48
DX: T82.9XXA Unspecified complication of cardiac and vascular prosthetic device, implant and graft, initial encounter (principal); R06.02 Shortness of breath; R53.83 Other fatigue; I10 Essential (primary) hypertension; E10.9 Type 1 diabetes mellitus without complications; Z79.4 Long term (current) use of insulin
CPT/HCPCS: 93005; 99285; 36415; 85025; 80053; 84484; 83880; 93010; A9270 ×2; S0119

== ENCOUNTER 2018-10-09 14:39 | Emergency (ER) | payer OTHER, MEDICARE ==
[2018-10-09] MEDS ORDERED: CLINDAMYCIN HCL 150 MG CAPSULE PO ONE (15:28)
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
[2018-10-09 15:55] VITALS: BP 158/81
== END 2018-10-09 16:31 | disposition home or self-care (01) ==
LOC: ER 14:39
DX: L72.9 Follicular cyst of the skin and subcutaneous tissue, unspecified (principal); F17.200 Nicotine dependence, unspecified, uncomplicated; E10.22 Type 1 diabetes mellitus with diabetic chronic kidney disease; I12.0 Hypertensive chronic kidney disease with stage 5 chronic kidney disease or end stage renal disease; N18.6 End stage renal disease; Z99.2 Dependence on renal dialysis; Z79.4 Long term (current) use of insulin
CPT/HCPCS: 99283

== ENCOUNTER 2018-10-19 11:33 | Emergency (ER) | payer OTHER, MEDICARE ==
[2018-10-19] MEDS ORDERED: KETOROLAC TROMETHAMINE 60 MG/2 ML SDV IM ONE (12:10)
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
--- NOTE | 2018-10-19 13:21 | RADIOLOGY REPORT (SQ) ---
EXAM DESCRIPTION: HIP LEFT AP/LATERAL COMPLETED DATE/TIME: 10/19/2018 12:43 pm REASON FOR STUDY: Pain and injury COMPARISON: 05/29/2018 NUMBER OF VIEWS: Two views. TECHNIQUE: AP pelvis and additional frog-leg view of the left hip. LIMITATIONS: None. FINDINGS: MINERALIZATION: Normal. LEFT HIP: No fracture or dislocation. No worrisome bone lesions. RIGHT HIP: No fracture or dislocation. No worrisome bone lesions. PUBIS AND ISCHIUM: No fracture. PELVIS: No fracture. SACRUM: No fracture or dislocation. No worrisome bone lesions. LOWER LUMBAR SPINE: No fracture or dislocation. No worrisome bone lesions. No significant disc disea se. Lower lumbar facet arthropathy. SOFT TISSUES: Scattered pelvic phleboliths. Significant aortoiliac atherosclerosis. OTHER: No other significant finding. IMPRESSION: No evidence of acute bony abnormality. TECHNICAL DOCUMENTATION: JOB ID: [id number] [employer]- All Rights Reserved Reading location - IP/workstation name: [email or web address]
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
--- NOTE | 2018-10-19 16:11 | RADIOLOGY REPORT (SQ) ---
EXAM DESCRIPTION: L SPINE WHOLE COMPLETED DATE/TIME: 10/19/2018 3:18 pm REASON FOR STUDY: low back pain s/p fall, L>R COMPARISON: None. NUMBER OF VIEWS: Five views including obliques. TECHNIQUE: AP, lateral, oblique, and sacral radiographic images acquired of the lumbar spine. LIMITATIONS: None. FINDINGS: MINERALIZATION: Normal. SEGMENTATION: Normal. No transitional anatomy. ALIGNMENT: Normal. VERTEBRAE: Stable mild endplate irregularity and Schmorl's node at L3 superior endplate and T11 mild anterior compression compared to prior CT. No evidence of acute bony abnormality. DISCS: Disc spaces are relatively well-maintained. POSTERIOR ELEMENTS: Mild lower lumbar facet arthropathy. No evidence of facet dislocation. HARDWARE: None in the spine. PARASPINAL SOFT TISSUES: Extensive aortoiliac atherosclerosis. PELVIS: Intact as visualized. No fractures or worrisome bone lesions. SI joints intact. OTHER: No other significant finding. IMPRESSION: Stable chronic changes at T11 and L3 without evidence of acute bony abnormality. Extensive aortoiliac atherosclerosis, more than expected for patient age. TECHNICAL DOCUMENTATION: JOB ID: [id number] [email or web address]- All Rights Reserved Reading location - IP/workstation name: [email or web address]
[2018-10-19 16:39] VITALS: BP 163/86
== END 2018-10-19 16:39 | disposition home or self-care (01) ==
LOC: ER 11:33
DX: S76.012A Strain of muscle, fascia and tendon of left hip, initial encounter (principal); R10.30 Lower abdominal pain, unspecified; M54.5 Low back pain; W01.0XXA Fall on same level from slipping, tripping and stumbling without subsequent striking against object, initial encounter; Y92.009 Unspecified place in unspecified non-institutional (private) residence as the place of occurrence of the external cause; G89.29 Other chronic pain; I12.0 Hypertensive chronic kidney disease with stage 5 chronic kidney disease or end stage renal disease; E10.22 Type 1 diabetes mellitus with diabetic chronic kidney disease; N18.6 End stage renal disease; Z99.2 Dependence on renal dialysis; Z96.41 Presence of insulin pump (external) (internal); Z87.891 Personal history of nicotine dependence
CPT/HCPCS: 99284; 96372; 82962; 73502; 72110; J1885

== ENCOUNTER 2018-10-28 10:22 | Emergency (ER) | payer OTHER, MEDICARE ==
[2018-10-28] MEDS ORDERED: ACETAMINOPHEN 325 MG TABLET PO ONE (11:03)
--- NOTE | 2018-10-28 11:03 | ER Document Report ---
ED Medical Screen (RME) - General Chief Complaint: Nausea Stated Complaint: NAUSEA Time Seen by Provider: 10/28/18 10:57 Mode of Arrival: Medic Information source: Patient, Transfer Record Notes: This is a 48-year-old man with a history of insulin requiring diabetes (pump), end-stage renal disease (hemodialysis) who awoke this morning with nausea and retching. He did go to dialysis and continued to have nausea with retching. He had 2.5 L removed via dialysis and then was sent via EMS to the ER for persistent nausea and retching. He was given IV Zofran, IV Phenergan prior to coming to the emergency room. He does state that he is got a little bit of a headache and complains of "stiffness". He states that the nausea is improved. He denies any significant weakness or dizziness. He denies any fevers or chills. He denies any recent illnesses. TRAVEL OUTSIDE OF THE [place] IN LAST 30 DAYS: No - Related Data Allergies/Adverse Reactions: Iodinated Contrast- Oral and IV Dye Allergy (Verified 10/28/18 10:24) Past Medical History - Past Medical History Cardiac Medical History: Reports: Hx Hypertension Denies: Hx Atrial Fibrillation, Hx Congestive Heart Failure, Hx Coronary Artery Disease - Negative chemical stress 2 weeks ago; negative heart cath last September, Hx DVT, Hx Heart Attack, Hx Hypercholesterolemia, Hx Pulmonary Embolism Pulmonary Medical History: Denies: Hx Asthma, Hx COPD, Hx Sleep Apnea Neurological Medical History: Denies: Hx Seizures Endocrine Medical History: Reports: Hx Diabetes Mellitus Type 1 - insulin pump. Denies: Hx Diabetes Mellitus Type 2, Hx Hyperthyroidism, Hx Hypothyroidism Renal/ Medical History: Reports: Hx End Stage Renal Disease, Hx Hemodialysis. Denies: Hx Peritoneal Dialysis GI Medical History: Denies: Hx Cirrhosis, Hx Gastroesophageal Reflux Disease, Hx Hepatitis Musculoskeltal Medical History: Reports Hx Arthritis Psychiatric Medical History: Denies: Hx Depression Infectious Medical History: Denies: Hx Hepatitis Past Surgical History: Reports: Hx Orthopedic Surgery - r/t traumas x 2, Hx Vascular Surgery - Access surgery for hemodialysis. Left upper extremity fistula. - Immunizations Hx Diphtheria, Pertussis, Tetanus Vaccination: Yes History of Influenza Vaccine for 07/2017 - 12/2017 Season: Yes Influenza Administration Date for 07/2017 - 12/2017 Season: 05/11/17 Physical Exam - Vital signs Vitals: Temp Pulse Resp BP Pulse Ox 97.8 F 65 16 165/81 H 98 10/28/18 10:32 10/28/18 10:32 10/28/18 10:32 10/28/18 10:32 10/28/18 10:32 Course - Vital Signs Vital signs: Temp Pulse Resp BP Pulse Ox 97.8 F 65 16 165/81 H 98 10/28/18 10:32 10/28/18 10:32 10/28/18 10:32 10/28/18 10:32 10/28/18 10:32 Doctor's Discharge - Discharge Referrals: [facility] [Primary [facility]] - Follow up as needed
[2018-10-28 11:34] LABS: ABSOLUTE BASOPHILS # (AUTO) 0.1 10^3/uL (0.0-0.2); ABSOLUTE EOSINOPHILS # (AUTO) 0.2 10^3/uL (0.0-0.6); ABSOLUTE LYMPHOCYTES (AUTO) 0.5 10^3/uL (0.5-4.7); ABSOLUTE MONOCYTES (AUTO) 0.4 10^3/uL (0.1-1.4); ABSOLUTE NEUT (AUTO) 5.3 10^3/uL (1.7-8.2); BASOPHILS % (AUTO) 1.6 % (0-2); EOSINOPHILS % (AUTO) 2.6 % (0-6); HEMOGLOBIN 11.9 g/dL (13.5-17.0); LYMPHOCYTES % (AUTO) 7.7 % (13-45); MEAN CORPUSCULAR HEMOGLOBIN 32.1 pg (27.0-33.4); MEAN CORPUSCULAR HGB CONC 34.1 g/dL (32.0-36.0); MEAN CORPUSCULAR VOLUME 94 fl (80-97); MONOCYTES % (AUTO) 6.6 % (3-13); PLATELET COUNT 177 10^3/uL (150-450); RED BLOOD COUNT 3.71 10^6/uL (4.35-5.55); RED CELL DISTRIBUTION WIDTH 14.7 % (11.5-14.0); SEGMENTED NEUTROPHILS % (AUTO) 81.5 % (42-78); TOTAL CELLS COUNTED % (AUTO) 100 %; WHITE BLOOD COUNT 6.6 10^3/uL (4.0-10.5)
[2018-10-28 12:33] LABS: ALANINE AMINOTRANSFERASE 21 U/L (21-72); ALBUMIN 4.3 g/dL (3.5-5.0); ALKALINE PHOSPHATASE 102 U/L (38-126); ANION GAP 17 (5-19); ASPARTATE AMINO TRANSFERASE 16 U/L (17-59); BILIRUBIN,DIRECT 0.8 mg/dL (0.0-0.4); BLOOD UREA NITROGEN 26 mg/dL (7-20); CARBON DIOXIDE 25 mmol/L (22-30); CHLORIDE 96 mmol/L (98-107); GLUCOSE 257 mg/dL (75-110); POTASSIUM 4.3 mmol/L (3.6-5.0); SODIUM 137.9 mmol/L (137-145); TOTAL PROTEIN 6.9 g/dL (6.3-8.2)
--- NOTE | 2018-10-28 12:56 | ER Document Report ---
ED General - General Chief Complaint: Nausea Stated Complaint: NAUSEA Time Seen by Provider: 10/28/18 10:57 Mode of Arrival: Medic TRAVEL OUTSIDE OF THE [place] IN LAST 30 DAYS: No - HPI Notes: Patient is a 48-year-old male that presents to the emergency department for chief complaint of nausea and vomiting. Patient states he woke up this morning feeling nauseated. When he was at dialysis he began having dry heaves. He denies any associated abdominal pain fevers or diarrhea. Patient states that he did have some fluctuations in his blood pressure while at dialysis but it never got "too low". He did receive Zofran and Phenergan prior to my evaluation and states the Phenergan gave him a significant amount of relief. He had a half of his dialysis treatment today and is scheduled to have repeat dialysis on Wednesday. He denies any chest pain and shortness of breath. Patient does have dialysis and an insulin pump. He denies any issues with his pump recently or changes in dosing. Past Medical History: CKD, diabetes Past Surgical History: Left upper extremity AV fistula Social History: Denies drugs alcohol and tobacco Family History: Reviewed and noncontributory for presenting illness Allergies: Reviewed, see documented allergy list. REVIEW OF SYSTEMS: CONSTITUTIONAL : No fever No chills No diaphoresis No recent illness EENT: No vision changes No congestion No sore throat CARDIOVASCULAR: No chest pain No palpitations RESPIRATORY: No shortness of breath No cough No difficulty breathing GASTROINTESTINAL: No abdominal pain nausea vomiting No diarrhea GENITOURINARY: No dysuria No hematuria No difficulty urinating MUSCULOSKELETAL: No back pain No leg pain No arm pain SKIN: No rashes No lesions LYMPHATIC: No swollen, enlarged glands. NEUROLOGICAL: No lightheadedness No headache No weakness No paresthesias PSYCHIATRIC: No anxiety No depression PHYSICAL EXAMINATION: Vital signs reviewed, nursing noted reviewed. GENERAL: Well-appearing, well-nourished and in no acute distress. HEAD: Atraumatic, normocephalic. EYES: Eyes appear normal, extraocular movements intact, sclera anicteric, conjunctiva are normal. ENT: nares patent, oropharynx clear without exudates. Mildly dry mucous membranes. NECK: Normal range of motion, supple without lymphadenopathy LUNGS: Breath sounds clear to auscultation bilaterally and equal. No wheezes rales or rhonchi. HEART: AV fistula in left upper extremity with normal bruit and thrill and no bleeding, heart regular rate and rhythm without murmurs ABDOMEN: Soft, nontender, normoactive bowel sounds. No rebound, guarding, or rigidity. No masses appreciated. EXTREMITIES: Nontender, good range of motion, no pitting or edema. NEUROLOGICAL: No focal neurological deficits. Moves all extremities spontaneously Motor and sensory grossly intact on exam. PSYCH: Normal mood, normal affect. SKIN: Warm, Dry, normal turgor, no rashes or lesions noted on exposed skin - Related Data Allergies/Adverse Reactions: Iodinated Contrast- Oral and IV Dye Allergy (Verified 10/28/18 10:24) Past Medical History - General Information source: Patient, Transfer Record - Social History Smoking Status: Former Smoker Frequency of alcohol use: None Drug Abuse: None Family History: CAD, DM Patient has suicidal ideation: No Patient has homicidal ideation: No - Past Medical History Cardiac Medical History: Reports: Hx Hypertension Denies: Hx Atrial Fibrillation, Hx Congestive Heart Failure, Hx Coronary Artery Disease - Negative chemical stress 2 weeks ago; negative heart cath last September, Hx DVT, Hx Heart Attack, Hx Hypercholesterolemia, Hx Pulmonary Embolism Pulmonary Medical History: Denies: Hx Asthma, Hx COPD, Hx Sleep Apnea Neurological Medical History: Denies: Hx Seizures Endocrine Medical History: Reports: Hx Diabetes Mellitus Type 1 - insulin pump. Denies: Hx Diabetes Mellitus Type 2, Hx Hyperthyroidism, Hx Hypothyroidism Renal/ Medical History: Reports: Hx End Stage Renal Disease, Hx Hemodialysis. Denies: Hx Peritoneal Dialysis GI Medical History: Denies: Hx Cirrhosis, Hx Gastroesophageal Reflux Disease, Hx Hepatitis Musculoskeletal Medical History: Reports Hx Arthritis Psychiatric Medical History: Denies: Hx Depression Infectious Medical History: Denies: Hx Hepatitis Past Surgical History: Reports: Hx Orthopedic Surgery - r/t traumas x 2, Hx Vascular Surgery - Access surgery for hemodialysis. Left upper extremity fistula. - Immunizations Hx Diphtheria, Pertussis, Tetanus Vaccination: Yes Physical Exam - Vital signs Vitals: Temp Pulse Resp BP Pulse Ox 97.8 F 65 16 165/81 H 98 10/28/18 10:32 10/28/18 10:32 10/28/18 10:32 10/28/18 10:32 10/28/18 10:32 Course - Re-evaluation Re-evalutation: 10/28/18 12:54 Vitals reviewed. Nursing notes reviewed. Patient just had fluid drawn off duri ng dialysis and he is currently tolerating oral intake. I do not feel IV fluid hydration is currently indicated. His CMP shows renal failure with a normal potassium. He is not having any chest discomfort or shortness of breath to suggest fluid overloaded state. Patient has not had vomiting in the ER and is now tolerating oral intake after the Phenergan. His abdominal exam is soft with no peritoneal signs. He has not had any abdominal pain and I do not suspect acute intra-abdominal process. Patient symptoms may be related to blood pressure fluctuations during dialysis or gastroenteritis. I have paged Dr. Edgar to discuss if he feels patient needs to finish his dialysis treatment today or if he is okay to return on Wednesday as already scheduled. 10/28/18 15:53 I never received a call back from Dr. Edgar. Patient does not wish to wait any longer. Patient has tolerated oral intake. Patient wishing to be discharged home and is hemodynamically stable. He was given a prescription for Phenergan to take for symptom medic management at home. He already has a prescription for Zofran. He will have his dialysis again on Wednesday as already scheduled. He is in agreement with plan of care and return precautions. Laboratory 10/28/18 10/28/18 10/28/18 11:16 11:16 12:00 WBC 6.6 RBC 3.71 L Hgb 11.9 L Hct 35.0 L MCV 94 MCH 32.1 MCHC 34.1 RDW 14.7 H Plt Count 177 Seg Neutrophils % 81.5 H Lymphocytes % 7.7 L Monocytes % 6.6 Eosinophils % 2.6 Basophils % 1.6 Absolute Neutrophils 5.3 Absolute Lymphocytes 0.5 Absolute Monocytes 0.4 Absolute Eosinophils 0.2 Absolute Basophils 0.1 Sodium Cancelled 137.9 Potassium Cancelled 4.3 Chloride Cancelled 96 L Carbon Dioxide Cancelled 25 Anion Gap Cancelled 17 BUN Cancelled 26 H Creatinine Cancelled 4.41 H Est GFR ( Amer) Cancelled 17 L Est GFR (Non-Af Amer) Cancelled 14 L Glucose Cancelled 257 H Calcium Cancelled 9.0 Total Bilirubin Cancelled 1.0 Direct Bilirubin Cancelled 0.8 H Neonat Total Bilirubin Cancelled Not Reportable Neonat Direct Bilirubin Cancelled Not Reportable Neonat Indirect Bili Cancelled Not Reportable AST Cancelled 16 L ALT Cancelled 21 Alkaline Phosphatase Cancelled 102 Total Protein Cancelled 6.9 Albumin Cancelled 4.3 10/28/18 15:54 - Vital Signs Vital signs: Temp Pulse Resp BP Pulse Ox 98.6 F 88 20 166/92 H 97 10/28/18 15:00 10/28/18 15:00 10/28/18 15:00 10/28/18 15:00 10/28/18 15:00 - Laboratory Result Diagrams: 10/28/18 11:16 10/28/18 12:00 Laboratory results interpreted by me: 10/28/18 10/28/18 11:16 12:00 RBC 3.71 L Hgb 11.9 L Hct 35.0 L RDW 14.7 H Seg Neutrophils % 81.5 H Lymphocytes % 7.7 L Chloride 96 L BUN 26 H Creatinine 4.41 H Est GFR ( Amer) 17 L Est GFR (Non-Af Amer) 14 L Glucose 257 H Direct Bilirubin 0.8 H AST 16 L Discharge - Discharge Clinical Impression: Nausea and vomiting Qualifiers: Vomiting type: unspecified Vomiting Intractability: non-intractable Qualified Code(s): R11.2 - Nausea with vomiting, unspecified Condition: Stable Disposition: HOME, SELF-CARE Additional Instructions: Please return to the emergency department if you have any worsening, or concern of your symptoms. Please return to the emergency department if you develop chest pain, difficulty breathing, severe abdominal pain, or ongoing vomiting. Please follow-up with your primary care physician in 2-3 days and any other recommended physicians. If prescribed, take all medications as directed. If you have any questions or concerns do not hesitate to return the emergency department for evaluation. [] Prescriptions: Promethazine HCl [Phenergan 25 mg Tablet] 1 - 2 tab PO Q6H PRN #15 tablet PRN Reason: Referrals: Chantal EDGAR MD [ACTIVE STAFF] - Follow up in 3-5 days [facility] [Primary [facility]] - Follow up in 3-5 days
[2018-10-28 15:06] VITALS: BP 166/92
== END 2018-10-28 15:06 | disposition home or self-care (01) ==
LOC: ER 10:22
DX: R11.2 Nausea with vomiting, unspecified (principal); I12.0 Hypertensive chronic kidney disease with stage 5 chronic kidney disease or end stage renal disease; E10.22 Type 1 diabetes mellitus with diabetic chronic kidney disease; N18.6 End stage renal disease; Z99.2 Dependence on renal dialysis; Z96.41 Presence of insulin pump (external) (internal); Z87.891 Personal history of nicotine dependence; Z91.041 Radiographic dye allergy status
CPT/HCPCS: 36415; 80053; 85025; 99283

== ENCOUNTER 2019-01-07 20:41 | Emergency (ER) | payer OTHER, MEDICARE ==
[2019-01-07] MEDS ORDERED: ONDANSETRON HCL INJ/PF 4 MG/2 ML SDV IV ONE (22:07)
[2019-01-07 22:15] LABS: ABSOLUTE BASOPHILS # (AUTO) 0.1 10^3/uL (0.0-0.2); ABSOLUTE EOSINOPHILS # (AUTO) 0.2 10^3/uL (0.0-0.6); ABSOLUTE MONOCYTES (AUTO) 0.6 10^3/uL (0.1-1.4); ABSOLUTE NEUT (AUTO) 3.9 10^3/uL (1.7-8.2); BASOPHILS % (AUTO) 1.4 % (0-2); EOSINOPHILS % (AUTO) 2.7 % (0-6); HEMATOCRIT 37.2 % (37.9-51.0); HEMOGLOBIN 12.9 g/dL (13.5-17.0); LYMPHOCYTES % (AUTO) 16.8 % (13-45); MEAN CORPUSCULAR HGB CONC 34.7 g/dL (32.0-36.0); MEAN CORPUSCULAR VOLUME 95 fl (80-97); MONOCYTES % (AUTO) 11.3 % (3-13); PLATELET COUNT 162 10^3/uL (150-450); RED BLOOD COUNT 3.91 10^6/uL (4.35-5.55); RED CELL DISTRIBUTION WIDTH 15.2 % (11.5-14.0); SEGMENTED NEUTROPHILS % (AUTO) 67.8 % (42-78); TOTAL CELLS COUNTED % (AUTO) 100 %; WHITE BLOOD COUNT 5.7 10^3/uL (4.0-10.5)
[2019-01-07 22:31] LABS: ALANINE AMINOTRANSFERASE 17 U/L (21-72); ALBUMIN 4.3 g/dL (3.5-5.0); ALKALINE PHOSPHATASE 81 U/L (38-126); ANION GAP 14 (5-19); ASPARTATE AMINO TRANSFERASE 16 U/L (17-59); BILIRUBIN,DIRECT 0.8 mg/dL (0.0-0.4); BILIRUBIN,TOTAL 1.4 mg/dL (0.2-1.3); BLOOD UREA NITROGEN 43 mg/dL (7-20); CARBON DIOXIDE 29 mmol/L (22-30); CHLORIDE 95 mmol/L (98-107); POTASSIUM 5.3 mmol/L (3.6-5.0); SODIUM 137.6 mmol/L (137-145); TOTAL PROTEIN 7.4 g/dL (6.3-8.2)
[2019-01-07 22:47] LABS: GLUCOSE 41 mg/dL (75-110)
[2019-01-07] MEDS ORDERED: PROMETHAZINE HCL INJ 25 MG/1 ML VIAL IM ONE (22:50)
--- NOTE | 2019-01-07 22:58 | ER Document Report ---
ED General - General Chief Complaint: Nausea/Vomiting Stated Complaint: NAUSEA Time Seen by Provider: 01/07/19 22:06 Primary Care Provider: SHERRI BULLOCK [Primary Care Provider] - Follow up as needed Notes: Patient is a 48-year-old male who presents with complaint of feeling nauseous. He says been intermittent since Wednesday. He says he has had this problems in the past. He says is not exactly sure what causes nausea. Says it seems to be worse during dialysis he starts having dry heaving sometimes during dialysis. Says he was given Zofran during dialysis yesterday. He gets dialysis Wednesday. No other complications during dialysis. He is done full round of dialysis without issues. He denies fevers. No chest pain. No abdominal pain other than some soreness whenever he dry heaves. Said his bowel movements have been little constipated but this is an ongoing problem due to dialysis. He has had bowel movements the last several days. No other complaints at this time. He is a diabetic. He is on an insulin pump. He says that his sugar was low in the ER today probably because he did not eat much in the evening because he felt nauseous but was still wearing his insulin pump. He is currently eating. He said Zofran does help some. He has had Phenergan in the past but says it makes a bit sleepy but does help. No history of coronary disease. Did have history of congestive heart failure once but says that is related to him going into kidney failure. TRAVEL OUTSIDE OF THE [place] IN LAST 30 DAYS: No - Related Data Allergies/Adverse Reactions: Iodinated Contrast- Oral and IV Dye Allergy (Verified 01/07/19 20:46) Past Medical History - Social History Smoking Status: Unknown if Ever Smoked Frequency of alcohol use: None Drug Abuse: None Family History: CAD, DM - Past Medical History Cardiac Medical History: Reports: Hx Hypertension Denies: Hx Atrial Fibrillation, Hx Congestive Heart Failure, Hx Coronary Artery Disease - Negative chemical stress 2 weeks ago; negative heart cath last September, Hx DVT, Hx Heart Attack, Hx Hypercholesterolemia, Hx Pulmonary Embolism Pulmonary Medical History: Denies: Hx Asthma, Hx COPD, Hx Sleep Apnea Neurological Medical History: Denies: Hx Seizures Endocrine Medical History: Reports: Hx Diabetes Mellitus Type 1 - insulin pump. Denies: Hx Diabetes Mellitus Type 2, Hx Hyperthyroidism, Hx Hypothyroidism Renal/ Medical History: Reports: Hx End Stage Renal Disease, Hx Hemodialysis. Denies: Hx Peritoneal Dialysis GI Medical History: Denies: Hx Cirrhosis, Hx Gastroesophageal Reflux Disease, Hx Hepatitis Musculoskeletal Medical History: Reports Hx Arthritis Psychiatric Medical History: Denies: Hx Depression Infectious Medical History: Denies: Hx Hepatitis Past Surgical History: Reports: Hx Orthopedic Surgery - r/t traumas x 2, Hx Vascular Surgery - Access surgery for hemodialysis. Left upper extremity fistula. - Immunizations Hx Diphtheria, Pertussis, Tetanus Vaccination: Yes Review of Systems - Review of Systems Notes: My Normal Review Basic REVIEW OF SYSTEMS: CONSTITUTIONAL : Denies fever, chills, or sweats. Denies recent illness. EENT: Denies eye, ear, throat, or mouth pain or symptoms. Denies nasal or sinus congestion. CARDIOVASCULAR: Denies chest pain. RESPIRATORY: Denies cough, cold, or chest congestion. Denies shortness of breath, difficulty breathing, or wheezing. GASTROINTESTINAL: Denies abdominal pain. Nausea. No vomiting. GENITOURINARY: Denies difficulty urinating, painful urination, burning, frequency, or blood in urine. MUSCULOSKELETAL: Denies neck or back pain or joint pain or swelling. SKIN: Denies rash or skin lesions. NEUROLOGICAL: Denies altered mental status or loss of consciousness. Denies headache. Denies weakness or paralysis or loss of use of either side. Denies problems with gait or speech. Denies sensory or motor loss. ALL OTHER SYSTEMS REVIEWED AND NEGATIVE. Physical Exam - Vital signs Vitals: Temp Pulse Resp BP Pulse Ox 98.1 F 69 18 169/80 H 99 01/07/19 20:45 01/07/19 20:45 01/07/19 20:45 01/07/19 20:45 01/07/19 20:45 - Notes Notes: General Appearance: Well nourished, alert, cooperative, no acute distress, no obvious discomfort. Well-appearing. Vitals: reviewed, See vital signs table. Head: no swelling or tenderness to the head Eyes: PERRL, EOMI, Conjuctiva clear Mouth: No decreasd moisture Lungs: No wheezing, No rales, No rhonci, No accessory muscle use, good air exchange bilaterally. Heart: Normal rate, Regular rythm, No murmur, no rub Abdomen: Normal BS, soft, No rigidity, No abdominal tenderness, No guarding, no rebound Extremities: strength 5/5 in all extremities, good pulses in all extremities, no swelling or tenderness in the extremities, no edema. Skin: warm, dry, appropriate color, no rash Neuro: speech clear, oriented x 3, normal affect, responds appropriately to questions. Course - Vital Signs Vital signs: Temp Pulse Resp BP Pulse Ox 98.1 F 69 18 169/80 H 99 01/07/19 20:45 01/07/19 20:45 01/07/19 20:45 01/07/19 20:45 01/07/19 20:45 - Laboratory Result Diagrams: 01/07/19 22:00 01/07/19 22:00 Laboratory results interpreted by me: 01/07/19 01/07/19 01/07/19 22:00 22:00 22:32 RBC 3.91 L Hgb 12.9 L Hct 37.2 L RDW 15.2 H Potassium 5.3 H Chloride 95 L BUN 43 H Creatinine 6.75 H Est GFR ( Amer) 11 L Est GFR (Non-Af Amer) 9 L Glucose 41 L POC Glucose 45 L Total Bilirubin 1.4 H Direct Bilirubin 0.8 H AST 16 L ALT 17 L 01/08/19 00:28 RBC Hgb Hct RDW Potassium Chloride BUN Creatinine Est GFR ( Amer) Est GFR (Non-Af Amer) Glucose POC Glucose 137 H Total Bilirubin Direct Bilirubin AST ALT - EKG Interpretation by Me Additional EKG results interpreted by me: 01/07/19 23:13 EKG is reviewed and interpreted by me. EKG shows sinus rhythm with a rate of [address] segment elevation. Very minimal ST segment depression in the lateral and lateral precordial leads which is unchanged comparison to previous EKG from June 25, 2018. MN interval, QRS duration are within normal range. QT interval slightly prolonged. Discharge - Discharge Clinical Impression: Nausea Condition: Good Disposition: HOME, SELF-CARE Additional Instructions: We will place her on Phenergan for nausea. We will also give her some Zofran to take with you taking a prescription filled. Please have a low threshold to return to ER if you have fevers, abdominal pain, chest pain, or feel that you are worsening in any way. Please keep a close eye on your blood sugars and make sure you do eat and drink appropriately so that sugar does not get too low. 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 Prescriptions: Promethazine HCl [Phenergan 25 mg Tablet] 1 tab PO Q6H PRN #15 tablet PRN Reason:
[2019-01-08] MEDS ORDERED: PROMETHAZINE HCL INJ 25 MG/1 ML VIAL IM ONE (00:53)
[2019-01-08] MEDS ORDERED: ONDANSETRON ODT 4 MG TAB (6 TAB/ER DISP) PO PRN (00:54)
[2019-01-08 07:47] VITALS: BP 170/77
--- NOTE | 2019-01-08 11:10 | EKG REPORT ---
SEVERITY:- ABNORMAL ECG - SINUS RHYTHM LEFT ATRIAL ABNORMALITY LEFT ANTERIOR FASCICULAR BLOCK LVH WITH SECONDARY REPOLARIZATION ABNORMALITY BORDERLINE PROLONGED QT INTERVAL : Confirmed by: Marleen Boswell MD 08-Jan-2019 11:09:40
== END 2019-01-08 01:40 | disposition home or self-care (01) ==
LOC: ER 20:41
DX: R11.2 Nausea with vomiting, unspecified (principal); E10.22 Type 1 diabetes mellitus with diabetic chronic kidney disease; I12.0 Hypertensive chronic kidney disease with stage 5 chronic kidney disease or end stage renal disease; N18.6 End stage renal disease; Z99.2 Dependence on renal dialysis; Z96.41 Presence of insulin pump (external) (internal)
CPT/HCPCS: 93005; 99284; 96372; 96374; 36415; 82962; 85025; 80053; 93010; J2550 ×2; J2405

== ENCOUNTER 2019-02-10 12:00 | Emergency (ER) | payer OTHER, MEDICARE ==
[2019-02-10 12:41] LABS: ABSOLUTE BASOPHILS # (AUTO) 0.1 10^3/uL (0.0-0.2); ABSOLUTE EOSINOPHILS # (AUTO) 0.2 10^3/uL (0.0-0.6); ABSOLUTE MONOCYTES (AUTO) 0.4 10^3/uL (0.1-1.4); ABSOLUTE NEUT (AUTO) 2.8 10^3/uL (1.7-8.2); BASOPHILS % (AUTO) 1.2 % (0-2); EOSINOPHILS % (AUTO) 3.9 % (0-6); HEMOGLOBIN 11.7 g/dL (13.5-17.0); LYMPHOCYTES % (AUTO) 21.7 % (13-45); MEAN CORPUSCULAR HEMOGLOBIN 31.7 pg (27.0-33.4); MEAN CORPUSCULAR HGB CONC 33.5 g/dL (32.0-36.0); MEAN CORPUSCULAR VOLUME 95 fl (80-97); MONOCYTES % (AUTO) 8.8 % (3-13); PLATELET COUNT 154 10^3/uL (150-450); SEGMENTED NEUTROPHILS % (AUTO) 64.4 % (42-78); TOTAL CELLS COUNTED % (AUTO) 100 %; WHITE BLOOD COUNT 4.4 10^3/uL (4.0-10.5)
[2019-02-10 13:03] LABS: ALANINE AMINOTRANSFERASE 18 U/L (21-72); ALBUMIN 4.1 g/dL (3.5-5.0); ALKALINE PHOSPHATASE 71 U/L (38-126); ANION GAP 15 (5-19); ASPARTATE AMINO TRANSFERASE 15 U/L (17-59); BILIRUBIN,DIRECT 0.6 mg/dL (0.0-0.4); BILIRUBIN,TOTAL 0.9 mg/dL (0.2-1.3); BLOOD UREA NITROGEN 20 mg/dL (7-20); CALCIUM 8.8 mg/dL (8.4-10.2); CARBON DIOXIDE 30 mmol/L (22-30); CHLORIDE 94 mmol/L (98-107); CREATINE KINASE 113 U/L (55-170); GLUCOSE 221 mg/dL (75-110); POTASSIUM 3.6 mmol/L (3.6-5.0); SODIUM 138.8 mmol/L (137-145)
[2019-02-10 13:14] LABS: CREATINE KINASE MB 2.9 ng/mL (<4.55)
[2019-02-10] MEDS ORDERED: DILTIAZEM HCL INJ 25 MG/5 ML VIAL IV ONE (13:23)
--- NOTE | 2019-02-10 13:29 | ER Document Report ---
ED Cardiac - General Chief Complaint: Irregular Pulse Stated Complaint: RAPID PULSE Time Seen by Provider: 02/10/19 13:01 Primary Care Provider: SHERRI BULLOCK [Primary Care Provider] - Follow up as needed Notes: 48-year-old male with end-stage renal disease on dialysis Wednesday/Wednesday/Wednesday presents to the emergency department for chief complaint of tachycardia for 3 days. Patient was at dialysis on Wednesday when they were, he went about his business and had no issues. When he saw dialysis today he was tachycardic again in the 120s and then upon arrival here his heart rate was 125 with a BP of 148/100. Patient was in a flutter. Of note, patient was seen by the [place] slope hoist operator on Wednesday and had an EKG that showed a flutter and echocardiogram which was unremarkable. He does have a history of a pericardial effusion secondary to his kidney disease in the past. Patient denies headache, dizziness, lightheadedness, shortness of breath or chest pain, nausea or vomiting, diaphoresis, any other symptoms. He does make a small amount of urine seldom. TRAVEL OUTSIDE OF THE [place] IN LAST 30 DAYS: No - Related Data Allergies/Adverse Reactions: Iodinated Contrast- Oral and IV Dye Allergy (Verified 01/07/19 20:46) Past Medical History - Social History Smoking Status: Current Some Day Smoker Frequency of alcohol use: None Drug Abuse: None Family History: CAD, DM Patient has suicidal ideation: No Patient has homicidal ideation: No - Past Medical History Cardiac Medical History: Reports: Hx Hypertension Denies: Hx Atrial Fibrillation, Hx Congestive Heart Failure, Hx Coronary Artery Disease - Negative chemical stress 2 weeks ago; negative heart cath last September, Hx DVT, Hx Heart Attack, Hx Hypercholesterolemia, Hx Pulmonary Embolism Pulmonary Medical History: Denies: Hx Asthma, Hx COPD, Hx Sleep Apnea Neurological Medical History: Denies: Hx Seizures Endocrine Medical History: Reports: Hx Diabetes Mellitus Type 1 - insulin pump. Denies: Hx Diabetes Mellitus Type 2, Hx Hyperthyroidism, Hx Hypothyroidism Renal/ Medical History: Reports: Hx End Stage Renal Disease, Hx Hemodialysis. Denies: Hx Peritoneal Dialysis GI Medical History: Denies: Hx Cirrhosis, Hx Gastroesophageal Reflux Disease, Hx Hepatitis Musculoskeletal Medical History: Reports Hx Arthritis Psychiatric Medical History: Denies: Hx Depression Infectious Medical History: Denies: Hx Hepatitis Past Surgical History: Reports: Hx Orthopedic Surgery - r/t traumas x 2, Hx Vascular Surgery - Access surgery for hemodialysis. Left upper extremity fistula. - Immunizations Hx Diphtheria, Pertussis, Tetanus Vaccination: Yes Review of Systems - Review of Systems Constitutional: See HPI EENT: No symptoms reported Cardiovascular: See HPI Respiratory: See HPI Gastrointestinal: See HPI Genitourinary: See HPI Male Genitourinary: No symptoms reported Musculoskeletal: No symptoms reported Skin: No symptoms reported Hematologic/Lymphatic: No symptoms reported Neurological/Psychological: No symptoms reported Physical Exam - Vital signs Vitals: Temp Pulse Resp BP Pulse Ox 98.4 F 125 H 18 148/100 H 94 02/10/19 12:06 02/10/19 12:06 02/10/19 12:06 02/10/19 12:06 02/10/19 12:06 - Notes Notes: PHYSICAL EXAMINATION: Reviewed vital signs and charting by RN GENERAL: Alert, interacts well. No acute distress. HEAD: Normocephalic, atraumatic. EYES: Pupils equal and round. Extraocular movements intact. ENT: Oral mucosa moist, tongue midline. NECK: Full range of motion. Supple. Trachea midline. LUNGS: Clear to auscultation bilaterally, no wheezes, rales, or rhonchi. No respiratory distress. HEART: In a flutter. No murmur ABDOMEN: soft, non-tender. Mildly-distended. Bowel sounds present. no McBurney's point tenderness, no Lebron sign. EXTREMITIES: Moves all 4 extremities spontaneously. No edema, No cyanosis. Normal distal neurovascular exam BACK: No CVAT NEUROLOGIC: Oriented and appropriate. Normal speech. PSYCH: Normal affect, normal mood. SKIN: Warm, dry, normal turgor. No rashes or lesions noted. Course - Re-evaluation Re-evalutation: 02/10/19 13:29 Generally well-appearing in no acute distress. Patient has no complaints other than a rapid heart rate. Patient is in contact with a slope hoist operator, Dr. cool out of [facility]. He is currently in a flutter and after discussing with Dr. Gardner we will give him Cardizem 15 mg IV 1 time. 02/10/19 16:27 Patient responded well to the Cardizem. He is completely asymptomatic. I did talk to Dr. Boswell, slope hoist operator on-call who said, because this is a new onset he wants him to start Eliquis 2.5 mg twice daily until he can see a slope hoist operator. Bryan this with the patient he is in agreement with the plan and I told him to follow-up with the slope hoist operator that he has a connection with a new burn first thing next week. I explained to him the risks and precautions to bro villatoro while on Eliquis. - Vital Signs Vital signs: Temp Pulse Resp BP Pulse Ox 98.4 F 125 H 19 167/91 H 98 02/10/19 12:06 02/10/19 12:06 02/10/19 15:47 02/10/19 15:47 02/10/19 15:47 - Laboratory Result Diagrams: 02/10/19 12:26 02/10/19 12:26 Laboratory results interpreted by me: 02/10/19 02/10/19 02/10/19 12:26 12:26 12:33 RBC 3.70 L Hgb 11.7 L Hct 35.0 L RDW 15.0 H Chloride 94 L Creatinine 3.60 H Est GFR ( Amer) 22 L Est GFR (Non-Af Amer) 18 L Glucose 221 H POC Glucose 202 H Direct Bilirubin 0.6 H AST 15 L ALT 18 L Discharge - Discharge Clinical Impression: Tachycardia Atrial flutter Qualifiers: Atrial flutter type: unspecified Qualified Code(s): I48.92 - Unspecified atrial flutter Condition: Good Disposition: HOME, SELF-CARE Additional Instructions: You were seen in the emergency department this afternoon for a rapid heart rate and for atrial flutter. Your EKG showed that your heart rate was irregular. I spoke with the slope hoist operator who is on-call, Dr. Boswell, who recommended that you start Eliquis 2.5 mg 2 times per day until you see your slope hoist operator and make a definitive plan. Please note this does increase your risk of bleeding as it is a blood thinner. It is very important that you take precautions to avoid falls or other injuries. If you develop severe chest pain, acute shortness of breath, develop a rapid heart rate, or feel generally ill please immediately return to the emergency department. [facility]errals: [facility] [[facility] - Follow up as needed
[2019-02-10 13:40] LABS: TROPONIN I 0.1 ng/mL
[2019-02-10] MEDS ORDERED: APIXABAN 2.5 MG TABLET PO ONE (16:30)
[2019-02-10 17:17] VITALS: BP 132/87
--- NOTE | 2019-02-10 18:51 | EKG REPORT ---
SEVERITY:- ABNORMAL ECG - ATRIAL FLUTTER WITH 2:1 AV BLOCK PROBABLE LVH WITH SECONDARY REPOL ABNRM ST ELEVATION, CONSIDER INFERIOR INJURY PROLONGED QT INTERVAL : Confirmed by: Low Rosario 10-Feb-2019 18:51:23
== END 2019-02-10 17:18 | disposition home or self-care (01) ==
LOC: ER 12:00
DX: I48.92 Unspecified atrial flutter (principal); R00.0 Tachycardia, unspecified; E10.22 Type 1 diabetes mellitus with diabetic chronic kidney disease; I12.0 Hypertensive chronic kidney disease with stage 5 chronic kidney disease or end stage renal disease; N18.6 End stage renal disease; F17.200 Nicotine dependence, unspecified, uncomplicated; Z99.2 Dependence on renal dialysis; Z96.41 Presence of insulin pump (external) (internal)
CPT/HCPCS: 93005; 99285; 96374; 36415; 82553; 82962; 82550; 83735; 85025; 80053; 84484; 93010; J3490

== ENCOUNTER 2019-05-13 08:17 | Emergency (ER) | payer OTHER, MEDICARE ==
[2019-05-13 08:23] VITALS: BP 138/75
[2019-05-13] MEDS ORDERED: ACETAMINOPHEN 325 MG TABLET PO ONE (09:15)
--- NOTE | 2019-05-13 09:18 | ER Document Report ---
HPI - HPI Patient complains to provider of: right knee pain, back pain Time Seen by Provider: 05/13/19 09:08 Onset: This morning Onset/Duration: Sudden Severity: Severe Pain Level: 4 Context: This 48-year-old male presents the emergency department with complaints of right knee pain. Reports he has a history of chronic knee pain since 2003. He reports he has had surgery and a rae placed. He also complains of mid back pain. He reports that he was walking and almost fell but his arm out to catch himself when he twisted his back and his left shoulder. He reports he did not fall but he jerked when he caught himself. He is under the care of [facility]. He does take Cymbalta for pain management. No other symptoms such as fever vomiting diarrhea. Patient reports pain with movement. Patient has history of diabetes, end-stage renal failure with dialysis Wednesday and Wednesday. No complaints of numbness or tingling. No complaints of urinary/bowel incontinence or retention. Patient does produce a little urine which is normal for him.. Patient reports he is waiting for a kidney and pancreas transplant. Associated Symptoms: None Exacerbated by: Walking Relieved by: Denies Similar symptoms previously: Yes Recently seen / treated by doctor: No - REPRODUCTIVE Reproductive: DENIES: : - DERM Skin Color: Normal Past Medical History - General Information source: Patient - Social History Smoking Status: Unknown if Ever Smoked Cigarette use (# per day): No Frequency of alcohol use: None Drug Abuse: None Family History: CAD, DM Patient has suicidal ideation: No Patient has homicidal ideation: No - Past Medical History Cardiac Medical History: Reports: Hx Hypertension Denies: Hx Atrial Fibrillation, Hx Congestive Heart Failure, Hx Coronary Artery Disease - Negative chemical stress 2 weeks ago; negative heart cath last September, Hx DVT, Hx Heart Attack, Hx Hypercholesterolemia, Hx Pulmonary Embolism Pulmonary Medical History: Denies: Hx Asthma, Hx COPD, Hx Sleep Apnea Neurological Medical History: Denies: Hx Seizures Endocrine Medical History: Reports: Hx Diabetes Mellitus Type 1 - insulin pump. Denies: Hx Diabetes Mellitus Type 2, Hx Hyperthyroidism, Hx Hypothyroidism Renal/ Medical History: Reports: Hx End Stage Renal Disease, Hx Hemodialysis. Denies: Hx Peritoneal Dialysis GI Medical History: Denies: Hx Cirrhosis, Hx Gastroesophageal Reflux Disease, Hx Hepatitis Musculoskeletal Medical History: Reports Hx Arthritis Psychiatric Medical History: Denies: Hx Depression Infectious Medical History: Denies: Hx Hepatitis Past Surgical History: Reports: Hx Orthopedic Surgery - r/t traumas x 2, Hx Vascular Surgery - Access surgery for hemodialysis. Left upper extremity fistula. - Immunizations Hx Diphtheria, Pertussis, Tetanus Vaccination: Yes Vertical Provider Document - CONSTITUTIONAL Agree With Documented VS: Yes Exam Limitations: No Limitations General Appearance: WD/WN, Mild Distress - facial grimaces and winces with movement and palpation to right knee - INFECTION CONTROL TRAVEL OUTSIDE OF THE [place] IN LAST 30 DAYS: No - HEENT HEENT: Atraumatic, Normocephalic - NECK Neck: Supple - RESPIRATORY Respiratory: No Respiratory Distress - CARDIOVASCULAR Cardiovascular: Regular Rate - BACK Back: Normal Inspection - No obvious deformity no step-off good distal movement and sensation - MUSCULOSKELETAL/EXTREMETIES Musculoskeletal/Extremeties: MAEW, FROM, Tender - Right knee tender to palpate no obvious deformity no swelling no erythema no warmth full range of motion walks without problems. - NEURO Level of Consciousness: Awake, Alert, Appropriate Motor/Sensory: No Motor Deficit - DERM Integumentary: Warm, Dry, No Rash Course - Re-evaluation Re-evalutation: 05/13/19 11:30 This 48-year-old male presents the emergency department with complaints of right knee pain. Reports he has a history of chronic knee pain since 2003. Is waiting for his referral to orthopedics that the [facility] has initiated. He reports he has a history of surgery and a rae placed. He also complains of mid back pain. He reports that he was walking and almost fell but put his arm out to catch himself when he twisted his back and his left shoulder. He reports he did not fall but he jerked when he caught himself. He is under the care of [facility]. He does take Cymbalta for pain management. No other symptoms such as fever vomiting diarrhea. Patient reports pain with movement. Patient has history of diabetes, end-stage renal failure with dialysis Wednesday and Wednesday. No complaints of numbness or tingling. No complaints of urinary/bowel incontinence or retention. Patient does produce a little urine which is normal for him.. 05/13/19 13:37 We are having difficulty obtaining images from x-ray. Patient was discharged home based on physical exam no erythema no swelling no warmth to his right knee. He was placed on Raul wrap and given pain medication to go. Patient was instructed [facility]. Knee X-Ray 05/13/19 09:15 IMPRESSION: CHRONIC FINDINGS ABOVE. HARDWARE IN THE TIBIA. NO RADIOGRAPHIC EVIDENCE OF ACUTE INJURY. - Vital Signs Vital signs: Temp Pulse Resp BP Pulse Ox 97.7 F 60 18 138/75 H 96 05/13/19 08:22 05/13/19 08:22 05/13/19 08:22 05/13/19 08:22 05/13/19 08:22 Procedures - Immobilization Right Knee Pre-Proc Neuro Vasc Exam: Normal Immobilizer type: Raul wrap Performed by: RN Post-Proc Neuro Vasc Exam: Unchanged from pre-exam Discharge - Discharge Clinical Impression: Mid back pain Right knee pain Qualifiers: Chronicity: unspecified Qualified Code(s): M25.561 - Pain in right knee Condition: Stable Disposition: HOME, SELF-CARE Instructions: Acetaminophen, Chronic Back Pain ([facility]), Ice & Elevation ([facility]), Ice Packs ([facility]), Muscle Relaxers ([facility]), Oral Narcotic Medication ([facility]) Additional Instructions: *You have been evaluated for right knee pain, back pain *Take medication as prescribed *Maintain the raul wrap for comfort *Rest/Ice/elevate your knee, ice packs to your back, 20 minutes on/20 minutes off *Follow up with your primary care provider within 3 days for recheck and referral to orthopedics for evaluation *Return to ED for worsening condition, changes, needs Prescriptions: Cyclobenzaprine HCl [Flexeril 10 Mg Tablet] 10 mg PO TID #15 tablet Forms: Elevated Blood Pressure [facility]: [facility] [[facility]] - Follow up in 3-5 days
[2019-05-13] MEDS ORDERED: HYDROCODONE/ACETAMINOPHEN 5-325 MG (6 TAB/ER DISP) PO PRN (11:19)
--- NOTE | 2019-05-13 13:03 | RADIOLOGY REPORT (SQ) ---
EXAM DESCRIPTION: KNEE RIGHT 4 VIEWS COMPLETED DATE/TIME: 05/13/2019 12:13 pm REASON FOR STUDY: pain, pt twisted knee COMPARISON: None. NUMBER OF VIEWS: Four views. TECHNIQUE: AP, lateral, and both oblique radiographic images acquired of the right knee. LIMITATIONS: None. FINDINGS: MINERALIZATION: Normal. BONES: No acute fracture or dislocation. Hardware in the proximal tibia. No worrisome bone lesions. Mild spurring on the superior patella at the attachment of the quadriceps tendon. JOINT: No effusion. SOFT TISSUES: No soft tissue swelling. No radio-opaque foreign body. Calcification adjacent to the lateral femoral condyle. OTHER: No other significant finding. IMPRESSION: CHRONIC FINDINGS ABOVE. HARDWARE IN THE TIBIA. NO RADIOGRAPHIC EVIDENCE OF ACUTE INJ URY. TECHNICAL DOCUMENTATION: JOB ID: [id number] [employer]- All Rights Reserved Reading location - IP/workstation name: [email or web address]
== END 2019-05-13 11:30 | disposition home or self-care (01) ==
LOC: ER 08:17
DX: M25.561 Pain in right knee (principal); G89.29 Other chronic pain; M54.9 Dorsalgia, unspecified; X50.0XXA Overexertion from strenuous movement or load, initial encounter; Y93.01 Activity, walking, marching and hiking; E10.22 Type 1 diabetes mellitus with diabetic chronic kidney disease; I12.0 Hypertensive chronic kidney disease with stage 5 chronic kidney disease or end stage renal disease; N18.6 End stage renal disease; Z99.2 Dependence on renal dialysis; Z96.41 Presence of insulin pump (external) (internal); Z79.899 Other long term (current) drug therapy; Z98.890 Other specified postprocedural states
CPT/HCPCS: 99283

== ENCOUNTER 2019-08-22 08:23 | Day surgery (SDC) | payer OTHER, MEDICARE ==
[~2019-08-22 08:23] MED LIST: CHONDR SU A NA/HYALUR INTRAOC KIT (SURGICARE) ONE; DORZOLAMIDE HCL 2%/TIMOLOL MALEAT 0.5% OPH SOLN 10 ML OS PRN; EPINEPHRINE INJ/PF 1 MG/1 ML AMPULE ONE; KETOROLAC TROMETHAMINE 0.45% 4 DROP/0.4 ML DROPERETTE OS PRN; LIDOCAINE 1%/PHENYLEPHRINE 1.5% 1 ML VIAL ONE
[2019-08-22] MEDS: BESIFLOXACIN HCL 0.6% OPH SUSP 5 ML BOTTLE OS PRN ×3 (09:04→10:23)
[2019-08-22] MEDS: CYCLOPENTOLATE 0.2%/PHENYLEPHRINE 1% OPH SOLN 2 ML OS PRN ×3 (09:04→09:24)
[2019-08-22] MEDS: TROPICAMIDE 1% OPH SOLN 15 ML OS PRN ×3 (09:04→09:24)
[2019-08-22] MEDS: TETRACAINE HCL 0.5% OPH SOLN 4 ML OS PRN ×3 (09:05→10:04)
[2019-08-22] MEDS ORDERED: FENTANYL CITRATE INJ/PF 100 MCG/2 ML AMPUL ONE (10:03)
[2019-08-22] MEDS ORDERED: MIDAZOLAM 2 MG/2 ML INJ ONE (10:03)
--- NOTE | 2019-08-23 07:41 | Operative Report ---
Operative Report-[facility] Operative Report: DATE OF SURGERY: 08/22/2019 PREOPERATIVE DIAGNOSIS: Cataracts, left eye POSTOPERATIVE DIAGNOSIS: Cataract, left eye OPERATION: Cataract extraction with insertion of an IOL of the left eye. Intraocular Lens Model: [21.0 sn60wf] Reason for surgery is difficulty seeing the television SURGEON: Sergio Linares MD ANESTHESIA: Topical PROCEDURE: After obtaining appropriate consent, the patient's left eye was prepped and draped in a sterile fashion as well as the surgeon in the sterile manner and cataract surgery was started. First a paracentesis blade was used to make a side-port incision. Viscoelastic was used to inflate the anterior chamber. Next a 2.4 mm incision was made with a 2.4 mm blade, clear corneal temporarily. A continuous capsulorrhexis was made using a cystotome and Utrata forceps. Following this hydrodissection was carried out to make commands fully loose and mobile and it was rotated 90 degrees. Following this, a divide and conquer technique was used to phacoemulsify the lens. The remaining cortex was removed with an irrigation/aspiration. Provisc was instilled into the capsular bag to inflate the bag.The intracular lens was placed. The remaining viscoelastic material was removed with irrigation/aspiration. Following this, the incision was found to be watertight. Besivance and Cosopt was instilled into the eye and a protective shield was placed over the eye. The patient was turned to the postoperative recovery in a stable condition.
== END 2019-08-22 11:11 | disposition home or self-care (01) ==
LOC: SC 08:23
PROVIDERS: ATTEND Internal Medicine
DX: H25.812 Combined forms of age-related cataract, left eye (principal); Z87.891 Personal history of nicotine dependence; N18.9 Chronic kidney disease, unspecified; Z99.2 Dependence on renal dialysis
CPT/HCPCS: 66984; 82962; 00142; V2632; J2250; J3490 ×2; J0171; J3010; J2370; 142

== ENCOUNTER 2019-09-01 01:08 | Emergency (ER) | payer OTHER, MEDICARE ==
[2019-09-01] MEDS ORDERED: NORMAL SALINE 1000 ML 1,000 ML IV ONE (02:07)
[2019-09-01] MEDS ORDERED: ONDANSETRON HCL INJ/PF 4 MG/2 ML SDV IV ONE (02:07)
[2019-09-01 03:06] LABS: ALBUMIN 4.5 g/dL (3.5-5.0); ALKALINE PHOSPHATASE 67 U/L (38-126); ANION GAP 17 (5-19); ASPARTATE AMINO TRANSFERASE 29 U/L (17-59); BILIRUBIN,DIRECT 0.8 mg/dL (0.0-0.4); BILIRUBIN,TOTAL 1.2 mg/dL (0.2-1.3); BLOOD UREA NITROGEN 71 mg/dL (7-20); CARBON DIOXIDE 21 mmol/L (22-30); CHLORIDE 97 mmol/L (98-107); GLUCOSE 96 mg/dL (75-110); POTASSIUM 5.4 mmol/L (3.6-5.0); TOTAL PROTEIN 8.3 g/dL (6.3-8.2)
[2019-09-01] MEDS ORDERED: MORPHINE SULFATE 10 MG/ML INJ IV ONE (03:27)
--- NOTE | 2019-09-01 03:30 | ER Document Report ---
ED GI/ - General Chief Complaint: Nausea/Vomiting Stated Complaint: NAUSEA Time Seen by Provider: 09/01/19 03:21 Primary Care Provider: SHERRI BULLOCK [Primary Care Provider] - Follow up as needed Notes: Patient is a 49-year-old male that comes emergency department for chief complaint of nausea and vomiting. He states he randomly started getting nauseated then started vomiting, vomited several times and then came in for evaluation. He states he randomly does get this at times and he does not know why. He is a dialysis patient, Wednesday, he is due this morning at 6:45 AM. He barely makes any urine. He denies fever, chest pain, shortness of breath, dizziness, abnormal bowel movements. Patient is also an insulin- dependent diabetic and has a pump. He denies medical history otherwise. TRAVEL OUTSIDE OF THE [place] IN LAST 30 DAYS: No - Related Data Allergies/Adverse Reactions: Iodinated Contrast Media Allergy (Verified 09/01/19 01:09) Past Medical History - General Information source: Patient - Social History Smoking Status: Never Smoker Frequency of alcohol use: None Drug Abuse: None Lives with: Family Family History: CAD, DM Patient has suicidal ideation: No Patient has homicidal ideation: No - Past Medical History Cardiac Medical History: Reports: Hx Hypertension Denies: Hx Atrial Fibrillation, Hx Congestive Heart Failure, Hx Coronary Artery Disease - Negative chemical stress 2 weeks ago; negative heart cath last September, Hx DVT, Hx Heart Attack, Hx Hypercholesterolemia, Hx Pulmonary Embolism Pulmonary Medical History: Denies: Hx Asthma, Hx COPD, Hx Sleep Apnea Neurological Medical History: Denies: Hx Cerebrovascular Accident, Hx Seizures Endocrine Medical History: Reports: Hx Diabetes Mellitus Type 1 - insulin pump. Denies: Hx Diabetes Mellitus Type 2, Hx Hyperthyroidism, Hx Hypothyroidism Renal/ Medical History: Reports: Hx End Stage Renal Disease, Hx Hemodialysis. Denies: Hx Peritoneal Dialysis GI Medical History: Denies: Hx Cirrhosis, Hx Gastroesophageal Reflux Disease, Hx Hepatitis, Hx Hiatal Hernia, Hx Ulcer Musculoskeletal Medical History: Reports Hx Arthritis Psychiatric Medical History: Denies: Hx Depression Infectious Medical History: Denies: Hx Hepatitis Past Surgical History: Reports: Hx Orthopedic Surgery - r/t traumas x 2, Hx Vascular Surgery - Access surgery for hemodialysis. Left upper extremity fistula.. Denies: Hx Open Heart Surgery, Hx Pacemaker - Immunizations Hx Diphtheria, Pertussis, Tetanus Vaccination: Yes Review of Systems - Review of Systems Constitutional: No symptoms reported EENT: No symptoms reported Cardiovascular: No symptoms reported Respiratory: No symptoms reported Gastrointestinal: See HPI Genitourinary: No symptoms reported Male Genitourinary: No symptoms reported Musculoskeletal: No symptoms reported Skin: No symptoms reported Hematologic/Lymphatic: No symptoms reported Neurological/Psychological: No symptoms reported Physical Exam - Vital signs Vitals: Temp Pulse Resp BP Pulse Ox 98.2 F 63 20 136/72 H 96 09/01/19 01:12 09/01/19 01:12 09/01/19 01:12 09/01/19 01:12 09/01/19 01:12 - Notes Notes: GENERAL: Alert, interacts well. No acute distress. HEAD: Normocephalic, atraumatic. EYES: Pupils equal, round, and reactive to light. Extraocular movements intact. ENT: Oral mucosa moist, tongue midline. Oropharynx unremarkable. Airway patent. NECK: Full range of motion. Supple. Trachea midline. LUNGS: Clear to auscultation bilaterally, no wheezes, rales, or rhonchi. No respiratory distress. HEART: Regular rate and rhythm. No murmur ABDOMEN: Soft, non-tender. Non-distended. Bowel sounds present in all 4 quadrants. GENITOURINARY: Deferred EXTREMITIES: AV shunt over the left arm. Moves all 4 extremities spontaneously. No edema, normal radial and dorsalis pedis pulses bilaterally. No cyanosis. BACK: no cervical, thoracic, lumbar midline tenderness. No saddle anesthesia, normal distal neurovascular exam. Moves all extremities in full range of motion. NEUROLOGICAL: Alert and oriented x3. Normal speech. Cranial nerves II through XII grossly intact. PSYCH: Normal affect, normal mood. SKIN: Warm, dry, normal turgor. No rashes or lesions noted. Course - Re-evaluation Re-evalutation: EKG without significant change from prior, slightly prolonged QT but also not significant change from prior. Potassium 5.4. chest x-ray unremarkable. CBC nonspecific, chemistry otherwise nonspecific with normal LFTs, bilirubin. His abdomen is completely nontender. Vital signs unremarkable. Patient reevaluated. He states he feels much better after the medications, he is asking for p.o. He was given geri gail and tolerated this without any difficulty. Patient has a soft and benign abdomen, no chest pain, no current complaints. He states that he frequently gets nausea and he just wanted to make sure that his diabetes was not out of control. Chemistry does not show acidosis. He states he is ready to be discharged and he will immediately go to dialysis. I stressed the importance of this the patient, he states understanding, he states he will return if he worsens in any way. Stable at time of discharge. - Vital Signs Vital signs: Temp Pulse Resp BP Pulse Ox 98 F 59 L 16 121/69 98 09/01/19 04:48 09/01/19 04:48 09/01/19 04:48 09/01/19 04:48 09/01/19 04:48 - Laboratory Result Diagrams: 09/01/19 02:35 09/01/19 02:35 Laboratory results interpreted by me: 09/01/19 09/01/19 02:35 02:35 WBC 11.4 H RBC 3.80 L Hgb 12.3 L Hct 36.2 L RDW 14.7 H Seg Neuts % (Manual) 86 H Band Neutrophils % 2 L Lymphocytes % (Manual) 6 L Abs Neuts (Manual) 10.0 H Sodium 135.4 L Potassium 5.4 H Chloride 97 L Carbon Dioxide 21 L BUN 71 H Creatinine 7.80 H Est GFR ( Amer) 9 L Est GFR (MDRD) Non-Af 7 L Direct Bilirubin 0.8 H Total Protein 8.3 H - EKG Interpretation by Me Additional EKG results interpreted by me: EKG shows sinus rhythm at a rate of 64, QTC is prolonged at 504, left axis dev iation. No T wave inversions or ST segment changes in consecutive leads. Left anterior fascicular block. No overt peaked T waves. Discharge - Discharge Clinical Impression: Nausea & vomiting Qualifiers: Vomiting type: unspecified Vomiting Intractability: non-intractable Qualified Code(s): R11.2 - Nausea with vomiting, unspecified Condition: Stable Disposition: HOME, SELF-CARE Additional Instructions: Please follow-up to have dialysis performed today. Take Zofran as needed for nausea. Consider gastroenterology follow-up listed below. Return if you worsen including return nausea or vomiting, chest pain, abdominal pain, fever, or any other concerning or worsening symptoms. Prescriptions: Ondansetron [Zofran Odt 4 mg Tablet] 1 - 2 tab PO Q4H PRN #15 tab.rapdis PRN Reason: For Nausea/Vomiting [facility]errals: [facility] [[facility] - Follow up as needed
[2019-09-01 03:31] LABS: HEMATOCRIT 36.2 % (37.9-51.0); HEMOGLOBIN 12.3 g/dL (13.5-17.0); MEAN CORPUSCULAR HEMOGLOBIN 32.4 pg (27.0-33.4); MEAN CORPUSCULAR VOLUME 95 fl (80-97); PLATELET COUNT 215 10^3/uL (150-450); RED CELL DISTRIBUTION WIDTH 14.7 % (11.5-14.0); WHITE BLOOD COUNT 11.4 10^3/uL (4.0-10.5)
[2019-09-01 03:47] LABS: ABSOLUTE LYMPHOCYTES# (MANUAL) 0.7 10^3/uL (0.5-4.7); ABSOLUTE MONOCYTES # (MANUAL) 0.6 10^3/uL (0.1-1.4); BAND NEUTROPHILS % (MANUAL) 2 % (3-5); BASOPHILS % (MANUAL) 0 % (0-2); EOSINOPHILS % (MANUAL) 1 % (0-6); LYMPHOCYTES % (MANUAL) 6 % (13-45); MONOCYTES % (MANUAL) 5 % (3-13); SEGMENTED NEUTROPHILS % (MAN) 86 % (42-78); TOTAL CELLS COUNTED 100
[2019-09-01 03:48] LABS: ANISOCYTOSIS SLIGHT; BURR CELLS SLIGHT; OVALOCYTES SLIGHT; PLATELET COMMENT ADEQUATE; PLATELET LARGE PRESENT; POIKILOCYTOSIS SLIGHT; SCHISTOCYTES SLIGHT; TOXIC GRANULATION SLIGHT; TOXIC VACUOLATION PRESENT
[2019-09-01] MEDS ORDERED: DIPHENHYDRAMINE HCL 50 MG/ML VIAL IV ONE (04:00)
--- NOTE | 2019-09-01 04:23 | RADIOLOGY REPORT (SQ) ---
Chest single view on 09/01/2019 at 3:58 AM CLINICAL INDICATION: Upper abdominal pain, vomiting COMPARISON: 05/28/2018 FINDINGS: Left axillary and subclavian stent is again partially imaged. Cardiomegaly is noted. There is a small right pleural effusion. Mild increased interstitial changes may all be chronic in nature but cannot exclude minimal edema. Lungs are otherwise clear. IMPRESSION: No significant change in the appearance of the chest.
[2019-09-01] MEDS ORDERED: ONDANSETRON ODT 4 MG TAB (6 TAB/ER DISP) PO PRN (04:36)
[2019-09-01 04:49] VITALS: BP 121/69
--- NOTE | 2019-09-01 06:52 | EKG REPORT ---
SEVERITY:- ABNORMAL ECG - SINUS RHYTHM PROBABLE LEFT ATRIAL ABNORMALITY LEFT ANTERIOR FASCICULAR BLOCK NONSPECIFIC T ABNORMALITIES, LATERAL LEADS PROLONGED QT INTERVAL : Confirmed by: Joe James MD 01-Sep-2019 06:51:02
== END 2019-09-01 04:49 | disposition home or self-care (01) ==
LOC: ER 01:08
DX: R11.2 Nausea with vomiting, unspecified (principal); I44.4 Left anterior fascicular block; I12.0 Hypertensive chronic kidney disease with stage 5 chronic kidney disease or end stage renal disease; E10.22 Type 1 diabetes mellitus with diabetic chronic kidney disease; N18.6 End stage renal disease; Z99.2 Dependence on renal dialysis; Z96.41 Presence of insulin pump (external) (internal); Z91.041 Radiographic dye allergy status
CPT/HCPCS: 93005; 99284; 96374; 96375; 36415; 85025; 80053; 71045; 93010; J1200; J2270; J2405

== ENCOUNTER 2019-10-12 04:48 | Emergency (ER) | payer OTHER, MEDICARE ==
--- NOTE | 2019-10-12 05:52 | RADIOLOGY REPORT (SQ) ---
EXAM DESCRIPTION: XR KNEE 1-2 VIEWS COMPLETED DATE/TME: 10/12/2019 00:00 CLINICAL HISTORY: 49 years, Male, bone pain after a fall COMPARISON: 05/13/2019 NUMBER OF VIEWS: Three TECHNIQUE: Three views of the right knee LIMITATIONS: None. FINDINGS: There is no acute fracture or dislocation. An intramedullary rae is partially visualized within the proximal tibia with no evidence of hardware complication. No significant joint effusion. A small patellar enthesophyte is noted. Vascular calcifications are present. IMPRESSION: No acute fracture or dislocation copyright 2010 [employer]- All Rights Reserved
[2019-10-12] MEDS ORDERED: CYCLOBENZAPRINE HCL 10 MG TABLET PO ONE (08:02)
[2019-10-12] MEDS ORDERED: HYDROCODONE/ACETAMINOPHEN 5-325 MG TABLET PO ONE (08:02)
[2019-10-12] MEDS ORDERED: HYDROCODONE/ACETAMINOPHEN 5-325 MG (6 TAB/ER DISP) PO PRN (08:03)
[2019-10-12 08:29] VITALS: BP 174/93
--- NOTE | 2019-10-12 14:10 | ER Document Report ---
Entered by MICKEY WILL SCRIBE 10/12/19 0754 Acting as scribe for:BRENNAN HARKINS MD ED Extremity Problem, Lower - General Chief Complaint: Knee Injury Stated Complaint: FALL-RIGHT KNEE PAIN Time Seen by Provider: 10/12/19 07:51 Primary Care Provider: KOBE,SHERRI [Primary Care Provider] - Follow up as needed Mode of Arrival: Ambulatory Information source: Patient Notes: This 49 year old male patient with ESRD presents to the ED today with complaints of right knee pain due to a fall last night around 10-11:00 PM. Patient states that he was watching tv in bed and got up when he fell and landed directly on his right knee cap. Patient reports left lumbar back pain due to straining after the fall. Patient notes that he has a torn right lateral meniscus with small effusion that is being followed up with ortho and an intramedullary rae in his right tibia. Patient states that he receives dialysis treatment x3/week (MWF) and that he dialyzed yesterday. Patient notes that he has very little urine output. Patient is on cymbalta for pain management and is on a kidney-pancreas transplant list. TRAVEL OUTSIDE OF THE [place] IN LAST 30 DAYS: No - Related Data Allergies/Adverse Reactions: Iodinated Contrast Media Allergy (Verified 09/01/19 01:09) Home Medications: coreg, amilodipine, hydrazaline,cymbalta,luensta-prn, hydroxyzine prn, zofran, prn, novalog insulin Past Medical History - General Information source: Patient - Social History Smoking Status: Unknown if Ever Smoked Cigarette use (# per day): No Chew tobacco use (# tins/day): No Smoking Education Provided: No Frequency of alcohol use: None Drug Abuse: None Family History: Reviewed & Not Pertinent, CAD, DM Patient has suicidal ideation: No Patient has homicidal ideation: No - Past Medical History Cardiac Medical History: Reports: Hx Hypertension Endocrine Medical History: Reports: Hx Diabetes Mellitus Type 1 - insulin pump Renal/ Medical History: Reports: Hx End Stage Renal Disease, Hx Hemodialysis Musculoskeletal Medical History: Reports Hx Arthritis Past Surgical History: Reports: Hx Orthopedic Surgery - r/t traumas x 2, Hx Vascular Surgery - Access surgery for hemodialysis. Left upper extremity fistula. - Immunizations Hx Diphtheria, Pertussis, Tetanus Vaccination: Yes Review of Systems - Review of Systems Constitutional: No symptoms reported EENT: No symptoms reported Cardiovascular: No symptoms reported Respiratory: No symptoms reported Gastrointestinal: No symptoms reported Genitourinary: No symptoms reported Male Genitourinary: No symptoms reported Musculoskeletal: See HPI, Back pain, Other - Right knee pain Skin: No symptoms reported Hematologic/Lymphatic: No symptoms reported Neurological/Psychological: See HPI. denies: Numbness -: Yes All other systems reviewed and negative Physical Exam - Vital signs Vitals: Temp Pulse Resp BP Pulse Ox 97.8 F 68 18 166/83 H 95 10/12/19 04:53 10/12/19 04:53 10/12/19 04:53 10/12/19 04:53 10/12/19 04:53 - General General appearance: Alert In distress: None - HEENT Head: Normocephalic, Atraumatic Eyes: Normal Pupils: PERRL - Respiratory Respiratory status: No respiratory distress Chest status: Nontender Breath sounds: Normal Chest palpation: Normal - Cardiovascular Rhythm: Regular Heart sounds: Normal auscultation Murmur: No - Abdominal Inspection: Normal Distension: No distension Bowel sounds: Normal Tenderness: Nontender Organomegaly: No organomegaly - Back Back: Tender - Left lumbar back musculature tenderness with palpation. More so on the left than the right lumbar back. - Extremities General upper extremity: Other - AV fistula in LUE General lower extremity: Edema - Right anterior patella Knee: Tender - Right anterior knee contusion. Minimal swelling noted over patella. Tenderness palpated medial lateral to patella. - Neurological Neuro grossly intact: Yes - Psychological Associated symptoms: Normal affect, Normal mood - Skin Skin Temperature: Warm Skin Moisture: Dry Skin Color: Normal Course - Vital Signs Vital signs: Temp Pulse Resp BP Pulse Ox 97.2 F 65 16 174/93 H 95 10/12/19 08:26 10/12/19 08:26 10/12/19 08:26 10/12/19 08:26 10/12/19 08:26 Discharge - Discharge Clinical Impression: Contusion of right patella Qualifiers: Encounter type: initial encounter Qualified Code(s): S80.01XA - Contusion of right knee, initial encounter Lumbar back sprain Qualifiers: Encounter type: initial encounter Qualified Code(s): S33.5XXA - Sprain of ligaments of lumbar spine, initial encounter Condition: Stable Disposition: HOME, SELF-CARE Additional Instructions: Knee Contusion: Your injury has resulted in a contusion -- a crushing of the deep tissues. No injury to important structures was detected during the physician's exam. Contusions vary in the amount of pain they cause, and in the length of time required for healing. Typically, the area will become bruised, and will remain painful to touch for two or three weeks. However, most patients are back to working and playing within a few days. After the initial period of rest and cold-packs, your symptoms (together with the doctor's recommendations) will determine how rapidly you can get back to full activity. Usually this means "do what feels okay, but don't do things that hurt." If re-examination was recommended, it's important to follow up as instructed. Call the doctor or return any time if pain increases, if swelling becomes severe, if you develop numbness or weakness in an injured extremity, or if any other alarming symptoms occur. Lumbar Back Muscle Strain: You have strained your lumbar back muscles. This often occurs with strenuous exertion, or during an injury that suddenly stretches the muscle. The seriousness of a strain varies. Some strains heal within days, others cause problems for months. X-rays cannot show a muscle strain. X-rays are taken only if symptoms suggest that a fracture could be present. The usual treatment of a muscle strain is rest and ice packs. Sometimes, a sling, splint, or crutches may be necessary to rest the muscle. The muscle can be used again once pain subsides. Severe strains require a special exercise and stretching program to prevent permanent stiffness and disability. Your doctor will advise you if this will be necessary. Call the doctor immediately if pain or swelling becomes severe, or if numbness or discoloration develop. Use the knee immobilizer to protect your knee joint. Take the pain medication as dispensed today if needed. Take the muscle relaxers for your lumbar back strain as needed. Use ice packs to the knee and the back muscle sprain for the next 1 to 2 days. Follow-up with your primary care provider if not improving. RETURN TO THE EMERGENCY ROOM IF ANY NEW OR WORSENING SYMPTOMS. Prescriptions: Cyclobenzaprine HCl [Flexeril 5 mg Tablet] 5 mg PO TID PRN #15 tablet PRN Reason: Referrals: [facility] [[facility]] - Follow up as needed Scribe Attestation: 10/12/19 08:04 I personally performed the services described in the documentation, reviewed and edited the documentation which was dictated to the scribe in my presence, and it accurately records my words and actions. I personally performed the services described in the documentation, reviewed and edited the documentation which was dictated to the scribe in my presence, and it accurately records my words and actions.
== END 2019-10-12 08:29 | disposition home or self-care (01) ==
LOC: ER 04:48
DX: S80.01XA Contusion of right knee, initial encounter (principal); S33.5XXA Sprain of ligaments of lumbar spine, initial encounter; M25.561 Pain in right knee; W19.XXXA Unspecified fall, initial encounter; Y93.89 Activity, other specified; I12.0 Hypertensive chronic kidney disease with stage 5 chronic kidney disease or end stage renal disease; E10.22 Type 1 diabetes mellitus with diabetic chronic kidney disease; N18.6 End stage renal disease; Z96.41 Presence of insulin pump (external) (internal); Z79.4 Long term (current) use of insulin; Z99.2 Dependence on renal dialysis; Z79.899 Other long term (current) drug therapy; Z91.041 Radiographic dye allergy status
CPT/HCPCS: 99283; 73560; L1830

== ENCOUNTER 2019-10-22 21:07 | Emergency (ER) | payer OTHER, MEDICARE ==
--- NOTE | 2019-10-22 21:30 | ER Document Report ---
ED Medical Screen (RME) - General Chief Complaint: Breathing Difficulty Stated Complaint: DIFFICULTY BREATHING Time Seen by Provider: 10/22/19 21:24 Primary Care Provider: SHERRI BULLOCK [Primary Care Provider] - Follow up as needed Notes: Patient is a 49-year-old male who presents to the emergency department with a chief complaint of shortness of breath. He states that he has been short of breath for the past 2 weeks. Dates he was exposed to family members that had the flu. Took Claritin this morning and states it helped a little bit with his sinus congestion. Patient is a dialysis patient. He also has a history of atrial fibrillation. Exam: Breath sounds diminished in bilateral lower lobes. I have greeted and performed a rapid initial assessment of this patient. A comprehensive ED assessment and evaluation of the patient, analysis of test results and completion of medical decision making process will be conducted by an additional ED providers. TRAVEL OUTSIDE OF THE [place] IN LAST 30 DAYS: No - Related Data Allergies/Adverse Reactions: Iodinated Contrast Media Allergy (Verified 09/01/19 01:09) Past Medical History - Past Medical History Cardiac Medical History: Reports: Hx Hypertension Denies: Hx Atrial Fibrillation, Hx Congestive Heart Failure, Hx Coronary Artery Disease - Negative chemical stress 2 weeks ago; negative heart cath last September, Hx DVT, Hx Heart Attack, Hx Hypercholesterolemia, Hx Pulmonary Embolism Pulmonary Medical History: Denies: Hx Asthma, Hx COPD, Hx Sleep Apnea Neurological Medical History: Denies: Hx Cerebrovascular Accident, Hx Seizures Endocrine Medical History: Reports: Hx Diabetes Mellitus Type 1 - insulin pump. Denies: Hx Diabetes Mellitus Type 2, Hx Hyperthyroidism, Hx Hypothyroidism Renal/ Medical History: Reports: Hx End Stage Renal Disease, Hx Hemodialysis. Denies: Hx Peritoneal Dialysis GI Medical History: Denies: Hx Cirrhosis, Hx Gastroesophageal Reflux Disease, Hx Hepatitis, Hx Hiatal Hernia, Hx Ulcer Musculoskeltal Medical History: Reports Hx Arthritis Psychiatric Medical History: Denies: Hx Depression Infectious Medical History: Denies: Hx Hepatitis Past Surgical History: Reports: Hx Orthopedic Surgery - r/t traumas x 2, Hx Vascular Surgery - Access surgery for hemodialysis. Left upper extremity fistula.. Denies: Hx Open Heart Surgery, Hx Pacemaker - Immunizations Hx Diphtheria, Pertussis, Tetanus Vaccination: Yes Doctor's Discharge - Discharge Referrals: [facility] [[facility]] - Follow up as needed
[2019-10-22 22:15] LABS: ABSOLUTE BASOPHILS # (AUTO) 0.1 10^3/uL (0.0-0.2); ABSOLUTE EOSINOPHILS # (AUTO) 0.2 10^3/uL (0.0-0.6); ABSOLUTE LYMPHOCYTES (AUTO) 0.9 10^3/uL (0.5-4.7); ABSOLUTE MONOCYTES (AUTO) 0.5 10^3/uL (0.1-1.4); ABSOLUTE NEUT (AUTO) 4.3 10^3/uL (1.7-8.2); BASOPHILS % (AUTO) 0.9 % (0-2); HEMATOCRIT 37.8 % (37.9-51.0); HEMOGLOBIN 12.8 g/dL (13.5-17.0); LYMPHOCYTES % (AUTO) 14.8 % (13-45); MEAN CORPUSCULAR HEMOGLOBIN 32.4 pg (27.0-33.4); MEAN CORPUSCULAR VOLUME 95 fl (80-97); MONOCYTES % (AUTO) 8.7 % (3-13); PLATELET COUNT 137 10^3/uL (150-450); RED BLOOD COUNT 3.96 10^6/uL (4.35-5.55); RED CELL DISTRIBUTION WIDTH 14.4 % (11.5-14.0); SEGMENTED NEUTROPHILS % (AUTO) 72.6 % (42-78); TOTAL CELLS COUNTED % (AUTO) 100 %; WHITE BLOOD COUNT 5.9 10^3/uL (4.0-10.5)
[2019-10-22 22:32] LABS: A TYPE INFLUENZA AG NEGATIVE (NEGATIVE); B INFLUENZA AG NEGATIVE (NEGATIVE)
[2019-10-22 22:39] LABS: ALBUMIN 4.4 g/dL (3.5-5.0); ALKALINE PHOSPHATASE 73 U/L (38-126); ANION GAP 17 (5-19); ASPARTATE AMINO TRANSFERASE 15 U/L (17-59); BILIRUBIN,DIRECT 0.9 mg/dL (0.0-0.4); BLOOD UREA NITROGEN 49 mg/dL (7-20); CALCIUM 9.5 mg/dL (8.4-10.2); CARBON DIOXIDE 24 mmol/L (22-30); CHLORIDE 97 mmol/L (98-107); GLUCOSE 173 mg/dL (75-110); POTASSIUM 4.8 mmol/L (3.6-5.0); TOTAL PROTEIN 7.7 g/dL (6.3-8.2)
--- NOTE | 2019-10-22 23:04 | RADIOLOGY REPORT (SQ) ---
EXAM DESCRIPTION: XR CHEST 1 VIEW COMPLETED DATE/TME: 10/22/2019 21:27 CLINICAL HISTORY: 49 years, Male, shortness of breath COMPARISON: 09/01/2019 chest NUMBER OF VIEWS: 1 TECHNIQUE: Portable chest LIMITATIONS: None. FINDINGS: Cardiomegaly. Endovascular stent graft left axilla. Persistent small right pleural effusion. No pneumothorax. Chronic appearing interstitial changes bilaterally. Equivocal right perihilar infiltrate. IMPRESSION: Equivocal right perihilar infiltrate. Persistent small right pleural effusion copyright 2010 [employer]- All Rights Reserved
--- NOTE | 2019-10-23 00:17 | EKG REPORT ---
SEVERITY:- ABNORMAL ECG - ECTOPIC ATRIAL RHYTHM LEFT ANTERIOR FASCICULAR BLOCK PROBABLE LEFT VENTRICULAR HYPERTROPHY BORDERLINE PROLONGED QT INTERVAL : Confirmed by: Low Rosario 23-Oct-2019 00:17:12
[2019-10-23] MEDS ORDERED: HYDROCODONE/ACETAMINOPHEN 5-325 MG TABLET PO ONE (01:41)
--- NOTE | 2019-10-23 01:43 | ER Document Report ---
ED Respiratory Problem - General Chief Complaint: Breathing Difficulty Stated Complaint: DIFFICULTY BREATHING Time Seen by Provider: 10/22/19 21:24 Primary Care Provider: [facility] [[facility]] - Follow up as needed Mode of Arrival: Ambulatory Information source: Patient TRAVEL OUTSIDE OF THE [place] IN LAST 30 DAYS: No - HPI Patient complains to provider of: COPD, Cough, Short of breath - 2 weeks of increasing shortness of breath. States worse when he lies down. States he is producing a clear sputum. No fever chills no hemoptysis Similar symptoms previously: No Recently seen / treated by doctor: No - Related Data Allergies/Adverse Reactions: Iodinated Contrast Media Allergy (Verified 09/01/19 01:09) Past Medical History - Social History Smoking Status: Current Some Day Smoker Family History: Reviewed & Not Pertinent, CAD, DM Patient has suicidal ideation: No Patient has homicidal ideation: No - Past Medical History Cardiac Medical History: Reports: Hx Hypertension Denies: Hx Atrial Fibrillation, Hx Congestive Heart Failure, Hx Coronary Artery Disease - Negative chemical stress 2 weeks ago; negative heart cath last September, Hx DVT, Hx Heart Attack, Hx Hypercholesterolemia, Hx Pulmonary Embolism Pulmonary Medical History: Denies: Hx Asthma, Hx COPD, Hx Sleep Apnea Neurological Medical History: Denies: Hx Cerebrovascular Accident, Hx Seizures Endocrine Medical History: Reports: Hx Diabetes Mellitus Type 1 - insulin pump. Denies: Hx Diabetes Mellitus Type 2, Hx Hyperthyroidism, Hx Hypothyroidism Renal/ Medical History: Reports: Hx End Stage Renal Disease, Hx Hemodialysis. Denies: Hx Peritoneal Dialysis GI Medical History: Denies: Hx Cirrhosis, Hx Gastroesophageal Reflux Disease, Hx Hepatitis, Hx Hiatal Hernia, Hx Ulcer Musculoskeletal Medical History: Reports Hx Arthritis Psychiatric Medical History: Denies: Hx Depression Infectious Medical History: Denies: Hx Hepatitis Past Surgical History: Reports: Hx Orthopedic Surgery - r/t traumas x 2, Hx Vascular Surgery - Access surgery for hemodialysis. Left upper extremity fistula.. Denies: Hx Open Heart Surgery, Hx Pacemaker - Immunizations Hx Diphtheria, Pertussis, Tetanus Vaccination: Yes Review of Systems - Review of Systems Respiratory: See HPI, Cough Physical Exam - Vital signs Vitals: Temp Pulse Resp BP Pulse Ox 98.0 F 64 16 182/88 H 96 10/22/19 21:22 10/22/19 21:22 10/22/19 21:22 10/22/19 21:22 10/22/19 21:22 Interpretation: Normal - General General appearance: Appears well, Alert - HEENT Head: Normocephalic, Atraumatic Eyes: Normal Pupils: PERRL - Respiratory Respiratory status: No respiratory distress, Other - Lungs are clear without any signs of wheezing rales or rhonchi Chest status: Nontender Breath sounds: Normal Chest palpation: Normal - Cardiovascular Rhythm: Regular Heart sounds: Normal auscultation Murmur: No - Abdominal Inspection: Normal Distension: No distension Bowel sounds: Normal Tenderness: Nontender Organomegaly: No organomegaly - Back Back: Normal, Nontender, Other - Tenderness over the left latissimus dorsi muscle with tense muscle. - Extremities General upper extremity: Normal inspection, Nontender, Normal color, Normal ROM, Normal temperature General lower extremity: Normal inspection, Nontender, Normal color, Normal ROM, Normal temperature, Normal weight bearing. No: Leonides's sign - Neurological Neuro grossly intact: Yes Cognition: Normal Orientation: AAOx4 Robert Coma Scale Eye Opening: Spontaneous Robert Coma Scale Verbal: Oriented Robert Coma Scale Motor: Obeys Commands Robert Coma Scale Total: 15 Speech: Normal Motor strength normal: LUE, RUE, LLE, RLE Sensory: Normal - Psychological Associated symptoms: Normal affect, Normal mood - Skin Skin Temperature: Warm Skin Moisture: Dry Skin Color: Normal Course - Re-evaluation Re-evalutation: 10/23/19 02:45 Patient states his back muscle has improved with less pain after taking hydrocodone with Tylenol. - Vital Signs Vital signs: Temp Pulse Resp BP Pulse Ox 98.2 F 64 18 159/93 H 95 10/22/19 23:29 10/22/19 21:22 10/23/19 02:01 10/23/19 01:01 10/23/19 02:01 - Laboratory Result Diagrams: 10/22/19 21:59 10/22/19 21:59 Laboratory results interpreted by me: 10/22/19 10/22/19 10/22/19 21:59 21:59 23:57 RBC 3.96 L Hgb 12.8 L Hct 37.8 L RDW 14.4 H Plt Count 137 L Chloride 97 L BUN 49 H Creatinine 9.60 H Est GFR ( Amer) 7 L Est GFR (MDRD) Non-Af 6 L Glucose 173 H POC Glucose 161 H Direct Bilirubin 0.9 H AST 15 L - Diagnostic Test Radiology reviewed: Image reviewed, Reports reviewed Radiology results interpreted by me: 10/23/19 02:45 Chronic pleural effusion chronic cardiomegaly and chronic perihilar increased markings. Questionable infiltrate. - EKG Interpretation by Me Additional EKG results interpreted by me: 10/23/19 02:46 Twelve-lead EKG done 2114 on October 22 shows an ectopic atrial rhythm of 65 left anterior fascicular block probable left ventricular hypertrophy. And borderline prolonged QT interval. No acute ST-T wave changes. Discharge - Discharge Clinical Impression: Chronic kidney disease with end stage renal failure on dialysis Upper respiratory infection Qualifiers: URI type: unspecified viral URI Qualified Code(s): J06.9 - Acute upper respiratory infection, unspecified Acute bronchitis Qualifiers: Bronchitis organism: unspecified organism Qualified Code(s): J20.9 - Acute bronchitis, unspecified Condition: Stable Disposition: HOME, SELF-CARE Additional Instructions: Upper Respiratory Illness You have a viral infection of the respiratory passages -- a "cold." This common infection causes nasal congestion, drainage, and often sore throat and cough. It is caused by a virus and is highly contagious. The disease usually lasts a week or more, though the worst symptoms are usually over in 3 or 4 days. There is no "cure" for the viral infection -- it must run its course. If t here is a complication, such as bacterial infection in the nose, sinuses, middle ear, or bronchial tubes, antibiotics may be required, but antibiotics won't affect the virus. If you smoke, you should STOP!! Drink plenty of fluids. A humidifier may help. An expectorant medication or decongestant may make you more comfortable. Use acetaminophen or ibuprofen for fever or aches. See the doctor if fever persists over two or three days, if there is any significant worsening of your symptoms, or if you simply fail to improve as expected. Bronchitis You have acute bronchitis. This disease is an infection or inflammation of the air passageways in your lungs. Symptoms usually include cough, low grade fever, shortness of breath, and wheezing. The cough usually persists for a co uple of weeks. Most cases of bronchitis get better without antibiotics. We prescribe antibiotics when we believe bacteria are damaging your airways, or if there's high risk the bronchitis will worsen into pneumonia. Increase your fluid intake. A cool mist humidifier may make your lungs more comfortable. An expectorant (cough medicine that loosens phlegm) can help. If you smoke, STOP!!! Recovery from bronchitis can be somewhat slow, but you should see improvement within a day or two. Repeated episodes of bronchitis may result in lung damage -- for example, chronic bronchitis, recurrent pneumonias, or emphysema. Call the doctor if you develop increasing fever, shortness of breath, chest pain, bloody sputum, or otherwise worsen. If you have not improved at all after several days, contact the physician. Prescriptions: Azithromycin [Zithromax 250 mg Tablet] 250 mg PO ASDIR PRN #6 tablet PRN Reason: Referrals: [facility] [[facility]] - Follow up as needed
[2019-10-23 03:07] VITALS: BP 192/98
== END 2019-10-23 03:16 | disposition home or self-care (01) ==
LOC: ER 21:07
DX: J06.9 Acute upper respiratory infection, unspecified (principal); J20.9 Acute bronchitis, unspecified; E10.22 Type 1 diabetes mellitus with diabetic chronic kidney disease; I12.0 Hypertensive chronic kidney disease with stage 5 chronic kidney disease or end stage renal disease; N18.6 End stage renal disease; R06.00 Dyspnea, unspecified; F17.200 Nicotine dependence, unspecified, uncomplicated; Z79.4 Long term (current) use of insulin; Z96.41 Presence of insulin pump (external) (internal); Z99.2 Dependence on renal dialysis
CPT/HCPCS: 36415; 71045; 80053; 82962; 85025; 87804; 93005; 93010; 99284

== ENCOUNTER 2019-11-25 18:02 | Emergency (ER) | payer OTHER, MEDICARE ==
[2019-11-25] MEDS ORDERED: DEXAMETHASONE SOD PHOS INJ 10 MG/1 ML VIAL IM ONE (18:10)
[2019-11-25] MEDS ORDERED: FAMOTIDINE 20 MG TABLET PO ONE (18:11)
--- NOTE | 2019-11-25 18:12 | ER Document Report ---
ED Medical Screen (RME) - General Chief Complaint: Allergic Reaction Stated Complaint: POSSIBLE ALLERGIC REACTION Time Seen by Provider: 11/25/19 18:10 Primary Care Provider: KOBE,SHERRI [Primary Care Provider] - Follow up as needed Notes: 49-year-old male presents with possible allergic reaction to IV dye. Patient had IV dye on as part of work-up for possible heart transplant at [place]. Patient states he was premedicated. Patient states he has been premedicated in the past and never had an reaction after. Patient is complaining of generalized rash with itching. Patient states he took 2 Benadryl at around 3 PM with little relief. Patient denies any throat/tongue/lip swelling. Lungs clear to auscultation bilaterally. Rash noted to bilateral legs. No stridor. I have greeted and performed a rapid initial assessment of this patient. A comprehensive ED assessment and evaluation of the patient, analysis of test results and completion of the medical decision making process with be conducted by additional ED providers. TRAVEL OUTSIDE OF THE [place] IN LAST 30 DAYS: No - Related Data Allergies/Adverse Reactions: Iodinated Contrast Media Allergy (Verified 11/25/19 18:06) Past Medical History - Past Medical History Cardiac Medical History: Reports: Hx Hypertension Denies: Hx Atrial Fibrillation, Hx Congestive Heart Failure, Hx Coronary Artery Disease - Negative chemical stress 2 weeks ago; negative heart cath last September, Hx DVT, Hx Heart Attack, Hx Hypercholesterolemia, Hx Pulmonary Embolism Pulmonary Medical History: Denies: Hx Asthma, Hx COPD, Hx Sleep Apnea Neurological Medical History: Denies: Hx Cerebrovascular Accident, Hx Seizures Endocrine Medical History: Reports: Hx Diabetes Mellitus Type 1 - insulin pump. Denies: Hx Diabetes Mellitus Type 2, Hx Hyperthyroidism, Hx Hypothyroidism Renal/ Medical History: Reports: Hx End Stage Renal Disease, Hx Hemodialysis. Denies: Hx Peritoneal Dialysis GI Medical History: Denies: Hx Cirrhosis, Hx Gastroesophageal Reflux Disease, Hx Hepatitis, Hx Hiatal Hernia, Hx Ulcer Musculoskeltal Medical History: Reports Hx Arthritis Psychiatric Medical History: Denies: Hx Depression Infectious Medical History: Denies: Hx Hepatitis Past Surgical History: Reports: Hx Orthopedic Surgery - r/t traumas x 2, Hx Vascular Surgery - Access surgery for hemodialysis. Left upper extremity fistula.. Denies: Hx Open Heart Surgery, Hx Pacemaker - Immunizations Hx Diphtheria, Pertussis, Tetanus Vaccination: Yes Doctor's Discharge - Discharge Referrals: [facility] [[facility]] - Follow up as needed
[2019-11-25] MEDS ORDERED: DIPHENHYDRAMINE HCL 50 MG/ML VIAL IV ONE (19:43)
[2019-11-25] MEDS ORDERED: EPINEPHRINE INJ/PF 1 MG/1 ML AMPULE IM ONE (19:43)
[2019-11-25] MEDS ORDERED: FAMOTIDINE INJ/PF 20 MG/2 ML SDV IV ONE (19:44)
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
[2019-11-25 21:26] VITALS: BP 172/86
== END 2019-11-25 21:26 | disposition home or self-care (01) ==
LOC: ER 18:02
DX: L50.0 Allergic urticaria (principal); T50.8X5A Adverse effect of diagnostic agents, initial encounter; Y92.239 Unspecified place in hospital as the place of occurrence of the external cause; I12.0 Hypertensive chronic kidney disease with stage 5 chronic kidney disease or end stage renal disease; E10.22 Type 1 diabetes mellitus with diabetic chronic kidney disease; N18.6 End stage renal disease; Z99.2 Dependence on renal dialysis; Z96.41 Presence of insulin pump (external) (internal); R68.83 Chills (without fever); R53.1 Weakness
CPT/HCPCS: 99285; 96372; 96374; 96375; 82962; J1200; J0171; S0028; J1100

== ENCOUNTER 2019-11-29 00:48 | Emergency (ER) | payer OTHER, MEDICARE ==
[2019-11-29] MEDS ORDERED: EPINEPHRINE INJ/PF 1 MG/1 ML AMPULE IM ONE (02:25)
[2019-11-29] MEDS ORDERED: METHYLPREDNISOLONE INJ 125 MG/2 ML SDV IV ONE (02:27)
[2019-11-29] MEDS ORDERED: FAMOTIDINE INJ/PF 20 MG/2 ML SDV IV ONE (02:27)
[2019-11-29] MEDS ORDERED: ONDANSETRON HCL INJ/PF 4 MG/2 ML SDV IV ONE (02:27)
[2019-11-29] MEDS ORDERED: DIPHENHYDRAMINE HCL 50 MG/ML VIAL IV ONE ×2 (02:27→04:07)
--- NOTE | 2019-11-29 02:32 | ER Document Report ---
ED General - General Chief Complaint: Allergic Reaction Stated Complaint: POSSIBLE ALLERGIC REACTION Time Seen by Provider: 11/29/19 02:25 Primary Care Provider: SHERRI BULLOCK [Primary Care Provider] - Follow up as needed Notes: 49-year-old male presents emergency department complaining of recurrent allergic reaction with difficulty breathing and feeling like he has swelling in his throat. Patient states that on he had a cardiac catheterization performed in [place]. States he has a history of allergic reaction to IV dye however he was premedicated with steroids and tolerated it well, had dialysis as usual on Wednesday but on Wednesday developed difficulty breathing, itching and hives. States he received epinephrine at that point and a prescription for steroids but he has been unable to fill the steroids. States that again today the reaction once again started to get worse. States that he feels like his throat is swelling and causing him to have difficulty breathing, states that he feels like he is having difficulty drawing a deep breath. Is complaining of itching across his body particularly on his legs and into his bilateral axillae. Denies any vomiting but states after receiving the epinephrine on Wednesday did cause him to vomit. Of note the cardiac catheterization on was completely negative. Patient is an end-stage renal disease patient who receives dialysis on Wednesday, Wednesday, Fridays. TRAVEL OUTSIDE OF THE [place] IN LAST 30 DAYS: No - Related Data Allergies/Adverse Reactions: Iodinated Contrast Media Allergy (Verified 11/29/19 02:08) Past Medical History - General Information source: Patient - Social History Smoking Status: Former Smoker Frequency of alcohol use: None Drug Abuse: None Family History: Reviewed & Not Pertinent, CAD, DM Patient has suicidal ideation: No Patient has homicidal ideation: No - Past Medical History Cardiac Medical History: Reports: Hx Hypertension Denies: Hx Atrial Fibrillation, Hx Congestive Heart Failure, Hx Coronary Artery Disease - Negative chemical stress 2 weeks ago; negative heart cath last September, Hx DVT, Hx Heart Attack, Hx Hypercholesterolemia, Hx Pulmonary Embolism Pulmonary Medical History: Denies: Hx Asthma, Hx COPD, Hx Sleep Apnea Neurological Medical History: Denies: Hx Cerebrovascular Accident, Hx Seizures Endocrine Medical History: Reports: Hx Diabetes Mellitus Type 1 - insulin pump. Denies: Hx Diabetes Mellitus Type 2, Hx Hyperthyroidism, Hx Hypothyroidism Renal/ Medical History: Reports: Hx End Stage Renal Disease, Hx Hemodialysis. Denies: Hx Peritoneal Dialysis GI Medical History: Denies: Hx Cirrhosis, Hx Gastroesophageal Reflux Disease, Hx Hepatitis, Hx Hiatal Hernia, Hx Ulcer Musculoskeletal Medical History: Reports Hx Arthritis Psychiatric Medical History: Denies: Hx Depression Infectious Medical History: Denies: Hx Hepatitis Past Surgical History: Reports: Hx Orthopedic Surgery - r/t traumas x 2 (right leg and left shoulder), Hx Vascular Surgery - Access surgery for hemodialysis. Left upper extremity fistula.. Denies: Hx Open Heart Surgery, Hx Pacemaker - Immunizations Hx Diphtheria, Pertussis, Tetanus Vaccination: Yes Review of Systems - Review of Systems Constitutional: No symptoms reported EENT: See HPI Respiratory: See HPI Skin: See HPI -: Yes All other systems reviewed and negative Physical Exam - Vital signs Vitals: Temp Pulse Resp BP Pulse Ox 98.1 F 69 22 H 177/86 H 95 11/29/19 01:05 11/29/19 01:05 11/29/19 01:05 11/29/19 01:05 11/29/19 01:05 Interpretation: Hypertensive - Notes Notes: GENERAL: Alert, interacts well. Anxious, breathing somewhat rapidly. HEAD: Normocephalic, atraumatic EYES: Pupils equal, round and reactive to light, extraocular movements intact. ENT: Oral mucosa moist, tongue midline. NECK: Full range of motion, supple, trachea midline. LUNGS: Clear to auscultation bilaterally, no wheezes, rales or rhonchi, tachypneic, no stridor. HEART: Regular rate and rhythm, no murmurs, gallops, rubs. EXTREMITIES: Moves all 4 extremities spontaneously, no edema, large dialysis fistula in the left AC with palpable thrill. No cyanosis. NEUROLOGICAL: Alert and oriented x3, normal speech, no muffled voice. PSYCH: Anxious. SKIN: Warm, diaphoretic, normal turgor, well-healed skin graft noted across the right side of the chest. Increased erythema in the bilateral axillae and across the legs, some urticarial lesions, none noted to the chest or the back. Course - Re-evaluation Re-evalutation: 11/29/19 02:32 Patient will be given epinephrine IM as he is reporting swelling in an area of the airway that I cannot visualize, patient does appear anxious and somewhat tachypneic, otherwise no respiratory distress, no hypotension, no evidence of anaphylactic shock at this time. Patient will also be given Pepcid, Benadryl and Solu-Medrol. Continue to observe. 11/29/19 03:24 Patient rechecked after epinephrine, breathing is normalized, patient no longer feels any swelling in his airway, no longer appears anxious, no longer tachypneic. Erythema in axillae and on legs has decreased. Patient will be observed for at least an hour and a half after the epinephrine, if no recurrence of symptoms will be discharged home, encouraged to fill his steroid prescription and will be given a prescription for EpiPen as well. 11/29/19 04:07 Continues to have mild itching, will be given additional dose of Benadryl, still no recurrence of respiratory symptoms. Discharged home. - Vital Signs Vital signs: Temp Pulse Resp BP Pulse Ox 98.1 F 69 15 190/100 H 99 11/29/19 01:05 11/29/19 01:05 11/29/19 03:01 11/29/19 03:01 11/29/19 03:01 Discharge - Discharge Clinical Impression: End stage renal disease on dialysis, Anaphylactic reaction to contrast media Hypertension Qualifiers: Hypertension type: renovascular hypertension Qualified Code(s): I15.0 - Renovascular hypertension Condition: Stable Disposition: HOME, SELF-CARE Additional Instructions: You may take Benadryl 25 to 50 mg as needed for itching every 4-6 hours. Please also take Claritin 10 mg once a day to keep the allergic reaction tamped down. Please take Pepcid 20 mg daily also to decrease your histamine reaction. Please get the steroids filled that were prescribed to you on your last visit to the emergency department and take them. I have prescribed you an EpiPen. If you develop difficulty breathing again and is worse than today please give it to yourself and then come to the emergency department. Please return to the emergency department for any new or concerning symptoms. Prescriptions: Epinephrine 0.3 mg IJ PRN PRN #1 auto.injct PRN Reason: allergic reaction [facility]errals: [facility] [[facility]] - Follow up as needed
[2019-11-29 04:55] VITALS: BP 173/85
== END 2019-11-29 04:55 | disposition home or self-care (01) ==
LOC: ER 00:48
DX: T88.6XXA Anaphylactic reaction due to adverse effect of correct drug or medicament properly administered, initial encounter (principal); T50.8X5A Adverse effect of diagnostic agents, initial encounter; Y84.0 Cardiac catheterization as the cause of abnormal reaction of the patient, or of later complication, without mention of misadventure at the time of the procedure; T38.0X6A Underdosing of glucocorticoids and synthetic analogues, initial encounter; Z91.128 Patient's intentional underdosing of medication regimen for other reason; Z91.14 Patient's other noncompliance with medication regimen; E10.22 Type 1 diabetes mellitus with diabetic chronic kidney disease; I12.0 Hypertensive chronic kidney disease with stage 5 chronic kidney disease or end stage renal disease; N18.6 End stage renal disease; Z99.2 Dependence on renal dialysis; Z96.41 Presence of insulin pump (external) (internal); R06.82 Tachypnea, not elsewhere classified; R61 Generalized hyperhidrosis; Z87.891 Personal history of nicotine dependence
CPT/HCPCS: 96376; 99284; 96372; 96374; 96375; J1200; J0171; J2930; J2405; S0028

== ENCOUNTER 2020-01-15 21:06 | Inpatient (IN) | payer OTHER, MEDICARE ==
[2020-01-15] MEDS ORDERED: ONDANSETRON HCL INJ/PF 4 MG/2 ML SDV IV ONE (21:49)
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
[2020-01-15 22:27] LABS: ABSOLUTE BASOPHILS # (AUTO) 0.2 10^3/uL (0.0-0.2); ABSOLUTE EOSINOPHILS # (AUTO) 0.1 10^3/uL (0.0-0.6); ABSOLUTE LYMPHOCYTES (AUTO) 0.6 10^3/uL (0.5-4.7); ABSOLUTE MONOCYTES (AUTO) 0.6 10^3/uL (0.1-1.4); ABSOLUTE NEUT (AUTO) 6.6 10^3/uL (1.7-8.2); BASOPHILS % (AUTO) 2.3 % (0-2); EOSINOPHILS % (AUTO) 1.4 % (0-6); HEMOGLOBIN 13.8 g/dL (13.5-17.0); LYMPHOCYTES % (AUTO) 7.6 % (13-45); MEAN CORPUSCULAR HEMOGLOBIN 33.4 pg (27.0-33.4); MEAN CORPUSCULAR HGB CONC 33.7 g/dL (32.0-36.0); MEAN CORPUSCULAR VOLUME 99 fl (80-97); MONOCYTES % (AUTO) 7.5 % (3-13); PLATELET COUNT 164 10^3/uL (150-450); RED BLOOD COUNT 4.15 10^6/uL (4.35-5.55); RED CELL DISTRIBUTION WIDTH 15.5 % (11.5-14.0); SEGMENTED NEUTROPHILS % (AUTO) 81.2 % (42-78); TOTAL CELLS COUNTED % (AUTO) 100 %; WHITE BLOOD COUNT 8.2 10^3/uL (4.0-10.5)
[2020-01-15] MEDS ORDERED: NORMAL SALINE 250 ML IV ONE (22:42)
[2020-01-15] MEDS ORDERED: PROCHLORPERAZINE EDISYLATE INJ 10 MG/2 ML VIAL IV ONE (22:42)
[2020-01-15 22:46] LABS: ALBUMIN 4.7 g/dL (3.5-5.0); ALKALINE PHOSPHATASE 115 U/L (38-126); ANION GAP 17 (5-19); ASPARTATE AMINO TRANSFERASE 23 U/L (17-59); BILIRUBIN,DIRECT 0.7 mg/dL (0.0-0.4); BILIRUBIN,TOTAL 1.3 mg/dL (0.2-1.3); BLOOD UREA NITROGEN 36 mg/dL (7-20); CALCIUM 9.4 mg/dL (8.4-10.2); CARBON DIOXIDE 22 mmol/L (22-30); CHLORIDE 90 mmol/L (98-107); TOTAL PROTEIN 7.9 g/dL (6.3-8.2)
[2020-01-15 23:11] LABS: VENOUS BLOOD BASE EXCESS -5.4 mmol/L; VENOUS BLOOD HCO3 20.6 mmol/L (20-32); VENOUS BLOOD PH 7.31 (7.30-7.42)
[2020-01-15] MEDS ORDERED: INSULIN REG, HUMAN 100 UNIT/ML 3 ML VIAL (PYX) SUBCUT ONE (23:12)
[2020-01-15 23:13] LABS: GLUCOSE 638 mg/dL (75-110)
[2020-01-15 23:14] LABS: POTASSIUM 6.7 mmol/L (3.6-5.0)
[2020-01-15] MEDS ORDERED: CALCIUM GLUCONATE 1000 MG/10 ML INJ IV ONE (23:15)
[2020-01-15] MEDS ORDERED: SODIUM BICARBONATE 8.4% INJ 50 MEQ/50 ML DISP.SYRIN IV ONE (23:15)
[2020-01-15] MEDS ORDERED: NORMAL SALINE 100 ML with INSULIN REGULAR, HUMAN 100 UNIT IV PRN ×2 (23:29)
[2020-01-15] MEDS ORDERED: PROMETHAZINE HCL INJ 25 MG/1 ML VIAL IV ONE (23:31)
[2020-01-16] MEDS ORDERED: INSULIN REG, HUMAN 100 UNIT/ML 3 ML VIAL (PYX) ONE (00:43)
[2020-01-16] MEDS ORDERED: NORMAL SALINE 250 ML IV ONE (00:53)
[2020-01-16] MEDS: PATIROMER 8.4 GM SUSP PACKET PO SCH ×2 (01:14→17:23)
[2020-01-16 02:32] LABS: ANION GAP 17 (5-19); BLOOD UREA NITROGEN 46 mg/dL (7-20); CALCIUM 9.3 mg/dL (8.4-10.2); CARBON DIOXIDE 23 mmol/L (22-30); CHLORIDE 94 mmol/L (98-107)
[2020-01-16 02:47] LABS: POTASSIUM 4.9 mmol/L (3.6-5.0)
[2020-01-16 02:48] LABS: GLUCOSE 530 mg/dL (75-110)
[2020-01-16] MEDS ORDERED: MAG HYDROX/AL HYDROX/SIMETH SUSP 30 ML UDCUP PO PRN (05:11)
[2020-01-16] MEDS ORDERED: ACETAMINOPHEN 650 MG SUPP.RECT PR PRN (05:19)
[2020-01-16] MEDS ORDERED: ACETAMINOPHEN 325 MG TABLET PO PRN (05:19)
[2020-01-16] MEDS ORDERED: LORAZEPAM INJ 2 MG/1 ML VIAL IV PRN (05:19)
[2020-01-16] MEDS ORDERED: MORPHINE SULFATE 10 MG/ML INJ IV PRN ×3 (05:19)
[2020-01-16] MEDS ORDERED: DEXTROSE 40% GEL 15 GM TUBE PO PRN ×2 (05:21)
[2020-01-16] MEDS ORDERED: GLUCAGON,HUMAN RECOMB 1 MG INJ IM PRN (05:21)
[2020-01-16] MEDS ORDERED: DEXTROSE 50%-WATER 25 GM/50 ML DISP.SYRIN IV PRN ×2 (05:21)
[2020-01-16] MEDS: HEPARIN SOD (PORCINE) 5,000 UNIT/ML 1 ML VIAL SUBCUT SCH ×3 (06:06→21:52)
[2020-01-16] MEDS: PANTOPRAZOLE SODIUM 40 MG TABLET.DR PO SCH (06:06)
[2020-01-16 06:29] LABS: HEMATOCRIT 35.1 % (37.9-51.0); HEMOGLOBIN 12.2 g/dL (13.5-17.0); MEAN CORPUSCULAR HEMOGLOBIN 32.8 pg (27.0-33.4); MEAN CORPUSCULAR HGB CONC 34.8 g/dL (32.0-36.0); PLATELET COUNT 153 10^3/uL (150-450); RED BLOOD COUNT 3.72 10^6/uL (4.35-5.55); RED CELL DISTRIBUTION WIDTH 15.3 % (11.5-14.0); WHITE BLOOD COUNT 5.9 10^3/uL (4.0-10.5)
[2020-01-16 06:39] LABS: ANION GAP 11 (5-19); BLOOD UREA NITROGEN 50 mg/dL (7-20); CALCIUM 9.5 mg/dL (8.4-10.2); CARBON DIOXIDE 29 mmol/L (22-30); CHLORIDE 96 mmol/L (98-107)
[2020-01-16 06:40] LABS: MEAN CORPUSCULAR VOLUME 94 fl (80-97)
[2020-01-16 06:44] LABS: GLUCOSE 67 mg/dL (75-110)
--- NOTE | 2020-01-16 07:56 | PDOC H&P ---
History of Present Illness Admission Date/PCP: 01/16/2020 04:[facility] Patient complains of: High blood sugar History of Present Illness: MADISYN JOHNSON is a 49 year old male who presented to the emergency room acute elevation of his blood sugar. Patient admits that he noticed his blood sugar was very high about 3 hours prior to his ER presentation. His blood sugar continued to rise gradually and then he began to experience nausea and vomiting. His blood sugar was in the 500s when he decided to come to the emergency room. He admits prior similar episodes when his insulin pump catheter has become kinked and does not dispense insulin correctly, resulting in his developing acut e diabetic ketoacidosis. He denies other associated or accompanying signs and symptoms. He has not identified any aggravating or ameliorating factors for his elevated blood sugar. In the emergency room he was found to have an initial blood sugar of 638 and a potassium of 6.7. He is an end-stage renal disease on dialysis patient. Patient was treated with an insulin infusion and IV fluids. He was subsequently noted to become more stable with a normal potassium level and a lower blood sugar and was therefore admitted to the hospital for further evaluation and treatment. Past Medical History Cardiac Medical History: Reports: Hypertension Denies: Atrial Fibrillation, Congestive Heart Failure, Coronary Artery Disease - Negative chemical stress 2 weeks ago; negative heart cath last September, DVT, Myocardial Infarction, Hyperlipidema, Pulmonary Embolism Pulmonary Medical History: Denies: Asthma, Chronic Obstructive Pulmonary Disease (COPD), Sleep Apnea EENT Medical History: Denies: Cataracts, Ears - Hearing aids Neurological Medical History: Denies: Hemorrhagic CVA, Ischemic CVA, Seizures Endocrine Medical History: Reports: Diabetes Mellitus Type 1 - insulin pump Denies: Diabetes Mellitus Type 2, Hyperthyroidism, Hypothyroidism Renal/ Medical History: Reports: End Stage Renal Disease Denies: Nephrolithiasis Malignancy Medical History: Reports: None GI Medical History: Denies: Cirrhosis, Gastroesophageal Reflux Disease, Hepatitis, Hiatal Hernia Musculoskeltal Medical History: Reports: Arthritis Denies: Gout Skin Medical History: Denies: Eczema, Psoriasis Psychiatric Medical History: Denies: Alcohol Dependency, Depression, Substance Abuse, Tobacco Dependency Traumatic Medical History: Reports: None Hematology: Denies: Anemia, Bleeding Tendencies Infectious Medical History: Reports: None Past Surgical History Past Surgical History: Reports: Orthopedic Surgery - r/t traumas x 2 (right leg and left shoulder), Vascular Surgery - Access surgery for hemodialysis. Left upper extremity fistula. Social History Information Source: Patient Lives with: Parents Smoking Status: Former Smoker Electronic Cigarette use?: No Frequency of Alcohol Use: Rare Hx Recreational Drug Use: No Drugs: None Hx Prescription Drug Abuse: No - Advance Directive Resuscitation Status: Full Code Surrogate healthcare decision maker:: Gallito Johnson Family History Family History: CAD, DM Parental Family History Reviewed: Yes Children Family History Reviewed: No Sibling(s) Family History Reviewed.: Yes Medication/Allergy Home Medications: Amlodipine Besylate [Norvasc 10 mg Tablet] 5 mg PO DAILY 05/29/18 Calcium Acetate [Phoslo 667 mg Capsule] 1,334 mg PO BID 05/29/18 Carvedilol [Coreg 25 mg Tablet] 25 mg PO Q12 05/29/18 Duloxetine HCl [Cymbalta 20 mg Capsule.dr] 20 mg PO DAILY 05/29/18 Furosemide [Lasix 80 mg Tablet] 80 mg PO DAILYP PRN 05/29/18 Hydralazine HCl [Apresoline 50 mg Tablet] 50 mg PO Q12 05/29/18 Hydroxyzine HCl [Atarax 25 mg Tablet] 50 mg PO DAILYP PRN 05/29/18 Vit B Comp No.3/Folic/C/Biotin [Lyndsey-Lita Rx Tablet] 1 tab PO DAILY 05/29/18 Promethazine HCl [Phenergan 25 mg Tablet] 1 tab PO Q6H PRN #15 tablet 01/08/19 Eszopiclone [Lunesta] 2 mg PO QHS 08/16/19 Ketorolac Tromethamine 0.45% [Acuvail 0.45% Oph Soln 0.4 ml/Dropperette] 1 drop OD ASDIR 08/16/19 Moxifloxacin HCl [Vigamox 0.5% Oph Soln 3 ml] 1 drop OP ASDIR 08/16/19 Prednisolone Acetate [Pred Forte] 1 drop OP ASDIR 08/16/19 Subq Insulin Pump,Gluc.mon.sys [[place] Vibe] 1 each MC ASDIR 08/16/19 Ondansetron [Zofran Odt 4 mg Tablet] 1 - 2 tab PO Q4H PRN #15 tab.rapdis 09/01/19 Cyclobenzaprine HCl [Flexeril 5 mg Tablet] 5 mg PO TID PRN #15 tablet 10/12/19 Azithromycin [Zithromax 250 mg Tablet] 250 mg PO ASDIR PRN #6 tablet 10/23/19 Dexamethasone [Decadron 4 Mg Tablet] 4 mg PO BID #10 tablet 11/25/19 Famotidine [Pepcid 20 mg Tablet] 20 mg PO BID #12 tablet 11/25/19 Hydroxyzine HCl [Atarax 10 mg Tablet] 10 mg PO TID PRN #30 tablet 11/25/19 Epinephrine 0.3 mg IJ PRN PRN #1 auto.injct 11/29/19 Allergies/Adverse Reactions: Iodinated Contrast Media Allergy (Verified 01/15/20 21:24) Review of Systems Constitutional: ABSENT: chills, fever(s) Eyes: ABSENT: visual disturbances, other - Eye pain Ears: ABSENT: hearing changes, other - Ear pain Nose, Mouth, and Throat: ABSENT: headache(s), sore throat Cardiovascular: ABSENT: chest pain, palpitations Respiratory: ABSENT: cough, dyspnea Gastrointestinal: PRESENT: nausea, vomiting. ABSENT: abdominal pain, constipation, diarrhea, hematemesis Genitourinary: ABSENT: dysuria, hematuria Musculoskeletal: ABSENT: back pain, joint swelling Integumentary: ABSENT: pruritus, rash Neurological: ABSENT: confusion, convulsions, focal weakness, memory loss, synco pe Psychiatric: ABSENT: anxiety, depression Endocrine: ABSENT: cold intolerance, heat intolerance, polydipsia, polyphagia, polyuria Hematologic/Lymphatic: ABSENT: easy bleeding, easy bruising Allergic/Immunologic: ABSENT: seasonal rhinorrhea Physical Exam Vital Signs: Temp Pulse Resp BP Pulse Ox 97.7 F 110 H 14 144/82 H 94 01/15/20 21:10 01/15/20 21:10 01/16/20 02:01 01/16/20 02:01 01/16/20 04:00 Intake & Output 01/14/20 01/15/20 01/16/20 23:59 23:59 23:59 Intake Total 250 274 Balance 250 274 Weight 94.5 kg General appearance: PRESENT: no acute distress, cooperative Head exam: ABSENT: atraumatic, normocephalic Eye exam: PRESENT: conjunctiva pink. ABSENT: conjunctival injection, scleral icterus Ear exam: PRESENT: normal external ear exam. ABSENT: bleeding, drainage Mouth exam: PRESENT: dry mucosa, neck supple Neck exam: ABSENT: thyromegaly, tracheal deviation Respiratory exam: PRESENT: clear to auscultation bessy, symmetrical, unlabored Cardiovascular exam: PRESENT: RRR. ABSENT: clicks, gallop, rubs Pulses: PRESENT: normal radial pulses, normal dorsalis pedis pul Vascular exam: PRESENT: normal capillary refill. ABSENT: pallor GI/Abdominal exam: PRESENT: normal bowel sounds, soft Rectal exam: PRESENT: deferred Extremities exam: ABSENT: joint swelling, pedal edema Musculoskeletal exam: ABSENT: deformity, dislocation Neurological exam: PRESENT: alert, oriented to person, oriented to place, orie nted to time, oriented to situation, CN II-XII grossly intact. ABSENT: motor sensory deficit Psychiatric exam: PRESENT: appropriate affect, normal mood Skin exam: PRESENT: dry, intact, warm. ABSENT: jaundice, rash, urticaria Results Laboratory Results: 01/15/20 22:10 01/16/20 01:54 01/15/20 01/15/20 01/15/20 22:10 22:10 23:00 WBC 8.2 RBC 4.15 L Hgb 13.8 Hct 41.0 MCV 99 H MCH 33.4 MCHC 33.7 RDW 15.5 H Plt Count 164 Seg Neutrophils % 81.2 H VBG pH 7.31 VBG pCO2 42.0 VBG HCO3 20.6 VBG Base Excess -5.4 Sodium 129.4 L Potassium 6.7 H* Chloride 90 L Carbon Dioxide 22 Anion Gap 17 BUN 36 H Creatinine 5.64 H Est GFR ( Amer) 13 L Est GFR (Non-Af Amer) Glucose 638 H* Calcium 9.4 Total Bilirubin 1.3 AST 23 Alkaline Phosphatase 115 Total Protein 7.9 Albumin 4.7 Lipase 89.3 01/16/20 01/16/20 00:50 01:54 WBC RBC Hgb Hct MCV MCH MCHC RDW Plt Count Seg Neutrophils % VBG pH VBG pCO2 VBG HCO3 VBG Base Excess Sodium Cancelled 133.7 L Potassium Cancelled 4.9 D Chloride Cancelled 94 L Carbon Dioxide Cancelled 23 Anion Gap Cancelled 17 BUN Cancelled 46 H Creatinine Cancelled 5.67 H Est GFR ( Amer) Cancelled 13 L Est GFR (Non-Af Amer) Cancelled Glucose Cancelled 530 H* Calcium Cancelled 9.3 Total Bilirubin AST Alkaline Phosphatase Total Protein Albumin Lipase Assessment and Plan - Diagnosis (1) DKA (diabetic ketoacidoses) Qualifiers: Diabetes mellitus type: type 1 Diabetes mellitus complication detail: without coma Qualified Code(s): E10.10 - Type 1 diabetes mellitus with ketoacidosis without coma Is this a current diagnosis for this admission?: Yes (2) Hyperkalemia Is this a current diagnosis for this admission?: Yes (3) End stage renal disease on dialysis Is this a current diagnosis for this admission?: Yes (4) Nausea & vomiting Qualifiers: Vomiting type: unspecified Vomiting Intractability: non-intractable Qualified Code(s): R11.2 - Nausea with vomiting, unspecified Is this a current diagnosis for this admission?: Yes (5) Essential hypertension Is this a current diagnosis for this admission?: Yes (6) Anemia in chronic kidney disease, on chronic dialysis Is this a current diagnosis for this admission?: Yes - Plan Summary Summary: Patient is admitted to [facility] for routine supportive and symptomatic cares. He will be continued on insulin infusion until his blood sugar normalizes and his anion gap is closed. He will receive Ativan 1 mg IV every 4 hours as needed for anxiety or restlessness. He will receive morphine sulfate 2 to 4 mg IV every 2 hours as needed for pain, using a sliding scale for dosage. IV fluids will be administered as needed with caution to avoid fluid overload due to the patient's end-stage renal disease. Dr. Edgra will be consulted for nephrology management if required. The patient's insulin pump catheter may require being changed and this will need to be accomplished during the daytime. CBCs metabolic profiles and magnesium levels will be obtained as needed. ABGs and venous blood gases will be monitored as appropriate. Hemoglobin A1c level will be obtained. Patient will be placed on a diabetic restricted, cardiac restricted and dialysis restricted diet as soon as he is able to tolerate oral intake. Patient will be continued on his usual medications and treatment program as appropriate as soon as his medication list can be verified and reconciled. - Time Time Spent with patient: 15-24 minutes Medications reviewed and adjusted accordingly: Yes Anticipated discharge: Home - Inpatient Certification Based on my medical assessment, after consideration of the patient's comorbidities, presenting symptoms, or acuity I expect that the services needed warrant INPATIENT care.: Yes I certify that my determination is in accordance with my understanding of Medicare's requirements for reasonable and necessary INPATIENT services [42 CFR 412.3e].: Yes Medical Necessity: Need Close Monitoring Due to Risk of Patient Decompensation, Need For IV Fluids, Need For Continuous Telemetry Monitoring, Risk of Complication if Not Cared For in Hospital
--- NOTE | 2020-01-16 08:15 | EKG REPORT ---
SEVERITY:- ABNORMAL ECG - SINUS RHYTHM LEFT ATRIAL ABNORMALITY INCOMPLETE RBBB AND LAFB LEFT VENTRICULAR HYPERTROPHY : Confirmed by: Marleen Boswell MD 16-Jan-2020 08:15:03
[2020-01-16] MEDS: INSULIN REG, HUMAN 100 UNIT/ML 3 ML VIAL (PYX) SUBCUT SCH ×4 (08:21→21:52)
[2020-01-16] MEDS: DOCUSATE SODIUM 100 MG CAPSULE PO SCH ×2 (10:48→17:23)
[2020-01-16] MEDS: HYDRALAZINE HCL 50 MG TABLET PO SCH ×3 (10:48→21:52)
[2020-01-16] MEDS: AMLODIPINE BESYLATE 10 MG TABLET PO SCH (10:48)
[2020-01-17 05:16] LABS: HEMOGLOBIN 11.9 g/dL (13.5-17.0); MEAN CORPUSCULAR HEMOGLOBIN 32.8 pg (27.0-33.4); MEAN CORPUSCULAR HGB CONC 34.1 g/dL (32.0-36.0); MEAN CORPUSCULAR VOLUME 96 fl (80-97); PLATELET COUNT 144 10^3/uL (150-450); RED BLOOD COUNT 3.63 10^6/uL (4.35-5.55); WHITE BLOOD COUNT 6.3 10^3/uL (4.0-10.5)
[2020-01-17 05:47] LABS: BLOOD UREA NITROGEN 68 mg/dL (7-20); CALCIUM 8.9 mg/dL (8.4-10.2); GLUCOSE 340 mg/dL (75-110); POTASSIUM 5.6 mmol/L (3.6-5.0)
[2020-01-17 05:52] LABS: ANION GAP 18 (5-19); CARBON DIOXIDE 20 mmol/L (22-30); CHLORIDE 92 mmol/L (98-107)
[2020-01-17] MEDS: PANTOPRAZOLE SODIUM 40 MG TABLET.DR PO SCH (06:17)
[2020-01-17] MEDS: HYDRALAZINE HCL 50 MG TABLET PO SCH ×3 (06:17→21:49)
[2020-01-17] MEDS: HEPARIN SOD (PORCINE) 5,000 UNIT/ML 1 ML VIAL SUBCUT SCH (06:19)
[2020-01-17] MEDS: PROMETHAZINE HCL INJ 25 MG/1 ML VIAL IV PRN ×2 (07:40→12:32)
[2020-01-17] MEDS: INSULIN REG, HUMAN 100 UNIT/ML 3 ML VIAL (PYX) SUBCUT SCH ×5 (08:17→21:48)
[2020-01-17] MEDS ORDERED: DIPHENHYDRAMINE HCL 50 MG/ML VIAL IV ONE (09:00)
[2020-01-17] MEDS ORDERED: ONDANSETRON HCL INJ/PF 4 MG/2 ML SDV IV ONE (10:30)
--- NOTE | 2020-01-17 11:12 | PDOC CONSULTATION ---
Consultation Consult Date: 01/17/20 Provider Consulted: Chantal ADAM Consult reason:: ESRD for HD History of Present Illness Admission Date/PCP: 01/16/20 05:05 [facility] History of Present Illness: MADISYN JOHNSON is a 49 year old male With a background history of ESRD on hemodialysis in the background of type 1 diabetes mellitus, hypertension was admitted with history of uncontrolled blood sugars associated with nausea and vomiting.He says he has been noticing progressive rise in his blood sugars over the last couple of days and thinks that there could be a malfunction of his insulin pump which has happened before with similar presentation. He is currently being seen while undergoing dialysis and he has nausea and vomiting in spite of premedications with IV Phenergan. No complains of any coughing spells fever or chills.He denies any short chest pains or shortness of breath. He also has a history of positive PPD in the past and was treated apparently with a full course of INH. Labs and medications were reviewed. Dialysis orders were reviewed with the treating dialysis nurse. Past Medical History Cardiac Medical History: Reports: Hypertension-primary Denies: Atrial Fibrillation, Coronary Artery Disease - Negative chemical stress 2 weeks ago; negative heart cath last September, DVT, Hyperlipidemia, Myocardial Infarction, Pulmonary Embolism Pulmonary Medical History: Denies: Asthma, Chronic Obstructive Pulmonary Disease (COPD), Sleep Apnea EENT Medical History: Denies: Cataracts, Ears - Hearing aids Neurological Medical History: Denies: Hemorrhagic CVA, Ischemic CVA, Seizures Endocrine Medical History: Reports: Diabetes Mellitus Type 1 - insulin pump Denies: Diabetes Mellitus Type 2, Hyperthyroidism, Hypothyroidism Complications of Diabetes: Reports: None Renal/ Medical History: Reports: End Stage Renal Disease, Secondary Hyperparathyroidism Denies: Nephrolithiasis Malignancy Medical History: Reports: None GI Medical History: Denies: Cirrhosis, Gastroesophageal Reflux Disease, Hepatitis, Hiatal Hernia Musculoskeltal Medical History: Reports: Arthritis Denies: Gout Skin Medical History: Denies: Eczema, Psoriasis Psychiatric Medical History: Denies: Alcohol Dependency, Depression, Substance Abuse, Tobacco Dependency Traumatic Medical History: Reports: None Infectious Medical History: Reports: None, Other Infectious History Note: History of positive PPD in the past and he has apparently been treated with a full course of INH. Past Surgical History Past Surgical History: Reports: Orthopedic Surgery - r/t traumas x 2 (right leg and left shoulder), Vascular Surgery - Access surgery for hemodialysis. Left upper extremity fistula. Denies: Pacemaker Social History Lives with: Parents Smoking Status: Former Smoker Cigarettes Packs Per Day: 1 Electronic Cigarette use?: No Number of Years Smokin Last Time Smoked: 1.5 years ago Frequency of Alcohol Use: Rare Hx Recreational Drug Use: No Drugs: None Hx Prescription Drug Abuse: No - Advance Directive Resuscitation Status: Full Code Family History Parental Family History Reviewed: Yes - Negative for ESRD Children Family History Reviewed: No Sibling(s) Family History Reviewed.: No Medication/Allergy Home Medications: Epinephrine 0.3 mg IJ PRN PRN #1 auto.injct 11/29/19 Allergies/Adverse Reactions: Iodinated Contrast Media Allergy (Verified 01/15/20 21:24) Review of Systems Constitutional: PRESENT: anorexia, fatigue, weakness. ABSENT: chills, fever(s), headache(s), night sweats Nose, Mouth, and Throat: ABSENT: mouth pain, sore throat Cardiovascular: ABSENT: chest pain, dyspnea on exertion, edema, orthropnea, palpitations Gastrointestinal: PRESENT: nausea, vomiting. ABSENT: abdominal pain, diarrhea, dysphagia, heartburn, hematemesis, hematochezia Genitourinary: ABSENT: dysuria, hematuria Musculoskeletal: ABSENT: deformity, joint swelling Integumentary: ABSENT: erythema, lesions, pruritus, rash Neurological: ABSENT: abnormal movements, abnormal speech, focal weakness, frequent falls, lack of coordination, syncope Hematologic/Lymphatic: ABSENT: easy bruising, lymphadenopathy Physical Exam Vital Signs: Temp Pulse Resp BP Pulse Ox 97.8 F 65 16 116/46 L 94 01/17/20 03:17 01/17/20 03:17 01/17/20 03:17 01/17/20 03:17 01/17/20 03:17 Intake & Output 01/16/20 01/17/20 01/18/20 06:59 06:59 06:59 Intake Total 529 822 Balance 529 822 Weight 94.5 kg 97.2 kg General appearance: PRESENT: mild distress - Has incessant nausea and vomiting. Eye exam: PRESENT: EOMI, PERRLA. ABSENT: scleral icterus Ear exam: PRESENT: normal external ear exam Neck exam: ABSENT: lymphadenopathy, meningismus, tenderness, thyromegaly, tracheal deviation Respiratory exam: PRESENT: clear to auscultation bessy. ABSENT: crackles Cardiovascular exam: PRESENT: +S1, +S2 GI/Abdominal exam: PRESENT: normal bowel sounds, soft. ABSENT: organomegaly, tenderness Extremities exam: ABSENT: pedal edema Neurological exam: PRESENT: alert, awake, oriented to person, oriented to place Psychiatric exam: PRESENT: appropriate affect Skin exam: ABSENT: cyanosis, erythema, mottled, rash Results Laboratory Results: 01/17/20 04:36 01/17/20 04:36 01/17/20 01/17/20 04:36 04:36 WBC 6.3 RBC 3.63 L Hgb 11.9 L Hct 35.0 L MCV 96 MCH 32.8 MCHC 34.1 RDW 15.0 H Plt Count 144 L Sodium 130.3 L Potassium 5.6 H Chloride 92 L Carbon Dioxide 20 L Anion Gap 18 BUN 68 H Creatinine 8.37 H Est GFR ( Amer) 8 L Glucose 340 H Calcium 8.9 Magnesium 2.3 Assessment & Plan - Diagnosis (1) Nausea & vomiting Qualifiers: Vomiting type: unspecified Vomiting Intractability: non-intractable Qualified Code(s): R11.2 - Nausea with vomiting, unspecified Is this a current diagnosis for this admission?: Yes Plan: In the face of uncontrolled and elevated blood sugars. This could be an element of gastroparesis and might need further evaluations. Currently being treated vigorously by the hospitalist. I am going to order IV Zofran while he is undergoing dialysis and has persistent nausea vomiting. (2) End stage renal disease on dialysis Is this a current diagnosis for this admission?: Yes Plan: Patient currently undergoing dialysis but for the nausea and vomiting history he has been doing well. Plan to remove minimal amount of fluid. Dialysis being supervised to ensure safe and smooth procedure. Dialysis orders were reviewed with the treating dialysis nurse. (3) Hyperkalemia Is this a current diagnosis for this admission?: Yes Plan: Should respond to dialysis. Monitor. (4) Essential hypertension Is this a current diagnosis for this admission?: Yes Plan: Controlled. Monitor. (5) Diabetes mellitus type 1 Qualifiers: Diabetes mellitus complication status: with ketoacidosis Diabetes mellitus complication detail: without coma Qualified Code(s): E10.10 - Type 1 diabetes mellitus with ketoacidosis without coma Is this a current diagnosis for this admission?: Yes Plan: Apparently had been doing well but this recent event. Once he is discharged he will have to get his insulin pump rechecked and readjusted/calibrated.
[2020-01-17] MEDS: AMLODIPINE BESYLATE 10 MG TABLET PO SCH (11:59)
[2020-01-17] MEDS: DOCUSATE SODIUM 100 MG CAPSULE PO SCH ×2 (12:27→17:45)
--- NOTE | 2020-01-17 13:01 | PDOC PROGRESS REPORT ---
Subjective Progress Note for:: 01/17/20 Subjective:: Patient seems to be doing better today, getting some energy back but still quite tired. Blood sugars are still uncontrolled in the 200s and 300s. He was dialyzed today and states this went well. Patient will restart his home insulin pump today in the hospital after his father brings him his supplies. He has no new complaints other than stated above. Reason For Visit: DIABETIC KETOACIDOSIS, HYPERKALEMIA, ESRD ON Physical Exam Vital Signs: Temp Pulse Resp BP Pulse Ox 97.8 F 65 16 116/46 L 94 01/17/20 03:17 01/17/20 03:17 01/17/20 03:17 01/17/20 03:17 01/17/20 03:17 Intake & Output 01/16/20 01/17/20 01/18/20 06:59 06:59 06:59 Intake Total 529 822 Balance 529 822 Weight 94.5 kg 97.2 kg General appearance: PRESENT: no acute distress, well-developed, well-nourished Head exam: PRESENT: atraumatic, normocephalic Eye exam: PRESENT: conjunctiva pink Mouth exam: PRESENT: moist Respiratory exam: PRESENT: clear to auscultation bessy. ABSENT: rales, rhonchi, wheezes Cardiovascular exam: PRESENT: RRR. ABSENT: diastolic murmur, rubs, systolic murmur GI/Abdominal exam: PRESENT: normal bowel sounds, soft. ABSENT: distended, guarding, mass, organolmegaly, rebound, tenderness Neurological exam: PRESENT: alert, awake, oriented to person, oriented to place, oriented to time, oriented to situation Psychiatric exam: PRESENT: appropriate affect, normal mood Skin exam: PRESENT: dry, intact, warm Results Laboratory Results: 01/17/20 04:36 01/17/20 04:36 01/17/20 01/17/20 04:36 04:36 WBC 6.3 RBC 3.63 L Hgb 11.9 L Hct 35.0 L MCV 96 MCH 32.8 MCHC 34.1 RDW 15.0 H Plt Count 144 L Sodium 130.3 L Potassium 5.6 H Chloride 92 L Carbon Dioxide 20 L Anion Gap 18 BUN 68 H Creatinine 8.37 H Est GFR ( Amer) 8 L Glucose 340 H Calcium 8.9 Magnesium 2.3 Assessment and Plan - Diagnosis (1) DKA (diabetic ketoacidoses) Qualifiers: Diabetes mellitus type: type 1 Diabetes mellitus complication detail: without coma Qualified Code(s): E10.10 - Type 1 diabetes mellitus with ketoacidosis without coma Is this a current diagnosis for this admission?: Yes Plan: Occurs 2-3 times per year per patient whenever his insulin pump wine gets kinked and no longer delivers insulin. Denies any recent or current illness that may have sent him into DKA Chronic type I diabetic on insulin pump, followed by endocrinology outpatient Discussed with patient he should try to watch the amount of insulin in his pump and if he notices it is not decreasing, he should readjust his line or reinsert it. IV fluids Insulin drip, converted back to home insulin pump on 01/16 Must follow-up closely with endocrinology outpatient Gap closing/closed (2) Complication of insulin pump Qualifiers: Device complication type: mechanical Mechanical complication type: displacement Encounter type: initial encounter Qualified Code(s): T85.624A - Displacement of insulin pump, initial encounter Is this a current diagnosis for this admission?: Yes Plan: As above, patient counseled on ways to prevent mechanical problems (3) Diabetes mellitus type 1 Qualifiers: Diabetes mellitus complication status: with ketoacidosis Diabetes mellitus complication detail: without coma Qualified Code(s): E10.10 - Type 1 diabetes mellitus with ketoacidosis without coma Is this a current diagnosis for this admission?: Yes Plan: -on insulin pump at home (4) Essential hypertension Is this a current diagnosis for this admission?: Yes (5) Nausea & vomiting Qualifiers: Vomiting type: unspecified Vomiting Intractability: non-intractable Quali fied Code(s): R11.2 - Nausea with vomiting, unspecified Is this a current diagnosis for this admission?: Yes (6) Atrial fibrillation with RVR Is this a current diagnosis for this admission?: Yes Plan: Home meds Takes Eliquis 2.5 mg twice daily at home, restarted (7) Hyperglycemia Is this a current diagnosis for this admission?: Yes (8) Metabolic acidosis due to diabetes mellitus Is this a current diagnosis for this admission?: Yes (9) End stage renal disease on dialysis Is this a current diagnosis for this admission?: Yes Plan: Nephrology consulted, managing dialysis - Plan Summary Summary: Patient is admitted to [facility] for routine supportive and symptomatic cares. He will be continued on insulin infusion until his blood sugar normalizes and his anion gap is closed. He will receive Ativan 1 mg IV every 4 hours as needed for anxiety or restlessness. He will receive morphine sulfate 2 to 4 mg IV every 2 hours as needed for pain, using a sliding scale for dosage. IV fluids will be administered as needed with caution to avoid fluid overload due to the patient's end-stage renal disease. Dr. Edgar will be consulted for nephrology management if required. The patient's insulin pump catheter may require being changed and this will need to be accomplished during the daytime. CBCs metabolic profiles and magnesium levels will be obtained as needed. ABGs and venous blood gases will be monitored as appropriate. Hemoglobin A1c level will be obtained. Patient will be placed on a diabetic restricted, cardiac restricted and dialysis restricted diet as soon as he is able to tolerate oral intake. Patient will be continued on his usual medications and treatment program as appropriate as soon as his medication list can be verified and reconciled. - Time Time Spent with patient: 25-34 minutes Medications reviewed and adjusted accordingly: Yes Anticipated discharge: Home Within: within 48 hours - Inpatient Certification Based on my medical assessment, after consideration of the patient's comorbidities, presenting symptoms, or acuity I expect that the services needed warrant INPATIENT care.: Yes I certify that my determination is in accordance with my understanding of Medicare's requirements for reasonable and necessary INPATIENT services [42 CFR 412.3e].: Yes Medical Necessity: Need Close Monitoring Due to Risk of Patient Decompensation, Need For IV Fluids, Risk of Complication if Not Cared For in Hospital
[2020-01-17] MEDS: PATIROMER 8.4 GM SUSP PACKET PO SCH (17:44)
[2020-01-17] MEDS: APIXABAN 2.5 MG TABLET PO SCH (17:45)
[2020-01-18] MEDS: HYDRALAZINE HCL 50 MG TABLET PO SCH (05:31)
[2020-01-18] MEDS: PANTOPRAZOLE SODIUM 40 MG TABLET.DR PO SCH (05:32)
[2020-01-18 05:56] LABS: HEMATOCRIT 33.1 % (37.9-51.0); HEMOGLOBIN 11.4 g/dL (13.5-17.0); MEAN CORPUSCULAR HEMOGLOBIN 32.7 pg (27.0-33.4); MEAN CORPUSCULAR HGB CONC 34.4 g/dL (32.0-36.0); MEAN CORPUSCULAR VOLUME 95 fl (80-97); PLATELET COUNT 136 10^3/uL (150-450); RED BLOOD COUNT 3.47 10^6/uL (4.35-5.55); RED CELL DISTRIBUTION WIDTH 15.4 % (11.5-14.0); WHITE BLOOD COUNT 7.4 10^3/uL (4.0-10.5)
[2020-01-18 06:19] LABS: ANION GAP 12 (5-19); BLOOD UREA NITROGEN 56 mg/dL (7-20); CALCIUM 8.6 mg/dL (8.4-10.2); CARBON DIOXIDE 28 mmol/L (22-30); CHLORIDE 92 mmol/L (98-107); GLUCOSE 185 mg/dL (75-110); POTASSIUM 4.1 mmol/L (3.6-5.0)
[2020-01-18] MEDS: INSULIN REG, HUMAN 100 UNIT/ML 3 ML VIAL (PYX) SUBCUT SCH (08:29)
[2020-01-18] MEDS: AMLODIPINE BESYLATE 10 MG TABLET PO SCH (10:05)
[2020-01-18] MEDS: DOCUSATE SODIUM 100 MG CAPSULE PO SCH (10:06)
[2020-01-18] MEDS: APIXABAN 2.5 MG TABLET PO SCH (10:06)
[2020-01-18 10:08] VITALS: BP 130/54
--- NOTE | 2020-01-18 10:08 | PDOC DISCHARGE SUMMARY ---
Impression - Admit/DC Date/PCP Admission Date/Primary Care Provider: 01/16/20 05:[facility] Discharge Date: 01/18/20 - Discharge Diagnosis (1) DKA (diabetic ketoacidoses) Is this a current diagnosis for this admission?: Yes (2) Complication of insulin pump Is this a current diagnosis for this admission?: Yes (3) Diabetes mellitus type 1 Is this a current diagnosis for this admission?: Yes (4) Essential hypertension Is this a current diagnosis for this admission?: Yes (5) Nausea & vomiting Is this a current diagnosis for this admission?: Yes (6) Atrial fibrillation with RVR Is this a current diagnosis for this admission?: Yes (7) Hyperglycemia Is this a current diagnosis for this admission?: Yes (8) Metabolic acidosis due to diabetes mellitus Is this a current diagnosis for this admission?: Yes (9) End stage renal disease on dialysis Is this a current diagnosis for this admission?: Yes - Assessment Summary: Patient is admitted to [facility] for routine supportive and symptomatic cares. He will be continued on insulin infusion until his blood sugar normalizes and his anion gap is closed. He will receive Ativan 1 mg IV every 4 hours as needed for anxiety or restlessness. He will receive morphine sulfate 2 to 4 mg IV every 2 hours as needed for pain, using a sliding scale for dosage. IV fluids will be administered as needed with caution to avoid fluid overload due to the patient's end-stage renal disease. Dr. Edgar will be consulted for nephrology management if required. The patient's insulin pump catheter may require being changed and this will need to be accomplished during the daytime. CBCs metabolic profiles and magnesium levels will be obtained as needed. ABGs and venous blood gases will be monitored as appropriate. Hemoglobin A1c level will be obtained. Patient will be placed on a diabetic restricted, cardiac restricted and dialysis restricted diet as soon as he is able to tolerate oral intake. Patient will be continued on his usual medications and treatment program as appropriate as soon as his medication list can be verified and reconciled. - Additional Information Resuscitation Status: Full Code Discharge Diet: Diabetic Discharge Activity: Activity As Tolerated Referrals: [facility] [Primary [facility]] - Follow up as needed Home Medications: Epinephrine 0.3 mg IJ PRN PRN #1 auto.injct 11/29/19 Amlodipine Besylate [Norvasc 10 mg Tablet] 10 mg PO DAILY tablet 01/18/20 Apixaban [Eliquis 2.5 mg Tablet] 2.5 mg PO BID tablet 01/18/20 Hydralazine HCl [Apresoline 50 mg Tablet] 50 mg PO Q8 tablet 01/18/20 Pantoprazole Sodium [Protonix [address] Tablet] 40 mg PO Q6AM tablet. 01/18/20 Patiromer Calcium Sorbitex [Veltassa 8.4 gm Susp Packet] 8.4 gm PO WSUPPER packet 01/18/20 History of Present Illiness History of Present Illness: Per H&P: "MADISYN JOHNSON is a 49 year old male who presented to the emergency room acute elevation of his blood sugar. Patient admits that he noticed his blood sugar was very high about 3 hours prior to his ER presentation. His blood sugar continued to rise gradually and then he began to experience nausea and vomiting. His blood sugar was in the 500s when he decided to come to the emergency room. He admits prior similar episodes when his insulin pump catheter has become kinked and does not dispense insulin correctly, resulting in his developing acute diabetic ketoacidosis. He denies other associated or accompanying signs and symptoms. He has not identified any aggravating or ameliorating factors for his elevated blood sugar. In the emergency room he was found to have an initial blood sugar of 638 and a potassium of 6.7. He is an end-stage renal disease on dialysis patient. Patient was treated with an insulin infusion and IV fluids. He was subsequently noted to become more stable with a normal potassium level and a lower blood sugar and was therefore admitted to the hospital for further evaluation and treatment." Hospital Course Hospital Course: Metabolic acidosis resolved, gap closed, restarted home insulin pump and blood sugars under good control. No further nausea and vomiting, back to baseline. Patient wishes to go home and will follow up with frame feeder and PCP. (1) DKA (diabetic ketoacidoses) Occurs 2-3 times per year per patient whenever his insulin pump wine gets kinked and no longer delivers insulin. Denies any recent or current illness that may have sent him into DKA Chronic type I diabetic on insulin pump, followed by endocrinology outpatient Discussed with patient he should try to watch the amount of insulin in his pump and if he notices it is not decreasing, he should readjust his line or reinsert it. IV fluids Insulin drip, converted back to home insulin pump on 01/16 Must follow-up closely with endocrinology outpatient Gap closed (2) Complication of insulin pump As above, patient counseled on ways to prevent mechanical problems (3) Diabetes mellitus type 1 -on insulin pump at home (4) Essential hypertension Continue all home medications at dose and frequency prior to admission (5) Nausea & vomiting (6) Atrial fibrillation with RVR Home meds Takes Eliquis 2.5 mg twice daily at home, restarted (7) Hyperglycemia (8) Metabolic acidosis due to diabetes mellitus (9) End stage renal disease on dialysis Physical Exam Vital Signs: Temp Pulse Resp BP Pulse Ox 98.1 F 71 18 160/86 H 97 01/18/20 08:02 01/18/20 08:02 01/18/20 08:02 01/18/20 08:02 01/18/20 08:02 Intake & Output 01/17/20 01/18/20 01/19/20 06:59 06:59 06:59 Intake Total 822 580 Output Total 2000 Balance 822 -1420 Weight 97.2 kg 97.7 kg General appearance: PRESENT: no acute distress, well-developed, well-nourished Head exam: PRESENT: atraumatic, normocephalic Eye exam: PRESENT: conjunctiva pink, EOMI, PERRLA. ABSENT: scleral icterus Mouth exam: PRESENT: moist Respiratory exam: PRESENT: clear to auscultation bessy. ABSENT: rales, rhonchi, wheezes Cardiovascular exam: PRESENT: RRR. ABSENT: diastolic murmur, rubs, systolic murmur GI/Abdominal exam: PRESENT: normal bowel sounds, soft. ABSENT: distended, guarding, mass, organolmegaly, rebound, tenderness Rectal exam: PRESENT: deferred Neurological exam: PRESENT: alert, awake, oriented to person, oriented to place, oriented to time, oriented to situation Psychiatric exam: PRESENT: appropriate affect, normal mood Skin exam: PRESENT: dry, intact, warm Results Laboratory Results: WBC 7.4 10^3/uL (4.0-10.5) 01/18/20 05:03 RBC 3.47 10^6/uL (4.35-5.55) L 01/18/20 05:03 Hgb 11.4 g/dL (13.5-17.0) L 01/18/20 05:03 Hct 33.1 % (37.9-51.0) L 01/18/20 05:03 MCV 95 fl (80-97) 01/18/20 05:03 MCH 32.7 pg (27.0-33.4) 01/18/20 05:03 MCHC 34.4 g/dL (32.0-36.0) 01/18/20 05:03 RDW 15.4 % (11.5-14.0) H 01/18/20 05:03 Plt Count 136 10^3/uL (150-450) L 01/18/20 05:03 Lymph % (Auto) 7.6 % (13-45) L 01/15/20 22:10 Sheridan % (Auto) 7.5 % (3-13) 01/15/20 22:10 Eos % (Auto) 1.4 % (0-6) 01/15/20 22:10 Baso % (Auto) 2.3 % (0-2) H 01/15/20 22:10 Absolute Neuts (auto) 6.6 10^3/uL (1.7-8.2) 01/15/20 22:10 Absolute Lymphs (auto) 0.6 10^3/uL (0.5-4.7) 01/15/20 22:10 Absolute Monos (auto) 0.6 10^3/uL (0.1-1.4) 01/15/20 22:10 Absolute Eos (auto) 0.1 10^3/uL (0.0-0.6) 01/15/20 22:10 Absolute Basos (auto) 0.2 10^3/uL (0.0-0.2) 01/15/20 22:10 Seg Neutrophils % 81.2 % (42-78) H 01/15/20 22:10 VBG pH 7.31 (7.30-7.42) 01/15/20 23:00 VBG pCO2 42.0 mmHg (35-63) 01/15/20 23:00 VBG HCO3 20.6 mmol/L (20-32) 01/15/20 23:00 VBG Base Excess -5.4 mmol/L 01/15/20 23:00 Sodium 132.3 mmol/L (137-145) L 01/18/20 05:03 Potassium 4.1 mmol/L (3.6-5.0) 01/18/20 05:03 Chloride 92 mmol/L (98-107) L 01/18/20 05:03 Carbon Dioxide 28 mmol/L (22-30) 01/18/20 05:03 Anion Gap 12 (5-19) 01/18/20 05:03 BUN 56 mg/dL (7-20) H 01/18/20 05:03 Creatinine 6.69 mg/dL (0.52-1.25) H 01/18/20 05:03 Est GFR ( Amer) 11 (>60) L 01/18/20 05:03 Est GFR (Non-Af Amer) Cancelled 01/16/20 00:50 Est GFR (MDRD) Non-Af 9 (>60) L 01/18/20 05:03 Glucose 185 mg/dL (75-110) H 01/18/20 05:03 POC Glucose 132 mg/dL (70-110) H 01/18/20 08:02 Hemoglobin A1c % 9.2 % (4.7-6.0) H 01/16/20 06:02 Calcium 8.6 mg/dL (8.4-10.2) 01/18/20 05:03 Magnesium 2.3 mg/dL (1.6-2.3) 01/18/20 05:03 Total Bilirubin 1.3 mg/dL (0.2-1.3) 01/15/20 22:10 Direct Bilirubin 0.7 mg/dL (0.0-0.4) H 01/15/20 22:10 Neonat Total Bilirubin Not Reportable 01/15/20 22:10 Neonat Direct Bilirubin Not Reportable 01/15/20 22:10 Neonat Indirect Bili Not Reportable 01/15/20 22:10 AST 23 U/L (17-59) 01/15/20 22:10 ALT 16 U/L (<50) 01/15/20 22:10 Alkaline Phosphatase 115 U/L (38-126) 01/15/20 22:10 Total Protein 7.9 g/dL (6.3-8.2) 01/15/20 22:10 Albumin 4.7 g/dL (3.5-5.0) 01/15/20 22:10 Lipase 89.3 U/L (23-300) 01/15/20 22:10 EGFR Cancelled 01/16/20 00:50 Plan Time Spent: Greater than 30 Minutes Stroke Is this a Stroke Patient?: No Acute Heart Failure - Is this a Heart Failure Patient?: No
== END 2020-01-18 10:28 | disposition home or self-care (01) | DRG 637 ==
LOC: ER 21:06 → EH 01-16 05:05 → 3W 01-16 07:55
PROVIDERS: ADMIT Emergency Medicine; ATTEND Internal Medicine
PROC: 5A1D70Z Performance of Urinary Filtration, Intermittent, Less than 6 Hours Per Day (ICD-10-PCS; principal; 2020-01-17)
DX: E10.10 Type 1 diabetes mellitus with ketoacidosis without coma (principal); N18.6 End stage renal disease; I12.0 Hypertensive chronic kidney disease with stage 5 chronic kidney disease or end stage renal disease; E87.5 Hyperkalemia; E10.22 Type 1 diabetes mellitus with diabetic chronic kidney disease; Z96.41 Presence of insulin pump (external) (internal); Z99.2 Dependence on renal dialysis; Z79.4 Long term (current) use of insulin
CPT/HCPCS: 36415; 80048; 80053; 82010; 82803; 82962; 83036; 83690; 83735; 85025; 85027; 93005; 93010; 96361; 96374; 96375; 99291; J0610; J0780; J1200; J1644; J1815; J2270; J2405; J2550; J3490; J7050

== ENCOUNTER 2020-04-04 06:42 | Day surgery (SDC) | payer MEDICARE, OTHER ==
[~2020-04-04 06:42] MED LIST changes: -CHONDR SU A NA/HYALUR INTRAOC KIT (SURGICARE) ONE; -DORZOLAMIDE HCL 2%/TIMOLOL MALEAT 0.5% OPH SOLN 10 ML OS PRN; -EPINEPHRINE INJ/PF 1 MG/1 ML AMPULE ONE; +KETOROLAC TROMETHAMINE 0.45% 4 DROP/0.4 ML DROPERETTE OD PRN; -KETOROLAC TROMETHAMINE 0.45% 4 DROP/0.4 ML DROPERETTE OS PRN; -LIDOCAINE 1%/PHENYLEPHRINE 1.5% 1 ML VIAL ONE
[2020-04-04] MEDS: TROPICAMIDE 1% OPH SOLN 15 ML OD PRN ×3 (07:07→07:33)
[2020-04-04] MEDS: TETRACAINE HCL 0.5% OPH SOLN 4 ML OD PRN ×3 (07:07→07:51)
[2020-04-04] MEDS: BESIFLOXACIN HCL 0.6% OPH SUSP 5 ML BOTTLE OD PRN ×4 (07:08→08:16)
[2020-04-04] MEDS: CYCLOPENTOLATE 0.2%/PHENYLEPHRINE 1% OPH SOLN 2 ML OD PRN ×3 (07:08→07:33)
[2020-04-04] MEDS ORDERED: EPINEPHRINE INJ/PF 1 MG/1 ML AMPULE ONE (07:14)
[2020-04-04] MEDS ORDERED: LIDOCAINE 1%/PHENYLEPHRINE 1.5% 1 ML VIAL ONE (07:14)
[2020-04-04] MEDS ORDERED: CHONDR SU A NA/HYALUR INTRAOC KIT (SURGICARE) ONE (07:14)
[2020-04-04] MEDS ORDERED: ONDANSETRON HCL INJ/PF 4 MG/2 ML SDV ONE (07:26)
[2020-04-04] MEDS ORDERED: MIDAZOLAM 2 MG/2 ML INJ ONE (07:26)
[2020-04-04] MEDS ORDERED: FENTANYL CITRATE INJ/PF 100 MCG/2 ML AMPUL ONE (07:26)
[2020-04-04] MEDS: DORZOLAMIDE HCL 2%/TIMOLOL MALEAT 0.5% OPH SOLN 10 ML OD PRN ×2 (08:16)
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
== END 2020-04-04 08:50 | disposition home or self-care (01) ==
LOC: SC 06:42
PROVIDERS: ATTEND Internal Medicine
DX: H25.811 Combined forms of age-related cataract, right eye (principal); E11.3293 Type 2 diabetes mellitus with mild nonproliferative diabetic retinopathy without macular edema, bilateral; Z96.1 Presence of intraocular lens; H01.002 Unspecified blepharitis right lower eyelid; H01.005 Unspecified blepharitis left lower eyelid; H43.813 Vitreous degeneration, bilateral; I12.9 Hypertensive chronic kidney disease with stage 1 through stage 4 chronic kidney disease, or unspecified chronic kidney disease; N18.4 Chronic kidney disease, stage 4 (severe); Z99.2 Dependence on renal dialysis; Z87.891 Personal history of nicotine dependence; Z96.41 Presence of insulin pump (external) (internal); Z91.041 Radiographic dye allergy status
CPT/HCPCS: 82962; 66984; V2632; J2250; J3490 ×2; J0171; J3010; J2405; 142

== ENCOUNTER 2020-08-13 21:51 | Emergency (ER) | payer OTHER, MEDICARE ==
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
[2020-08-13 23:00] LABS: ABSOLUTE BASOPHILS # (AUTO) 0.1 10^3/uL (0.0-0.2); ABSOLUTE EOSINOPHILS # (AUTO) 0.2 10^3/uL (0.0-0.6); ABSOLUTE LYMPHOCYTES (AUTO) 0.6 10^3/uL (0.5-4.7); ABSOLUTE MONOCYTES (AUTO) 0.5 10^3/uL (0.1-1.4); ABSOLUTE NEUT (AUTO) 5.8 10^3/uL (1.7-8.2); BASOPHILS % (AUTO) 1.7 % (0-2); EOSINOPHILS % (AUTO) 2.8 % (0-6); HEMATOCRIT 34.3 % (37.9-51.0); HEMOGLOBIN 11.6 g/dL (13.5-17.0); LYMPHOCYTES % (AUTO) 8.1 % (13-45); MEAN CORPUSCULAR HGB CONC 33.7 g/dL (32.0-36.0); MEAN CORPUSCULAR VOLUME 101 fl (80-97); MONOCYTES % (AUTO) 7.2 % (3-13); PLATELET COUNT 133 10^3/uL (150-450); RED BLOOD COUNT 3.41 10^6/uL (4.35-5.55); RED CELL DISTRIBUTION WIDTH 15.8 % (11.5-14.0); SEGMENTED NEUTROPHILS % (AUTO) 80.2 % (42-78); TOTAL CELLS COUNTED % (AUTO) 100 %; WHITE BLOOD COUNT 7.2 10^3/uL (4.0-10.5)
[2020-08-13 23:15] LABS: ALBUMIN 4.1 g/dL (3.5-5.0); ALKALINE PHOSPHATASE 77 U/L (38-126); ANION GAP 19 (5-19); ASPARTATE AMINO TRANSFERASE 15 U/L (17-59); BILIRUBIN,DIRECT 0.7 mg/dL (0.0-0.4); BLOOD UREA NITROGEN 53 mg/dL (7-20); CALCIUM 9.2 mg/dL (8.4-10.2); CARBON DIOXIDE 21 mmol/L (22-30); CHLORIDE 93 mmol/L (98-107); POTASSIUM 5.8 mmol/L (3.6-5.0); TOTAL PROTEIN 6.8 g/dL (6.3-8.2)
[2020-08-13 23:29] LABS: GLUCOSE 452 mg/dL (75-110)
[2020-08-13] MEDS ORDERED: INSULIN LISPRO 100 UNIT/ML 3 ML VIAL SUBCUT ONE (23:53)
[2020-08-13] MEDS ORDERED: IBUPROFEN 400 MG TABLET PO ONE (23:54)
[2020-08-13] MEDS ORDERED: ONDANSETRON HCL INJ/PF 4 MG/2 ML SDV IV ONE (23:55)
[2020-08-13] MEDS ORDERED: SODIUM POLYSTYRENE SULFONATE 15 GM/60 ML PO ONE (23:55)
[2020-08-14 00:43] VITALS: BP 142/67
--- NOTE | 2020-08-14 01:11 | RADIOLOGY REPORT (SQ) ---
CHEST X-RAY 2 view on 08/14/2020 at 12:30 AM CLINICAL INDICATION: Back pain, question pneumothorax COMPARISON: 10/22/2019 FINDINGS: Left axillary stent is partially imaged. Cardiomegaly is noted. There is a stable right pleural effusion. There is stable likely adjacent rounded atelectasis or scarring in the right mid to lower lung. Bilateral interstitial opacities appear unchanged and may all be chronic in nature although cannot exclude mild edema. Hilar and mediastinal contours are within normal limits. There is no pneumothorax. IMPRESSION: No significant change in the appearance of the chest.
[2020-08-14 01:32] LABS: VENOUS BLOOD BASE EXCESS -2.4 mmol/L; VENOUS BLOOD HCO3 23.2 mmol/L (20-32); VENOUS BLOOD PCO2 42.7 mmHg (35-63); VENOUS BLOOD PH 7.35 (7.30-7.42)
--- NOTE | 2020-08-14 02:13 | ER Document Report ---
ED General - General Chief Complaint: High Blood Sugar Stated Complaint: BLOOD SUGAR ISSUES Time Seen by Provider: 08/13/20 22:03 Primary Care Provider: KOBE,SHERRI [Primary Care Provider] - Follow up as needed Notes: 50-year-old male history of ESRD on dialysis last dialyzed 08/12/2020 scheduled for dialysis 08/14/2020, insulin-dependent diabetes with insulin pump presents with high blood sugars after malfunction of insulin pump. Patient says that he knew sugars were getting high over the last day and then had a few episodes of vomiting so came to the ED. Patient does have backup insulin pens but did not try using these prior to presentation. Patient has mild epigastric and lateral right thoracic back pain after vomiting. Patient denies any hematemesis, lightheadedness, syncope, shortness of breath, chest pain, recent illness, fever, cough, abdominal pain, constipation, obstipation, melena, bright red bl ood per rectum TRAVEL OUTSIDE OF THE [place] IN LAST 30 DAYS: No - Related Data Allergies/Adverse Reactions: Iodinated Contrast Media Allergy (Verified 04/01/20 10:56) Past Medical History - General Information source: Patient - Social History Smoking Status: Current Some Day Smoker Frequency of alcohol use: None Family History: Reviewed & Not Pertinent, CAD, DM - Past Medical History Cardiac Medical History: Reports: Hx Hypertension Denies: Hx Atrial Fibrillation, Hx Congestive Heart Failure, Hx Coronary Artery Disease - Negative chemical stress 2 weeks ago; negative heart cath last September, Hx DVT, Hx Heart Attack, Hx Hypercholesterolemia, Hx Pulmonary Embolism Pulmonary Medical History: Denies: Hx Asthma, Hx COPD, Hx Sleep Apnea Neurological Medical History: Denies: Hx Cerebrovascular Accident, Hx Seizures Endocrine Medical History: Reports: Hx Diabetes Mellitus Type 1 - insulin pump. Denies: Hx Diabetes Mellitus Type 2, Hx Hyperthyroidism, Hx Hypothyroidism Renal/ Medical History: Reports: Hx End Stage Renal Disease, Hx Hemodialysis. Denies: Hx Peritoneal Dialysis GI Medical History: Denies: Hx Cirrhosis, Hx Gastroesophageal Reflux Disease, Hx Hepatitis, Hx Hiatal Hernia, Hx Ulcer Musculoskeletal Medical History: Reports Hx Arthritis, Denies Hx Gout Skin Medical History: Denies Hx Eczema, Denies Hx Psoriasis Psychiatric Medical History: Denies: Hx Depression Infectious Medical History: Denies: Hx Hepatitis Past Surgical History: Reports: Hx Orthopedic Surgery - r/t traumas x 2 (right leg and left shoulder), Hx Vascular Surgery - Access surgery for hemodialysis. Left upper extremity fistula.. Denies: Hx Open Heart Surgery, Hx Pacemaker - Immunizations Hx Diphtheria, Pertussis, Tetanus Vaccination: Yes Review of Systems - Review of Systems Notes: REVIEW OF SYSTEMS: CONSTITUTIONAL : Denies fever, chills, or sweats. EENT: Denies recent cold/sinus symptoms, denies throat pain CARDIOVASCULAR: Denies chest pain, GARTH RESPIRATORY: Denies cough, denies shortness of breath. GASTROINTESTINAL: Denies abdominal pain, +nausea/vomiting. GENITOURINARY: Denies difficulty urinating, painful urination. MUSCULOSKELETAL: Denies neck pain, back pain. SKIN: Denies rash or skin lesions. HEMATOLOGIC : Denies easy bruising or bleeding. LYMPHATIC: Denies swollen, enlarged glands. NEUROLOGICAL: Denies headache, denies change in gait. PSYCHIATRIC: Denies anxiety or stress or depression. Physical Exam - Vital signs Vitals: BP 144/67 H 08/13/20 23:01 - Notes Notes: PHYSICAL EXAMINATION: GENERAL: Chronically ill-appearing middle-aged man in no acute distress HEAD: Atraumatic, normocephalic. EYES: Pupils equal round and appropriate constriction, sclera anicteric, conjunctiva are normal. ENT: nares patent, moist mucous membranes. NECK: Normal range of motion, supple without lymphadenopathy LUNGS: Breath sounds clear to auscultation bilaterally and equal. No wheezes rales or rhonchi. Normal respiratory rate and effort HEART: Regular rate and rhythm without murmurs ABDOMEN: Soft, nontender, no guarding, no masses, no CVAT EXTREMITIES/BACK: Normal range of motion, no pitting or edema. No cyanosis. Mild tenderness over lateral intercostal muscles in the mid right lateral thoracic back, no midline spinal tenderness or deformity, left arm fistula with thrill NEUROLOGICAL: Awake, alert, conversing appropriately, moves all extremities spontaneously. PSYCH: Normal mood, normal affect. SKIN: Warm, Dry, normal turgor, no rashes or lesions noted. Course - Re-evaluation Re-evalutation: 08/13/20 23:55 Patient presenting with vomiting after high glucose measurements at home. On dialysis without any missed dialysis sessions. Rule out DKA, electrolyte abnormalities, pneumothorax, less likely boerhaave 08/14/20 02:16 No acute findings on chest x-ray, labs showed mild hyperkalemia which I treated with insulin and Kayexalate. Intended to repeat labs to ensure potassium was not uptrending, but patient felt significantly improved and refused to stay for additional work-up. Patient had capacity to leave AGAINST MEDICAL ADVICE and he showed that he understood the risks of doing so. Patient has follow-up later today for dialysis and is currently asymptomatic. - Vital Signs Vital signs: Temp Pulse Resp BP Pulse Ox 20 142/67 H 97 08/14/20 00:01 08/14/20 00:01 08/14/20 00:01 - Laboratory Result Diagrams: 08/13/20 22:45 08/13/20 22:45 Laboratory results interpreted by me: 08/13/20 08/13/20 22:45 22:45 RBC 3.41 L Hgb 11.6 L Hct 34.3 L MCV 101 H MCH 34.0 H RDW 15.8 H Plt Count 133 L Lymph % (Auto) 8.1 L Seg Neutrophils % 80.2 H Sodium 132.6 L Potassium 5.8 H Chloride 93 L Carbon Dioxide 21 L BUN 53 H Creatinine 7.59 H Est GFR ( Amer) 9 L Est GFR (MDRD) Non-Af 8 L Glucose 452 H* Direct Bilirubin 0.7 H AST 15 L - EKG Interpretation by Me Additional EKG results interpreted by me: 08/14/20 02:18 Sinus rhythm, no significant ST elevations or depressions, no significant T wave abnormalities,LAFB, no significant change from prior EKG Discharge - Discharge Clinical Impression: Hyperkalemia Diabetes mellitus Qualifiers: Diabetes mellitus type: other specified (including DISHA) Diabetes mellitus penitentiary insulin use: with meterman use Diabetes mellitus complication status: with hyperglycemia Qualified Code(s): E13.65 - Other specified diabetes mellitus with hyperglycemia; Z79.4 - retirement (current) use of insulin Nausea & vomiting Qualifiers: Vomiting type: unspecified Vomiting Intractability: non-intractable Qualified Code(s): R11.2 - Nausea with vomiting, unspecified Disposition: AGAINST MEDICAL ADVICE Additional Instructions: The patient has chosen to leave the facility against medical advice. The relevant issues have been reviewed and discussed with the patient and family at the bedside. At the time of this assessment there is no indication for involu ntary commitment. The patient is alert, oriented, and able to express clearly their reasoning for not wanting to remain in the emergency department for further treatment. The patient is not clinically psychotic, intoxicated, and denies and suicidal ideation. Differential or suspected diagnoses based on medical screening exam: Hyperkalemia, hyperglycemia, vomiting The patient is aware of the concerning diagnoses and acknowledges understanding of the reasons for the following recommendations: Repeat your blood work and sure that your potassium is improving The following recommendations/services were offered and refused: Repeat blood work The following risks were explained: , permanent disability, loss of function Clinical impression: Patient is competent to make decisions regarding the medical that is being offered. Follow-up today for dialysis. If you have any continued vomiting, confusion, shortness of breath, dizziness, fainting, palpitations, chest pain, or any other worsening or alarming symptoms return to the emergency department immediately. See your primary doctor within 1 week. Referrals: [facility] [Primary Care [facility]] - Follow up as needed
--- NOTE | 2020-08-14 19:05 | EKG REPORT ---
SEVERITY:- ABNORMAL ECG - SINUS RHYTHM LEFT ANTERIOR FASCICULAR BLOCK PAC : Confirmed by: Will Cochran MD 14-Aug-2020 19:03:37
== END 2020-08-14 02:21 | disposition left against medical advice (07) ==
LOC: ER 21:51
DX: E10.65 Type 1 diabetes mellitus with hyperglycemia (principal); T85.614A Breakdown (mechanical) of insulin pump, initial encounter; Y82.8 Other medical devices associated with adverse incidents; E10.22 Type 1 diabetes mellitus with diabetic chronic kidney disease; I12.0 Hypertensive chronic kidney disease with stage 5 chronic kidney disease or end stage renal disease; N18.6 End stage renal disease; Z99.2 Dependence on renal dialysis; E87.5 Hyperkalemia; I44.4 Left anterior fascicular block; R11.2 Nausea with vomiting, unspecified; F17.200 Nicotine dependence, unspecified, uncomplicated; Z79.4 Long term (current) use of insulin; Z91.041 Radiographic dye allergy status
CPT/HCPCS: 93005; 99285; 96374; 36415; 82962; 85025; 80053; 82803; 71046; 93010; J3490; J1815; J2405

== ENCOUNTER 2020-09-02 18:28 | Emergency (ER) | payer OTHER, MEDICARE ==
--- NOTE | 2020-09-02 21:19 | ER Document Report ---
ED Medical Screen (RME) - General Chief Complaint: Skin Problem Stated Complaint: PAINFUL LUMP ON NECK Time Seen by Provider: 09/02/20 21:09 Primary Care Provider: KOBE,SHERRI [Primary Care Provider] - Follow up as needed TRAVEL OUTSIDE OF THE [place] IN LAST 30 DAYS: No - HPI Notes: Patient is a 50-year-old male with a history of renal failure and diabetes who presents with dizziness and weakness that began today. Patient states he woke up feeling ill this morning and became concerned that he might have an infection of his neck. He had a mole removed from his right posterior scalp earlier this week. And today he was able to palpate a soft spot on the back of his neck and became concerned that it was "a pocket of infection". However, while patient was waiting in the ED he became dizzy and had to sit on the ground. He denies chest pain, shortness of breath, fever, and headache. He currently is on dialysis. - Related Data Allergies/Adverse Reactions: Iodinated Contrast Media Allergy (Verified 04/01/20 10:56) Home Medications: list at hosp Past Medical History - Past Medical History Cardiac Medical History: Reports: Hx Hypertension Denies: Hx Atrial Fibrillation, Hx Congestive Heart Failure, Hx Coronary Artery Disease - Negative chemical stress 2 weeks ago; negative heart cath last September, Hx DVT, Hx Heart Attack, Hx Hypercholesterolemia, Hx Pulmonary Embolism Pulmonary Medical History: Denies: Hx Asthma, Hx COPD, Hx Sleep Apnea Neurological Medical History: Denies: Hx Cerebrovascular Accident, Hx Seizures Endocrine Medical History: Reports: Hx Diabetes Mellitus Type 1 - insulin pump. Denies: Hx Diabetes Mellitus Type 2, Hx Hyperthyroidism, Hx Hypothyroidism Renal/ Medical History: Reports: Hx End Stage Renal Disease, Hx Hemodialysis. Denies: Hx Peritoneal Dialysis GI Medical History: Denies: Hx Cirrhosis, Hx Gastroesophageal Reflux Disease, Hx Hepatitis, Hx Hiatal Hernia, Hx Ulcer Musculoskeltal Medical History: Reports Hx Arthritis, Denies Hx Gout Skin Medical History: Denies Hx Eczema, Denies Hx Psoriasis Psychiatric Medical History: Denies: Hx Depression Infectious Medical History: Denies: Hx Hepatitis Past Surgical History: Reports: Hx Orthopedic Surgery - r/t traumas x 2 (right leg and left shoulder), Hx Vascular Surgery - Access surgery for hemodialysis. Left upper extremity fistula.. Denies: Hx Open Heart Surgery, Hx Pacemaker - Immunizations Hx Diphtheria, Pertussis, Tetanus Vaccination: Yes Physical Exam - Vital signs Vitals: Temp Pulse Resp BP Pulse Ox 97.9 F 67 20 170/84 H 97 09/02/20 18:34 09/02/20 18:34 09/02/20 18:34 09/02/20 18:34 09/02/20 18:34 - HEENT Head: Other - Palpable right occipital lymph node. Healing wound to the right posterior scalp with overlying scab Course - Re-evaluation Re-evalutation: I have greeted and performed a rapid initial assessment of this patient. A comprehensive ED assessment and evaluation of the patient, analysis of test results and completion of medical decision making process will be conducted by an additional ED providers. - Vital Signs Vital signs: Temp Pulse Resp BP Pulse Ox 97.9 F 67 20 134/67 H 96 09/02/20 18:34 09/02/20 20:43 09/02/20 18:34 09/02/20 20:43 09/02/20 20:43 Doctor's Discharge - Discharge Referrals: [facility] [[facility]] - Follow up as needed
[2020-09-02 22:05] LABS: ABSOLUTE BASOPHILS # (AUTO) 0.1 10^3/uL (0.0-0.2); ABSOLUTE EOSINOPHILS # (AUTO) 0.3 10^3/uL (0.0-0.6); ABSOLUTE MONOCYTES (AUTO) 0.7 10^3/uL (0.1-1.4); ABSOLUTE NEUT (AUTO) 7.1 10^3/uL (1.7-8.2); BASOPHILS % (AUTO) 1.2 % (0-2); EOSINOPHILS % (AUTO) 3.6 % (0-6); HEMATOCRIT 35.9 % (37.9-51.0); HEMOGLOBIN 12.5 g/dL (13.5-17.0); LYMPHOCYTES % (AUTO) 10.6 % (13-45); MEAN CORPUSCULAR HEMOGLOBIN 34.4 pg (27.0-33.4); MEAN CORPUSCULAR HGB CONC 34.8 g/dL (32.0-36.0); MEAN CORPUSCULAR VOLUME 99 fl (80-97); MONOCYTES % (AUTO) 8.1 % (3-13); PLATELET COUNT 144 10^3/uL (150-450); RED BLOOD COUNT 3.63 10^6/uL (4.35-5.55); RED CELL DISTRIBUTION WIDTH 15.4 % (11.5-14.0); SEGMENTED NEUTROPHILS % (AUTO) 76.5 % (42-78); TOTAL CELLS COUNTED % (AUTO) 100 %; WHITE BLOOD COUNT 9.2 10^3/uL (4.0-10.5)
[2020-09-02 22:20] LABS: ALKALINE PHOSPHATASE 64 U/L (38-126); ANION GAP 16 (5-19); ASPARTATE AMINO TRANSFERASE 20 U/L (17-59); BILIRUBIN,DIRECT 0.6 mg/dL (0.0-0.4); BILIRUBIN,TOTAL 0.9 mg/dL (0.2-1.3); BLOOD UREA NITROGEN 51 mg/dL (7-20); CALCIUM 9.4 mg/dL (8.4-10.2); CARBON DIOXIDE 24 mmol/L (22-30); CHLORIDE 94 mmol/L (98-107); GLUCOSE 146 mg/dL (75-110); POTASSIUM 5.3 mmol/L (3.6-5.0); TOTAL PROTEIN 6.9 g/dL (6.3-8.2)
[2020-09-02] MEDS ORDERED: ONDANSETRON HCL INJ/PF 4 MG/2 ML SDV IV ONE (22:54)
[2020-09-02] MEDS ORDERED: MORPHINE SULFATE 10 MG/ML INJ IV ONE (22:54)
[2020-09-02] MEDS ORDERED: DOXYCYCLINE HYCLATE 100 MG TABLET PO ONE (22:56)
--- NOTE | 2020-09-02 23:03 | ER Document Report ---
ED General - General Chief Complaint: Skin Problem Stated Complaint: PAINFUL LUMP ON NECK Time Seen by Provider: 09/02/20 21:09 Primary Care Provider: [facility] [Primary Care Provider] - Follow up as needed TRAVEL OUTSIDE OF THE [place] IN LAST 30 DAYS: No - HPI Notes: Patient is a 50-year-old male with end-stage renal disease, dialysis Wednesday, , Wednesday, who presents to the emergency department for evaluation of a lump in the back of his head and neck, as well as dizziness. He is had a mole removed last week. He states that since then he has had increased pain and swelling, noticed some "lumps" at the base of his skull, thought these could be "pockets of infection." He states today he felt chilled, nauseated, and "just not feeling well." He states he has been going to dialysis is normal, taking his medications as prescribed. He states he started feeling dizzy while waiting here in the emergency department. He states that the world is not spinning. He denies any difficulty seeing, speaking, swallowing. He is moving his arms and legs without difficulty. He denies any coughing. No chest pain or shortness of breath. Patient notes that he has a history of a staph infection, he is unsure as to whether or not it was MRSA. It was on his back. He had extensive soft tissue loss secondary to this infection, and became concerned. - Related Data Allergies/Adverse Reactions: Iodinated Contrast Media Allergy (Verified 04/01/20 10:56) Home Medications: List reviewed with patient Past Medical History - General Information source: Patient - Social History Smoking Status: Current Some Day Smoker Family History: Reviewed & Not Pertinent, CAD, DM - Past Medical History Cardiac Medical History: Reports: Hx Hypertension Denies: Hx Atrial Fibrillation, Hx Congestive Heart Failure, Hx Coronary Artery Disease - Negative chemical stress; negative heart cath last September, Hx DVT, Hx Heart Attack, Hx Hypercholesterolemia, Hx Pulmonary Embolism Pulmonary Medical History: Denies: Hx Asthma, Hx COPD, Hx Sleep Apnea Neurological Medical History: Denies: Hx Cerebrovascular Accident, Hx Seizures Endocrine Medical History: Reports: Hx Diabetes Mellitus Type 1 - insulin pump. Denies: Hx Diabetes Mellitus Type 2, Hx Hyperthyroidism, Hx Hypothyroidism Renal/ Medical History: Reports: Hx End Stage Renal Disease, Hx Hemodialysis. Denies: Hx Peritoneal Dialysis GI Medical History: Denies: Hx Cirrhosis, Hx Gastroesophageal Reflux Disease, Hx Hepatitis, Hx Hiatal Hernia, Hx Ulcer Musculoskeletal Medical History: Reports Hx Arthritis, Denies Hx Gout Skin Medical History: Denies Hx Eczema, Denies Hx Psoriasis Psychiatric Medical History: Denies: Hx Depression Infectious Medical History: Denies: Hx Hepatitis Past Surgical History: Reports: Hx Orthopedic Surgery - r/t traumas x 2 (right leg and left shoulder), Hx Vascular Surgery - Access surgery for hemodialysis. Left upper extremity fistula.. Denies: Hx Open Heart Surgery, Hx Pacemaker - Immunizations Hx Diphtheria, Pertussis, Tetanus Vaccination: Yes Review of Systems - Review of Systems Constitutional: See HPI EENT: No symptoms reported Cardiovascular: No symptoms reported Respiratory: No symptoms reported Gastrointestinal: See HPI Genitourinary: No symptoms reported Musculoskeletal: No symptoms reported Skin: See HPI Neurological/Psychological: See HPI -: Yes All other systems reviewed and negative Physical Exam - Vital signs Vitals: Temp Pulse Resp BP Pulse Ox 97.9 F 67 20 170/84 H 97 09/02/20 18:34 09/02/20 18:34 09/02/20 18:34 09/02/20 18:34 09/02/20 18:34 - Notes Notes: There is a 50-year-old male who appears his stated age, no acute distress. Vital signs reviewed, please refer to chart. Head is normocephalic, atraumatic. He has a healing wound on his right parieto-occipital scalp consistent with recent mole removal. Inferior to this, at the base of the occiput, R occipital/posterior auricular lymph nodes, swollen and tender, without any overlying skin changes. They are mobile but markedly tender. Pupils equal round, reactive to light. Neck is supple without meningismus. Heart is regular rate and rhythm. Lungs are clear to auscultation bilaterally. Abdomen is soft, nontender, normoactive bowel sounds throughout. Extremities without cyanosis, clubbing. AV fistula with palpable thrill left upper arm. Posterior calves are nontender. Peripheral pulses are equal. Skin is warm and dry. Patient is awake, alert, oriented x3. Cranial nerves II - XII are grossly intact without focal neurological deficits. Strength is plus 5 out of 5 bilateral upper and lower extremities. Sensation is intact. Reflexes symmetrical. Intact [id number], rapid alternating movements, [id number]. Course - Re-evaluation Re-evalutation: 09/02/20 23:01 Patient presents to the emergency department for evaluation. He has palpable lymphadenopathy inferior to the wound from surgical excision of a nevus. He became dizzy and felt weak, nauseated while here. He has not had any emesis. His neurological exam is unremarkable. He is not showing me any other overwhelming signs of infection besides his lymphadenopathy, but given his multiple medical issues as well as the marked lymphadenopathy, I am inclined to treat this as a cellulitis/lymphadenitis. He is given a dose of doxycycline, which should cover MRSA and other staff. I will send him home with a prescription for same. He is given pain medicine and nausea medication. His EKG is moderately elevated, but this is not surprising in end-stage renal disease patient. It is actually lower than it has been in some time. He is due for dialysis tomorrow. I explained to him that his potassium was very mildly elevated, again not surprising in a dialysis patient, but it is important that he receive his dialysis is scheduled tomorrow. He voiced understanding. Otherw ise he is to follow-up with his primary care provider next week. Take antibiotics as prescribed. Return to the emergency department with worsening or new concerning symptoms of any sort. - Vital Signs Vital signs: Temp Pulse Resp BP Pulse Ox 98.4 F 88 14 110/74 99 09/02/20 23:31 09/02/20 23:31 09/02/20 23:31 09/02/20 23:31 09/02/20 23:31 - Laboratory Result Diagrams: 09/02/20 21:55 09/02/20 21:55 Laboratory results interpreted by me: 09/02/20 09/02/20 21:55 21:55 RBC 3.63 L Hgb 12.5 L Hct 35.9 L MCV 99 H MCH 34.4 H RDW 15.4 H Plt Count 144 L Lymph % (Auto) 10.6 L Sodium 133.6 L Potassium 5.3 H Chloride 94 L BUN 51 H Creatinine 7.11 H Est GFR ( Amer) 10 L Est GFR (MDRD) Non-Af 8 L Glucose 146 H Direct Bilirubin 0.6 H - EKG Interpretation by Me Additional EKG results interpreted by me: 09/02/20 23:03 Sinus mechanism with a rate of 66 bpm. Significant baseline artifact noted in multiple leads. Left axis deviation. Mild IVCD. LAFB. Borderline QT interval prolongation. No acute ST elevation concerning for infarction. With the exception of QT interval, no significant change when compared to prior study of 08/13/2020. Discharge - Discharge Clinical Impression: Dizziness, Lymphadenopathy of head and neck region Cellulitis Qualifiers: Site of cellulitis: head Qualified Code(s): L03.811 - Cellulitis of head [any part, except face] Condition: Stable Disposition: HOME, SELF-CARE Instructions: Cellulitis ([facility]), Lymphadenopathy ([facility]) Additional Instructions: You are being treated for possible infection from your surgical site. Please take antibiotics as prescribed. Follow-up with your primary care provider next week. If you develop worsening swelling, increased pain, vomiting, or any other new or concerning symptoms, please return immediately to the emergency department for evaluation. Prescriptions: Doxycycline Hyclate 100 mg PO BID #14 tablet. Referrals: [facility] [[facility]] - Follow up as needed
[2020-09-02 23:33] VITALS: BP 110/74
--- NOTE | 2020-09-03 07:39 | EKG REPORT ---
SEVERITY:- ABNORMAL ECG - SINUS RHYTHM LEFT ATRIAL ABNORMALITY LEFT ANTERIOR FASCICULAR BLOCK LEFT VENTRICULAR HYPERTROPHY ABNORMAL T, CONSIDER ISCHEMIA, LATERAL LEADS BORDERLINE PROLONGED QT INTERVAL : Confirmed by: Joe James MD 03-Sep-2020 07:37:44
== END 2020-09-02 23:27 | disposition home or self-care (01) ==
LOC: ER 18:28
DX: L03.811 Cellulitis of head [any part, except face] (principal); R42 Dizziness and giddiness; R59.1 Generalized enlarged lymph nodes; R53.1 Weakness; R11.0 Nausea; I44.4 Left anterior fascicular block; I45.9 Conduction disorder, unspecified; I12.0 Hypertensive chronic kidney disease with stage 5 chronic kidney disease or end stage renal disease; E11.22 Type 2 diabetes mellitus with diabetic chronic kidney disease; N18.6 End stage renal disease; Z99.2 Dependence on renal dialysis; F17.200 Nicotine dependence, unspecified, uncomplicated; Z98.890 Other specified postprocedural states; Z91.041 Radiographic dye allergy status
CPT/HCPCS: 93005; 99284; 96374; 96375; 36415; 85025; 80053; 84484; 93010; J2270; J2405